=== PATIENT | male | born 1955 | race Hispanic/Latino ===

== ENCOUNTER → 2021-12-02 | Outpatient (CLI) | payer OTHER ==
[~2021-12-02] MED LIST: ASPI-1005 PO; CARB-38 PO; CYAN-35 PO; DOCU100C33 PO; EMPA25TA PO; HYDR-4068 PO; INSU100V12 SQ; ISOS60TA77 PO; LISI20TA24 PO; MEMA10TA55 PO; METF-446 PO; PARO40TA72 PO; REGADENOSON 0.4 MG/5 ML PF SYG IVP SCH
== END | disposition home or self-care (01) ==
LOC: SHCH 08:11
PROVIDERS: ATTEND Student in an Organized Health Care Education/Training Program
DX: R07.9 Chest pain, unspecified (principal)
CPT/HCPCS: 78452; 93017; 96374; A9500 ×2; J2785

== ENCOUNTER → 2022-01-15 | Outpatient (CLI) | payer OTHER ==
[~2022-01-15] MED LIST changes: +IOHEXOL 350 MG/ML 100ML INFUS..BTL IV ONE; +METOPROLOL TARTRATE 1 MG/ML 5ML VIAL IV ONE; -REGADENOSON 0.4 MG/5 ML PF SYG IVP SCH
== END | disposition home or self-care (01) ==
LOC: RAH 07:24
PROVIDERS: ATTEND Student in an Organized Health Care Education/Training Program
DX: I73.9 Peripheral vascular disease, unspecified (principal)
CPT/HCPCS: 75574; Q9967; J3490

== ENCOUNTER 2022-02-10 05:52 | Day surgery (SDC) | payer OTHER ==
[2022-02-06 14:00] VITALS: BP 115/50
[2022-02-06 15:32] LABS: BASOPHILS % (AUTO) 0.9 % (0.0-5.0); EOSINOPHILS % (AUTO) 3.5 % (0.0-8.0); HEMATOCRIT 41.1 % (42-54); LYMPHOCYTES % (AUTO) 23.4 % (21.0-51.0); MEAN CORPUSCULAR HEMOGLOBIN 28.7 pg (27.0-33.0); MEAN CORPUSCULAR HGB CONC 32.4 g/dL (32.0-36.0); MEAN CORPUSCULAR VOLUME 88.8 fL (79-99); MONOCYTES % (AUTO) 8.8 % (3.0-13.0); NEUTROPHILS % (AUTO) 63.2 % (40.0-77.0); PLATELET COUNT (AUTO) 295 K/uL (130-400); RED BLOOD CELL COUNT(AUTO) 4.63 MIL/uL (4.50-6.20); RED CELL DISTRIBUTION WIDTH 13.8 % (11.0-15.5); WHITE BLOOD COUNT (AUTO) 8.6 K/uL (4.8-10.8)
[2022-02-06 15:35] LABS: APPEARANCE,URINE CLEAR (CLEAR); BILIRUBIN,URINE SMALL (NEGATIVE); COLOR,URINE YELLOW (YELLOW); GLUCOSE, URINE (UA) 500 mg/dL (NEGATIVE); KETONES,URINE 5 mg/dL (NEGATIVE); LEUKOCYTE ESTERASE ,URINE NEGATIVE (NEGATIVE); NITRATE,URINE NEGATIVE (NEGATIVE); OCCULT BLOOD,URINE NEGATIVE (NEGATIVE); PROTEIN,URINE 100 mg/dL (NEGATIVE); UROBILINOGEN,URINE 0.2 mg/dL (0.2-1.0)
[2022-02-06 15:39] LABS: CREATININE 1.9 mg/dL (0.5-1.5)
[2022-02-06 15:41] LABS: INR 0.98 (0.85-1.15); PROTHROMBIN TIME 10.7 SEC (9.6-11.6)
[2022-02-06 15:43] LABS: PARTIAL THROMBOPLASTIN TIME 27.6 SEC (26.3-35.5)
[2022-02-06 15:45] LABS: POTASSIUM 6.6 mmol/L (3.5-5.1)
[2022-02-06 16:12] LABS: FINE GRANULAR CASTS,URINE 0-2 /LPF (None Seen)
[2022-02-06 16:14] LABS: MUCUS,URINE Few LPF (None Seen)
[2022-02-06 16:15] LABS: BACTERIA,URINE Few /HPF (None Seen)
[2022-02-10] VITALS (12 sets, daily range): BP systolic 121–153; BP diastolic 52–88
[~2022-02-10] VITALS: Ht 170.2 cm; Wt 74.4 kg
[~2022-02-10 05:52] MED LIST changes: -IOHEXOL 350 MG/ML 100ML INFUS..BTL IV ONE; -METOPROLOL TARTRATE 1 MG/ML 5ML VIAL IV ONE
[2022-02-10] MEDS ORDERED: 0.9%NACL 1000ML 1,000 ML IV ONE (06:12)
[2022-02-10 06:21] LABS: CREATININE 1.2 mg/dL (0.5-1.5); POTASSIUM 5.7 mmol/L (3.5-5.1)
[2022-02-10] MEDS ORDERED: NITROGLYCERIN 50MG VIAL ONE (07:08)
[2022-02-10] MEDS ORDERED: LIDOCAINE HCL 400MG/20ML VIAL ONE (07:08)
[2022-02-10] MEDS ORDERED: IODIXANOL 320 MG/ML 100 ML VIAL ONE (07:08)
[2022-02-10] MEDS ORDERED: HEPARIN 10,000 UNIT/10ML (1,000 UNIT/ML) VIAL ONE (07:08)
[2022-02-10] MEDS ORDERED: METO100T14 PO (07:17)
[2022-02-10] MEDS ORDERED: ESCI20TA38 PO ×2 (07:17)
[2022-02-10] MEDS ORDERED: TAMS-1 PO (07:17)
[2022-02-10] MEDS ORDERED: FURO20TA4 PO (07:17)
[2022-02-10] MEDS ORDERED: HYDR-4154 PO (07:17)
[2022-02-10] MEDS ORDERED: CLOP75TA32 PO ×2 (07:17→09:57)
[2022-02-10] MEDS ORDERED: POTA10CA44 PO (07:17)
[2022-02-10] MEDS ORDERED: NITR0.4T50 SL (07:17)
[2022-02-10] MEDS ORDERED: ATOR-2 PO (07:17)
[2022-02-10] MEDS ORDERED: AMLO2.5T4 PO (07:17)
[2022-02-10] MEDS ORDERED: FENTANYL CITRATE PF 50 MCG/1 ML 2ML VIAL ONE (07:39)
[2022-02-10] MEDS ORDERED: MIDAZOLAM HCL 1 MG/ML 2ML VIAL ONE ×2 (07:39→08:34)
[2022-02-10] MEDS ORDERED: HYDRALAZINE 20MG/ML VIAL ONE (07:45)
[2022-02-10] MEDS ORDERED: ASPIRIN 325MG EC TAB PO ONE (09:08)
[2022-02-10] MEDS ORDERED: CLOPIDOGREL 300MG TAB ONE (09:09)
[2022-02-10] MEDS ORDERED: ASPI-1005 PO (09:57)
[2022-02-10] MEDS ORDERED: 0.9%NACL 1000ML 1,000 ML IV SCH (10:00)
[2022-02-11] MEDS ORDERED: ASPIRIN 81MG CHEW TAB PO SCH (09:00)
[2022-02-11] MEDS ORDERED: CLOPIDOGREL 75MG TAB PO SCH (09:00)
== END 2022-02-10 15:50 | disposition home or self-care (01) ==
LOC: DAH 05:52
PROVIDERS: ATTEND Student in an Organized Health Care Education/Training Program
DX: I70.248 Atherosclerosis of native arteries of left leg with ulceration of other part of lower leg (principal); I70.92 Chronic total occlusion of artery of the extremities; E11.51 Type 2 diabetes mellitus with diabetic peripheral angiopathy without gangrene; I10 Essential (primary) hypertension; E78.5 Hyperlipidemia, unspecified; I25.10 Atherosclerotic heart disease of native coronary artery without angina pectoris; Z87.891 Personal history of nicotine dependence; Z95.5 Presence of coronary angioplasty implant and graft; Z79.82 Long term (current) use of aspirin; Z82.49 Family history of ischemic heart disease and other diseases of the circulatory system; Z79.01 Long term (current) use of anticoagulants
CPT/HCPCS: 80048 ×2; 85025; 85610; 85730; 81001; 36415 ×2; 71045; 93005; 37228; 75716; 37224; 37232; 85347; 82948 ×2; C1894 ×2; C1760; C1893; C2623; C1725 ×2; C1769 ×2; J3010; J3490; J7030; J0360; J1644 ×2; J2250 ×2; Q9967; A4215; A4222; A4221; A4663; A4216; A4606; A4223 ×3; 75710; 96360; 96361; 99156; 99157

== ENCOUNTER → 2024-05-02 | Outpatient (CLI) | payer OTHER ==
[~2024-05-02] MED LIST changes: +AEC81 PO; -ASPI-1005 PO; +ATOR-2 PO; -CARB-38 PO; +CLOP75TA32 PO; +ESCI20TA38 PO; +FURO20TA4 PO; -HYDR-4068 PO; +HYDR50TA37 PO; +INSU100I22 SQ; -INSU100V12 SQ; +ISOS30TA92 PO; -ISOS60TA77 PO; -LISI20TA24 PO; +LISI40TA9 PO; +MEMA10TA21 PO; -MEMA10TA55 PO; +METO100T14 PO; +NITR0.4T50 SL; -PARO40TA72 PO; +TAMS-1 PO; +mvi PO
== END | disposition home or self-care (01) ==
LOC: RAH 15:17
PROVIDERS: ATTEND Student in an Organized Health Care Education/Training Program
DX: S09.90XA Unspecified injury of head, initial encounter (principal); X58.XXXA Exposure to other specified factors, initial encounter; Y93.89 Activity, other specified; Y92.89 Other specified places as the place of occurrence of the external cause; Y99.8 Other external cause status
CPT/HCPCS: 70450

== ENCOUNTER 2024-06-07 10:49 | Observation (INO) | payer OTHER ==
[~2024-06-07] VITALS: Ht 170.2 cm; Wt 61.6 kg
--- NOTE | 2024-06-07 11:01 | ERN ---
General Chief Complaint: Chest Pain Stated Complaint: CHEST PAIN, SENT BY DR MURPHY Time Seen by MD: 10:53 Time Seen by Midlevel: 10:53 Source: patient History of Present Illness Initial Comments 69-year-old male who presents to the ED due to chest pain onset today. Patient referred to the ED by PCP Dr. Wing from the OR office. Power Line Installer And Repairer is Dr. Marina stuart. Denies any fever, shortness of breath, radiating pain or further associated symptoms. PMHx CABG 20 years ago, HTN, DM Allergies: Coded Allergies: iodine (Unverified Allergy, Unknown, 09/03/22) Home Meds Active Scripts Clopidogrel Bisulfate (Clopidogrel) 75 Mg Tablet, 75 MG PO HS, #90 TAB Prov:PEARL KNOTT MD 02/10/22 Reported Medications Aspirin (ASPIRIN 81 MG ECTAB) 81 Mg Ectab, 81 MG PO HS, TAB.EC 09/05/22 Hydralazine HCl (Hydralazine HCl) 50 Mg Tablet, 50 MG PO BID, TAB 09/05/22 Empagliflozin (Jardiance) 25 Mg Tablet, 12.5 MG PO AM, TAB 09/03/22 Insulin Detemir (Levemir Flextouch) 100 Unit/1 Ml Insuln.pen, 25 UNIT SQ AM, SYRINGE 09/03/22 Insulin Detemir (Levemir Flextouch) 100 Unit/1 Ml Insuln.pen, 10 UNIT SQ HS, S YRINGE 09/03/22 [mvi] No Conflict Check, 1 TAB PO DAILY 09/03/22 Escitalopram Oxalate (Escitalopram Oxalate) 20 Mg Tablet, 20 MG PO AM, TAB 09/03/22 Isosorbide Mononitrate (Isosorbide Mononitrate ER) 30 Mg Tab.er.24h, 30 MG PO AM, TAB 09/03/22 Lisinopril (Lisinopril) 40 Mg Tablet, 20 MG PO HS, TAB 09/03/22 Atorvastatin Calcium (Atorvastatin Calcium) 80 Mg Tablet, 40 MG PO HS, TAB 09/03/22 Nitroglycerin (Nitroglycerin) 0.4 Mg Tab.subl, 0.4 MG SL AD PRN for CHEST PAIN, TAB.SL 02/10/22 Metoprolol Tartrate (Metoprolol Tartrate) 100 Mg Tablet, 50 MG PO BID, TAB METOPROLOL TARTRATE 50MG TWICE A DAY. METOPROLOL HAS BEEN DECREASED FROM 100MG TO 50MG. 02/10/22 Tamsulosin HCl (Flomax) 0.4 Mg Cap.er.24h, 0.4 MG PO HS, CAPSULE.DR 02/10/22 Furosemide (Furosemide) 20 Mg Tablet, 20 MG PO AM, TAB 02/10/22 Docusate Sodium (Docusate Sodium) 100 Mg Capsule, 100 MG PO HS, CAP 11/07/20 Cyanocobalamin (Vitamin B-12) (Vitamin B-12) 1,000 Mcg Capsule, 1000 MCG PO DAILY, CAP 11/07/20 Metformin HCl (Metformin HCl) 1,000 Mg Tablet, 1000 MG PO BIDMEALS, TAB 11/07/20 Memantine HCl (Memantine HCl) 10 Mg Tablet, 10 MG PO HS, TAB 11/07/20 Past Medical History Past Medical History: Diabetes-Type II, Hypertension ROS Dictation Constitutional: Negative for fever,chills, and weight loss Eyes: Negative for injury, pain,redness, and discharge ENT: Negative for injury,pain or swelling Cardiovascular: Positive for chest pain Negative for palpitations, and edema Respiratory: Negative for shortness of breath, cough, and wheezing Abdomen/GI: Negative for abdominal pain, nausea, vomiting, diarrhea, and constipation Back: Negative for injury and pain : Negative for painful urination, bleeding or discharge MS/Extremity: Negative for injury and deformity Skin: Negative for rash, and discoloration Neuro: Negative for headache, weakness, numbness, tingling, and seizure Psych: Negative for suicide ideation, homicidal ideation, and hallucinations Physical Exam Physical Exam Dictation General: awake, alert, no acute distress Head/Face: Normocephalic, atraumatic Eyes: normal conjunctiva ENT: oral cavity clear, oral mucosa moist Neck: Normal range of motion, supple Cardiovascular: RRR, normal S1/S2 Respiratory: CTAB, no respiratory distress, no rales or wheezes Chest: Pain reproducible on palpation Abdomen: Soft, non-tender, non-distended, no guarding or rebound. Skin: Warm, dry, normal turgor, no rash MS/Extremity: Pulses equal, no cyanosis, neurovascular intact, FROM Neuro: COAx4, GCS 15, no neurological deficits, normal gait Psych: Normal behavior, mood, and affect normal Results Laboratory and Microbiology Lab and Micro Result Laboratory Tests Test 06/07/24 11:18 White Blood Count 8.6 K/uL (4.8-10.8) Red Blood Count 4.72 MIL/uL (4.50-6.20) Hemoglobin 14.0 g/dL (14.0-18.0) Hematocrit 42.3 % (42-54) Mean Corpuscular Volume 89.6 fL (79-99) Mean Corpuscular Hemoglobin 29.7 pg (27.0-33.0) Mean Corpuscular Hemoglobin Concent 33.1 g/dL (32.0-36.0) Red Cell Distribution Width 13.2 % (11.0-15.5) Platelet Count 292 K/uL (130-400) Mean Platelet Volume 10.0 fL (7.5-10.5) Immature Granulocyte % (Auto) 0.2 % (0-1) Neutrophils (%) (Auto) 71.3 % (40.0-77.0) Lymphocytes (%) (Auto) 16.7 % (21.0-51.0) L Monocytes (%) (Auto) 9.0 % (3.0-13.0) Eosinophils (%) (Auto) 2.2 % (0.0-8.0) Basophils (%) (Auto) 0.6 % (0.0-5.0) Neutrophils # (Auto) 6.1 K/uL (1.8-7.7) Lymphocytes # (Auto) 1.4 K/uL (1.0-4.8) Monocytes # (Auto) 0.8 K/uL (0.1-1.0) Eosinophils # (Auto) 0.19 K/uL (0.00-0.70) Basophils # (Auto) 0.05 K/uL (0.00-0.20) Absolute Immature Granulocyte (auto 0.02 K/uL (0-1) Nucleated Red Blood Cells 0.0 % (0.0-0.19) Sodium Level 134 mmol/L (136-145) L Potassium Level 4.2 mmol/L (3.5-5.1) Chloride Level 100 mmol/L (101-111) L Carbon Dioxide Level 27 mmol/L (21-32) Blood Urea Nitrogen 35 mg/dL (7-18) H Creatinine 1.4 mg/dL (0.5-1.3) H Glomerular Filtration Rate Calc 54 mL/min (>90) Random Glucose 168 mg/dL (70-105) H Total Calcium 8.9 mg/dL (8.5-10.1) Total Creatine Kinase 199 U/L (21-232) Troponin I High Sensitivity 5 ng/L (4-75) Labs Reviewed?: Yes EKG/XRAY/US/CT/MRI EKG Comment Date: 06/07/24 Time: 11:01 Rate: 72 EKG interpretation: Sinus rhythm, left axis deviation, no STEMI Reviewed by ED Attending X-RAY Comment REASON: Chest Pain ORDERING PHYSICIAN: PATRICIA SALVADOR PROCEDURE: CXR1VW - CHEST 1VW CHEST 1VW HISTORY: Chest pain COMPARISON: 09/03/2022 FINDINGS: A frontal projection of the chest was obtained. No acute pulmonary infiltrates is seen. Poststernotomy changes are seen. The heart is enlarged. Degenerative changes of the thoracolumbar spine are present. No evidence of aortic calcification is seen. IMPRESSION: 1. No acute pulmonary infiltrate is seen. MDM MDM: Differential diagnosis: ME, atypical chest pain, musculoskeletal chest pain Rationale: 69-year-old male who presents to the ED due to chest pain onset today. Patient [facility] Power Line Installer And Repairer is Dr. Fermin. Denies any fever, shortness of breath, radiating pain or further associated symptoms. PMHx CABG 20 years ago, HTN, DM. Labs ob tained indicate elevated BUN and creatinine consistent with chronic kidney disease, troponin negative. Chest x-ray indicates cardiomegaly otherwise unremarkable. Heart score of 4 Based on patient's heart score and history decision for admission. The patient was educated on findings and diagnosis. The patient agreed with admission. Case discussed with hospitalist who accepted admission. Previous outside records reviewed: Old ER visits. Risk of complication and/or morbidity or mortality of patient management: None Medications-Per medication reconciliation Need for hospitalization: Patient does meet criteria for hospitalization. Need for emergency major/minor surgery: No There are no social concerns with this patient. Prescription drug management Prescriptions will include symptomatic care Patient's prior external medical records from other ER visits were reviewed by me as indicated. Prior testing and results from previous visits were reviewed. Prior tests were taken into account with medical decision making and resource utilization, independent historian/historians were used to obtain complete medical history. I independently interpreted the test that were performed, results were reviewed by me and considered findings on radiology if ordered. Medical management and examination interpretation discussions were had by me with other qualified healthcare professionals as indicated for the patient's care. ED Course Orders Procedure Category Date Status Time Cbc With Differential LAB 06/07/24 Complete 10:53 Basic Metabolic Panel LAB 06/07/24 Complete 10:53 Troponin I High LAB 06/07/24 Complete Sensitivity 10:53 12 Lead Ekg Tracing- EKG 06/07/24 Complete Technical 10:53 Chest 1vw RAD 06/07/24 Resulted 10:53 Creatine Kinase, Total LAB 06/07/24 Complete 11:03 Vital Signs Date Time Temp Pulse Resp B/P (MAP) Pulse Ox O2 Delivery O2 Flow Rate FiO2 06/07/24 10:57 98.1 76 16 126/65 0 Room Air 0 HEART Score Response (Comments) Value History: Low suspicion (0) 0 EKG: Normal 0 Age: > 65yrs (+2) 2 Risk Factors: 3+ risk factors (+2) 2 Initial Troponin: Normal limit (0) 0 Total 4 Critical Care Note Critical Time: 30 minutes Comments Critical Care Procedure Note Authorized and Performed by: me Total critical care time: Approximately 36 minutes Due to a high probability of clinically significant, life threatening deterioration, the patient required my highest level of preparedness to intervene emergently and I personally spent this critical care time directly and personally managing the patient. This critical care time included obtaining a history; examining the patient; pulse oximetry; ordering and review of studies; arranging urgent treatment with development of a management plan; evaluation of patient's response to treatment; frequent reassessment; and, discussions with other providers. This critical care time was performed to assess and manage the high probability of imminent, life-threatening deterioration that could result in multi-organ failure. It was exclusive of separately billable procedures and treating other patients and teaching time. Please see MDM section and the rest of the note for further information on patient assessment and treatment. DX & DISP Disposition: Inpatient Decision to Admit Date: Jun 07, 2024 Departure Impression: Primary Impression: Chest pain Additional Impression: CKD (chronic kidney disease) Condition: Stable Referrals: TANJA DAN MD (PCP) I participated in the following activities of this patient's care: For this patient encounter, I reviewed the PA or CLEANER FURNITURE documentation, treatment plan, and medical decision making. I did not have [id number] time with this patient. I will sign as the reviewing DrIsaac And agree with the treatment plan and dispositi on. PATRICIA SALVADOR Jun 07, 2024 11:01
--- NOTE | 2024-06-07 11:09 | EKG ---
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
[2024-06-07 11:38] LABS: BASOPHILS # (AUTO) 0.05 K/uL (0.00-0.20); BASOPHILS % (AUTO) 0.6 % (0.0-5.0); EOSINOPHILS # (AUTO) 0.19 K/uL (0.00-0.70); EOSINOPHILS % (AUTO) 2.2 % (0.0-8.0); HEMATOCRIT 42.3 % (42-54); IMMATURE GRANULOCYTE ABSOLUTE 0.02 K/uL (0-1); LYMPHOCYTES # (AUTO) 1.4 K/uL (1.0-4.8); LYMPHOCYTES % (AUTO) 16.7 % (21.0-51.0); MEAN CORPUSCULAR HEMOGLOBIN 29.7 pg (27.0-33.0); MEAN CORPUSCULAR HGB CONC 33.1 g/dL (32.0-36.0); MEAN CORPUSCULAR VOLUME 89.6 fL (79-99); MONOCYTES # (AUTO) 0.8 K/uL (0.1-1.0); NEUTROPHILS # (AUTO) 6.1 K/uL (1.8-7.7); NEUTROPHILS % (AUTO) 71.3 % (40.0-77.0); PLATELET COUNT (AUTO) 292 K/uL (130-400); RED BLOOD CELL COUNT(AUTO) 4.72 MIL/uL (4.50-6.20); RED CELL DISTRIBUTION WIDTH 13.2 % (11.0-15.5); WHITE BLOOD COUNT (AUTO) 8.6 K/uL (4.8-10.8)
[2024-06-07 11:45] LABS: CREATININE 1.4 mg/dL (0.5-1.3); POTASSIUM 4.2 mmol/L (3.5-5.1)
--- NOTE | 2024-06-07 12:03 | HMCIMG ---
CHEST 1VW HISTORY: Chest pain COMPARISON: 09/03/2022 FINDINGS: A frontal projection of the chest was obtained. No acute pulmonary infiltrates is seen. Poststernotomy changes are seen. The heart is enlarged. Degenerative changes of the thoracolumbar spine are present. No evidence of aortic calcification is seen. IMPRESSION: 1. No acute pulmonary infiltrate is seen.
[2024-06-07] MEDS: ketOROlac 15MG/ML VIAL (15MG/ML) IV ONE (14:30)
[2024-06-07] MEDS ORDERED: NITROGLYCERIN 0.4 MG SL TAB SL PRN (15:00)
[2024-06-07] MEDS ORDERED: acetaMINOPHEN 325 MG TAB PO PRN ×2 (15:00)
[2024-06-07] MEDS ORDERED: ondanSETRON 4MG INJ IVP PRN (15:00)
--- NOTE | 2024-06-07 15:04 | HP ---
[facility] Date of Service: Jun 07, 2024 Time of Service: 14:38 HISTORY OF PRESENT ILLNESS: [69-year-old male with past medical history of coronary artery disease with CABG 20 years ago, hypertension, diabetes mellitus who presented to the emergency department with three day complaints of chest pain. According to the patient chest pain continues, he did not take any medication for pain. Pain is located in the left substernal area associated with shortness of breaths. Patient described pain as a stabbing pain rating at a 8/10 from the pain scale. In the ED, labs reviewed, troponin I unremarkable, sodium 134, chloride 100, BUN 35, creatinine 1.4, random glucose 168, chest x-ray no acute pulmonary infiltrate seen. Twelve lead EKG showed sinus rhythm heart rate 72. Patient was referred to the hospitalist for cardiac workup.] REVIEW OF SYSTEMS CONSTITUTIONAL: Denies fevers, chills, or night sweats. No unintentional weight loss reported. NEUROLOGICAL: Denies headache, amaurosis fugax, motor weakness, sensory deficit, vertigo/spinning sensation, gait abnormalities, or tremors. ENT: No hearing loss, otalgia, otorrhea, rhinitis, rhinorrhea, hoarseness, or sore throat. CARDIOVASCULAR: Denies any exertional angina, dyspnea on exertion, orthopnea, paroxysmal nocturnal dyspnea, palpitations, life-threatening arrhythmias, claudication. PULMONARY: Denies any shortness of breath, cough, phlegm/sputum, hemoptysis, pleuritic chest pain. SLEEP: Denies morning headaches, daytime somnolence or napping. Denies difficulty falling asleep, staying asleep, waking from sleep. Denies knowledge of snoring. GASTROINTESTINAL: Denies any type of dysphagia to either liquids or solids. Denies nausea, vomiting, pyrosis, early satiety, abdominal pain, diarrhea, constipation, or changes in stool consistency or caliber. Denies coffee-ground emesis, hematemesis, hematochezia, or melanotic stools. GENITOURINARY: Denies frequency, urgency, nocturia, hematuria or incontinence (Storage/Irritative symptoms.) Low urinary stream, straining to void, urinary intermittency or hesitancy, splitting of the voiding stream, terminal dribbling. ENDOCRINOLOGIC: Denies polyuria, polydipsia, polyphagia or heat/cold intolerances. HEMATOLOGIC: Denies thrombophilia/previous clots, or coagulopathy/bleeding disorders. ONCOLOGIC: Denies personal history of malignancy. DERMATOLOGIC: Denies rashes or pruritus. PSYCHIATRIC: Denies any suicidal or homicidal ideation. Denies hallucinations. PAST MEDICAL HISTORY: [CAD, diabetes mellitus, hypertension ] PAST SURGICAL HISTORY: [ Right BKA, neck surgery ] PAST SOCIAL HISTORY: [Denies tobacco, alcohol or illicit drug use ] FAMILY HISTORY: [Hypertension diabetes mellitus ] Coded Allergies: iodine (Unverified Allergy, Unknown, 09/03/22) PHYSICAL EXAM GENERAL APPEARANCE: The patient is awake, alert, and oriented, in no acute cardiopulmonary distress. NEUROLOGICAL: Cranial nerves II-XII grossly intact. Motor is 5/5 in bilateral upper and lower extremities proximal to distal. No sensory deficits. HEENT: Face is symmetric. Pupils are equal and reactive. Extraocular movements are intact. NECK: Supple. No JVD. No thyromegaly. No submental, submandibular, pre- /postauricular, occipital or supraclavicular lymphadenopathy. CHEST: Normal chest expansion. No Telemetry. LUNGS: Absence of any rales, rhonchi or any wheezing. CARDIOVASCULAR: Regular. S1 and S2 normal. No appreciable rubs, murmurs or gallops. ABDOMEN: Soft, nontender, and nondistended. There is no rebound, voluntary guarding, or rigidity. : Deferred. No Dill. EXTREMITIES: Non-edematous and not cyanotic. No clubbing. Good capillary refill. SKIN: No skin breakdown. Vital Sign (Last 24 Hours) 06/07/24 06/07/24 10:57 14:30 Temp 98.1 Pulse 65 Resp 18 B/P (MAP) 126/65 Pulse Ox 98 O2 Delivery Room Air* O2 Flow Rate 0 FiO2 21 LABS: Laboratory: Test 06/07/24 11:18 Range/Units White Blood Count 8.6 4.8-10.8 K/uL Red Blood Count 4.72 4.50-6.20 MIL/uL Hemoglobin 14.0 14.0-18.0 g/dL Hematocrit 42.3 42-54 % Mean Corpuscular Volume 89.6 79-99 fL Mean Corpuscular Hemoglobin 29.7 27.0-33.0 pg Mean Corpuscular Hemoglobin Concent 33.1 32.0-36.0 g/dL Red Cell Distribution Width 13.2 11.0-15.5 % Platelet Count 292 130-400 K/uL Mean Platelet Volume 10.0 7.5-10.5 fL Immature Granulocyte % (Auto) 0.2 0-1 % Neutrophils (%) (Auto) 71.3 40.0-77.0 % Lymphocytes (%) (Auto) 16.7 L 21.0-51.0 % Monocytes (%) (Auto) 9.0 3.0-13.0 % Eosinophils (%) (Auto) 2.2 0.0-8.0 % Basophils (%) (Auto) 0.6 0.0-5.0 % Neutrophils # (Auto) 6.1 1.8-7.7 K/uL Lymphocytes # (Auto) 1.4 1.0-4.8 K/uL Monocytes # (Auto) 0.8 0.1-1.0 K/uL Eosinophils # (Auto) 0.19 0.00-0.70 K/uL Basophils # (Auto) 0.05 0.00-0.20 K/uL Absolute Immature Granulocyte (auto 0.02 0-1 K/uL Nucleated Red Blood Cells 0.0 0.0-0.19 % Sodium Level 134 L 136-145 mmol/L Potassium Level 4.2 3.5-5.1 mmol/L Chloride Level 100 L 101-111 mmol/L Carbon Dioxide Level 27 21-32 mmol/L Blood Urea Nitrogen 35 H 7-18 mg/dL Creatinine 1.4 H 0.5-1.3 mg/dL Glomerular Filtration Rate Calc 54 >90 mL/min Random Glucose 168 H 70-105 mg/dL Total Calcium 8.9 8.5-10.1 mg/dL Total Creatine Kinase 199 21-232 U/L Troponin I High Sensitivity 5 4-75 ng/L DIAGNOSTICS / RADIOLOGY: [ [place] [id number] [address] IMAGING REPORT Signed PATIENT: RAMSES RAY MR#: [id number] : 1955 SEX: M AGE: 69 LOCATION: [facility] ORDER [id number] STATUS: REG REPORT#: [id number] SERVICE 1053 REASON: Chest Pain ORDERING PHYSICIAN: PATRICIA SALVADOR PROCEDURE: CXR1VW - CHEST 1VW CHEST 1VW HISTORY: Chest pain COMPARISON: 09/03/2022 FINDINGS: A frontal projection of the chest was obtained. No acute pulmonary infiltrates is seen. Poststernotomy changes are seen. The heart is enlarged. Degenerative changes of the thoracolumbar spine are present. No evidence of aortic calcification is seen. IMPRESSION: 1. No acute pulmonary infiltrate is seen. DICTATED BY: BRUCE MCFADDEN MD DATE: 06/07/24 1200 ELECTRONICALLY SIGNED BY: BRUCE MCFADDEN MD DATE: 06/07/24 1203 ] ASSESSMENT: [Chest pain rule out ACS, POA Hypertensive urgency, POA Hyponatremia, POA Acute kidney injury, POA Dehydration, POA Hyperglycemia with diabetes mellitus, POA History of hypertension History of diabetes mellitus type 2 ] PLAN: [Admit to medical telemetry We will start ACS protocol: ASA, statin, beta-myrna We will order 2D echo,12 lead EKG, we will trend troponins We will monitor kidney functions, renally dose medication and avoid nephrotoxic We will hydralazine5 mg IV q.6 hours for systolic BP greater than 160 mm per mercury We will start gentle fluid IV hydration with NS at 50 mL/hour We will start ACHS glucometer and ISS GI and DVT prophylaxis ] Labs in a.m. Discussed plan with attending physician above plan was formulated ADVANCED CARE PLANNING 1. Which of the following were discussed? Hospice Care - Yes / No Therapeutic options - Yes / No Advance Directives - Yes / No Other discussions - 2. Discussed with who? patient 3. Voluntary nature of this service was explained to the patient? Yes / No 4. Amount of time spent - __21 mins 5. Reviewed by Physician? (if this service was performed by NPP) Yes / No ATTESTATION BY PHYSICIAN I have seen and examined the patient. I reviewed the documentation, medical decision making, and treatment plan as noted by the mid-level provider above. I agree with the findings and plan of care. SOL PERERA MD, JANICE B AGPCNP Jun 07, 2024 15:04
--- NOTE | 2024-06-07 15:36 | EKG ---
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
--- NOTE | 2024-06-07 15:54 | HMCIMG ---
CHEST 1VW HISTORY: Chest pain COMPARISON: 06/07/2024 FINDINGS: A frontal projection of the chest was obtained. No acute pulmonary infiltrates is seen. The heart is normal in size. Prominent interstitial markings are seen. Degenerative changes are seen. No evidence of aortic calcification is seen. IMPRESSION: 1. No acute pulmonary infiltrate is seen.
[2024-06-07] MEDS: 0.9%NACL 1000ML 1,000 ML IV SCH (16:18)
[2024-06-07] MEDS: NITROGLYCERIN PATCH 0.2 MG/HR TD SCH (16:19)
[2024-06-07] MEDS ORDERED: hydrALAZine 20MG/ML VIAL IV PRN (19:00)
[2024-06-07 20:00] VITALS: BP 149/68; PULSE 76; RESP 18; TEMP 97.8
[2024-06-07] MEDS: atorVAStatin 20 MG TABLET PO SCH (21:21)
[2024-06-07] MEDS: FAMOTIDINE 20MG TAB PO SCH (21:21)
[2024-06-07] MEDS: metoPROLOL tartRATE 25 MG TAB PO SCH (21:22)
--- NOTE | 2024-06-07 23:05 | NUR ---
REPORT CALLED TO SCARLETT. PT TRANSFERRED TO ROOM 425
[2024-06-07 23:25] VITALS: BP 161/70; PULSE 66; RESP 19; TEMP 97.6; O2SAT 98
[2024-06-08 04:11] VITALS: BP 140/71; PULSE 65; RESP 19; TEMP 97.8
[2024-06-08 04:48] LABS: HEMATOCRIT 41.8 % (42-54); MEAN CORPUSCULAR HEMOGLOBIN 30.2 pg (27.0-33.0); MEAN CORPUSCULAR VOLUME 91.5 fL (79-99); RED BLOOD CELL COUNT(AUTO) 4.57 MIL/uL (4.50-6.20); RED CELL DISTRIBUTION WIDTH 13.4 % (11.0-15.5); WHITE BLOOD COUNT (AUTO) 7.2 K/uL (4.8-10.8)
[2024-06-08 05:06] LABS: BILIRUBIN,TOTAL 0.3 mg/dL (0.2-1.0); CREATININE 1.1 mg/dL (0.5-1.3); POTASSIUM 4.1 mmol/L (3.5-5.1); TOTAL PROTEIN, SERUM 6.4 g/dL (6.0-8.3)
[2024-06-08 08:00] VITALS: O2SAT 98
[2024-06-08 08:26] VITALS: BP 149/70; PULSE 67; RESP 18; TEMP 97.9
[2024-06-08] MEDS: ASPIRIN 81 MG EC TAB PO SCH (10:48)
[2024-06-08] MEDS: ENOXAPARIN SODIUM 30 MG/0.3 ML SQ SCH (10:49)
[2024-06-08 12:00] VITALS: BP 153/73; PULSE 69; RESP 18; TEMP 97.8
--- NOTE | 2024-06-08 12:36 | DS ---
Discharge Summary Hospital Course Summary: 69-year-old male with past medical history of coronary artery disease with CABG 20 years ago, hypertension, diabetes mellitus who presented to the emergency department with three day complaints of chest pain. According to the patient chest pain continues, he did not take any medication for pain. Pain is located in the left substernal area associated with shortness of breaths. Patient described pain as a stabbing pain rating at a 8/10 from the pain scale. In the ED, labs reviewed, troponin I unremarkable, sodium 134, chloride 100, BUN 35, creatinine 1.4, random glucose 168, chest x-ray no acute pulmonary infiltrate seen. Twelve lead EKG showed sinus rhythm heart rate 72. Patient was referred to the hospitalist for cardiac workup. While admitted to the hospital, troponin x3 were trended which came back all negative. [id number] lead EKG was also unremarkable. During rounds this morning, patient admitted that he had a drinking binge and even smoke a cigarette a week before the chest pain started. He apologized for not telling me the truth as the chest pain was of been related to the smoking and drinking. At this time, patient denies any pain, he did mention that he has not been taking his medication and would like to start taking all his medications. Patient is hemodynamically stable, we are pending for the 2D echo to be done and once it is done, patient can be discharged home as he continued to be stable and chest pain-free. Creative Project Manager(s): none Assessment/Plan: Discharge diagnoses [Chest pain ruled out ACS, POA - related to hypertensive urgency Hypertensive urgency, POA Hyponatremia, POA Acute kidney injury, POA Dehydration, POA Hyperglycemia with diabetes mellitus, POA History of hypertension History of diabetes mellitus type 2 ] Admitting diagnoses [Chest pain rule out ACS, POA Hypertensive urgency, POA Hyponatremia, POA Acute kidney injury, POA Dehydration, POA Hyperglycemia with diabetes mellitus, POA History of hypertension History of diabetes mellitus type 2 Discharge Instructions: Follow-up with PCP in 2-3 days Follow-up with [facility] in 1-2 weeks Home Medications: Active Scripts Clopidogrel Bisulfate (Clopidogrel) 75 Mg Tablet, 75 MG PO HS, #90 TAB Prov:PEARL KNOTT MD 02/10/22 Reported Medications Aspirin (ASPIRIN 81 MG ECTAB) 81 Mg Ectab, 81 MG PO HS, TAB.EC 09/05/22 Hydralazine HCl (Hydralazine HCl) 50 Mg Tablet, 50 MG PO BID, TAB 09/05/22 Empagliflozin (Jardiance) 25 Mg Tablet, 12.5 MG PO AM, TAB 09/03/22 Insulin Detemir (Levemir Flextouch) 100 Unit/1 Ml Insuln.pen, 25 UNIT SQ AM, SYRINGE 09/03/22 Insulin Detemir (Levemir Flextouch) 100 Unit/1 Ml Insuln.pen, 10 UNIT SQ HS, SYRINGE 09/03/22 [mvi] No Conflict Check, 1 TAB PO DAILY 09/03/22 Escitalopram Oxalate (Escitalopram Oxalate) 20 Mg Tablet, 20 MG PO AM, TAB 09/03/22 Isosorbide Mononitrate (Isosorbide Mononitrate ER) 30 Mg Tab.er.24h, 30 MG PO AM, TAB 09/03/22 Lisinopril (Lisinopril) 40 Mg Tablet, 20 MG PO HS, TAB 09/03/22 Atorvastatin Calcium (Atorvastatin Calcium) 80 Mg Tablet, 40 MG PO HS, TAB 09/03/22 Nitroglycerin (Nitroglycerin) 0.4 Mg Tab.subl, 0.4 MG SL AD PRN for CHEST PAIN, TAB.SL 02/10/22 Metoprolol Tartrate (Metoprolol Tartrate) 100 Mg Tablet, 50 MG PO BID, TAB METOPROLOL TARTRATE 50MG TWICE A DAY. METOPROLOL HAS BEEN DECREASED FROM 100MG TO 50MG. 02/10/22 Tamsulosin HCl (Flomax) 0.4 Mg Cap.er.24h, 0.4 MG PO HS, CAPSULE.DR 02/10/22 Furosemide (Furosemide) 20 Mg Tablet, 20 MG PO AM, TAB 02/10/22 Docusate Sodium (Docusate Sodium) 100 Mg Capsule, 100 MG PO HS, CAP 11/07/20 Cyanocobalamin (Vitamin B-12) (Vitamin B-12) 1,000 Mcg Capsule, 1000 MCG PO DAILY, CAP 11/07/20 Metformin HCl (Metformin HCl) 1,000 Mg Tablet, 1000 MG PO BIDMEALS, TAB 11/07/20 Memantine HCl (Memantine HCl) 10 Mg Tablet, 10 MG PO HS, TAB 11/07/20 Continued Medications: Aspirin (Aspirin 81 Mg Ectab) 81 Mg Ectab 81 MG PO HS, TAB.EC Atorvastatin Calcium (Atorvastatin Calcium) 80 Mg Tablet 40 MG PO HS, TAB Clopidogrel Bisulfate (Clopidogrel) 75 Mg Tablet 75 MG PO HS, #90 TAB Cyanocobalamin (Vitamin B-12) (Vitamin B-12) 1,000 Mcg Capsule 1000 MCG PO DAILY, CAP Docusate Sodium (Docusate Sodium) 100 Mg Capsule 100 MG PO HS, CAP Empagliflozin (Jardiance) 25 Mg Tablet 12.5 MG PO AM, TAB Escitalopram Oxalate (Escitalopram Oxalate) 20 Mg Tablet 20 MG PO AM, TAB Furosemide (Furosemide) 20 Mg Tablet 20 MG PO AM, TAB Hydralazine HCl (Hydralazine HCl) 50 Mg Tablet 50 MG PO BID, TAB Insulin Detemir (Levemir Flextouch) 100 Unit/1 Ml Insuln.pen 10 UNIT SQ HS, SYRINGE Insulin Detemir (Levemir Flextouch) 100 Unit/1 Ml Insuln.pen 25 UNIT SQ AM, SYRINGE Isosorbide Mononitrate (Isosorbide Mononitrate ER) 30 Mg Tab.er.24h 30 MG PO AM, TAB Lisinopril (Lisinopril) 40 Mg Tablet 20 MG PO HS, TAB Memantine HCl (Memantine HCl) 10 Mg Tablet 10 MG PO HS, TAB Metformin HCl (Metformin HCl) 1,000 Mg Tablet 1000 MG PO BIDMEALS, TAB Metoprolol Tartrate (Metoprolol Tartrate) 100 Mg Tablet 50 MG PO BID, TAB METOPROLOL TARTRATE 50MG TWICE A DAY. METOPROLOL HAS BEEN DECREASED FROM 100MG TO 50MG. [mvi] () 1 TAB PO DAILY Nitroglycerin (Nitroglycerin) 0.4 Mg Tab.subl 0.4 MG SL AD PRN for CHEST PAIN, TAB.SL Tamsulosin HCl (Flomax) 0.4 Mg Cap.er.24h 0.4 MG PO HS, CAPSULE. Time spent arranging discharge: 31-60 minutes ATTESTATION BY PHYSICIAN I have seen and examined the patient. I reviewed the documentation, medical decision making, and treatment plan as noted by the mid-level provider above. I agree with the findings and plan of care. SOL PERERA MD, [facility] Jun 08, 2024 12:36
--- NOTE | 2024-06-08 15:40 | NUR ---
DISCHARGE pt discharged in stable condition. verbalized understanding of all discharge instructions, denies questions, [facility] of his [facility] meds. SL removed with cath intact and pressure dressing applied. taken to main lobby by BRINE PURIFIER Pat via w/c.
--- NOTE | 2024-06-08 17:09 | HMCSR ---
APPROVED REPORT EXAM: Two-dimensional and M-mode echocardiogram with Doppler and color Doppler. INDICATION ICD: r/o stroke 2D Dimensions RVDd4.0 cmLVEF(%)61.4 (>50%)LVED Vol(simp.)82.5 mL IVSd0.9 (0.7-1.1cm)FS(%)33 %LVES Vol(simp.)34.4 mL LVDd4.0 (3.8-5.6cm)LA (2D)3.9 (1.6-4.0cm)LVEF(%, simp.)58 % PWd1.1 (0.7-1.1cm)Ao Root(2D)3.1 (2.0-3.7cm)LA ESV INDEX (4CH)32.60 mL/m2 IVSs1.2 cmLVOT diam2.1 (1.8-2.4cm)LA ESV INDEX (2CH)33.10 mL/m2 LVDs2.7 (2.5-4.0cm)LA ESV INDEX (BP)31.30 mL/m2 PWs1.2 cm M-Mode Dimensions EPSS0.8 cm LA (MM)4.9 (1.6-4.0cm) Ao Root(MM)3.0 (2.0-3.7cm) Aortic Valve AoV VTI0.4 mAo Mean GR4.0 mmHgLVOT VTI0.17 m BETTY (VMAX)1.6 cm2AVA (VTI) 1.6 cm2 Mitral Valve MV E Vmax92.2 cm/sDECEL Fxzj851 ms MV A Ucpd731.4 cm/sP 1/2 T71 ms E/A ratio0.8MVA (PHT)3.1 cm2 TDI E/E' Uwsimd40.0E/E' Roivuao70.8 Medial E' Peak V4.60 cm/sLateral E' Peak V7.20 cm/s Pulmonary Valve PV VTI0.18 mPV Mean GR2 mmHg Left Ventricle The left ventricle is normal size. There is normal left ventricular wall thickness. LVEF is 55-60%. T he left ventricular diastolic function is indeterminate. Right Ventricle The right ventricle is normal size. The right ventricular systolic function is normal. Atria The left atrium size is normal. The right atrium size is normal. Aortic Valve The aortic valve is trileaflet. There is mild nodular thickening of the non coronary cusp. No aortic regurgitation is present. There is no aortic valvular stenosis. Mitral Valve The mitral valve is normal in structure. There is no mitral valve regurgitation noted. There is no mi tral valve stenosis. Tricuspid Valve The tricuspid valve is normal in structure. There is no tricuspid valve regurgitation noted. Pulmonic Valve The pulmonary valve is normal in structure. There is no pulmonic valvular regurgitation. Great Vessels The aortic root is normal in size. The IVC is normal in size and collapses >50% with inspiration. Pericardium There is no pericardial effusion. Other Information Quality : GoodRhythm : NSR Conclusion LVEF is 55-60%. The left ventricular diastolic function is indeterminate. The aortic valve is trileaflet. There is mild nodular thickening of the non coronary cusp.
[2024-06-25] MEDS ORDERED: FAMO20TA8 PO (12:32)
== END 2024-06-08 15:40 | disposition home or self-care (01) ==
LOC: EDH 10:49 → UNDOADMIN 12:21 → INTOOBSV 12:21 → EDHIP 12:21 → 4DH 23:08
PROVIDERS: ADMIT Internal Medicine; ATTEND Internal Medicine
DX: R07.89 Other chest pain (principal); I16.0 Hypertensive urgency; I25.10 Atherosclerotic heart disease of native coronary artery without angina pectoris; I10 Essential (primary) hypertension; N17.9 Acute kidney failure, unspecified; E87.1 Hypo-osmolality and hyponatremia; E86.0 Dehydration; E11.65 Type 2 diabetes mellitus with hyperglycemia; Z95.1 Presence of aortocoronary bypass graft; Z89.511 Acquired absence of right leg below knee; Z87.891 Personal history of nicotine dependence; Z79.899 Other long term (current) drug therapy
CPT/HCPCS: 96374; 96361 ×3; 82550; 84484 ×3; 80048; 85025; 36415 ×2; 71045 ×2; 99291; 93005 ×2; 96372; 80053; 85027; 93306; G0378 ×25; J1885; J1650

== ENCOUNTER → 2024-07-27 | Outpatient (CLI) | payer OTHER ==
[~2024-07-27] MED LIST changes: +FAMO20TA8 PO; +LIDOCAINE HCL 4% LTA SOL 4 ML VIAL TP ONE
== END | disposition home or self-care (01) ==
LOC: WHH 08:09
PROVIDERS: ATTEND Podiatrist Foot & Ankle Surgery
DX: T87.89 Other complications of amputation stump (principal); E11.621 Type 2 diabetes mellitus with foot ulcer; L97.525 Non-pressure chronic ulcer of other part of left foot with muscle involvement without evidence of necrosis; L84 Corns and callosities; E11.52 Type 2 diabetes mellitus with diabetic peripheral angiopathy with gangrene; I96 Gangrene, not elsewhere classified; E11.69 Type 2 diabetes mellitus with other specified complication; M86.8X7 Other osteomyelitis, ankle and foot; E11.40 Type 2 diabetes mellitus with diabetic neuropathy, unspecified; E11.319 Type 2 diabetes mellitus with unspecified diabetic retinopathy without macular edema; I10 Essential (primary) hypertension; I25.10 Atherosclerotic heart disease of native coronary artery without angina pectoris; N40.0 Benign prostatic hyperplasia without lower urinary tract symptoms; G20.A1 Parkinson's disease without dyskinesia, without mention of fluctuations; E78.00 Pure hypercholesterolemia, unspecified; E87.1 Hypo-osmolality and hyponatremia; F32.A Depression, unspecified; F41.9 Anxiety disorder, unspecified; Z89.511 Acquired absence of right leg below knee; Z79.02 Long term (current) use of antithrombotics/antiplatelets; Z79.4 Long term (current) use of insulin; Z79.84 Long term (current) use of oral hypoglycemic drugs; Z79.899 Other long term (current) drug therapy; Z95.1 Presence of aortocoronary bypass graft; Z87.891 Personal history of nicotine dependence; Z95.5 Presence of coronary angioplasty implant and graft; Y83.5 Amputation of limb(s) as the cause of abnormal reaction of the patient, or of later complication, without mention of misadventure at the time of the procedure
CPT/HCPCS: 15275; A6209; Q4121; A6196; A4450

== ENCOUNTER → 2024-08-03 | Outpatient (CLI) | payer OTHER | END | disposition home or self-care (01) | LOC: WHH 08:19 | PROVIDERS: ATTEND Podiatrist Foot & Ankle Surgery | DX: T87.89 Other complications of amputation stump (principal); E11.621 Type 2 diabetes mellitus with foot ulcer; L97.525 Non-pressure chronic ulcer of other part of left foot with muscle involvement without evidence of necrosis; L84 Corns and callosities; E11.52 Type 2 diabetes mellitus with diabetic peripheral angiopathy with gangrene; I96 Gangrene, not elsewhere classified; E11.69 Type 2 diabetes mellitus with other specified complication; M86.8X7 Other osteomyelitis, ankle and foot; E11.40 Type 2 diabetes mellitus with diabetic neuropathy, unspecified; E11.319 Type 2 diabetes mellitus with unspecified diabetic retinopathy without macular edema; I10 Essential (primary) hypertension; I25.10 Atherosclerotic heart disease of native coronary artery without angina pectoris; N40.0 Benign prostatic hyperplasia without lower urinary tract symptoms; G20.A1 Parkinson's disease without dyskinesia, without mention of fluctuations; E78.00 Pure hypercholesterolemia, unspecified; E87.1 Hypo-osmolality and hyponatremia; F32.A Depression, unspecified; F41.9 Anxiety disorder, unspecified; Z89.511 Acquired absence of right leg below knee; Z79.02 Long term (current) use of antithrombotics/antiplatelets; Z79.4 Long term (current) use of insulin; Z79.84 Long term (current) use of oral hypoglycemic drugs; Z79.899 Other long term (current) drug therapy; Z95.1 Presence of aortocoronary bypass graft; Z87.891 Personal history of nicotine dependence; Z95.5 Presence of coronary angioplasty implant and graft; Y83.5 Amputation of limb(s) as the cause of abnormal reaction of the patient, or of later complication, without mention of misadventure at the time of the procedure | CPT/HCPCS: 15275; 87086; 87186; 87070; A6209; Q4121; A6197 ==

== ENCOUNTER → 2024-08-10 | Outpatient (CLI) | payer OTHER | END | disposition home or self-care (01) | LOC: WHH 09:35 | PROVIDERS: ATTEND Podiatrist Foot & Ankle Surgery | DX: T87.89 Other complications of amputation stump (principal); E11.621 Type 2 diabetes mellitus with foot ulcer; L97.525 Non-pressure chronic ulcer of other part of left foot with muscle involvement without evidence of necrosis; L84 Corns and callosities; E11.42 Type 2 diabetes mellitus with diabetic polyneuropathy; E11.52 Type 2 diabetes mellitus with diabetic peripheral angiopathy with gangrene; I96 Gangrene, not elsewhere classified; E11.69 Type 2 diabetes mellitus with other specified complication; M86.8X7 Other osteomyelitis, ankle and foot; E11.319 Type 2 diabetes mellitus with unspecified diabetic retinopathy without macular edema; I10 Essential (primary) hypertension; I25.10 Atherosclerotic heart disease of native coronary artery without angina pectoris; N40.0 Benign prostatic hyperplasia without lower urinary tract symptoms; G20.A1 Parkinson's disease without dyskinesia, without mention of fluctuations; E78.00 Pure hypercholesterolemia, unspecified; F32.A Depression, unspecified; F41.9 Anxiety disorder, unspecified; Z89.511 Acquired absence of right leg below knee; Z79.02 Long term (current) use of antithrombotics/antiplatelets; Z79.4 Long term (current) use of insulin; Z79.84 Long term (current) use of oral hypoglycemic drugs; Z79.899 Other long term (current) drug therapy; Z95.1 Presence of aortocoronary bypass graft; Z87.891 Personal history of nicotine dependence; Z95.5 Presence of coronary angioplasty implant and graft; Y83.5 Amputation of limb(s) as the cause of abnormal reaction of the patient, or of later complication, without mention of misadventure at the time of the procedure | CPT/HCPCS: G0463; A6209; A6022; A6197 ==

== ENCOUNTER → 2024-08-17 | Outpatient (CLI) | payer OTHER ==
--- NOTE | 2024-08-17 10:19 | EKG ---
[facility] Test Date: 2024-08-17 Test Time: 11:06:38 Pat Name: RAMSES RAY Department: [facility] Room: Gender: M Tube Draw Helper: [id number] : 1955 Requested By: NIKKI RIBEIRO Order Number: [id number] Reading MD: Nam Armstrong Measurements Intervals [place] Rate: 58 P: 25 MA: 166 QRS: -35 QRSD: 96 T: 14 QT: 456 QTc: 446 Interpretive Statements Sinus rhythm Left axis deviation Compared to ECG 06/07/2024 15:35:02 Left-axis deviation now present Electronically Signed On 08-17-2024 20:02:42 DIRECTOR OF REAL ESTATE by Nam Armstrong Please click the below link to view image of tracing.
== END | disposition home or self-care (01) ==
LOC: WHH 08:20
PROVIDERS: ATTEND Podiatrist Foot & Ankle Surgery
DX: T87.89 Other complications of amputation stump (principal); E11.621 Type 2 diabetes mellitus with foot ulcer; L97.525 Non-pressure chronic ulcer of other part of left foot with muscle involvement without evidence of necrosis; L84 Corns and callosities; E11.52 Type 2 diabetes mellitus with diabetic peripheral angiopathy with gangrene; I96 Gangrene, not elsewhere classified; E11.69 Type 2 diabetes mellitus with other specified complication; M86.8X7 Other osteomyelitis, ankle and foot; E11.40 Type 2 diabetes mellitus with diabetic neuropathy, unspecified; E11.319 Type 2 diabetes mellitus with unspecified diabetic retinopathy without macular edema; I10 Essential (primary) hypertension; I25.10 Atherosclerotic heart disease of native coronary artery without angina pectoris; N40.0 Benign prostatic hyperplasia without lower urinary tract symptoms; G20.A1 Parkinson's disease without dyskinesia, without mention of fluctuations; E78.00 Pure hypercholesterolemia, unspecified; E87.1 Hypo-osmolality and hyponatremia; F32.A Depression, unspecified; F41.9 Anxiety disorder, unspecified; Z89.511 Acquired absence of right leg below knee; Z79.02 Long term (current) use of antithrombotics/antiplatelets; Z79.4 Long term (current) use of insulin; Z79.84 Long term (current) use of oral hypoglycemic drugs; Z79.899 Other long term (current) drug therapy; Z95.1 Presence of aortocoronary bypass graft; Z87.891 Personal history of nicotine dependence; Z95.5 Presence of coronary angioplasty implant and graft; Y83.5 Amputation of limb(s) as the cause of abnormal reaction of the patient, or of later complication, without mention of misadventure at the time of the procedure
CPT/HCPCS: 15275; 93005; A6209; Q4121; A6197; A6260

== ENCOUNTER → 2024-08-24 | Outpatient (CLI) | payer OTHER ==
[~2024-08-24] MED LIST changes: -LIDOCAINE HCL 4% LTA SOL 4 ML VIAL TP ONE
== END | disposition home or self-care (01) ==
LOC: WHH 08:21
PROVIDERS: ATTEND Podiatrist Foot & Ankle Surgery
DX: T87.89 Other complications of amputation stump (principal); E11.621 Type 2 diabetes mellitus with foot ulcer; L97.525 Non-pressure chronic ulcer of other part of left foot with muscle involvement without evidence of necrosis; L84 Corns and callosities; E11.42 Type 2 diabetes mellitus with diabetic polyneuropathy; E11.52 Type 2 diabetes mellitus with diabetic peripheral angiopathy with gangrene; I96 Gangrene, not elsewhere classified; E11.69 Type 2 diabetes mellitus with other specified complication; M86.8X7 Other osteomyelitis, ankle and foot; E11.319 Type 2 diabetes mellitus with unspecified diabetic retinopathy without macular edema; I10 Essential (primary) hypertension; I25.10 Atherosclerotic heart disease of native coronary artery without angina pectoris; N40.0 Benign prostatic hyperplasia without lower urinary tract symptoms; G20.A1 Parkinson's disease without dyskinesia, without mention of fluctuations; E78.00 Pure hypercholesterolemia, unspecified; F32.A Depression, unspecified; F41.9 Anxiety disorder, unspecified; Z89.511 Acquired absence of right leg below knee; Z79.02 Long term (current) use of antithrombotics/antiplatelets; Z79.4 Long term (current) use of insulin; Z79.84 Long term (current) use of oral hypoglycemic drugs; Z79.899 Other long term (current) drug therapy; Z95.1 Presence of aortocoronary bypass graft; Z87.891 Personal history of nicotine dependence; Z95.5 Presence of coronary angioplasty implant and graft; Y83.5 Amputation of limb(s) as the cause of abnormal reaction of the patient, or of later complication, without mention of misadventure at the time of the procedure
CPT/HCPCS: 15275; A6209; Q4121; A6197

== ENCOUNTER → 2024-08-31 | Outpatient (CLI) | payer OTHER | END | disposition home or self-care (01) | LOC: WHH 07:48 | PROVIDERS: ATTEND Podiatrist Foot & Ankle Surgery | DX: T87.89 Other complications of amputation stump (principal); E11.621 Type 2 diabetes mellitus with foot ulcer; L97.525 Non-pressure chronic ulcer of other part of left foot with muscle involvement without evidence of necrosis; L84 Corns and callosities; E11.42 Type 2 diabetes mellitus with diabetic polyneuropathy; E11.52 Type 2 diabetes mellitus with diabetic peripheral angiopathy with gangrene; I96 Gangrene, not elsewhere classified; E11.69 Type 2 diabetes mellitus with other specified complication; M86.8X7 Other osteomyelitis, ankle and foot; E11.319 Type 2 diabetes mellitus with unspecified diabetic retinopathy without macular edema; I10 Essential (primary) hypertension; I25.10 Atherosclerotic heart disease of native coronary artery without angina pectoris; N40.0 Benign prostatic hyperplasia without lower urinary tract symptoms; G20.A1 Parkinson's disease without dyskinesia, without mention of fluctuations; E78.00 Pure hypercholesterolemia, unspecified; F32.A Depression, unspecified; F41.9 Anxiety disorder, unspecified; Z89.511 Acquired absence of right leg below knee; Z79.02 Long term (current) use of antithrombotics/antiplatelets; Z79.4 Long term (current) use of insulin; Z79.84 Long term (current) use of oral hypoglycemic drugs; Z79.899 Other long term (current) drug therapy; Z95.1 Presence of aortocoronary bypass graft; Z87.891 Personal history of nicotine dependence; Z95.5 Presence of coronary angioplasty implant and graft; Y83.5 Amputation of limb(s) as the cause of abnormal reaction of the patient, or of later complication, without mention of misadventure at the time of the procedure | CPT/HCPCS: 15275; A6209; Q4121; A6197; A4450 ==

== ENCOUNTER → 2024-09-05 | Outpatient (CLI) | payer OTHER | END | disposition home or self-care (01) | LOC: WHH 09:34 | PROVIDERS: ATTEND Family Medicine | DX: E11.621 Type 2 diabetes mellitus with foot ulcer (principal); L97.521 Non-pressure chronic ulcer of other part of left foot limited to breakdown of skin; L84 Corns and callosities; T87.89 Other complications of amputation stump; E11.42 Type 2 diabetes mellitus with diabetic polyneuropathy; E11.52 Type 2 diabetes mellitus with diabetic peripheral angiopathy with gangrene; I96 Gangrene, not elsewhere classified; E11.69 Type 2 diabetes mellitus with other specified complication; M86.8X7 Other osteomyelitis, ankle and foot; E11.319 Type 2 diabetes mellitus with unspecified diabetic retinopathy without macular edema; I10 Essential (primary) hypertension; I25.10 Atherosclerotic heart disease of native coronary artery without angina pectoris; N40.0 Benign prostatic hyperplasia without lower urinary tract symptoms; E78.00 Pure hypercholesterolemia, unspecified; G20.A1 Parkinson's disease without dyskinesia, without mention of fluctuations; F32.A Depression, unspecified; F41.9 Anxiety disorder, unspecified; Z89.511 Acquired absence of right leg below knee; Z79.02 Long term (current) use of antithrombotics/antiplatelets; Z79.4 Long term (current) use of insulin; Z79.84 Long term (current) use of oral hypoglycemic drugs; Z79.899 Other long term (current) drug therapy; Z95.1 Presence of aortocoronary bypass graft; Z87.891 Personal history of nicotine dependence; Z95.5 Presence of coronary angioplasty implant and graft; Y83.5 Amputation of limb(s) as the cause of abnormal reaction of the patient, or of later complication, without mention of misadventure at the time of the procedure | CPT/HCPCS: 82948; G0277; A6209; A6197 ==

== ENCOUNTER → 2024-09-06 | Outpatient (CLI) | payer OTHER | END | disposition home or self-care (01) | LOC: WHH 09:35 | PROVIDERS: ATTEND Family Medicine | DX: E11.621 Type 2 diabetes mellitus with foot ulcer (principal); L97.521 Non-pressure chronic ulcer of other part of left foot limited to breakdown of skin; L84 Corns and callosities; T87.89 Other complications of amputation stump; E11.42 Type 2 diabetes mellitus with diabetic polyneuropathy; E11.52 Type 2 diabetes mellitus with diabetic peripheral angiopathy with gangrene; I96 Gangrene, not elsewhere classified; E11.69 Type 2 diabetes mellitus with other specified complication; M86.8X7 Other osteomyelitis, ankle and foot; E11.319 Type 2 diabetes mellitus with unspecified diabetic retinopathy without macular edema; I10 Essential (primary) hypertension; I25.10 Atherosclerotic heart disease of native coronary artery without angina pectoris; N40.0 Benign prostatic hyperplasia without lower urinary tract symptoms; G20.A1 Parkinson's disease without dyskinesia, without mention of fluctuations; E78.00 Pure hypercholesterolemia, unspecified; F32.A Depression, unspecified; F41.9 Anxiety disorder, unspecified; Z89.511 Acquired absence of right leg below knee; Z79.02 Long term (current) use of antithrombotics/antiplatelets; Z79.4 Long term (current) use of insulin; Z79.84 Long term (current) use of oral hypoglycemic drugs; Z79.899 Other long term (current) drug therapy; Z95.1 Presence of aortocoronary bypass graft; Z87.891 Personal history of nicotine dependence; Z95.5 Presence of coronary angioplasty implant and graft; Y83.5 Amputation of limb(s) as the cause of abnormal reaction of the patient, or of later complication, without mention of misadventure at the time of the procedure | CPT/HCPCS: 82948; G0277 ==

== ENCOUNTER → 2024-09-07 | Outpatient (CLI) | payer OTHER ==
--- NOTE | 2024-09-07 13:15 | HMCIMG ---
FOOT COMP 3+VWS LT REASON: TYPE 2 DIABETES MELLITUS W/FOOT ULCER. TECHNIQUE: 3 views were obtained. FINDINGS: There is lytic destruction of the distal head of the fourth intertarsal as well as portions of the proximal phalanx of the left fourth toe. There is marked associated soft tissue swelling. There is been transmetatarsal amputation of the fifth toe. Bones appear otherwise unremarkable. There is no evidence of gas forming infection. IMPRESSION: 1. Findings consistent with osteomyelitis distal head of the fourth metatarsal as well as proximal phalanx of the left fourth toe.
== END | disposition home or self-care (01) ==
LOC: WHH 09:15
PROVIDERS: ATTEND Podiatrist Foot & Ankle Surgery
DX: E11.621 Type 2 diabetes mellitus with foot ulcer (principal); L97.525 Non-pressure chronic ulcer of other part of left foot with muscle involvement without evidence of necrosis; M86.672 Other chronic osteomyelitis, left ankle and foot; E11.69 Type 2 diabetes mellitus with other specified complication; E11.42 Type 2 diabetes mellitus with diabetic polyneuropathy; T87.89 Other complications of amputation stump; L84 Corns and callosities; E11.52 Type 2 diabetes mellitus with diabetic peripheral angiopathy with gangrene; I96 Gangrene, not elsewhere classified; E11.319 Type 2 diabetes mellitus with unspecified diabetic retinopathy without macular edema; I10 Essential (primary) hypertension; I25.10 Atherosclerotic heart disease of native coronary artery without angina pectoris; N40.0 Benign prostatic hyperplasia without lower urinary tract symptoms; G20.A1 Parkinson's disease without dyskinesia, without mention of fluctuations; E78.00 Pure hypercholesterolemia, unspecified; F32.A Depression, unspecified; F41.9 Anxiety disorder, unspecified; Z89.511 Acquired absence of right leg below knee; Z79.02 Long term (current) use of antithrombotics/antiplatelets; Z79.4 Long term (current) use of insulin; Z79.84 Long term (current) use of oral hypoglycemic drugs; Z79.899 Other long term (current) drug therapy; Z95.1 Presence of aortocoronary bypass graft; Z87.891 Personal history of nicotine dependence; Z95.5 Presence of coronary angioplasty implant and graft; Y83.5 Amputation of limb(s) as the cause of abnormal reaction of the patient, or of later complication, without mention of misadventure at the time of the procedure
CPT/HCPCS: 15275; 82948; 73630; G0277; A6209; Q4121; A6197

== ENCOUNTER → 2024-09-08 | Outpatient (CLI) | payer OTHER | END | disposition home or self-care (01) | LOC: WHH 09:26 | PROVIDERS: ATTEND Family Medicine | DX: E11.621 Type 2 diabetes mellitus with foot ulcer (principal); L97.525 Non-pressure chronic ulcer of other part of left foot with muscle involvement without evidence of necrosis; M86.672 Other chronic osteomyelitis, left ankle and foot; E11.69 Type 2 diabetes mellitus with other specified complication; T87.89 Other complications of amputation stump; L84 Corns and callosities; E11.42 Type 2 diabetes mellitus with diabetic polyneuropathy; E11.52 Type 2 diabetes mellitus with diabetic peripheral angiopathy with gangrene; I96 Gangrene, not elsewhere classified; E11.319 Type 2 diabetes mellitus with unspecified diabetic retinopathy without macular edema; I10 Essential (primary) hypertension; I25.10 Atherosclerotic heart disease of native coronary artery without angina pectoris; N40.0 Benign prostatic hyperplasia without lower urinary tract symptoms; G20.A1 Parkinson's disease without dyskinesia, without mention of fluctuations; E78.00 Pure hypercholesterolemia, unspecified; F32.A Depression, unspecified; F41.9 Anxiety disorder, unspecified; Z89.511 Acquired absence of right leg below knee; Z79.02 Long term (current) use of antithrombotics/antiplatelets; Z79.4 Long term (current) use of insulin; Z79.84 Long term (current) use of oral hypoglycemic drugs; Z79.899 Other long term (current) drug therapy; Z95.1 Presence of aortocoronary bypass graft; Z87.891 Personal history of nicotine dependence; Z95.5 Presence of coronary angioplasty implant and graft; Y83.5 Amputation of limb(s) as the cause of abnormal reaction of the patient, or of later complication, without mention of misadventure at the time of the procedure | CPT/HCPCS: 82948; G0277 ==

== ENCOUNTER → 2024-09-12 | Outpatient (CLI) | payer OTHER | END | disposition home or self-care (01) | LOC: WHH 09:40 | PROVIDERS: ATTEND Family Medicine | DX: E11.621 Type 2 diabetes mellitus with foot ulcer (principal); L97.521 Non-pressure chronic ulcer of other part of left foot limited to breakdown of skin; T87.89 Other complications of amputation stump; L84 Corns and callosities; E11.42 Type 2 diabetes mellitus with diabetic polyneuropathy; E11.52 Type 2 diabetes mellitus with diabetic peripheral angiopathy with gangrene; I96 Gangrene, not elsewhere classified; E11.69 Type 2 diabetes mellitus with other specified complication; M86.8X7 Other osteomyelitis, ankle and foot; E11.319 Type 2 diabetes mellitus with unspecified diabetic retinopathy without macular edema; I10 Essential (primary) hypertension; I25.10 Atherosclerotic heart disease of native coronary artery without angina pectoris; N40.0 Benign prostatic hyperplasia without lower urinary tract symptoms; G20.A1 Parkinson's disease without dyskinesia, without mention of fluctuations; E78.00 Pure hypercholesterolemia, unspecified; F32.A Depression, unspecified; F41.9 Anxiety disorder, unspecified; Z89.511 Acquired absence of right leg below knee; Z79.02 Long term (current) use of antithrombotics/antiplatelets; Z79.4 Long term (current) use of insulin; Z79.84 Long term (current) use of oral hypoglycemic drugs; Z79.899 Other long term (current) drug therapy; Z87.891 Personal history of nicotine dependence; Z95.1 Presence of aortocoronary bypass graft; Z95.5 Presence of coronary angioplasty implant and graft; Y83.5 Amputation of limb(s) as the cause of abnormal reaction of the patient, or of later complication, without mention of misadventure at the time of the procedure | CPT/HCPCS: 82948; G0277 ==

== ENCOUNTER → 2024-09-13 | Outpatient (CLI) | payer OTHER | END | disposition home or self-care (01) | LOC: WHH 09:35 | PROVIDERS: ATTEND Family Medicine | DX: E11.621 Type 2 diabetes mellitus with foot ulcer (principal); L97.525 Non-pressure chronic ulcer of other part of left foot with muscle involvement without evidence of necrosis; M86.672 Other chronic osteomyelitis, left ankle and foot; E11.69 Type 2 diabetes mellitus with other specified complication; T87.89 Other complications of amputation stump; L84 Corns and callosities; E11.42 Type 2 diabetes mellitus with diabetic polyneuropathy; E11.52 Type 2 diabetes mellitus with diabetic peripheral angiopathy with gangrene; I96 Gangrene, not elsewhere classified; E11.319 Type 2 diabetes mellitus with unspecified diabetic retinopathy without macular edema; I10 Essential (primary) hypertension; I25.10 Atherosclerotic heart disease of native coronary artery without angina pectoris; N40.0 Benign prostatic hyperplasia without lower urinary tract symptoms; G20.A1 Parkinson's disease without dyskinesia, without mention of fluctuations; E78.00 Pure hypercholesterolemia, unspecified; F32.A Depression, unspecified; F41.9 Anxiety disorder, unspecified; Z89.511 Acquired absence of right leg below knee; Z79.02 Long term (current) use of antithrombotics/antiplatelets; Z79.4 Long term (current) use of insulin; Z79.84 Long term (current) use of oral hypoglycemic drugs; Z79.899 Other long term (current) drug therapy; Z95.1 Presence of aortocoronary bypass graft; Z87.891 Personal history of nicotine dependence; Z95.5 Presence of coronary angioplasty implant and graft; Y83.5 Amputation of limb(s) as the cause of abnormal reaction of the patient, or of later complication, without mention of misadventure at the time of the procedure | CPT/HCPCS: G0277 ==

== ENCOUNTER → 2024-09-15 | Outpatient (CLI) | payer OTHER | END | disposition home or self-care (01) | LOC: WHH 08:11 | PROVIDERS: ATTEND Family Medicine | DX: E11.621 Type 2 diabetes mellitus with foot ulcer (principal); L97.521 Non-pressure chronic ulcer of other part of left foot limited to breakdown of skin; T87.89 Other complications of amputation stump; L84 Corns and callosities; E11.42 Type 2 diabetes mellitus with diabetic polyneuropathy; E11.52 Type 2 diabetes mellitus with diabetic peripheral angiopathy with gangrene; I96 Gangrene, not elsewhere classified; E11.69 Type 2 diabetes mellitus with other specified complication; M86.8X7 Other osteomyelitis, ankle and foot; E11.319 Type 2 diabetes mellitus with unspecified diabetic retinopathy without macular edema; I10 Essential (primary) hypertension; I25.10 Atherosclerotic heart disease of native coronary artery without angina pectoris; N40.0 Benign prostatic hyperplasia without lower urinary tract symptoms; E78.00 Pure hypercholesterolemia, unspecified; G20.A1 Parkinson's disease without dyskinesia, without mention of fluctuations; F32.A Depression, unspecified; F41.9 Anxiety disorder, unspecified; Z89.511 Acquired absence of right leg below knee; Z79.02 Long term (current) use of antithrombotics/antiplatelets; Z79.84 Long term (current) use of oral hypoglycemic drugs; Z79.899 Other long term (current) drug therapy; Z95.1 Presence of aortocoronary bypass graft; Z87.891 Personal history of nicotine dependence; Z95.5 Presence of coronary angioplasty implant and graft; Y83.5 Amputation of limb(s) as the cause of abnormal reaction of the patient, or of later complication, without mention of misadventure at the time of the procedure | CPT/HCPCS: 82948; G0277 ==

== ENCOUNTER → 2024-09-16 | Outpatient (CLI) | payer OTHER | END | disposition home or self-care (01) | LOC: WHH 08:01 | PROVIDERS: ATTEND Family Medicine | DX: E11.621 Type 2 diabetes mellitus with foot ulcer (principal); L97.525 Non-pressure chronic ulcer of other part of left foot with muscle involvement without evidence of necrosis; M86.672 Other chronic osteomyelitis, left ankle and foot; E11.69 Type 2 diabetes mellitus with other specified complication; T87.89 Other complications of amputation stump; L84 Corns and callosities; E11.42 Type 2 diabetes mellitus with diabetic polyneuropathy; E11.52 Type 2 diabetes mellitus with diabetic peripheral angiopathy with gangrene; I96 Gangrene, not elsewhere classified; E11.319 Type 2 diabetes mellitus with unspecified diabetic retinopathy without macular edema; I10 Essential (primary) hypertension; I25.10 Atherosclerotic heart disease of native coronary artery without angina pectoris; N40.0 Benign prostatic hyperplasia without lower urinary tract symptoms; G20.A1 Parkinson's disease without dyskinesia, without mention of fluctuations; E78.00 Pure hypercholesterolemia, unspecified; F32.A Depression, unspecified; F41.9 Anxiety disorder, unspecified; Z89.511 Acquired absence of right leg below knee; Z79.02 Long term (current) use of antithrombotics/antiplatelets; Z79.4 Long term (current) use of insulin; Z79.84 Long term (current) use of oral hypoglycemic drugs; Z79.899 Other long term (current) drug therapy; Z95.1 Presence of aortocoronary bypass graft; Z87.891 Personal history of nicotine dependence; Z95.5 Presence of coronary angioplasty implant and graft; Y83.5 Amputation of limb(s) as the cause of abnormal reaction of the patient, or of later complication, without mention of misadventure at the time of the procedure | CPT/HCPCS: 82948; G0277 ==

== ENCOUNTER → 2024-09-20 | Outpatient (CLI) | payer OTHER | END | disposition home or self-care (01) | LOC: WHH 07:45 | PROVIDERS: ATTEND Family Medicine | DX: E11.621 Type 2 diabetes mellitus with foot ulcer (principal); L97.521 Non-pressure chronic ulcer of other part of left foot limited to breakdown of skin; T87.89 Other complications of amputation stump; L84 Corns and callosities; E11.42 Type 2 diabetes mellitus with diabetic polyneuropathy; E11.52 Type 2 diabetes mellitus with diabetic peripheral angiopathy with gangrene; I96 Gangrene, not elsewhere classified; E11.69 Type 2 diabetes mellitus with other specified complication; M86.8X7 Other osteomyelitis, ankle and foot; E11.319 Type 2 diabetes mellitus with unspecified diabetic retinopathy without macular edema; I10 Essential (primary) hypertension; I25.10 Atherosclerotic heart disease of native coronary artery without angina pectoris; N40.0 Benign prostatic hyperplasia without lower urinary tract symptoms; E78.00 Pure hypercholesterolemia, unspecified; G20.A1 Parkinson's disease without dyskinesia, without mention of fluctuations; F32.A Depression, unspecified; F41.9 Anxiety disorder, unspecified; Z89.511 Acquired absence of right leg below knee; Z79.02 Long term (current) use of antithrombotics/antiplatelets; Z79.84 Long term (current) use of oral hypoglycemic drugs; Z79.899 Other long term (current) drug therapy; Z95.1 Presence of aortocoronary bypass graft; Z87.891 Personal history of nicotine dependence; Z95.5 Presence of coronary angioplasty implant and graft; Y83.5 Amputation of limb(s) as the cause of abnormal reaction of the patient, or of later complication, without mention of misadventure at the time of the procedure | CPT/HCPCS: 82948; G0277 ==

== ENCOUNTER → 2024-09-27 | Outpatient (CLI) | payer OTHER | END | disposition home or self-care (01) | LOC: WHH 07:33 | PROVIDERS: ATTEND Family Medicine | DX: E11.621 Type 2 diabetes mellitus with foot ulcer (principal); L97.521 Non-pressure chronic ulcer of other part of left foot limited to breakdown of skin; E11.69 Type 2 diabetes mellitus with other specified complication; M86.672 Other chronic osteomyelitis, left ankle and foot; T87.89 Other complications of amputation stump; L84 Corns and callosities; E11.42 Type 2 diabetes mellitus with diabetic polyneuropathy; E11.52 Type 2 diabetes mellitus with diabetic peripheral angiopathy with gangrene; I96 Gangrene, not elsewhere classified; E11.319 Type 2 diabetes mellitus with unspecified diabetic retinopathy without macular edema; I10 Essential (primary) hypertension; I25.10 Atherosclerotic heart disease of native coronary artery without angina pectoris; N40.0 Benign prostatic hyperplasia without lower urinary tract symptoms; G20.A1 Parkinson's disease without dyskinesia, without mention of fluctuations; E78.00 Pure hypercholesterolemia, unspecified; F32.A Depression, unspecified; F41.9 Anxiety disorder, unspecified; Z89.511 Acquired absence of right leg below knee; Z79.02 Long term (current) use of antithrombotics/antiplatelets; Z79.4 Long term (current) use of insulin; Z79.84 Long term (current) use of oral hypoglycemic drugs; Z79.899 Other long term (current) drug therapy; Z95.1 Presence of aortocoronary bypass graft; Z87.891 Personal history of nicotine dependence; Z95.5 Presence of coronary angioplasty implant and graft; Y83.5 Amputation of limb(s) as the cause of abnormal reaction of the patient, or of later complication, without mention of misadventure at the time of the procedure | CPT/HCPCS: 82948; G0277 ==

== ENCOUNTER → 2024-09-29 | Outpatient (CLI) | payer OTHER | END | disposition home or self-care (01) | LOC: WHH 07:59 | PROVIDERS: ATTEND Family Medicine | DX: E11.621 Type 2 diabetes mellitus with foot ulcer (principal); L97.521 Non-pressure chronic ulcer of other part of left foot limited to breakdown of skin; L84 Corns and callosities; T87.89 Other complications of amputation stump; E11.69 Type 2 diabetes mellitus with other specified complication; M86.672 Other chronic osteomyelitis, left ankle and foot; E11.42 Type 2 diabetes mellitus with diabetic polyneuropathy; E11.52 Type 2 diabetes mellitus with diabetic peripheral angiopathy with gangrene; I96 Gangrene, not elsewhere classified; E11.319 Type 2 diabetes mellitus with unspecified diabetic retinopathy without macular edema; I10 Essential (primary) hypertension; I25.10 Atherosclerotic heart disease of native coronary artery without angina pectoris; N40.0 Benign prostatic hyperplasia without lower urinary tract symptoms; G20.A1 Parkinson's disease without dyskinesia, without mention of fluctuations; E78.00 Pure hypercholesterolemia, unspecified; F32.A Depression, unspecified; F41.9 Anxiety disorder, unspecified; Z89.511 Acquired absence of right leg below knee; Z79.02 Long term (current) use of antithrombotics/antiplatelets; Z79.4 Long term (current) use of insulin; Z79.84 Long term (current) use of oral hypoglycemic drugs; Z79.899 Other long term (current) drug therapy; Z95.1 Presence of aortocoronary bypass graft; Z87.891 Personal history of nicotine dependence; Z95.5 Presence of coronary angioplasty implant and graft; Y83.5 Amputation of limb(s) as the cause of abnormal reaction of the patient, or of later complication, without mention of misadventure at the time of the procedure | CPT/HCPCS: 82948; G0277 ==

== ENCOUNTER → 2024-09-30 | Outpatient (CLI) | payer OTHER | END | disposition home or self-care (01) | LOC: WHH 07:28 | PROVIDERS: ATTEND Family Medicine | DX: E11.621 Type 2 diabetes mellitus with foot ulcer (principal); L97.521 Non-pressure chronic ulcer of other part of left foot limited to breakdown of skin; L84 Corns and callosities; T87.89 Other complications of amputation stump; E11.69 Type 2 diabetes mellitus with other specified complication; M86.672 Other chronic osteomyelitis, left ankle and foot; E11.42 Type 2 diabetes mellitus with diabetic polyneuropathy; E11.52 Type 2 diabetes mellitus with diabetic peripheral angiopathy with gangrene; I96 Gangrene, not elsewhere classified; E11.319 Type 2 diabetes mellitus with unspecified diabetic retinopathy without macular edema; I10 Essential (primary) hypertension; I25.10 Atherosclerotic heart disease of native coronary artery without angina pectoris; N40.0 Benign prostatic hyperplasia without lower urinary tract symptoms; G20.A1 Parkinson's disease without dyskinesia, without mention of fluctuations; E78.00 Pure hypercholesterolemia, unspecified; F32.A Depression, unspecified; F41.9 Anxiety disorder, unspecified; Z89.511 Acquired absence of right leg below knee; Z79.02 Long term (current) use of antithrombotics/antiplatelets; Z79.4 Long term (current) use of insulin; Z79.84 Long term (current) use of oral hypoglycemic drugs; Z79.899 Other long term (current) drug therapy; Z95.1 Presence of aortocoronary bypass graft; Z87.891 Personal history of nicotine dependence; Z95.5 Presence of coronary angioplasty implant and graft; Y83.5 Amputation of limb(s) as the cause of abnormal reaction of the patient, or of later complication, without mention of misadventure at the time of the procedure | CPT/HCPCS: 82948; G0277 ==

== ENCOUNTER → 2024-10-03 | Outpatient (CLI) | payer OTHER | END | disposition home or self-care (01) | LOC: WHH 08:10 | PROVIDERS: ATTEND Family Medicine | DX: E11.621 Type 2 diabetes mellitus with foot ulcer (principal); L97.521 Non-pressure chronic ulcer of other part of left foot limited to breakdown of skin; L84 Corns and callosities; T87.89 Other complications of amputation stump; E11.69 Type 2 diabetes mellitus with other specified complication; M86.672 Other chronic osteomyelitis, left ankle and foot; E11.42 Type 2 diabetes mellitus with diabetic polyneuropathy; E11.52 Type 2 diabetes mellitus with diabetic peripheral angiopathy with gangrene; I96 Gangrene, not elsewhere classified; E11.319 Type 2 diabetes mellitus with unspecified diabetic retinopathy without macular edema; I10 Essential (primary) hypertension; I25.10 Atherosclerotic heart disease of native coronary artery without angina pectoris; G20.A1 Parkinson's disease without dyskinesia, without mention of fluctuations; E78.00 Pure hypercholesterolemia, unspecified; N40.0 Benign prostatic hyperplasia without lower urinary tract symptoms; F32.A Depression, unspecified; F41.9 Anxiety disorder, unspecified; Z89.511 Acquired absence of right leg below knee; Z79.02 Long term (current) use of antithrombotics/antiplatelets; Z79.4 Long term (current) use of insulin; Z79.84 Long term (current) use of oral hypoglycemic drugs; Z79.899 Other long term (current) drug therapy; Z95.1 Presence of aortocoronary bypass graft; Z87.891 Personal history of nicotine dependence; Z95.5 Presence of coronary angioplasty implant and graft; Y83.5 Amputation of limb(s) as the cause of abnormal reaction of the patient, or of later complication, without mention of misadventure at the time of the procedure | CPT/HCPCS: 82948; G0277 ==

== ENCOUNTER → 2024-10-04 | Outpatient (CLI) | payer OTHER | END | disposition home or self-care (01) | LOC: WHH 08:03 | PROVIDERS: ATTEND Family Medicine | DX: E11.621 Type 2 diabetes mellitus with foot ulcer (principal); L97.521 Non-pressure chronic ulcer of other part of left foot limited to breakdown of skin; T87.89 Other complications of amputation stump; L84 Corns and callosities; E11.69 Type 2 diabetes mellitus with other specified complication; M86.672 Other chronic osteomyelitis, left ankle and foot; E11.42 Type 2 diabetes mellitus with diabetic polyneuropathy; E11.52 Type 2 diabetes mellitus with diabetic peripheral angiopathy with gangrene; I96 Gangrene, not elsewhere classified; E11.319 Type 2 diabetes mellitus with unspecified diabetic retinopathy without macular edema; I10 Essential (primary) hypertension; N40.0 Benign prostatic hyperplasia without lower urinary tract symptoms; I25.10 Atherosclerotic heart disease of native coronary artery without angina pectoris; G20.A1 Parkinson's disease without dyskinesia, without mention of fluctuations; E78.00 Pure hypercholesterolemia, unspecified; F32.A Depression, unspecified; F41.9 Anxiety disorder, unspecified; Z87.891 Personal history of nicotine dependence; Z89.511 Acquired absence of right leg below knee; Z79.02 Long term (current) use of antithrombotics/antiplatelets; Z79.4 Long term (current) use of insulin; Z79.84 Long term (current) use of oral hypoglycemic drugs; Z79.899 Other long term (current) drug therapy; Z95.1 Presence of aortocoronary bypass graft; Z95.5 Presence of coronary angioplasty implant and graft; Y83.5 Amputation of limb(s) as the cause of abnormal reaction of the patient, or of later complication, without mention of misadventure at the time of the procedure | CPT/HCPCS: G0277 ==

== ENCOUNTER → 2024-10-05 | Outpatient (CLI) | payer OTHER | END | disposition home or self-care (01) | LOC: WHH 08:09 | PROVIDERS: ATTEND Podiatrist Foot & Ankle Surgery | DX: E11.621 Type 2 diabetes mellitus with foot ulcer (principal); L97.522 Non-pressure chronic ulcer of other part of left foot with fat layer exposed; L84 Corns and callosities; T87.89 Other complications of amputation stump; E11.69 Type 2 diabetes mellitus with other specified complication; M86.672 Other chronic osteomyelitis, left ankle and foot; E11.42 Type 2 diabetes mellitus with diabetic polyneuropathy; E11.52 Type 2 diabetes mellitus with diabetic peripheral angiopathy with gangrene; I96 Gangrene, not elsewhere classified; E11.319 Type 2 diabetes mellitus with unspecified diabetic retinopathy without macular edema; I10 Essential (primary) hypertension; N40.0 Benign prostatic hyperplasia without lower urinary tract symptoms; I25.10 Atherosclerotic heart disease of native coronary artery without angina pectoris; G20.A1 Parkinson's disease without dyskinesia, without mention of fluctuations; E78.00 Pure hypercholesterolemia, unspecified; F32.A Depression, unspecified; F41.9 Anxiety disorder, unspecified; Z87.891 Personal history of nicotine dependence; Z89.511 Acquired absence of right leg below knee; Z79.02 Long term (current) use of antithrombotics/antiplatelets; Z79.4 Long term (current) use of insulin; Z79.84 Long term (current) use of oral hypoglycemic drugs; Z79.899 Other long term (current) drug therapy; Z95.1 Presence of aortocoronary bypass graft; Z95.5 Presence of coronary angioplasty implant and graft; Y83.5 Amputation of limb(s) as the cause of abnormal reaction of the patient, or of later complication, without mention of misadventure at the time of the procedure | CPT/HCPCS: 15275; 11043; G0277; A6209; Q4121; A6197 ==

== ENCOUNTER → 2024-10-06 | Outpatient (CLI) | payer OTHER | END | disposition home or self-care (01) | LOC: WHH 08:20 | PROVIDERS: ATTEND Family Medicine | DX: E11.621 Type 2 diabetes mellitus with foot ulcer (principal); L97.521 Non-pressure chronic ulcer of other part of left foot limited to breakdown of skin; L84 Corns and callosities; T87.89 Other complications of amputation stump; E11.51 Type 2 diabetes mellitus with diabetic peripheral angiopathy without gangrene; E11.69 Type 2 diabetes mellitus with other specified complication; M86.672 Other chronic osteomyelitis, left ankle and foot; E11.42 Type 2 diabetes mellitus with diabetic polyneuropathy; E11.52 Type 2 diabetes mellitus with diabetic peripheral angiopathy with gangrene; I96 Gangrene, not elsewhere classified; E11.319 Type 2 diabetes mellitus with unspecified diabetic retinopathy without macular edema; I10 Essential (primary) hypertension; N40.0 Benign prostatic hyperplasia without lower urinary tract symptoms; G20.A1 Parkinson's disease without dyskinesia, without mention of fluctuations; I25.10 Atherosclerotic heart disease of native coronary artery without angina pectoris; E78.00 Pure hypercholesterolemia, unspecified; F32.A Depression, unspecified; F41.9 Anxiety disorder, unspecified; Z87.891 Personal history of nicotine dependence; Z89.511 Acquired absence of right leg below knee; Z79.02 Long term (current) use of antithrombotics/antiplatelets; Z79.4 Long term (current) use of insulin; Z79.84 Long term (current) use of oral hypoglycemic drugs; Z79.899 Other long term (current) drug therapy; Z95.1 Presence of aortocoronary bypass graft; Z95.5 Presence of coronary angioplasty implant and graft; Y83.5 Amputation of limb(s) as the cause of abnormal reaction of the patient, or of later complication, without mention of misadventure at the time of the procedure | CPT/HCPCS: 82948; G0277 ==

== ENCOUNTER → 2024-10-07 | Outpatient (CLI) | payer OTHER | END | disposition home or self-care (01) | LOC: WHH 08:01 | PROVIDERS: ATTEND Family Medicine | DX: E11.621 Type 2 diabetes mellitus with foot ulcer (principal); L97.522 Non-pressure chronic ulcer of other part of left foot with fat layer exposed; T87.89 Other complications of amputation stump; E11.69 Type 2 diabetes mellitus with other specified complication; M86.672 Other chronic osteomyelitis, left ankle and foot; E11.42 Type 2 diabetes mellitus with diabetic polyneuropathy; E11.52 Type 2 diabetes mellitus with diabetic peripheral angiopathy with gangrene; I96 Gangrene, not elsewhere classified; E11.319 Type 2 diabetes mellitus with unspecified diabetic retinopathy without macular edema; L84 Corns and callosities; I10 Essential (primary) hypertension; I25.10 Atherosclerotic heart disease of native coronary artery without angina pectoris; N40.0 Benign prostatic hyperplasia without lower urinary tract symptoms; G20.A1 Parkinson's disease without dyskinesia, without mention of fluctuations; E78.00 Pure hypercholesterolemia, unspecified; F32.A Depression, unspecified; F41.9 Anxiety disorder, unspecified; Z87.891 Personal history of nicotine dependence; Z89.511 Acquired absence of right leg below knee; Z79.02 Long term (current) use of antithrombotics/antiplatelets; Z79.4 Long term (current) use of insulin; Z79.84 Long term (current) use of oral hypoglycemic drugs; Z79.899 Other long term (current) drug therapy; Z95.1 Presence of aortocoronary bypass graft; Z95.5 Presence of coronary angioplasty implant and graft; Y83.5 Amputation of limb(s) as the cause of abnormal reaction of the patient, or of later complication, without mention of misadventure at the time of the procedure | CPT/HCPCS: 82948; G0277 ==

== ENCOUNTER → 2024-10-10 | Outpatient (CLI) | payer OTHER | END | disposition home or self-care (01) | LOC: WHH 08:10 | PROVIDERS: ATTEND Family Medicine | DX: E11.621 Type 2 diabetes mellitus with foot ulcer (principal); L97.522 Non-pressure chronic ulcer of other part of left foot with fat layer exposed; T87.89 Other complications of amputation stump; E11.69 Type 2 diabetes mellitus with other specified complication; M86.672 Other chronic osteomyelitis, left ankle and foot; E11.42 Type 2 diabetes mellitus with diabetic polyneuropathy; E11.52 Type 2 diabetes mellitus with diabetic peripheral angiopathy with gangrene; I96 Gangrene, not elsewhere classified; E11.319 Type 2 diabetes mellitus with unspecified diabetic retinopathy without macular edema; L84 Corns and callosities; I10 Essential (primary) hypertension; I25.10 Atherosclerotic heart disease of native coronary artery without angina pectoris; N40.0 Benign prostatic hyperplasia without lower urinary tract symptoms; G20.A1 Parkinson's disease without dyskinesia, without mention of fluctuations; E78.00 Pure hypercholesterolemia, unspecified; F32.A Depression, unspecified; F41.9 Anxiety disorder, unspecified; Z87.891 Personal history of nicotine dependence; Z89.511 Acquired absence of right leg below knee; Z79.02 Long term (current) use of antithrombotics/antiplatelets; Z79.4 Long term (current) use of insulin; Z79.84 Long term (current) use of oral hypoglycemic drugs; Z79.899 Other long term (current) drug therapy; Z95.1 Presence of aortocoronary bypass graft; Z95.5 Presence of coronary angioplasty implant and graft; Y83.5 Amputation of limb(s) as the cause of abnormal reaction of the patient, or of later complication, without mention of misadventure at the time of the procedure | CPT/HCPCS: 82948; G0277 ==

== ENCOUNTER → 2024-10-11 | Outpatient (CLI) | payer OTHER | END | disposition home or self-care (01) | LOC: WHH 08:04 | PROVIDERS: ATTEND Family Medicine | DX: E11.621 Type 2 diabetes mellitus with foot ulcer (principal); L97.521 Non-pressure chronic ulcer of other part of left foot limited to breakdown of skin; T87.89 Other complications of amputation stump; L84 Corns and callosities; E11.69 Type 2 diabetes mellitus with other specified complication; M86.672 Other chronic osteomyelitis, left ankle and foot; E11.42 Type 2 diabetes mellitus with diabetic polyneuropathy; E11.52 Type 2 diabetes mellitus with diabetic peripheral angiopathy with gangrene; I96 Gangrene, not elsewhere classified; E11.319 Type 2 diabetes mellitus with unspecified diabetic retinopathy without macular edema; I10 Essential (primary) hypertension; N40.0 Benign prostatic hyperplasia without lower urinary tract symptoms; I25.10 Atherosclerotic heart disease of native coronary artery without angina pectoris; G20.A1 Parkinson's disease without dyskinesia, without mention of fluctuations; E78.00 Pure hypercholesterolemia, unspecified; F32.A Depression, unspecified; F41.9 Anxiety disorder, unspecified; Z87.891 Personal history of nicotine dependence; Z89.511 Acquired absence of right leg below knee; Z79.02 Long term (current) use of antithrombotics/antiplatelets; Z79.4 Long term (current) use of insulin; Z79.899 Other long term (current) drug therapy; Z95.1 Presence of aortocoronary bypass graft; Z95.5 Presence of coronary angioplasty implant and graft; Y83.5 Amputation of limb(s) as the cause of abnormal reaction of the patient, or of later complication, without mention of misadventure at the time of the procedure | CPT/HCPCS: 82948; G0277 ==

== ENCOUNTER → 2024-10-13 | Outpatient (CLI) | payer OTHER | END | disposition home or self-care (01) | LOC: WHH 08:05 | PROVIDERS: ATTEND Family Medicine | DX: E11.621 Type 2 diabetes mellitus with foot ulcer (principal); L97.521 Non-pressure chronic ulcer of other part of left foot limited to breakdown of skin; L84 Corns and callosities; T87.89 Other complications of amputation stump; E11.69 Type 2 diabetes mellitus with other specified complication; M86.672 Other chronic osteomyelitis, left ankle and foot; E11.42 Type 2 diabetes mellitus with diabetic polyneuropathy; E11.52 Type 2 diabetes mellitus with diabetic peripheral angiopathy with gangrene; I96 Gangrene, not elsewhere classified; E11.319 Type 2 diabetes mellitus with unspecified diabetic retinopathy without macular edema; I10 Essential (primary) hypertension; I25.10 Atherosclerotic heart disease of native coronary artery without angina pectoris; N40.0 Benign prostatic hyperplasia without lower urinary tract symptoms; G20.A1 Parkinson's disease without dyskinesia, without mention of fluctuations; E78.00 Pure hypercholesterolemia, unspecified; F32.A Depression, unspecified; F41.9 Anxiety disorder, unspecified; Z87.891 Personal history of nicotine dependence; Z89.511 Acquired absence of right leg below knee; Z79.02 Long term (current) use of antithrombotics/antiplatelets; Z79.4 Long term (current) use of insulin; Z79.84 Long term (current) use of oral hypoglycemic drugs; Z79.899 Other long term (current) drug therapy; Z95.1 Presence of aortocoronary bypass graft; Z95.5 Presence of coronary angioplasty implant and graft; Y83.5 Amputation of limb(s) as the cause of abnormal reaction of the patient, or of later complication, without mention of misadventure at the time of the procedure | CPT/HCPCS: G0277 ==

== ENCOUNTER → 2024-10-17 | Outpatient (CLI) | payer OTHER | END | disposition home or self-care (01) | LOC: WHH 08:07 | PROVIDERS: ATTEND Family Medicine | DX: E11.621 Type 2 diabetes mellitus with foot ulcer (principal); L97.521 Non-pressure chronic ulcer of other part of left foot limited to breakdown of skin; L84 Corns and callosities; T87.89 Other complications of amputation stump; E11.69 Type 2 diabetes mellitus with other specified complication; M86.672 Other chronic osteomyelitis, left ankle and foot; E11.42 Type 2 diabetes mellitus with diabetic polyneuropathy; E11.52 Type 2 diabetes mellitus with diabetic peripheral angiopathy with gangrene; I96 Gangrene, not elsewhere classified; E11.319 Type 2 diabetes mellitus with unspecified diabetic retinopathy without macular edema; I10 Essential (primary) hypertension; I25.10 Atherosclerotic heart disease of native coronary artery without angina pectoris; N40.0 Benign prostatic hyperplasia without lower urinary tract symptoms; G20.A1 Parkinson's disease without dyskinesia, without mention of fluctuations; E78.00 Pure hypercholesterolemia, unspecified; F32.A Depression, unspecified; F41.9 Anxiety disorder, unspecified; Z87.891 Personal history of nicotine dependence; Z89.511 Acquired absence of right leg below knee; Z79.02 Long term (current) use of antithrombotics/antiplatelets; Z79.4 Long term (current) use of insulin; Z79.84 Long term (current) use of oral hypoglycemic drugs; Z79.899 Other long term (current) drug therapy; Z95.1 Presence of aortocoronary bypass graft; Z95.5 Presence of coronary angioplasty implant and graft; Y83.5 Amputation of limb(s) as the cause of abnormal reaction of the patient, or of later complication, without mention of misadventure at the time of the procedure | CPT/HCPCS: 82948; G0277 ==

== ENCOUNTER → 2024-10-19 | Outpatient (CLI) | payer OTHER ==
[~2024-10-19] MED LIST changes: -TAMS-1 PO; +TAMS-55 PO
== END | disposition home or self-care (01) ==
LOC: WHH 08:01
PROVIDERS: ATTEND Podiatrist Foot & Ankle Surgery
DX: E11.621 Type 2 diabetes mellitus with foot ulcer (principal); L97.522 Non-pressure chronic ulcer of other part of left foot with fat layer exposed; L84 Corns and callosities; T87.89 Other complications of amputation stump; E11.69 Type 2 diabetes mellitus with other specified complication; M86.672 Other chronic osteomyelitis, left ankle and foot; E11.42 Type 2 diabetes mellitus with diabetic polyneuropathy; E11.52 Type 2 diabetes mellitus with diabetic peripheral angiopathy with gangrene; I96 Gangrene, not elsewhere classified; E11.319 Type 2 diabetes mellitus with unspecified diabetic retinopathy without macular edema; I10 Essential (primary) hypertension; I25.10 Atherosclerotic heart disease of native coronary artery without angina pectoris; N40.0 Benign prostatic hyperplasia without lower urinary tract symptoms; G20.A1 Parkinson's disease without dyskinesia, without mention of fluctuations; E78.00 Pure hypercholesterolemia, unspecified; F41.9 Anxiety disorder, unspecified; F32.A Depression, unspecified; Z87.891 Personal history of nicotine dependence; Z89.511 Acquired absence of right leg below knee; Z79.02 Long term (current) use of antithrombotics/antiplatelets; Z79.4 Long term (current) use of insulin; Z79.84 Long term (current) use of oral hypoglycemic drugs; Z79.899 Other long term (current) drug therapy; Z95.1 Presence of aortocoronary bypass graft; Z95.5 Presence of coronary angioplasty implant and graft; Y83.5 Amputation of limb(s) as the cause of abnormal reaction of the patient, or of later complication, without mention of misadventure at the time of the procedure
CPT/HCPCS: 11042; G0277; A6209; A6197; A4450

== ENCOUNTER → 2024-10-21 | Outpatient (CLI) | payer OTHER | END | disposition home or self-care (01) | LOC: WHH 09:14 | PROVIDERS: ATTEND Family Medicine | DX: E11.621 Type 2 diabetes mellitus with foot ulcer (principal); L97.521 Non-pressure chronic ulcer of other part of left foot limited to breakdown of skin; T87.89 Other complications of amputation stump; L84 Corns and callosities; E11.69 Type 2 diabetes mellitus with other specified complication; M86.672 Other chronic osteomyelitis, left ankle and foot; E11.42 Type 2 diabetes mellitus with diabetic polyneuropathy; E11.52 Type 2 diabetes mellitus with diabetic peripheral angiopathy with gangrene; I96 Gangrene, not elsewhere classified; E11.319 Type 2 diabetes mellitus with unspecified diabetic retinopathy without macular edema; I10 Essential (primary) hypertension; I25.10 Atherosclerotic heart disease of native coronary artery without angina pectoris; N40.0 Benign prostatic hyperplasia without lower urinary tract symptoms; G20.A1 Parkinson's disease without dyskinesia, without mention of fluctuations; E78.00 Pure hypercholesterolemia, unspecified; F32.A Depression, unspecified; F41.9 Anxiety disorder, unspecified; Z87.891 Personal history of nicotine dependence; Z89.511 Acquired absence of right leg below knee; Z79.02 Long term (current) use of antithrombotics/antiplatelets; Z79.4 Long term (current) use of insulin; Z79.84 Long term (current) use of oral hypoglycemic drugs; Z79.899 Other long term (current) drug therapy; Z95.1 Presence of aortocoronary bypass graft; Z95.5 Presence of coronary angioplasty implant and graft; Y83.5 Amputation of limb(s) as the cause of abnormal reaction of the patient, or of later complication, without mention of misadventure at the time of the procedure | CPT/HCPCS: G0277 ==

== ENCOUNTER → 2024-10-24 | Outpatient (CLI) | payer OTHER | END | disposition home or self-care (01) | LOC: WHH 07:52 | PROVIDERS: ATTEND Family Medicine | DX: E11.621 Type 2 diabetes mellitus with foot ulcer (principal); L97.521 Non-pressure chronic ulcer of other part of left foot limited to breakdown of skin; T87.89 Other complications of amputation stump; L84 Corns and callosities; E11.69 Type 2 diabetes mellitus with other specified complication; M86.672 Other chronic osteomyelitis, left ankle and foot; E11.42 Type 2 diabetes mellitus with diabetic polyneuropathy; E11.52 Type 2 diabetes mellitus with diabetic peripheral angiopathy with gangrene; I96 Gangrene, not elsewhere classified; E11.319 Type 2 diabetes mellitus with unspecified diabetic retinopathy without macular edema; I10 Essential (primary) hypertension; I25.10 Atherosclerotic heart disease of native coronary artery without angina pectoris; N40.0 Benign prostatic hyperplasia without lower urinary tract symptoms; G20.A1 Parkinson's disease without dyskinesia, without mention of fluctuations; E78.00 Pure hypercholesterolemia, unspecified; F32.A Depression, unspecified; F41.9 Anxiety disorder, unspecified; Z87.891 Personal history of nicotine dependence; Z89.511 Acquired absence of right leg below knee; Z79.02 Long term (current) use of antithrombotics/antiplatelets; Z79.4 Long term (current) use of insulin; Z79.84 Long term (current) use of oral hypoglycemic drugs; Z79.899 Other long term (current) drug therapy; Z95.1 Presence of aortocoronary bypass graft; Z95.5 Presence of coronary angioplasty implant and graft; Y83.5 Amputation of limb(s) as the cause of abnormal reaction of the patient, or of later complication, without mention of misadventure at the time of the procedure | CPT/HCPCS: 82948; G0277 ==

== ENCOUNTER → 2024-10-25 | Outpatient (CLI) | payer OTHER | END | disposition home or self-care (01) | LOC: WHH 07:42 | PROVIDERS: ATTEND Family Medicine | DX: E11.621 Type 2 diabetes mellitus with foot ulcer (principal); L97.521 Non-pressure chronic ulcer of other part of left foot limited to breakdown of skin; T87.89 Other complications of amputation stump; L84 Corns and callosities; E11.69 Type 2 diabetes mellitus with other specified complication; M86.672 Other chronic osteomyelitis, left ankle and foot; E11.42 Type 2 diabetes mellitus with diabetic polyneuropathy; E11.52 Type 2 diabetes mellitus with diabetic peripheral angiopathy with gangrene; I96 Gangrene, not elsewhere classified; E11.319 Type 2 diabetes mellitus with unspecified diabetic retinopathy without macular edema; I10 Essential (primary) hypertension; I25.10 Atherosclerotic heart disease of native coronary artery without angina pectoris; N40.0 Benign prostatic hyperplasia without lower urinary tract symptoms; G20.A1 Parkinson's disease without dyskinesia, without mention of fluctuations; E78.00 Pure hypercholesterolemia, unspecified; F32.A Depression, unspecified; F41.9 Anxiety disorder, unspecified; Z87.891 Personal history of nicotine dependence; Z89.511 Acquired absence of right leg below knee; Z79.02 Long term (current) use of antithrombotics/antiplatelets; Z79.4 Long term (current) use of insulin; Z79.899 Other long term (current) drug therapy; Z95.1 Presence of aortocoronary bypass graft; Z95.5 Presence of coronary angioplasty implant and graft; Y83.5 Amputation of limb(s) as the cause of abnormal reaction of the patient, or of later complication, without mention of misadventure at the time of the procedure | CPT/HCPCS: 82948; G0277 ==

== ENCOUNTER → 2024-10-26 | Outpatient (CLI) | payer OTHER | END | disposition home or self-care (01) | LOC: WHH 07:50 | PROVIDERS: ATTEND Podiatrist Foot & Ankle Surgery | DX: E11.621 Type 2 diabetes mellitus with foot ulcer (principal); L97.522 Non-pressure chronic ulcer of other part of left foot with fat layer exposed; L84 Corns and callosities; T87.89 Other complications of amputation stump; E11.69 Type 2 diabetes mellitus with other specified complication; M86.672 Other chronic osteomyelitis, left ankle and foot; E11.42 Type 2 diabetes mellitus with diabetic polyneuropathy; E11.52 Type 2 diabetes mellitus with diabetic peripheral angiopathy with gangrene; I96 Gangrene, not elsewhere classified; E11.319 Type 2 diabetes mellitus with unspecified diabetic retinopathy without macular edema; I10 Essential (primary) hypertension; I25.10 Atherosclerotic heart disease of native coronary artery without angina pectoris; N40.0 Benign prostatic hyperplasia without lower urinary tract symptoms; G20.A1 Parkinson's disease without dyskinesia, without mention of fluctuations; E78.00 Pure hypercholesterolemia, unspecified; F32.A Depression, unspecified; F41.9 Anxiety disorder, unspecified; Z87.891 Personal history of nicotine dependence; Z89.511 Acquired absence of right leg below knee; Z79.02 Long term (current) use of antithrombotics/antiplatelets; Z79.4 Long term (current) use of insulin; Z79.84 Long term (current) use of oral hypoglycemic drugs; Z79.899 Other long term (current) drug therapy; Z95.1 Presence of aortocoronary bypass graft; Z95.5 Presence of coronary angioplasty implant and graft; Y83.5 Amputation of limb(s) as the cause of abnormal reaction of the patient, or of later complication, without mention of misadventure at the time of the procedure | CPT/HCPCS: 11043; 11042; 82948 ×2; G0277; A6209; A6022 ==

== ENCOUNTER → 2024-10-27 | Outpatient (CLI) | payer OTHER | END | disposition home or self-care (01) | LOC: WHH 07:48 | PROVIDERS: ATTEND Family Medicine | DX: E11.621 Type 2 diabetes mellitus with foot ulcer (principal); L97.522 Non-pressure chronic ulcer of other part of left foot with fat layer exposed; L84 Corns and callosities; T87.89 Other complications of amputation stump; E11.69 Type 2 diabetes mellitus with other specified complication; M86.672 Other chronic osteomyelitis, left ankle and foot; E11.42 Type 2 diabetes mellitus with diabetic polyneuropathy; E11.52 Type 2 diabetes mellitus with diabetic peripheral angiopathy with gangrene; I96 Gangrene, not elsewhere classified; E11.319 Type 2 diabetes mellitus with unspecified diabetic retinopathy without macular edema; I10 Essential (primary) hypertension; I25.10 Atherosclerotic heart disease of native coronary artery without angina pectoris; N40.0 Benign prostatic hyperplasia without lower urinary tract symptoms; G20.A1 Parkinson's disease without dyskinesia, without mention of fluctuations; E78.00 Pure hypercholesterolemia, unspecified; F32.A Depression, unspecified; F41.9 Anxiety disorder, unspecified; Z87.891 Personal history of nicotine dependence; Z89.511 Acquired absence of right leg below knee; Z79.02 Long term (current) use of antithrombotics/antiplatelets; Z79.4 Long term (current) use of insulin; Z79.84 Long term (current) use of oral hypoglycemic drugs; Z79.899 Other long term (current) drug therapy; Z95.1 Presence of aortocoronary bypass graft; Z95.5 Presence of coronary angioplasty implant and graft; Y83.5 Amputation of limb(s) as the cause of abnormal reaction of the patient, or of later complication, without mention of misadventure at the time of the procedure | CPT/HCPCS: G0277 ==

== ENCOUNTER → 2024-10-31 | Outpatient (CLI) | payer OTHER | END | disposition home or self-care (01) | LOC: WHH 07:42 | PROVIDERS: ATTEND Internal Medicine Gastroenterology | DX: E11.621 Type 2 diabetes mellitus with foot ulcer (principal); L97.521 Non-pressure chronic ulcer of other part of left foot limited to breakdown of skin; T87.89 Other complications of amputation stump; L84 Corns and callosities; E11.69 Type 2 diabetes mellitus with other specified complication; M86.672 Other chronic osteomyelitis, left ankle and foot; E11.42 Type 2 diabetes mellitus with diabetic polyneuropathy; E11.52 Type 2 diabetes mellitus with diabetic peripheral angiopathy with gangrene; I96 Gangrene, not elsewhere classified; E11.319 Type 2 diabetes mellitus with unspecified diabetic retinopathy without macular edema; I10 Essential (primary) hypertension; I25.10 Atherosclerotic heart disease of native coronary artery without angina pectoris; N40.0 Benign prostatic hyperplasia without lower urinary tract symptoms; G20.A1 Parkinson's disease without dyskinesia, without mention of fluctuations; E78.00 Pure hypercholesterolemia, unspecified; F32.A Depression, unspecified; F41.9 Anxiety disorder, unspecified; Z87.891 Personal history of nicotine dependence; Z89.511 Acquired absence of right leg below knee; Z79.02 Long term (current) use of antithrombotics/antiplatelets; Z79.4 Long term (current) use of insulin; Z79.84 Long term (current) use of oral hypoglycemic drugs; Z79.899 Other long term (current) drug therapy; Z95.1 Presence of aortocoronary bypass graft; Z95.5 Presence of coronary angioplasty implant and graft; Y83.5 Amputation of limb(s) as the cause of abnormal reaction of the patient, or of later complication, without mention of misadventure at the time of the procedure | CPT/HCPCS: G0277 ==

== ENCOUNTER → 2024-11-01 | Outpatient (CLI) | payer OTHER | END | disposition home or self-care (01) | LOC: WHH 07:35 | PROVIDERS: ATTEND Family Medicine | DX: E11.621 Type 2 diabetes mellitus with foot ulcer (principal); L97.521 Non-pressure chronic ulcer of other part of left foot limited to breakdown of skin; T87.89 Other complications of amputation stump; L84 Corns and callosities; E11.69 Type 2 diabetes mellitus with other specified complication; M86.672 Other chronic osteomyelitis, left ankle and foot; E11.42 Type 2 diabetes mellitus with diabetic polyneuropathy; E11.52 Type 2 diabetes mellitus with diabetic peripheral angiopathy with gangrene; I96 Gangrene, not elsewhere classified; E11.319 Type 2 diabetes mellitus with unspecified diabetic retinopathy without macular edema; I10 Essential (primary) hypertension; I25.10 Atherosclerotic heart disease of native coronary artery without angina pectoris; N40.0 Benign prostatic hyperplasia without lower urinary tract symptoms; G20.A1 Parkinson's disease without dyskinesia, without mention of fluctuations; E78.00 Pure hypercholesterolemia, unspecified; F32.A Depression, unspecified; F41.9 Anxiety disorder, unspecified; Z87.891 Personal history of nicotine dependence; Z89.511 Acquired absence of right leg below knee; Z79.02 Long term (current) use of antithrombotics/antiplatelets; Z79.4 Long term (current) use of insulin; Z79.84 Long term (current) use of oral hypoglycemic drugs; Z79.899 Other long term (current) drug therapy; Z95.1 Presence of aortocoronary bypass graft; Z95.5 Presence of coronary angioplasty implant and graft; Y83.5 Amputation of limb(s) as the cause of abnormal reaction of the patient, or of later complication, without mention of misadventure at the time of the procedure | CPT/HCPCS: G0277 ==

== ENCOUNTER → 2024-11-02 | Outpatient (CLI) | payer OTHER | END | disposition home or self-care (01) | LOC: WHH 07:57 | PROVIDERS: ATTEND Podiatrist Foot & Ankle Surgery | DX: E11.621 Type 2 diabetes mellitus with foot ulcer (principal); L97.521 Non-pressure chronic ulcer of other part of left foot limited to breakdown of skin; L84 Corns and callosities; T87.89 Other complications of amputation stump; E11.69 Type 2 diabetes mellitus with other specified complication; M86.672 Other chronic osteomyelitis, left ankle and foot; E11.42 Type 2 diabetes mellitus with diabetic polyneuropathy; E11.52 Type 2 diabetes mellitus with diabetic peripheral angiopathy with gangrene; I96 Gangrene, not elsewhere classified; E11.319 Type 2 diabetes mellitus with unspecified diabetic retinopathy without macular edema; I10 Essential (primary) hypertension; I25.10 Atherosclerotic heart disease of native coronary artery without angina pectoris; N40.0 Benign prostatic hyperplasia without lower urinary tract symptoms; G20.A1 Parkinson's disease without dyskinesia, without mention of fluctuations; E78.00 Pure hypercholesterolemia, unspecified; F32.A Depression, unspecified; F41.9 Anxiety disorder, unspecified; Z87.891 Personal history of nicotine dependence; Z89.511 Acquired absence of right leg below knee; Z79.02 Long term (current) use of antithrombotics/antiplatelets; Z79.4 Long term (current) use of insulin; Z79.84 Long term (current) use of oral hypoglycemic drugs; Z79.899 Other long term (current) drug therapy; Z95.1 Presence of aortocoronary bypass graft; Z95.5 Presence of coronary angioplasty implant and graft; Y83.5 Amputation of limb(s) as the cause of abnormal reaction of the patient, or of later complication, without mention of misadventure at the time of the procedure | CPT/HCPCS: G0277; A6209; A6022 ==

== ENCOUNTER 2024-11-07 11:14 | Emergency (ER) | payer OTHER ==
[~2024-11-07] VITALS: Ht 170.2 cm; Wt 65.8 kg
[2024-11-07 11:18] VITALS: TEMP 98
--- NOTE | 2024-11-07 11:23 | ERN ---
ED Note History of Present Illness Stated Complaint: SENT BY SHAYNA Chief Complaint: Abnormal Labs Time Seen by MD: 11:15 Dictation: PATIENT IS A 69-YEAR-OLD RETIRED HERE COMING IN TODAY WITH NO COMPLAINTS. HE STATES HE HAD LABS DRAWN BY THE [facility] ON THURSDAY, WAS CALLED THIS MORNING TO GO TO THE EMERGENCY ROOM WITH NO DETAILS. NO FEVER NO CHILLS NO NAUSEA VOMITING NO CHEST PAIN NO BACK PAIN. HE IS UNAWARE OF WHAT LAB WAS ABNORMAL. 1125/PATIENT RECEIVED CALL FROM [facility] PHYSICIAN WHO SAID THE POTASSIUM WAS ELEVATED ON THE LABS DRAWN ON THURSDAY. Allergies: Coded Allergies: iodine (Unverified Allergy, Unknown, 09/03/22) Home Meds Active Scripts Famotidine (Famotidine) 20 Mg Tablet, 1 TAB PO BID for 30 Days, #60 TAB 0 Refills Prov:MICHAEL HERNANDEZ NP 06/25/24 Clopidogrel Bisulfate (Clopidogrel) 75 Mg Tablet, 75 MG PO HS, #90 TAB Prov:PEARL KNOTT MD 02/10/22 Reported Medications Aspirin (ASPIRIN 81 MG ECTAB) 81 Mg Ectab, 81 MG PO HS, TAB.EC 09/05/22 Hydralazine HCl (Hydralazine HCl) 50 Mg Tablet, 50 MG PO BID, TAB 09/05/22 Empagliflozin (Jardiance) 25 Mg Tablet, 12.5 MG PO AM, TAB 09/03/22 Insulin Detemir (Levemir Flextouch) 100 Unit/1 Ml Insuln.pen, 25 UNIT SQ AM, SYRINGE 09/03/22 Insulin Detemir (Levemir Flextouch) 100 Unit/1 Ml Insuln.pen, 10 UNIT SQ HS, SYRINGE 09/03/22 [mvi] No Conflict Check, 1 TAB PO DAILY 09/03/22 Escitalopram Oxalate (Escitalopram Oxalate) 20 Mg Tablet, 20 MG PO AM, TAB 09/03/22 Isosorbide Mononitrate (Isosorbide Mononitrate ER) 30 Mg Tab.er.24h, 30 MG PO AM, TAB 09/03/22 Lisinopril (Lisinopril) 40 Mg Tablet, 20 MG PO HS, TAB 09/03/22 Atorvastatin Calcium (Atorvastatin Calcium) 80 Mg Tablet, 40 MG PO HS, TAB 09/03/22 Nitroglycerin (Nitroglycerin) 0.4 Mg Tab.subl, 0.4 MG SL AD PRN for CHEST PAIN, TAB.SL 02/10/22 Metoprolol Tartrate (Metoprolol Tartrate) 100 Mg Tablet, 50 MG PO BID, TAB METOPROLOL TARTRATE 50MG TWICE A DAY. METOPROLOL HAS BEEN DECREASED FROM 100MG TO 50MG. 02/10/22 Tamsulosin HCl (Flomax) 0.4 Mg Cap.er.24h, 0.4 MG PO HS, CAPSULE.DR 02/10/22 Furosemide (Furosemide) 20 Mg Tablet, 20 MG PO AM, TAB 02/10/22 Docusate Sodium (Docusate Sodium) 100 Mg Capsule, 100 MG PO HS, CAP 11/07/20 Cyanocobalamin (Vitamin B-12) (Vitamin B-12) 1,000 Mcg Capsule, 1000 MCG PO DAILY, CAP 11/07/20 Metformin HCl (Metformin HCl) 1,000 Mg Tablet, 1000 MG PO BIDMEALS, TAB 11/07/20 Memantine HCl (Memantine HCl) 10 Mg Tablet, 10 MG PO HS, TAB 11/07/20 Past Medical History Past Medical History: Anxiety, CAD, Diabetes-Type II, High Cholesterol, Hypertension Additional Past Medical Hx: PARKINSONS Surgical History: Other Surgical History Other: CORONARY STENTS X 4 RN Note Reviewed/Agreed w/PFSH: Yes Review of System Dictation CONSTITUTIONAL: NEGATIVE EXCEPT FOR HPI HEAD/FACE: NEGATIVE EXCEPT FOR HPI EENT: NEGATIVE EXCEPT FOR HPI RESPIRATORY: NEGATIVE EXCEPT FOR HPI GASTROINTESTINAL/ABDOMINAL: NEGATIVE EXCEPT FOR HPI GENITOURINARY: NEGATIVE EXCEPT FOR HPI MUSCULOSKELETAL: NEGATIVE EXCEPT FOR HPI INTEGUMENTARY: NEGATIVE EXCEPT FOR HPI NEUROLOGICAL/PSYCH: NEGATIVE EXCEPT FOR HPI HEMATOLOGIC/LYMPHATIC: NEGATIVE EXCEPT FOR HPI ALL SYSTEMS NEGATIVE, EXCEPT NOTED ABOVE. 13 POINT REVIEW OF SYSTEMS ASSESSED AND ALL NEGATIVE EXCEPT FOR ABOVE. Initial Vital Sign VS Vital Signs Date Time Temp Pulse Resp B/P (MAP) Pulse Ox O2 Delivery O2 Flow Rate FiO2 11/07/24 11:18 98.1 67 16 152/76 99 Room Air 0 11/07/24 12:27 21 Physical Exam Dictation VITAL SIGNS REVIEWED GENERAL APPEARANCE: ALERT, ORIENTED X 3, NO ACUTE DISTRESS, WELL DEVELOPED, NOURISHED. HEAD AND FACE: NON-TRAUMATIC. EYES: PERRL, PINK CONJUNCTIVAS, EYELID NO TRAUMA, ANTERIOR CHAMBER WITH ARCUS SENILIS. EARS: PINNAS INTACT AND NO SIGNS OF TRAUMA OR ERYTHEMA EAR CANALS CLEAR AND NO DISCHARGE TM NO ERYTHEMA NOSE: NO DISCHARGE, NO BLEEDING. OROPHARYNX: MOUTH NORMAL, TONGUE PINK, PHARYNX CLEAR,NO ERYTHEMA, TONSILS NO EXUDATES, NO ABSCESSES NOTED, MUCOUS MEMBRANE MOIST NECK: SUPPLE, NON-TENDER, NO THYROMEGALY, NO MASSES, NO JVD, NO BRUITS BREAST:DEFERRED CHEST:NO TENDERNESS, NO CREPITUS, NO PARADOXICAL MOVEMENT, NO RETRACTIONS LUNGS:CLEAR, WELL-VENTILATED, SYMMETRIC, NO RALES, NO WHEEZING, NO RHONCHI, NO STRIDOR, GOOD BREATH SOUNDS BILATERALLY HEART: REGULAR RATE, REGULAR RHYTHM, NO MURMUR, NO GALLOPS VASCULAR: NO PERIPHERAL EDEMA, ABDOMEN: SOFT, POSITIVE BOWEL SOUNDS, NONDISTENDED, NO GUARDING, NONTENDER, NO REBOUND, NO MASSES NO HEPATOMEGALY, NO SPLENOMEGALY, NO BABIN'S SIGN, NO HERNIAS. RECTAL: DEFERRED GENITAL: DEFERRED NEUROLOGICAL: NORMAL SPEECH, MOTOR FUNCTION INTACT, SENSORY FUNCTION INTACT MUSCULOSKELETAL: NECK NONTENDER, FULL RANGE OF MOTION, BACK NONTENDER, FULL RANGE OF MOTION, EXTREMITIES: NONTENDER, FULL RANGE OF MOTION SKIN: COLOR PINK, DRY, NO TURGOR, NO RASH, NO LACERATIONS, NO ABRASIONS, NO CONTUSIONS. LYMPHATIC: DEFERRED Results (Laboratory/Radiology) Laboratory/Radiology Laboratory Tests Test 11/07/24 11:34 White Blood Count 8.8 K/uL (4.8-10.8) Red Blood Count 4.14 MIL/uL (4.50-6.20) L Hemoglobin 12.4 g/dL (14.0-18.0) L Hematocrit 37.8 % (42-54) L Mean Corpuscular Volume 91.3 fL (79-99) Mean Corpuscular Hemoglobin 30.0 pg (27.0-33.0) Mean Corpuscular Hemoglobin Concent 32.8 g/dL (32.0-36.0) Red Cell Distribution Width 12.9 % (11.0-15.5) Platelet Count 292 K/uL (130-400) Mean Platelet Volume 9.9 fL (7.5-10.5) Nucleated Red Blood Cells 0.0 % (0.0-0.19) Sodium Level 131 mmol/L (136-145) L Potassium Level 4.9 mmol/L (3.5-5.1) Chloride Level 96 mmol/L (101-111) L Carbon Dioxide Level 29 mmol/L (21-32) Blood Urea Nitrogen 27 mg/dL (7-18) H Creatinine 1.4 mg/dL (0.5-1.3) H Glomerular Filtration Rate Calc 54 mL/min (>90) Random Glucose 151 mg/dL (70-105) H Total Calcium 8.8 mg/dL (8.5-10.1) Troponin I High Sensitivity 5 ng/L (4-75) Labs Reviewed?: Yes EKG Comment: EKG sinus rhythm/heart rate 67/left axis deviation/no ectopy ED Course ED Course Orders Procedure Category Date Status Time Cbc Without LAB 11/07/24 Complete Differential 11:32 Basic Metabolic Panel LAB 11/07/24 Complete 11:32 Troponin I High LAB 11/07/24 Complete Sensitivity 11:32 12 Lead Ekg Tracing- EKG 11/07/24 Complete Technical 11:32 Vital Signs Date Time Temp Pulse Resp B/P (MAP) Pulse Ox O2 Delivery O2 Flow Rate FiO2 11/07/24 12:27 63 12 129/67 99 Room Air* 0 21 11/07/24 11:18 98.1 67 16 152/76 99 Room Air 0 1250/SPOKE WITH PATIENT AT LENGTH REGARDING HIS LABS, HE SAID HE WAS SENT OVER HERE FOR ELEVATED POTASSIUM. HE HAS NO COMPLAINTS AND UNDERSTANDS THAT HIS POTASSIUM IS NORMAL. I DID ADVISE HIM THAT HE IS DEHYDRATED NEED FLUIDS HE STATES HE DID NOT WANT TO STAY IN THE HOSPITAL THAT HE WOULD LIKE GO HOME AND WE WILL FOLLOW UP WITH HIS DOCTOR. NO OTHER COMPLAINTS OF VOICE AT THIS TIME. Medical Decision Making MDM MDM: DIFFERENTIAL DIAGNOSIS: ACS/AMI/ELECTROLYTE IMBALANCE/DEHYDRATION RATIONALE: TESTS CONSIDERED AND ORDERED SECONDARY TO SHARED DECISION MAKING INCLUDE: EKG/LABS PREVIOUS OUTSIDE RECORDS REVIEWED: OLD ER VISITS. REVIEWED RISK OF COMPLICATION AND/OR MORBIDITY OR MORTALITY OF PATIENT MANAGEMENT: NONE MEDICATIONS-PER MEDICATION RECONCILIATION NEED FOR HOSPITALIZATION: PATIENT DOES NOT MEET CRITERIA FOR HOSPITALIZATION. PATIENT REFUSES ADMISSION AND WISHES TO GO HOME NEED FOR EMERGENCY MAJOR/MINOR SURGERY: NO THERE ARE NO SOCIAL CONCERNS WITH THIS PATIENT. PRESCRIPTION DRUG MANAGEMENT PRESCRIPTIONS WILL INCLUDE SYMPTOMATIC CARE PATIENT'S PRIOR EXTERNAL MEDICAL RECORDS FROM OTHER ER VISITS WERE REVIEWED BY ME INDICATED. PRIOR TESTING AND RESULTS FROM PREVIOUS VISITS WERE REVIEWED. PRIOR TESTS WERE TAKEN INTO ACCOUNT WITH MEDICAL DECISION MAKING AND RESOURCE UTILIZATION, INDEPENDENT HISTORIAN/HISTORIANS WERE USED TO OBTAIN COMPLETE MEDICAL HISTORY. I INDEPENDENTLY INTERPRETED THE TEST THAT WERE PERFORMED, RESULTS WERE REVIEWED BY ME AND CONSIDERED FINDINGS ON RADIOLOGY IF ORDERED. MEDICAL MANAGEMENT AND EXAMINATION INTERPRETATION DISCUSSIONS WERE HAD BY ME WITH OTHER QUALIFIED HEALTHCARE PROFESSIONALS INDICATED FOR THE PATIENT'S C ARE. DX & DISP Disposition: Discharge Departure Impression: Primary Impression: Chronic kidney disease, stage 3 Additional Impressions: Hyponatremia, Anemia of chronic renal failure, stage 3a Condition: Stable Additional Instructions: FOLLOW-UP WITH PRIMARY CARE PROVIDER IN 1 TO 2 DAYS. TAKE MEDICATIONS DIRECTED HERE IN THE EMERGENCY ROOM. OKAY TO CONTINUE HOME MEDICATIONS UNLESS OTHERWISE DISCUSSED DURING YOUR VISIT IN THE EMERGENCY ROOM TODAY. RETURN TO YOUR NEAREST EMERGENCY ROOM IF SYMPTOMS WORSEN OR IF THERE IS NO IMPROVEMENT. CALL 911 IF YOU NEED IMMEDIATE ASSISTANCE. TAKE TYLENOL OR MOTRIN [id number] NEEDED AND IF NO CONTRAINDICATIONS ARE PRESENT. INCREASE ORAL HYDRATION. A WOUND CULTURE OR URINE CULTURE WAS ORDERED HERE IN THE EMERGENCY ROOM DEPARTMENT PLEASE FOLLOW-UP WITH PRIMARY CARE PROVIDER AND ADVISE THEM TO GET REPEAT PORTS FROM OUR FACILITY. IF YOU HAD ANY HAWK WRAP/SPLINTS THAT WERE APPLIED HERE, PLEASE DO NOT REMOVE THEM UNTIL YOU SEE YOUR PRIMARY CARE OR SPECIALTY. FOLLOW UP WITH YOUR PRIMARY CARE DOCTOR NEEDED Referrals: ANNETTE MURPHY MD (PCP) Time of Disposition: 12:50 I have reviewed the case, and I agree with, Diagnosis and Plan I performed the substantive portion of the visit. I have reviewed and personally made and approve the management plan that is documented in the notes by myself or the SERGIO. I acknowledge full responsibility for the patient's management plan. EDNA DAVIS NP Nov 07, 2024 11:23 BJ SUAREZ MD Nov 07, 2024 16:22
[2024-11-07 11:42] LABS: HEMATOCRIT 37.8 % (42-54); MEAN CORPUSCULAR HGB CONC 32.8 g/dL (32.0-36.0); MEAN CORPUSCULAR VOLUME 91.3 fL (79-99); RED BLOOD CELL COUNT(AUTO) 4.14 MIL/uL (4.50-6.20); RED CELL DISTRIBUTION WIDTH 12.9 % (11.0-15.5); WHITE BLOOD COUNT (AUTO) 8.8 K/uL (4.8-10.8)
--- NOTE | 2024-11-07 12:01 | EKG ---
[facility] Test Date: 2024-11-07 Test Time: 11:36:05 Pat Name: RAMSES RAY Department: ED Room: Gender: M Financial Services Internship: [id number] : 1955 Requested By: BJ SUAREZ Order Number: [id number] Reading MD: Orlando Matos Measurements Intervals [place] Rate: 67 P: 21 NV: 195 QRS: -35 QRSD: 101 T: 51 QT: 400 QTc: 423 Interpretive Statements Sinus rhythm Left axis deviation Compared to ECG 08/17/2024 11:06:38 No significant changes Electronically Signed On 11-07-2024 17:53:01 CDT by Orlando Matos Please click the below link to view image of tracing.
[2024-11-07 12:27] VITALS: BP 129/67; PULSE 63; RESP 12; O2SAT 99
[2024-11-07 12:27] LABS: CREATININE 1.4 mg/dL (0.5-1.3); POTASSIUM 4.9 mmol/L (3.5-5.1)
== END 2024-11-07 13:01 | disposition home or self-care (01) ==
LOC: EDH 11:14
DX: I12.9 Hypertensive chronic kidney disease with stage 1 through stage 4 chronic kidney disease, or unspecified chronic kidney disease (principal); E11.22 Type 2 diabetes mellitus with diabetic chronic kidney disease; N18.31 Chronic kidney disease, stage 3a; D63.1 Anemia in chronic kidney disease; E87.1 Hypo-osmolality and hyponatremia; E78.00 Pure hypercholesterolemia, unspecified; F41.9 Anxiety disorder, unspecified; I25.10 Atherosclerotic heart disease of native coronary artery without angina pectoris; Z79.02 Long term (current) use of antithrombotics/antiplatelets; Z79.82 Long term (current) use of aspirin; Z79.899 Other long term (current) drug therapy; Z88.8 Allergy status to other drugs, medicaments and biological substances; Z91.041 Radiographic dye allergy status; Z95.5 Presence of coronary angioplasty implant and graft
CPT/HCPCS: 36415; 80048; 84484; 85027; 93005; 99284

== ENCOUNTER 2024-11-10 23:06 | Emergency (ER) | payer OTHER ==
[~2024-11-10] VITALS: Ht 170.2 cm; Wt 69.9 kg
--- NOTE | 2024-11-10 23:25 | NUR ---
PT CARE ASSUMED AT THIS TIME
[2024-11-10 23:36] LABS: BASOPHILS # (AUTO) 0.06 K/uL (0.00-0.20); BASOPHILS % (AUTO) 0.8 % (0.0-5.0); EOSINOPHILS % (AUTO) 5.4 % (0.0-8.0); HEMATOCRIT 35.9 % (42-54); IMMATURE GRANULOCYTE ABSOLUTE 0.01 K/uL (0-1); LYMPHOCYTES # (AUTO) 2.7 K/uL (1.0-4.8); LYMPHOCYTES % (AUTO) 36.2 % (21.0-51.0); MEAN CORPUSCULAR HEMOGLOBIN 29.8 pg (27.0-33.0); MEAN CORPUSCULAR HGB CONC 33.1 g/dL (32.0-36.0); MEAN CORPUSCULAR VOLUME 89.8 fL (79-99); MONOCYTES # (AUTO) 0.9 K/uL (0.1-1.0); MONOCYTES % (AUTO) 11.6 % (3.0-13.0); NEUTROPHILS # (AUTO) 3.4 K/uL (1.8-7.7); NEUTROPHILS % (AUTO) 45.9 % (40.0-77.0); PLATELET COUNT (AUTO) 292 K/uL (130-400); WHITE BLOOD COUNT (AUTO) 7.4 K/uL (4.8-10.8)
[2024-11-10 23:38] VITALS: TEMP 98
[2024-11-10 23:46] LABS: CREATININE 1.3 mg/dL (0.5-1.3)
--- NOTE | 2024-11-11 00:03 | NUR ---
URINAL GIVEN TO PT TO COLLECT URINE FOR URINE SAMPLE
--- NOTE | 2024-11-11 00:15 | NUR ---
PER PT, A WOUND CARE NURSE GOES TO THEIR HOUSE EVERYDAY FOR WOUND CARE. PT IS ON MEDICATION AND WAS ADVISED BY WOUND CARE NURSE TO COME TO ED.
[2024-11-11 00:36] LABS: APPEARANCE,URINE CLEAR (CLEAR); BILIRUBIN,URINE NEGATIVE (NEGATIVE); COLOR,URINE LIGHT-YELLOW (YELLOW); GLUCOSE, URINE (UA) >=1000 mg/dL (NEGATIVE); KETONES,URINE NEGATIVE (NEGATIVE); LEUKOCYTE ESTERASE ,URINE NEGATIVE Leu/uL (NEGATIVE); NITRATE,URINE NEGATIVE (NEGATIVE); OCCULT BLOOD,URINE NEGATIVE (NEGATIVE); PH,URINE 5.5 (5.0-8.0); PROTEIN,URINE NEGATIVE (NEGATIVE); UROBILINOGEN,URINE 0.2 mg/dL (0.2-1.0)
--- NOTE | 2024-11-11 00:40 | NUR ---
REFER TO WOUND PHOTOS TAKEN BY BIJU MARTINI
[2024-11-11 00:44] LABS: ADD UA MICROSCOPIC YES
[2024-11-11 00:45] LABS: BACTERIA,URINE RARE /HPF (None Seen); RBC,URINE 0-1 /HPF (0-1); WBC,URINE 0-1 /HPF (0-1)
--- NOTE | 2024-11-11 01:15 | ERN ---
ED Note History of Present Illness Stated Complaint: C/O FOUL ODOR TO WOUND, LEFT FOOT Chief Complaint: Wound Check Time Seen by MD: 23:14 Dictation: This is a 69-year-old male who has peripheral arterial disease and had amputation of the left 5th toe 2 months ago. He was diagnosed with osteomyelitis of the same toe with wound. He was wound care and arranged and antibiotics and apparently the wound care nurse who can not comes in everyday saw some worms coming out of the wound and recommended that he come to the ER to get it checked out. patient has a prosthetic right leg No fever bleeding but he stated that there maybe a foul odor Temperature 98 pulse 65 respirations 20 blood pressure 115/57 with a pulse oximetry of 98% on room air His chronic medical problems include diabetes mellitus, hypertension, hypercholesterolemia and seizure Allergies: Coded Allergies: iodine (Unverified Allergy, Unknown, 09/03/22) Home Meds Active Scripts Famotidine (Famotidine) 20 Mg Tablet, 1 TAB PO BID for 30 Days, #60 TAB 0 Refills Prov:MICHAEL HERNANDEZ NP 06/25/24 Clopidogrel Bisulfate (Clopidogrel) 75 Mg Tablet, 75 MG PO HS, #90 TAB Prov:PEARL KNOTT MD 02/10/22 Reported Medications Aspirin (ASPIRIN 81 MG ECTAB) 81 Mg Ectab, 81 MG PO HS, TAB.EC 09/05/22 Hydralazine HCl (Hydralazine HCl) 50 Mg Tablet, 50 MG PO BID, TAB 09/05/22 Empagliflozin (Jardiance) 25 Mg Tablet, 12.5 MG PO AM, TAB 09/03/22 Insulin Detemir (Levemir Flextouch) 100 Unit/1 Ml Insuln.pen, 25 UNIT SQ AM, SYRINGE 09/03/22 Insulin Detemir (Levemir Flextouch) 100 Unit/1 Ml Insuln.pen, 10 UNIT SQ HS, SYRINGE 09/03/22 [mvi] No Conflict Check, 1 TAB PO DAILY 09/03/22 Escitalopram Oxalate (Escitalopram Oxalate) 20 Mg Tablet, 20 MG PO AM, TAB 09/03/22 Isosorbide Mononitrate (Isosorbide Mononitrate ER) 30 Mg Tab.er.24h, 30 MG PO AM, TAB 09/03/22 Lisinopril (Lisinopril) 40 Mg Tablet, 20 MG PO HS, TAB 09/03/22 Atorvastatin Calcium (Atorvastatin Calcium) 80 Mg Tablet, 40 MG PO HS, TAB 09/03/22 Nitroglycerin (Nitroglycerin) 0.4 Mg Tab.subl, 0.4 MG SL AD PRN for CHEST PAIN, TAB.SL 02/10/22 Metoprolol Tartrate (Metoprolol Tartrate) 100 Mg Tablet, 50 MG PO BID, TAB METOPROLOL TARTRATE 50MG TWICE A DAY. METOPROLOL HAS BEEN DECREASED FROM 100MG TO 50MG. 02/10/22 Tamsulosin HCl (Flomax) 0.4 Mg Cap.er.24h, 0.4 MG PO HS, CAPSULE.DR 02/10/22 Furosemide (Furosemide) 20 Mg Tablet, 20 MG PO AM, TAB 02/10/22 Docusate Sodium (Docusate Sodium) 100 Mg Capsule, 100 MG PO HS, CAP 11/07/20 Cyanocobalamin (Vitamin B-12) (Vitamin B-12) 1,000 Mcg Capsule, 1000 MCG PO DAILY, CAP 11/07/20 Metformin HCl (Metformin HCl) 1,000 Mg Tablet, 1000 MG PO BIDMEALS, TAB 11/07/20 Memantine HCl (Memantine HCl) 10 Mg Tablet, 10 MG PO HS, TAB 11/07/20 Past Medical History Past Medical History: Diabetes-Type II, Hypertension Additional Past Medical Hx: HX OF OPEN HEART Surgical History: Other Surgical History Other: LEFT LITTLE TOE AMPUTATION; RT PROSTETIC LEG Family History: Negative Social History: Negative RN Note Reviewed/Agreed w/PFSH: Yes Review of System Dictation Constitutional: Negative for fever,chills, and weight loss Eyes: Negative for injury, pain,redness, and discharge ENT: Negative for injury,pain or swelling Cardiovascular: Negative for chest pain, palpitations, and edema Respiratory: Negative for shortness of breath, cough, and wheezing, Abdomen/GI: Negative for abdominal pain, nausea, vomiting, diarrhea, and constipation Back: Negative for injury and pain : Negative for injury, bleeding and discharge MS/Extremity: Negative for injury and deformity left 5th little toe ulcer no pus, erythema. And I did not see any worms Skin: Negative for rash, and discoloration Neuro: Negative for headache, weakness, numbness, tingling, and seizure Psych: Negative for suicide ideation, homicidal ideation, and hallucinations Initial Vital Sign VS Vital Signs Date Time Temp Pulse Resp B/P (MAP) Pulse Ox O2 Delivery O2 Flow Rate FiO2 11/10/24 23:07 98.1 65 20 115/57 98 Room Air 11/10/24 23:38 0 21 Physical Exam Dictation General: awake, alert, NAD Head/Face: Normocephalic, atraumatic Eyes: PERRL, EOMI, vision at baseline ENT: oral cavity clear, TMs clear, no signs of infection Neck: Trachea midline, supple, no nuchal rigidity Cardiovascular: RRR, normal S1/S2, No MRGs, no JVD Respiratory: CTAB, no respiratory distress, No rales or wheezes Abdomen: Soft, non-tender, non-distended, normal bowel sounds, no guarding or rebound. Skin: Warm, dry, normal turgor, no rash MS/Extremity: Pulses equal, no cyanosis, neurovascular intact, FROM left 5th little toe ulcer no pus, erythema. And I did not see any worms Neuro: COAx4, GCS 15, strength 5/5, CN 2-12 intact, normal cerebellar exam, normal gait, Psych: Normal behavior, mood, and affect normal Extremities-trace edema without any palpable cords, Homans sign is negative Results (Laboratory/Radiology) Laboratory/Radiology Laboratory Tests Test 11/10/24 23:25 11/11/24 00:24 White Blood Count 7.4 K/uL (4.8-10.8) Red Blood Count 4.00 MIL/uL (4.50-6.20) L Hemoglobin 11.9 g/dL (14.0-18.0) L Hematocrit 35.9 % (42-54) L Mean Corpuscular Volume 89.8 fL (79-99) Mean Corpuscular Hemoglobin 29.8 pg (27.0-33.0) Mean Corpuscular Hemoglobin Concent 33.1 g/dL (32.0-36.0) Red Cell Distribution Width 13.0 % (11.0-15.5) Platelet Count 292 K/uL (130-400) Mean Platelet Volume 9.6 fL (7.5-10.5) Immature Granulocyte % (Auto) 0.1 % (0-1) Neutrophils (%) (Auto) 45.9 % (40.0-77.0) Lymphocytes (%) (Auto) 36.2 % (21.0-51.0) Monocytes (%) (Auto) 11.6 % (3.0-13.0) Eosinophils (%) (Auto) 5.4 % (0.0-8.0) Basophils (%) (Auto) 0.8 % (0.0-5.0) Neutrophils # (Auto) 3.4 K/uL (1.8-7.7) Lymphocytes # (Auto) 2.7 K/uL (1.0-4.8) Monocytes # (Auto) 0.9 K/uL (0.1-1.0) Eosinophils # (Auto) 0.40 K/uL (0.00-0.70) Basophils # (Auto) 0.06 K/uL (0.00-0.20) Absolute Immature Granulocyte (auto 0.01 K/uL (0-1) Nucleated Red Blood Cells 0.0 % (0.0-0.19) Sodium Level 132 mmol/L (136-145) L Potassium Level 4.0 mmol/L (3.5-5.1) Chloride Level 97 mmol/L (101-111) L Carbon Dioxide Level 30 mmol/L (21-32) Blood Urea Nitrogen 27 mg/dL (7-18) H Creatinine 1.3 mg/dL (0.5-1.3) Glomerular Filtration Rate Calc 59 mL/min (>90) Random Glucose 118 mg/dL (70-105) H Total Calcium 8.5 mg/dL (8.5-10.1) Urine Color LIGHT-YELLOW (YELLOW) Urine Appearance CLEAR (CLEAR) Urine pH 5.5 (5.0-8.0) Urine Specific [place] 1.011 (1.001-1.031) Urine Protein NEGATIVE mg/dL (NEGATIVE) Urine Glucose (UA) >=1000 mg/dL (NEGATIVE) H Urine Ketones NEGATIVE mg/dL (NEGATIVE) Urine Occult Blood NEGATIVE (NEGATIVE) Urine Nitrate NEGATIVE (NEGATIVE) Urine Bilirubin NEGATIVE mg/dL (NEGATIVE) Urine Urobilinogen 0.2 mg/dL (0.2-1.0) Urine Leukocyte Esterase NEGATIVE [place]/uL Urine RBC 0-1 /HPF (0-1) Urine WBC 0-1 /HPF (0-1) Urine Bacteria RARE /HPF (None Seen) Labs Reviewed?: Yes ED Course ED Course Orders Procedure Category Date Status Time Cbc With Differential LAB 11/10/24 Complete 23:16 Basic Metabolic Panel LAB 11/10/24 Complete 23:16 Urinalysis Profile LAB 11/10/24 Complete 23:16 Aerobic Culture EMMY 11/10/24 Logged 23:16 Anaerobic Culture EMMY 11/10/24 Logged 23:16 Gram Stain Only EMMY 11/10/24 Logged 23:16 Vital Signs Date Time Temp Pulse Resp B/P (MAP) Pulse Ox O2 Delivery O2 Flow Rate FiO2 11/10/24 23:38 98.1 75 18 117/46 98 Room Air* 0 21 11/10/24 23:07 98.1 65 20 115/57 98 Room Air We will perform diagnostic labs, advanced imaging and administer medications according to the patient's complaint. Once the results are available, will review and personally interpreted the labs to rule out any acute life- threatening emergency the trach require immediate intervention and treatment. I will then re-evaluate the patient after treatment and diagnostic exams have return to determine whether the patient requires any further testing, can safely be discharged home or need further admission to hospital for additional treatment and evaluation. Labs CBC BNP 7 with a normal limits urinalysis is unremarkable I have reviewed the and inspected the wound-and is clean and I do not see any worms. There is no erythema or purulent drainage . Patient does not have any fever or leukocytosis and he is already getting his wound care and antibiotics we will discharge him to go follow up with the surgeon Medical Decision Making MDM MDM: Differential diagnosis: Left foot ulcer superimposed wound infection, worsening osteomyelitis, necrosis Rationale: Tests considered and ordered secondary to shared decision making include: Previous outside records reviewed: Old ER visits. Risk of complication and/or morbidity or mortality of patient management: None Medications-Per medication reconciliation Need for hospitalization: Patient does not meet criteria for hospitalization. Need for emergency major/minor surgery: No There are no social concerns with this patient. Prescription drug management Prescriptions will include symptomatic care Patient's prior external medical records from other ER visits were reviewed by me as indicated. Prior testing and results from previous visits were reviewed. Prior tests were taken into account with medical decision making and resource utilization, independent historian/historians were used to obtain complete medical history. I independently interpreted the test that were performed, results were reviewed by me and considered findings on radiology if ordered. Medical management and examination interpretation discussions were had by me with other qualified healthcare professionals as indicated for the patient's care. Problem List Problem List: (1) Osteomyelitis of fifth toe of left foot (2) Foot ulcer, left DX & DISP Disposition: Discharge Departure Impression: Primary Impression: Osteomyelitis of fifth toe of left foot Additional Impression: Foot ulcer, left Condition: Stable Additional Instructions: Patient and the caregiver have been informed of all the diagnostic tests and the imaging conducted during the today's visit to the emergency room and has verbalized understanding of the results I have personally reviewed and interpreted all diagnostic exams performed here in the ER today as well as the vital signs documented by the nursing staff. The patient is now being discharged to home and should follow up with the primary care physician or the specialist as directed by the ER staff. Follow-up with primary care provider in 1 to 2 days. Take medications as directed here in the emergency room. Okay to continue home medications unless otherwise discussed during your visit in the emergency room today. Return to your nearest emergency room if symptoms worsen or if there is no improvement. Call 911 if you need immediate assistance. Take Tylenol or Motrin [id number] as needed and if no contraindications are present. Increase oral hydration. A wound culture or urine culture was ordered here in the emergency room department please follow-up with primary care provider and advise them to get repeat ports from our facility. If you had any [place] wrap/splints that were applied here, please do not remove them until you see your primary care or specialty. Patient already has a wound care nurse that comes daily and he has a antibiotics that were given to him by surgery. Referrals: ANNETTE MURPHY MD (PCP) ALFRED ROD MD Nov 11, 2024 01:15
--- NOTE | 2024-11-11 02:10 | NUR ---
WOUND CARE DONE AT THIS TIME
[2024-11-11 02:12] VITALS: BP 133/63; PULSE 60; RESP 17; O2SAT 98
== END 2024-11-11 02:19 | disposition home or self-care (01) ==
LOC: EDH 23:06
DX: E11.69 Type 2 diabetes mellitus with other specified complication (principal); M86.8X7 Other osteomyelitis, ankle and foot; L97.828 Non-pressure chronic ulcer of other part of left lower leg with other specified severity; E11.621 Type 2 diabetes mellitus with foot ulcer; I10 Essential (primary) hypertension; Z79.02 Long term (current) use of antithrombotics/antiplatelets; Z79.82 Long term (current) use of aspirin; Z79.899 Other long term (current) drug therapy; Z88.8 Allergy status to other drugs, medicaments and biological substances; Z91.041 Radiographic dye allergy status
CPT/HCPCS: 36415; 80048; 81001; 85025; 99285

== ENCOUNTER → 2024-11-16 | Outpatient (CLI) | payer OTHER | END | disposition home or self-care (01) | LOC: WHH 08:03 | PROVIDERS: ATTEND Podiatrist Foot & Ankle Surgery | DX: T87.89 Other complications of amputation stump (principal); E11.621 Type 2 diabetes mellitus with foot ulcer; L97.422 Non-pressure chronic ulcer of left heel and midfoot with fat layer exposed; L84 Corns and callosities; E11.69 Type 2 diabetes mellitus with other specified complication; M86.672 Other chronic osteomyelitis, left ankle and foot; E11.42 Type 2 diabetes mellitus with diabetic polyneuropathy; E11.52 Type 2 diabetes mellitus with diabetic peripheral angiopathy with gangrene; I96 Gangrene, not elsewhere classified; E11.319 Type 2 diabetes mellitus with unspecified diabetic retinopathy without macular edema; I10 Essential (primary) hypertension; I25.10 Atherosclerotic heart disease of native coronary artery without angina pectoris; N40.0 Benign prostatic hyperplasia without lower urinary tract symptoms; G20.A1 Parkinson's disease without dyskinesia, without mention of fluctuations; E78.00 Pure hypercholesterolemia, unspecified; F32.A Depression, unspecified; F41.9 Anxiety disorder, unspecified; Z87.891 Personal history of nicotine dependence; Z89.511 Acquired absence of right leg below knee; Z79.02 Long term (current) use of antithrombotics/antiplatelets; Z79.4 Long term (current) use of insulin; Z79.84 Long term (current) use of oral hypoglycemic drugs; Z79.899 Other long term (current) drug therapy; Z95.1 Presence of aortocoronary bypass graft; Z95.5 Presence of coronary angioplasty implant and graft; Y83.5 Amputation of limb(s) as the cause of abnormal reaction of the patient, or of later complication, without mention of misadventure at the time of the procedure | CPT/HCPCS: 11043; A6209; A6022; A6197; A6260 ==

== ENCOUNTER → 2024-11-23 | Outpatient (CLI) | payer OTHER | END | disposition home or self-care (01) | LOC: WHH 07:59 | PROVIDERS: ATTEND Podiatrist Foot & Ankle Surgery | DX: T87.89 Other complications of amputation stump (principal); E11.621 Type 2 diabetes mellitus with foot ulcer; L97.422 Non-pressure chronic ulcer of left heel and midfoot with fat layer exposed; L84 Corns and callosities; E11.69 Type 2 diabetes mellitus with other specified complication; M86.672 Other chronic osteomyelitis, left ankle and foot; E11.42 Type 2 diabetes mellitus with diabetic polyneuropathy; E11.52 Type 2 diabetes mellitus with diabetic peripheral angiopathy with gangrene; I96 Gangrene, not elsewhere classified; E11.319 Type 2 diabetes mellitus with unspecified diabetic retinopathy without macular edema; I10 Essential (primary) hypertension; I25.10 Atherosclerotic heart disease of native coronary artery without angina pectoris; N40.0 Benign prostatic hyperplasia without lower urinary tract symptoms; G20.A1 Parkinson's disease without dyskinesia, without mention of fluctuations; E78.00 Pure hypercholesterolemia, unspecified; F32.A Depression, unspecified; F41.9 Anxiety disorder, unspecified; Z87.891 Personal history of nicotine dependence; Z89.511 Acquired absence of right leg below knee; Z79.02 Long term (current) use of antithrombotics/antiplatelets; Z79.4 Long term (current) use of insulin; Z79.84 Long term (current) use of oral hypoglycemic drugs; Z79.899 Other long term (current) drug therapy; Z95.1 Presence of aortocoronary bypass graft; Z95.5 Presence of coronary angioplasty implant and graft; Y83.5 Amputation of limb(s) as the cause of abnormal reaction of the patient, or of later complication, without mention of misadventure at the time of the procedure | CPT/HCPCS: 11042; A6209; A6022; A6197; A4450; A6260 ==

== ENCOUNTER → 2024-12-14 | Outpatient (CLI) | payer OTHER | END | disposition home or self-care (01) | LOC: WHH 07:59 | PROVIDERS: ATTEND Podiatrist Foot & Ankle Surgery | DX: T87.89 Other complications of amputation stump (principal); E11.621 Type 2 diabetes mellitus with foot ulcer; L97.422 Non-pressure chronic ulcer of left heel and midfoot with fat layer exposed; L84 Corns and callosities; E11.69 Type 2 diabetes mellitus with other specified complication; M86.672 Other chronic osteomyelitis, left ankle and foot; E11.42 Type 2 diabetes mellitus with diabetic polyneuropathy; E11.52 Type 2 diabetes mellitus with diabetic peripheral angiopathy with gangrene; I96 Gangrene, not elsewhere classified; E11.319 Type 2 diabetes mellitus with unspecified diabetic retinopathy without macular edema; I10 Essential (primary) hypertension; I25.10 Atherosclerotic heart disease of native coronary artery without angina pectoris; N40.0 Benign prostatic hyperplasia without lower urinary tract symptoms; G20.A1 Parkinson's disease without dyskinesia, without mention of fluctuations; E78.00 Pure hypercholesterolemia, unspecified; F32.A Depression, unspecified; F41.9 Anxiety disorder, unspecified; Z87.891 Personal history of nicotine dependence; Z89.511 Acquired absence of right leg below knee; Z79.02 Long term (current) use of antithrombotics/antiplatelets; Z79.4 Long term (current) use of insulin; Z79.84 Long term (current) use of oral hypoglycemic drugs; Z79.899 Other long term (current) drug therapy; Z95.1 Presence of aortocoronary bypass graft; Z95.5 Presence of coronary angioplasty implant and graft; Y83.5 Amputation of limb(s) as the cause of abnormal reaction of the patient, or of later complication, without mention of misadventure at the time of the procedure | CPT/HCPCS: 97597; A6209; A6022; A6196 ==

== ENCOUNTER → 2025-01-04 | Outpatient (CLI) | payer OTHER ==
[~2025-01-04] MED LIST changes: +LISI40TA15 PO; -LISI40TA9 PO
== END | disposition home or self-care (01) ==
LOC: WHH 08:13
PROVIDERS: ATTEND Podiatrist Foot & Ankle Surgery
DX: T87.89 Other complications of amputation stump (principal); E11.621 Type 2 diabetes mellitus with foot ulcer; L97.421 Non-pressure chronic ulcer of left heel and midfoot limited to breakdown of skin; L97.521 Non-pressure chronic ulcer of other part of left foot limited to breakdown of skin; L84 Corns and callosities; E11.69 Type 2 diabetes mellitus with other specified complication; M86.672 Other chronic osteomyelitis, left ankle and foot; E11.42 Type 2 diabetes mellitus with diabetic polyneuropathy; E11.52 Type 2 diabetes mellitus with diabetic peripheral angiopathy with gangrene; I96 Gangrene, not elsewhere classified; E11.319 Type 2 diabetes mellitus with unspecified diabetic retinopathy without macular edema; I10 Essential (primary) hypertension; I25.10 Atherosclerotic heart disease of native coronary artery without angina pectoris; N40.0 Benign prostatic hyperplasia without lower urinary tract symptoms; G20.A1 Parkinson's disease without dyskinesia, without mention of fluctuations; E78.00 Pure hypercholesterolemia, unspecified; F32.A Depression, unspecified; F41.9 Anxiety disorder, unspecified; Z87.891 Personal history of nicotine dependence; Z89.511 Acquired absence of right leg below knee; Z79.02 Long term (current) use of antithrombotics/antiplatelets; Z79.4 Long term (current) use of insulin; Z79.84 Long term (current) use of oral hypoglycemic drugs; Z79.899 Other long term (current) drug therapy; Z95.1 Presence of aortocoronary bypass graft; Z95.5 Presence of coronary angioplasty implant and graft; Y83.5 Amputation of limb(s) as the cause of abnormal reaction of the patient, or of later complication, without mention of misadventure at the time of the procedure
CPT/HCPCS: G0463; A6196; A4450

== ENCOUNTER → 2025-01-18 | Outpatient (CLI) | payer OTHER | END | disposition home or self-care (01) | LOC: WHH 08:47 | PROVIDERS: ATTEND Podiatrist Foot & Ankle Surgery | DX: T87.89 Other complications of amputation stump (principal); E11.621 Type 2 diabetes mellitus with foot ulcer; L97.421 Non-pressure chronic ulcer of left heel and midfoot limited to breakdown of skin; L97.521 Non-pressure chronic ulcer of other part of left foot limited to breakdown of skin; L84 Corns and callosities; S91.302A Unspecified open wound, left foot, initial encounter; E11.69 Type 2 diabetes mellitus with other specified complication; M86.672 Other chronic osteomyelitis, left ankle and foot; E11.42 Type 2 diabetes mellitus with diabetic polyneuropathy; E11.52 Type 2 diabetes mellitus with diabetic peripheral angiopathy with gangrene; I96 Gangrene, not elsewhere classified; E11.319 Type 2 diabetes mellitus with unspecified diabetic retinopathy without macular edema; I10 Essential (primary) hypertension; I25.10 Atherosclerotic heart disease of native coronary artery without angina pectoris; N40.0 Benign prostatic hyperplasia without lower urinary tract symptoms; G20.A1 Parkinson's disease without dyskinesia, without mention of fluctuations; E78.00 Pure hypercholesterolemia, unspecified; F32.A Depression, unspecified; F41.9 Anxiety disorder, unspecified; Z87.891 Personal history of nicotine dependence; Z89.511 Acquired absence of right leg below knee; Z79.02 Long term (current) use of antithrombotics/antiplatelets; Z79.4 Long term (current) use of insulin; Z79.84 Long term (current) use of oral hypoglycemic drugs; Z79.899 Other long term (current) drug therapy; Z95.1 Presence of aortocoronary bypass graft; Z95.5 Presence of coronary angioplasty implant and graft; X58.XXXA Exposure to other specified factors, initial encounter; Y93.89 Activity, other specified; Y92.89 Other specified places as the place of occurrence of the external cause; Y99.8 Other external cause status; Y83.5 Amputation of limb(s) as the cause of abnormal reaction of the patient, or of later complication, without mention of misadventure at the time of the procedure | CPT/HCPCS: G0463 ==

== ENCOUNTER → 2025-02-01 | Outpatient (CLI) | payer OTHER | END | disposition home or self-care (01) | LOC: WHH 07:49 | PROVIDERS: ATTEND Podiatrist Foot & Ankle Surgery | DX: T87.89 Other complications of amputation stump (principal); E11.621 Type 2 diabetes mellitus with foot ulcer; L97.421 Non-pressure chronic ulcer of left heel and midfoot limited to breakdown of skin; L97.521 Non-pressure chronic ulcer of other part of left foot limited to breakdown of skin; L84 Corns and callosities; E11.69 Type 2 diabetes mellitus with other specified complication; M86.672 Other chronic osteomyelitis, left ankle and foot; E11.42 Type 2 diabetes mellitus with diabetic polyneuropathy; E11.52 Type 2 diabetes mellitus with diabetic peripheral angiopathy with gangrene; I96 Gangrene, not elsewhere classified; E11.319 Type 2 diabetes mellitus with unspecified diabetic retinopathy without macular edema; I10 Essential (primary) hypertension; I25.10 Atherosclerotic heart disease of native coronary artery without angina pectoris; N40.0 Benign prostatic hyperplasia without lower urinary tract symptoms; G20.A1 Parkinson's disease without dyskinesia, without mention of fluctuations; E78.00 Pure hypercholesterolemia, unspecified; F32.A Depression, unspecified; F41.9 Anxiety disorder, unspecified; Z87.891 Personal history of nicotine dependence; Z89.511 Acquired absence of right leg below knee; Z79.02 Long term (current) use of antithrombotics/antiplatelets; Z79.4 Long term (current) use of insulin; Z79.84 Long term (current) use of oral hypoglycemic drugs; Z79.899 Other long term (current) drug therapy; Z95.1 Presence of aortocoronary bypass graft; Z95.5 Presence of coronary angioplasty implant and graft; Y83.5 Amputation of limb(s) as the cause of abnormal reaction of the patient, or of later complication, without mention of misadventure at the time of the procedure | CPT/HCPCS: G0463 ==

== ENCOUNTER 2025-05-01 23:04 | Emergency (ER) | payer OTHER, MEDICARE ==
[~2025-05-01] VITALS: Ht 170.2 cm; Wt 65.8 kg
[2025-05-01] MEDS: BENZONATATE 100 MG CAPSULE PO ONE (23:43)
[2025-05-01 23:46] LABS: IMMATURE GRANULOCYTE ABSOLUTE 0.03 K/uL (0-1); NUCLEATED RED BLOOD CELLS 0.0 % (0.0-0.19); PLATELET COUNT (AUTO) 303 K/uL (130-400); RED BLOOD CELL COUNT(AUTO) 4.39 MIL/uL (4.50-6.20); RED CELL DISTRIBUTION WIDTH 13.0 % (11.0-15.5); WHITE BLOOD COUNT (AUTO) 8.9 K/uL (4.8-10.8)
--- NOTE | 2025-05-01 23:48 | HMCIMG ---
EXAM: CR Chest, 1 view CLINICAL HISTORY: Cough. COMPARISON: None provided. FINDINGS: The lungs show no infiltrates or other acute findings. No pleural effusion or pneumothorax. The cardiomediastinal silhouette is within normal limits. Status poststernotomy. There is a broken superiormost sternotomy suture wire. No acute osseous abnormality. IMPRESSION: No acute cardiopulmonary process is evident. Status poststernotomy. There is a broken superiormost sternotomy suture wire. /[place]
[2025-05-01 23:50] LABS: RAPID GROUP A STREP negative (NEGATIVE)
[2025-05-01 23:55] LABS: CREATININE 1.2 mg/dL (0.5-1.3); GLOMERULAR FILTR. RATE CALC 64.0 mL/min (>90); GLUCOSE,RANDOM 188.0 mg/dL (70-105); SODIUM SERUM 140.0 mmol/L (136-145); UREA NITROGEN, BLOOD 25.0 mg/dL (7-18)
[2025-05-01 23:57] LABS: SARS-CoV-2, RNA, NAAT NEGATIVE SARS CoV-2 (NEGATIVE)
[2025-05-01 23:59] LABS: INFLUENZA TYPE A Negative For Type A (NEGATIVE); INFLUENZA TYPE B Negative For Type B (NEGATIVE)
--- NOTE | 2025-05-02 00:01 | ERN ---
ED Note History of Present Illness Stated Complaint: C/O COUGH,SORE THROAT, CONGESTION X 1 WK Chief Complaint: Cough Time Seen by MD: 23:15 Time Seen by Midlevel: 23:18 Dictation: 70-year-old male with a history of dementia, diabetes coming in with complaints of cough and sore throat for two weeks. Patient states she was recently released from [facility] after he had a fall and had a subdural hematoma. At this time patient denies having any chest pain, shortness a breath, chest discomfort, fever. Allergies: Coded Allergies: iodine (Unverified Allergy, Unknown, 09/03/22) Home Meds Active Scripts Famotidine (Famotidine) 20 Mg Tablet, 1 TAB PO BID for 30 Days, #60 TAB 0 Refills Prov:MICHAEL HERNANDEZ 06/25/24 Clopidogrel Bisulfate (Clopidogrel) 75 Mg Tablet, 75 MG PO HS, #90 TAB Prov:PEARL KNOTT MD 02/10/22 Reported Medications Aspirin (ASPIRIN 81 MG ECTAB) 81 Mg Ectab, 81 MG PO HS, TAB.EC 09/05/22 Hydralazine HCl (Hydralazine HCl) 50 Mg Tablet, 50 MG PO BID, TAB 09/05/22 Empagliflozin (Jardiance) 25 Mg Tablet, 12.5 MG PO AM, TAB 09/03/22 Insulin Detemir (Levemir Flextouch) 100 Unit/1 Ml Insuln.pen, 25 UNIT SQ AM, SYRINGE 09/03/22 Insulin Detemir (Levemir Flextouch) 100 Unit/1 Ml Insuln.pen, 10 UNIT SQ HS, SYRINGE 09/03/22 [mvi] No Conflict Check, 1 TAB PO DAILY 09/03/22 Escitalopram Oxalate (Escitalopram Oxalate) 20 Mg Tablet, 20 MG PO AM, TAB 09/03/22 Isosorbide Mononitrate (Isosorbide Mononitrate ER) 30 Mg Tab.er.24h, 30 MG PO AM, TAB 09/03/22 Lisinopril (Lisinopril) 40 Mg Tablet, 20 MG PO HS, TAB 09/03/22 Atorvastatin Calcium (Atorvastatin Calcium) 80 Mg Tablet, 40 MG PO HS, TAB 09/03/22 Nitroglycerin (Nitroglycerin) 0.4 Mg Tab.subl, 0.4 MG SL AD PRN for CHEST PAIN, TAB.SL 02/10/22 Metoprolol Tartrate (Metoprolol Tartrate) 100 Mg Tablet, 50 MG PO BID, TAB METOPROLOL TARTRATE 50MG TWICE A DAY. METOPROLOL HAS BEEN DECREASED FROM 100MG TO 50MG. 02/10/22 Tamsulosin HCl (Flomax) 0.4 Mg Cap.er.24h, 0.4 MG PO HS, CAPSULE.DR 02/10/22 Furosemide (Furosemide) 20 Mg Tablet, 20 MG PO AM, TAB 02/10/22 Docusate Sodium (Docusate Sodium) 100 Mg Capsule, 100 MG PO HS, CAP 11/07/20 Cyanocobalamin (Vitamin B-12) (Vitamin B-12) 1,000 Mcg Capsule, 1000 MCG PO DAILY, CAP 11/07/20 Metformin HCl (Metformin HCl) 1,000 Mg Tablet, 1000 MG PO BIDMEALS, TAB 11/07/20 Memantine HCl (Memantine HCl) 10 Mg Tablet, 10 MG PO HS, TAB 11/07/20 Past Medical History Past Medical History: Diabetes-Type II, Hypertension Additional Past Medical Hx: HX OF OPEN HEART Surgical History: Other Surgical History Other: OPEN HEART SX (2004) Family History: Negative Social History: Negative Review of System Dictation Constitutional: Negative for fever,chills, and weight loss Eyes: Negative for injury, pain,redness, and discharge ENT: Negative for injury,pain or swelling, complaining of throat pain Cardiovascular: Negative for chest pain, palpitations, and edema Respiratory: Complaining of cough Abdomen/GI: Negative for abdominal pain, nausea, vomiting, diarrhea, and constipation Back: Negative for injury and pain : Negative for injury, bleeding and discharge MS/Extremity: Negative for injury and deformity Skin: Negative for rash, and discoloration Neuro: Negative for headache, weakness, numbness, tingling, and seizure Psych: Negative for suicide ideation, homicidal ideation, and hallucinations Review of Systems: was completed Initial Vital Sign VS Vital Signs Date Time Temp Pulse Resp B/P (MAP) Pulse Ox O2 Delivery O2 Flow Rate FiO2 05/01/25 23:07 98.2 85 20 180/119 96 Room Air 05/01/25 23:30 0 21 Physical Exam Dictation General: awake, alert, NAD Head/Face: Normocephalic, atraumatic Eyes: PERRL, EOMI, vision at baseline ENT: oral cavity clear, TMs clear, no signs of infection Neck: Trachea midline, supple, no nuchal rigidity Cardiovascular: RRR, normal S1/S2, No MRGs, no JVD Respiratory: Was charge nurse just, bilateral coarse sounds Abdomen: Soft, non-tender, non-distended, normal bowel sounds, no guarding or rebound. Skin: Warm, dry, normal turgor, no rash MS/Extremity: Pulses equal, no cyanosis, neurovascular intact, FROM Neuro: COAx4, GCS 15, strength 5/5, CN 2-12 intact, normal cerebellar exam, normal gait, Psych: Normal behavior, mood, and affect normal Results (Laboratory/Radiology) Laboratory/Radiology Laboratory Tests Test 05/01/25 23:12 05/01/25 23:40 Influenza Type A Antigen Negative For Type A Influenza Type B Antigen Negative For Type B SARS-CoV-2, RNA, NAAT NEGATIVE SARS CoV-2 Group A Streptococcus Rapid negative (NEGATIVE) White Blood Count 8.9 K/uL (4.8-10.8) Red Blood Count 4.39 MIL/uL (4.50-6.20) L Hemoglobin 13.0 g/dL (14.0-18.0) L Hematocrit 39.9 % (42-54) L Mean Corpuscular Volume 90.9 fL (79-99) Mean Corpuscular Hemoglobin 29.6 pg (27.0-33.0) Mean Corpuscular Hemoglobin Concent 32.6 g/dL (32.0-36.0) Red Cell Distribution Width 13.0 % (11.0-15.5) Platelet Count 303 K/uL (130-400) Mean Platelet Volume 9.9 fL (7.5-10.5) Immature Granulocyte % (Auto) 0.3 % (0-1) Neutrophils (%) (Auto) 53.1 % (40.0-77.0) Lymphocytes (%) (Auto) 32.2 % (21.0-51.0) Monocytes (%) (Auto) 9.8 % (3.0-13.0) Eosinophils (%) (Auto) 3.8 % (0.0-8.0) Basophils (%) (Auto) 0.8 % (0.0-5.0) Neutrophils # (Auto) 4.7 K/uL (1.8-7.7) Lymphocytes # (Auto) 2.9 K/uL (1.0-4.8) Monocytes # (Auto) 0.9 K/uL (0.1-1.0) Eosinophils # (Auto) 0.34 K/uL (0.00-0.70) Basophils # (Auto) 0.07 K/uL (0.00-0.20) Absolute Immature Granulocyte (auto 0.03 K/uL (0-1) Nucleated Red Blood Cells 0.0 % (0.0-0.19) Sodium Level 140 mmol/L (136-145) Potassium Level 4.3 mmol/L (3.5-5.1) Chloride Level 101 mmol/L (101-111) Carbon Dioxide Level 30 mmol/L (21-32) Blood Urea Nitrogen 25 mg/dL (7-18) H Creatinine 1.2 mg/dL (0.5-1.3) Glomerular Filtration Rate Calc 64 mL/min (>90) Random Glucose 188 mg/dL (70-105) H Total Calcium 8.9 mg/dL (8.5-10.1) B-Type Natriuretic Peptide 18 pg/mL (0-100) Labs Reviewed?: Yes X-RAY Comment: [address] [address] IMAGING REPORT Signed PATIENT: RAMSES RAY MR#: [id number] : 1955 SEX: M AGE: 70 LOCATION: [facility] ORDER 26 STATUS: REG ER REPORT#: [id number] SERVICE 24 REASON: cough ORDERING PHYSICIAN: SHREYAS LOU PROCEDURE: CXR1VW - CHEST 1VW EXAM: CR Chest, 1 view CLINICAL HISTORY: Cough. COMPARISON: None provided. FINDINGS: The lungs show no infiltrates or other acute findings. No pleural effusion or pneumothorax. The cardiomediastinal silhouette is within normal limits. Status poststernotomy. There is a broken superiormost sternotomy suture wire. No acute osseous abnormality. IMPRESSION: No acute cardiopulmonary process is evident. Status poststernotomy. There is a broken superiormost sternotomy suture wire. /[place] DICTATED BY: CHANDRA LEDBETTER Jr., MD DATE: 05/02/2546 ELECTRONICALLY SIGNED BY: CHANDRA LEDBETTER Jr., MD DATE: 05/02/2546 ED Course ED Course Orders Procedure Category Date Status Time Covid Rna Naat LAB 05/01/25 Complete 23:19 Influenza Type A & B, LAB 05/01/25 Complete Rapid 23:19 Rapid (Group A Strep) LAB 05/01/25 Complete 23:19 Cbc With Differential LAB 05/01/25 Complete 23:25 Basic Metabolic Panel LAB 05/01/25 Complete 23: 12 Lead Ekg Tracing- EKG 05/01/25 Logged Technical 23:25 Chest 1vw RAD 05/01/25 Resulted 23:25 B-Type Natriuretic LAB 05/01/25 Complete Peptide 23:25 Methylprednisolone PHA 05/01/25 Complete Succ 125mg (Solu-Medr 23:30 Ipratropium/Albuterol PHA 05/01/25 Complete Neb (Duoneb) 23:30 Benzonatate 100 Mg PHA 05/01/25 Complete Capsule (Tessalon 100 23:30 Ipratropium/Albuterol PHA 05/02/25 Complete Neb (Duoneb) 01:00 Current Medications Medications (Trade) Dose Ordered Sig/Reva Route PRN Reason Start Time Stop Time Status Last Admin Dose Admin Albuterol (DUOneb) 1 UDVIAL ONCE ONCE IH 05/01/25 23:30 05/01/25 23:31 DC 05/02/25 00:07 Albuterol (DUOneb) 1 UDVIAL ONCE ONCE IH 05/02/25 01:00 05/02/25 01:01 DC 05/02/25 01:11 Benzonatate (Tessalon 100mg Caps) 200 mg ONCE ONCE PO 05/01/25 23:30 05/01/25 23:31 DC 05/01/25 23:43 Methylprednisolone Sodium Succinate (Solu-medROL 125MG) 125 mg ONCE ONCE IVP 05/01/25 23:30 05/01/25 23:31 DC 05/01/25 23:43 Vital Signs Date Time Temp Pulse Resp B/P (MAP) Pulse Ox O2 Delivery O2 Flow Rate FiO2 05/02/25 01:12 82 18 05/02/25 00:07 81 18 05/01/25 23:30 98.2 81 19 146/95 98 Room Air* 0 21 05/01/25 23:07 98.2 85 20 180/119 96 Room Air Medical Decision Making MDM MDM: 70-year-old male with a history of dementia, diabetes coming in with complaints of cough and sore throat for two weeks. Patient states she was recently released from [facility] after he had a fall and had a subdural hematoma. At this time patient denies having any chest pain, shortness a breath, chest discomfort, fever. CBC shows no leukocytosis, hemoglobin of 13 hematocrit is 39. No thrombocytopenia. History shows no electrolyte abnormality. Normal kidney function. Mild hyperglycemia glucose of 188. BNP of 18. Swabs for COVID and flu negative. Chest x-ray shows no acute finding. Patient has a hoarse voice, coarse lung sounds. Had ER MD Dr. Cervantes assess patient as well. She agrees with the plan of c work and x-ray with a steroids and DuoNebs. For 0100 reassessment after 1st DuoNeb patient feels better however so this has some coarse lung arguello. Second DuoNeb ordered. 0145 reassessment after the DuoNeb, clear lung sounds, patient feels much better. Patient will be discharged on steroids, DuoNeb, antibiotics and cough medication. Discussed with the patient that he needs to see his primary doctor in 1-2 days and return to the hospital as needed. [facility] Differential diagnosis: Rationale: Tests considered and ordered secondary to shared decision making include: Previous outside records reviewed: Old ER visits. Risk of complication and/or morbidity or mortality of patient management: None Medications-Per medication reconciliation Need for hospitalization: Patient does not meet criteria for hospitalization. Need for emergency major/minor surgery: No There are no social concerns with this patient. Prescription drug management Prescriptions will include symptomatic care Patient's prior external medical records from other ER visits were reviewed by me as indicated. Prior testing and results from previous visits were reviewed. Prior tests were taken into account with medical decision making and resource utilization, independent historian/historians were used to obtain complete medical history. I independently interpreted the test that were performed, results were reviewed by me and considered findings on radiology if ordered. Medical management and examination interpretation discussions were had by me with other qualified healthcare professionals as indicated for the patient's care. DX & DISP Disposition: Discharge Departure Impression: Primary Impression: Bronchitis Condition: Stable Scripts Azithromycin (Azithromycin) 250 Mg Tablet 1 TAB PO AD for 5 Days, #6 TAB 0 Refills 2 the first day followed by 1 for days 2-5 Prov: SHREYAS LOU 05/02/25 Benzonatate (Tessalon Perles) 100 Mg Cap 2 CAP PO TID for cough for 5 Days, #30 CAP 0 Refills Prov: SHREYAS LOU 05/02/25 Methylprednisolone (Medrol) 4 Mg Tablet 1 TAB PO AD for 6 Days, #21 TAB 0 Refills Prov: SHREYAS LOU 05/02/25 Ipratropium/Albuterol Sulfate (Combivent Respimat Inhal [place]) 20 Mcg-100 Mcg/Actuation Aer.w.adap 1 PUFF IH QID for 5 Days, #4 GM 0 Refills Prov: SHREYAS LOU 05/02/25 Additional Instructions: [facility]. Take medications as prescribed. Return to the hospital for any worsening symptoms. Referrals: ANNETTE MURPHY MD (PCP) Time of Disposition: 01:58 I have reviewed the case, and I agree with, Diagnosis and Plan SHREYAS LOU May 02, 2025 00:01
[2025-05-02 00:07] VITALS: PULSE 81; RESP 18
[2025-05-02 01:12] VITALS: PULSE 82; RESP 18
[2025-05-02] MEDS ORDERED: AZIT250T9 PO (01:58)
[2025-05-02] MEDS ORDERED: METH4TAB PO (01:58)
[2025-05-02] MEDS ORDERED: IPRA4AER IH (01:58)
[2025-05-02] MEDS ORDERED: BENZ-39 PO (01:58)
[2025-05-02 02:17] VITALS: BP 138/88; PULSE 84; RESP 18; TEMP 98.2; O2SAT 99
--- NOTE | 2025-05-02 02:20 | EKG ---
[facility] Test Date: 2025-05-02 Test Time: 00:17:39 Pat Name: RAMSES RAY Department: ED Room: Gender: M Prototype Sewer: [id number] : 1955 Requested By: SHREYAS LOU Order Number: [id number] Reading MD: Alyssa Lemus Measurements Intervals [place] Rate: 80 P: -4 MN: 168 QRS: -46 QRSD: 100 T: 39 QT: 389 QTc: 450 Interpretive Statements Sinus rhythm LAD, consider left anterior fascicular block Compared to ECG 11/07/2024 11:36:05 Left-axis deviation no longer present Electronically Signed On 05-03-2025 10:24:01 CDT by Alyssa Lemus Please click the below link to view image of tracing.
== END 2025-05-02 02:19 | disposition home or self-care (01) ==
LOC: EDH 23:04
DX: J40 Bronchitis, not specified as acute or chronic (principal); E11.9 Type 2 diabetes mellitus without complications; I10 Essential (primary) hypertension; Z20.822 Contact with and (suspected) exposure to COVID-19; Z79.82 Long term (current) use of aspirin; Z79.899 Other long term (current) drug therapy; Z88.8 Allergy status to other drugs, medicaments and biological substances
CPT/HCPCS: 99285; 96374; 71045; 87635; 80048; 83880; 85025; 87880; 87804 ×2; 36415; 93005; 94640; J2919

== ENCOUNTER 2025-07-01 07:05 | Emergency (ER) | payer OTHER ==
[~2025-07-01] VITALS: Ht 170.2 cm; Wt 65.3 kg
--- NOTE | 2025-07-01 07:38 | NUR ---
RESPIRATORY WAS CALLED FOR BREATHING TREAMENTS
[2025-07-01 07:51] VITALS: PULSE 88; RESP 18
--- NOTE | 2025-07-01 08:33 | HMCIMG ---
EXAM: CR Chest, 1 View. CLINICAL HISTORY: sob COMPARISON: May 01 2025 FINDINGS: LUNGS: The lungs show no infiltrate or other acute finding. PLEURAL SPACES: No evidence of pleural effusion or pneumothorax. MEDIASTINUM: Cardiac size and mediastinal contours within normal limits. BONES: No acute osseous abnormality. IMPRESSION: No acute cardiopulmonary pathology is evident. /[place]
--- NOTE | 2025-07-01 08:41 | ERN ---
General Chief Complaint: Adult-Asthma Stated Complaint: WHEEZING Time Seen by MD: 07:21 Source: patient, family History of Present Illness Initial Comments PATIENT IS A 70-YEAR-OLD MALE COMING IN COMPLAINING OF SHORTNESS OF BREATH SECONDARY TO ASTHMA. PATIENT STATES THAT HE HAS BEEN HAVING THESE SYMPTOMS FOR ABOUT TWO MONTHS. HE HAS BEEN EVALUATED BY HIS PCP IN HIS PENDING A GROUNDS SUPERVISOR VISIT. HE HAS BEEN USING ON AND OFF BREATHING TREATMENTS AT HOME. Allergies: Coded Allergies: iodine (Unverified Allergy, Unknown, 09/03/22) Home Meds Active Scripts Azithromycin (Azithromycin) 250 Mg Tablet, 1 TAB PO AD for 5 Days, #6 TAB 0 Refills 2 the first day followed by 1 for days 2-5 Prov:SHREYAS LOU [employer] 05/02/25 Benzonatate (Tessalon Perles) 100 Mg Cap, 2 CAP PO TID for cough for 5 Days, #30 CAP 0 Refills Prov:SHREYAS LOU CNP 05/02/25 Methylprednisolone (Medrol) 4 Mg Tablet, 1 TAB PO AD for 6 Days, #21 TAB 0 Refills Prov:SHREYAS LOU [facility] 05/02/25 Ipratropium/Albuterol Sulfate (Combivent Respimat Inhal Sims) 20 Mcg-100 Mcg/Actuation Aer.w.adap, 1 PUFF IH QID for 5 Days, #4 GM 0 Refills Prov:SHREYAS LOU [facility] 05/02/25 Famotidine (Famotidine) 20 Mg Tablet, 1 TAB PO BID for 30 Days, #60 TAB 0 Refills Prov:MICHAEL HERNANDEZ 06/25/24 Clopidogrel Bisulfate (Clopidogrel) 75 Mg Tablet, 75 MG PO HS, #90 TAB Prov:PEARL KNOTT MD 02/10/22 Reported Medications Aspirin (ASPIRIN 81 MG ECTAB) 81 Mg Ectab, 81 MG PO HS, TAB.EC 09/05/22 Hydralazine HCl (Hydralazine HCl) 50 Mg Tablet, 50 MG PO BID, TAB 09/05/22 Empagliflozin (Jardiance) 25 Mg Tablet, 12.5 MG PO AM, TAB 09/03/22 Insulin Detemir (Levemir Flextouch) 100 Unit/1 Ml Insuln.pen, 25 UNIT SQ AM, SYRINGE 09/03/22 Insulin Detemir (Levemir Flextouch) 100 Unit/1 Ml Insuln.pen, 10 UNIT SQ HS, SYRINGE 09/03/22 [mvi] No Conflict Check, 1 TAB PO DAILY 09/03/22 Escitalopram Oxalate (Escitalopram Oxalate) 20 Mg Tablet, 20 MG PO AM, TAB 09/03/22 Isosorbide Mononitrate (Isosorbide Mononitrate ER) 30 Mg Tab.er.24h, 30 MG PO AM, TAB 09/03/22 Lisinopril (Lisinopril) 40 Mg Tablet, 20 MG PO HS, TAB 09/03/22 Atorvastatin Calcium (Atorvastatin Calcium) 80 Mg Tablet, 40 MG PO HS, TAB 09/03/22 Nitroglycerin (Nitroglycerin) 0.4 Mg Tab.subl, 0.4 MG SL AD PRN for CHEST PAIN, TAB.SL 02/10/22 Metoprolol Tartrate (Metoprolol Tartrate) 100 Mg Tablet, 50 MG PO BID, TAB METOPROLOL TARTRATE 50MG TWICE A DAY. METOPROLOL HAS BEEN DECREASED FROM 100MG TO 50MG. 02/10/22 Tamsulosin HCl (Flomax) 0.4 Mg Cap.er.24h, 0.4 MG PO HS, CAPSULE.DR 02/10/22 Furosemide (Furosemide) 20 Mg Tablet, 20 MG PO AM, TAB 02/10/22 Docusate Sodium (Docusate Sodium) 100 Mg Capsule, 100 MG PO HS, CAP 11/07/20 Cyanocobalamin (Vitamin B-12) (Vitamin B-12) 1,000 Mcg Capsule, 1000 MCG PO DAILY, CAP 11/07/20 Metformin HCl (Metformin HCl) 1,000 Mg Tablet, 1000 MG PO BIDMEALS, TAB 11/07/20 Memantine HCl (Memantine HCl) 10 Mg Tablet, 10 MG PO HS, TAB 11/07/20 Past Medical History Past Medical History: Diabetes-Type II, Hypertension Medical History Other: HX OF OPEN HEART Past Surgical History: Other Surgical History Other: OPEN HEART SX (2004) Family History Family History: Negative Social History Social History: Negative ROS Dictation CONSTITUTIONAL: NO CHILLS, NO FEVER, NO WEAKNESS, NO DIAPHORESIS, NO MALAISE. HEAD/FACE: NO SIGNS OF TRAUMA. EENT: NO EYE PAIN, NO BLURRED VISION, NO TEARING, NO DOUBLE VISION, NO EAR PAIN, NO EAR DISCHARGE, NO NOSE PAIN, NO NASAL CONGESTION, NO THROAT PAIN, NO THROAT SWELLING, NO MOUTH PAIN. RESPIRATORY: COUGH, NO ORTHOPNEA, SOB, NO STRIDOR, WHEEZING. CARDIOVASCULAR: NO CHEST PAIN, NO EDEMA, NO PALPITATIONS, NO SYNCOPE. GASTROINTESTINAL/ABDOMINAL: NO ABDOMINAL PAIN, NO CONSTIPATION, NO DIARRHEA, NO NAUSEA, NO VOMITING. GENITOURINARY: NO ABNORMAL DISCHARGE, NO DYSURIA, NO FREQUENT URINATION, NO HEMATURIA. NO COMPLAINTS OF PAIN IN THE GENITALS. MUSCULOSKELETAL: NO BACK PAIN, NO GOUT, NO JOINT PAIN, NO JOINT SWELLING, NO MUSCLE PAIN, NO MUSCLE STIFFNESS, NO NECK PAIN. INTEGUMENTARY: NO CHANGE IN COLOR, NO CHANGE IN HAIR/NAILS, NO DRYNESS, NO LESION, NO LUMPS, NO RASH. NEUROLOGICAL/PSYCH: NO ANXIETY, NOT DEPRESSED, NO EMOTIONAL PROBLEM, NO HEADACHE, NO NUMBNESS, NO PRE-EXISTING DEFICIT, NO HISTORY OF SEIZURES, NO TREMORS, NO WEAKNESS. HEMATOLOGIC/LYMPHATIC: NOT ANEMIC, NO HISTORY OF BLOOD CLOTS, NO APPARENT BLEEDING, NO BRUISING, GLANDS NOT SWOLLEN. ALL SYSTEMS NEGATIVE, EXCEPT NOTED. Physical Exam Physical Exam Dictation VITAL SIGNS: REVIEWED. GENERAL APPEARANCE: ALERT, ORIENTED X3, NO ACUTE DISTRESS, OBESE. HEAD AND FACE: NON-TRAUMATIC. EYES: PERRL, PINK CONJUNCTIVAS, EYELID NO TRAUMA, ANTERIOR CHAMBER CLEAR. EARS: PINNAS INTACT AND NO SIGNS OF TRAUMA OR ERYTHEMA. EAR CANALS CLEAR AND NO DISCHARGE. TMS NO ERYTHEMA. NOSE: NO DISCHARGE, NO BLEEDING. OROPHARYNX: MOUTH NORMAL, TEETH NO CARIES, TONGUE PINK. PHARYNX CLEAR, NO ERYTHEMA. TONSILS NO EXUDATES, NO ABSCESSES NOTED. MUCOUS MEMBRANE MOIST. NECK: SUPPLE, NON-TENDER, NO THYROMEGALY, NO MASSES, NO JVD, NO BRUITS. BREAST: DEFERRED. CHEST: NO TENDERNESS, NO CREPITUS, NO PARADOXICAL MOVEMENT, NO RETRACTIONS. LUNGS: CLEAR, WELL-VENTILATED, SYMMETRIC, NO RALES, . EXPIRATORY WHEEZING, NO RHONCHI, NO STRIDOR, GOOD BREATH SOUNDS BILATERALLY. HEART: REGULAR RATE, REGULAR RHYTHM, NO MURMUR, NO GALLOPS. VASCULAR: NO PERIPHERAL EDEMA. ABDOMEN: SOFT, POSITIVE BOWEL SOUNDS, NONDISTENDED, NO GUARDING, NONTENDER, NO REBOUND, NO MASSES NO HEPATOMEGALY, NO SPLENOMEGALY, NO BABIN'S SIGN, NO HERNIAS. RECTAL: DEFERRED. GENITAL: DEFERRED. NEUROLOGICAL: NORMAL SPEECH, GROSS MOTOR FUNCTION INTACT, GROSS SENSORY FUNCTION INTACT. MUSCULOSKELETAL: NECK NONTENDER, FULL RANGE OF MOTION, BACK NONTENDER, FULL RANGE OF MOTION. EXTREMITIES: NONTENDER, FULL RANGE OF MOTION. SKIN: COLOR PINK, DRY, NO TURGOR, NO RASH, NO LACERATIONS, NO ABRASIONS, NO CONTUSIONS. LYMPHATICS: DEFERRED. Results Laboratory and Microbiology Labs Reviewed?: Yes EKG/XRAY/US/CT/MRI EKG Comment 10/30/2024 TIME 7:10 A.M. VENTRICULAR RATE [address] WAVE ELEVATION OR DEPRESSION X-RAY Comment [place] [id number] [place] [id number] IMAGING REPORT Signed PATIENT: RAMSES RAY MR#: [id number] : 1955 SEX: M AGE: 70 LOCATION: [facility]H ORDER 9 STATUS: REG ER REPORT#: [id number] SERVICE 8 REASON: sob ORDERING PHYSICIAN: LUCIANA RON MD PROCEDURE: CXR1VW - CHEST 1VW EXAM: CR Chest, 1 View. CLINICAL HISTORY: sob COMPARISON: May 01 2025 FINDINGS: LUNGS: The lungs show no infiltrate or other acute finding. PLEURAL SPACES: No evidence of pleural effusion or pneumothorax. MEDIASTINUM: Cardiac size and mediastinal contours within normal limits. BONES: No acute osseous abnormality. IMPRESSION: No acute cardiopulmonary pathology is evident. /[place] DICTATED BY: DEVAN CROCKER MD DATE: 07/01/25930 ELECTRONICALLY SIGNED BY: DEVAN CROCKER MD DATE: 07/01/25930 [facility] MDM: DIFFERENTIAL DIAGNOSIS: HAS BEEN EXACERBATION, HISTORY OF ASTHMA, COPD, RATIONALE: TESTS CONSIDERED AND ORDERED SECONDARY TO SHARED DECISION MAKING INCLUDE: PREVIOUS OUTSIDE RECORDS REVIEWED: OLD ER VISITS. RISK OF COMPLICATION AND/OR MORBIDITY OR MORTALITY OF PATIENT MANAGEMENT: NONE MEDICATIONS-PER MEDICATION RECONCILIATION NEED FOR HOSPITALIZATION: PATIENT DOES NOT MEET CRITERIA FOR HOSPITALIZATION. NEED FOR EMERGENCY MAJOR/MINOR SURGERY: NO PATIENT IS A 70-YEAR-OLD GENTLEMAN COMING IN COMPLAINING OF WHEEZING AND SHORTNESS OF BREATH. PER PATIENT HE HAS A HISTORY OF ASTHMA AND HAS BEEN HAVING ON AND OFF FLARE-UP FOR TWO MONTHS. HE HAS BEEN SEEN BY HIS PCP IN HIS PENDING A GROUNDS SUPERVISOR VISIT. STATES HE HAD TAKEN SOME BREATHING TREATMENTS AT HOME BUT WERE NOT WORKING. HE RECEIVED STEROIDS AND DUONEB HE STATES HE FEELS MUCH BETTER WE WILL BE DISCHARGED IN STABLE CONDITION. I WILL ADD STEROIDS TO HIS BREATHING REGIMEN. ED Course Orders Procedure Category Date Status Time 12 Lead Ekg Tracing- EKG 07/01/25 Logged Technical 07:15 Chest 1vw RAD 07/01/25 Resulted 07:29 Methylprednisolone PHA 07/01/25 Complete Succ 125mg (Solu-Medr 07:30 Ipratropium/Albuterol PHA 07/01/25 Complete Neb (Duoneb) 07:30 Current Medications Medications (Trade) Dose Ordered Sig/Reva Route PRN Reason Start Time Stop Time Status Last Admin Dose Admin Albuterol (DUOneb) 2 udvial ONCE ONCE IH 07/01/25 07:30 07/01/25 07:32 DC 07/01/25 07:49 Methylprednisolone Sodium Succinate (Solu-medROL 125MG) 125 mg ONCE ONCE IM 07/01/25 07:30 07/01/25 07:31 DC 07/01/25 08:12 Vital Signs Date Time Temp Pulse Resp B/P (MAP) Pulse Ox O2 Delivery O2 Flow Rate FiO2 07/01/25 07:51 88 18 07/01/25 07:42 89 25 153/70 94 Room Air* 0 21 07/01/25 07:06 97.3 96 18 151/69 99 Room Air DX & DISP Disposition: Discharge Departure Impression: Primary Impression: Asthma exacerbation attacks Condition: Stable Scripts Prednisone (Prednisone) 5 Mg Tablet 5 MG PO BID for 7 Days, #14 TAB Prov: LUCIANA RON MD 07/01/25 Additional Instructions: FOLLOW-UP WITH PRIMARY CARE PROVIDER IN 1 TO 2 DAYS. TAKE MEDICATIONS DIRECTED HERE IN THE EMERGENCY ROOM. OKAY TO CONTINUE HOME MEDICATIONS UNLESS OTHERWISE DISCUSSED DURING YOUR VISIT IN THE EMERGENCY ROOM TODAY. RETURN TO YOUR NEAREST EMERGENCY ROOM IF SYMPTOMS WORSEN OR IF THERE IS NO IMPROVEMENT. CALL 911 IF YOU NEED IMMEDIATE ASSISTANCE. TAKE TYLENOL [id number] NEEDED AND IF NO CONTRAINDICATIONS ARE PRESENT. INCREASE ORAL HYDRATION. A WOUND CULTURE OR URINE CULTURE WAS ORDERED HERE IN THE EMERGENCY ROOM DEPARTMENT PLEASE FOLLOW-UP WITH PRIMARY CARE PROVIDER AND ADVISE THEM TO GET REPORTS FROM OUR FACILITY. IF YOU HAD ANY HAWK WRAP/SPLINTS THAT WERE APPLIED HERE, PLEASE DO NOT REMOVE THEM UNTIL YOU SEE YOUR PRIMARY CARE OR SPECIALTY. REFERRALS: Referrals: ANNETTE MURPHY MD (PCP) Time of Disposition: 08:43 LUCIANA RON MD Jul 01, 2025 08:41
[2025-07-01 08:59] VITALS: BP 141/72; PULSE 88; RESP 18; TEMP 97.3; O2SAT 99
--- NOTE | 2025-07-01 13:08 | EKG ---
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
== END 2025-07-01 09:00 | disposition home or self-care (01) ==
LOC: EDH 07:05
DX: I10 Essential (primary) hypertension (principal); E11.9 Type 2 diabetes mellitus without complications; J45.901 Unspecified asthma with (acute) exacerbation; Z88.8 Allergy status to other drugs, medicaments and biological substances; Z79.82 Long term (current) use of aspirin; Z79.899 Other long term (current) drug therapy; Z79.4 Long term (current) use of insulin
CPT/HCPCS: 99283; 71045; 96372; 93005; 94640; J2919

== ENCOUNTER 2025-07-04 10:15 | Inpatient (IN) | payer MEDICARE, OTHER ==
[~2025-07-04] VITALS: Ht 170.2 cm; Wt 64.5 kg
[~2025-07-04 10:15] MED LIST changes: +AZIT250T9 PO; +BENZ-39 PO; +IPRA4AER IH; +METH4TAB PO; +PRED5TAB PO
[2025-07-04 10:44] LABS: IMMATURE GRANULOCYTE ABSOLUTE 0.03 K/uL (0-1); NUCLEATED RED BLOOD CELLS 0.0 % (0.0-0.19); PLATELET COUNT (AUTO) 324 K/uL (130-400); RED BLOOD CELL COUNT(AUTO) 5.17 MIL/uL (4.50-6.20); RED CELL DISTRIBUTION WIDTH 13.7 % (11.0-15.5); WHITE BLOOD COUNT (AUTO) 11.3 K/uL (4.8-10.8)
[2025-07-04 11:00] LABS: APPEARANCE,URINE CLEAR (CLEAR); GLUCOSE, URINE (UA) 300 mg/dL (NEGATIVE); LEUKOCYTE ESTERASE ,URINE NEGATIVE Leu/uL (NEGATIVE); NITRATE,URINE NEGATIVE (NEGATIVE); OCCULT BLOOD,URINE NEGATIVE (NEGATIVE)
[2025-07-04 11:03] LABS: ADD UA MICROSCOPIC YES
[2025-07-04 11:03] LABS: CREATININE 1.1 mg/dL (0.5-1.3); GLOMERULAR FILTR. RATE CALC 71.0 mL/min (>90); GLUCOSE,RANDOM 93.0 mg/dL (70-105); SODIUM SERUM 139.0 mmol/L (136-145); UREA NITROGEN, BLOOD 20.0 mg/dL (7-18)
--- NOTE | 2025-07-04 11:16 | ERN ---
General Chief Complaint: Shortness of Breath Stated Complaint: SOB Time Seen by MD: 10:18 Source: patient History of Present Illness Initial Comments Patient is a 70-year-old male coming in distress. Per patient he has a history of asthma and COPD. He has been evaluated by his PCP and the PCP was concerned due to his increased usage of his inhaler. Per patient he has been feeling increased shortness of breath for a couple of days. He is pending a splitting machine operator helper visit. Allergies: Coded Allergies: iodine (Unverified Allergy, Unknown, 09/03/22) Home Meds Active Scripts Prednisone (Prednisone) 5 Mg Tablet, 5 MG PO BID for 7 Days, #14 TAB Prov:LUCIANA RON MD 07/01/25 Azithromycin (Azithromycin) 250 Mg Tablet, 1 TAB PO AD for 5 Days, #6 TAB 0 Refills 2 the first day followed by 1 for days 2-5 Prov:SHREYAS LOU CNP 05/02/25 Benzonatate (Tessalon Perles) 100 Mg Cap, 2 CAP PO TID for cough for 5 Days, #30 CAP 0 Refills Prov:SHREYAS LOU CNP 05/02/25 Methylprednisolone (Medrol) 4 Mg Tablet, 1 TAB PO AD for 6 Days, #21 TAB 0 Refills Prov:SHREYAS LOU CNP 05/02/25 Ipratropium/Albuterol Sulfate (Combivent Respimat Inhal [place]) 20 Mcg-100 Mcg/Actuation Aer.w.adap, 1 PUFF IH QID for 5 Days, #4 GM 0 Refills Prov:SHREYAS LOU CNP 05/02/25 Famotidine (Famotidine) 20 Mg Tablet, 1 TAB PO BID for 30 Days, #60 TAB 0 Refills Prov:MICHAEL HERNANDEZ 06/25/24 Clopidogrel Bisulfate (Clopidogrel) 75 Mg Tablet, 75 MG PO HS, #90 TAB Prov:PEARL KNOTT MD 02/10/22 Reported Medications Aspirin (ASPIRIN 81 MG ECTAB) 81 Mg Ectab, 81 MG PO HS, TAB.EC 09/05/22 Hydralazine HCl (Hydralazine HCl) 50 Mg Tablet, 50 MG PO BID, TAB 09/05/22 Empagliflozin (Jardiance) 25 Mg Tablet, 12.5 MG PO AM, TAB 09/03/22 Insulin Detemir (Levemir Flextouch) 100 Unit/1 Ml Insuln.pen, 25 UNIT SQ AM, SYRINGE 09/03/22 Insulin Detemir (Levemir Flextouch) 100 Unit/1 Ml Insuln.pen, 10 UNIT SQ HS, SYRINGE 09/03/22 [mvi] No Conflict Check, 1 TAB PO DAILY 09/03/22 Escitalopram Oxalate (Escitalopram Oxalate) 20 Mg Tablet, 20 MG PO AM, TAB 09/03/22 Isosorbide Mononitrate (Isosorbide Mononitrate ER) 30 Mg Tab.er.24h, 30 MG PO AM, TAB 09/03/22 Lisinopril (Lisinopril) 40 Mg Tablet, 20 MG PO HS, TAB 09/03/22 Atorvastatin Calcium (Atorvastatin Calcium) 80 Mg Tablet, 40 MG PO HS, TAB 09/03/22 Nitroglycerin (Nitroglycerin) 0.4 Mg Tab.subl, 0.4 MG SL AD PRN for CHEST PAIN, TAB.SL 02/10/22 Metoprolol Tartrate (Metoprolol Tartrate) 100 Mg Tablet, 50 MG PO BID, TAB METOPROLOL TARTRATE 50MG TWICE A DAY. METOPROLOL HAS BEEN DECREASED FROM 100MG TO 50MG. 02/10/22 Tamsulosin HCl (Flomax) 0.4 Mg Cap.er.24h, 0.4 MG PO HS, CAPSULE.DR 02/10/22 Furosemide (Furosemide) 20 Mg Tablet, 20 MG PO AM, TAB 02/10/22 Docusate Sodium (Docusate Sodium) 100 Mg Capsule, 100 MG PO HS, CAP 11/07/20 Cyanocobalamin (Vitamin B-12) (Vitamin B-12) 1,000 Mcg Capsule, 1000 MCG PO DAILY, CAP 11/07/20 Metformin HCl (Metformin HCl) 1,000 Mg Tablet, 1000 MG PO BIDMEALS, TAB 11/07/20 Memantine HCl (Memantine HCl) 10 Mg Tablet, 10 MG PO HS, TAB 11/07/20 Past Medical History Past Medical History: Asthma, CAD, Diabetes-Type II Medical History Other: HX OF OPEN HEART Past Surgical History: CABG, Other Surgical History Other: BILATERAL KNEE SX Family History Family History: Negative Social History Social History: Negative ROS Dictation CONSTITUTIONAL: No chills, no fever, no weakness, no diaphoresis, no malaise. HEAD/FACE: No signs of trauma. EENT: No eye pain, no blurred vision, no tearing, no double vision, no ear pain, no ear discharge, no nose pain, no nasal congestion, no throat pain, no throat swelling, no mouth pain. RESPIRATORY: No cough, no orthopnea, SOB, no stridor, wheezing. CARDIOVASCULAR: No chest pain, no edema, no palpitations, no syncope. GASTROINTESTINAL/ABDOMINAL: No abdominal pain, no constipation, no diarrhea, no nausea, no vomiting. GENITOURINARY: No abnormal discharge, no dysuria, no frequent urination, no hematuria. No complaints of pain in the genitals. MUSCULOSKELETAL: No back pain, no gout, no joint pain, no joint swelling, no muscle pain, no muscle stiffness, no neck pain. INTEGUMENTARY: No change in color, no change in hair/nails, no dryness, no lesion, no lumps, no rash. NEUROLOGICAL/PSYCH: No anxiety, not depressed, no emotional problem, no headache, no numbness, no pre-existing deficit, no history of seizures, no tremors, no weakness. HEMATOLOGIC/LYMPHATIC: Not anemic, no history of blood clots, no apparent bleeding, no bruising, glands not swollen. All Systems Negative, Except as Noted. Physical Exam Physical Exam Dictation VITAL SIGNS: Reviewed. GENERAL APPEARANCE: Alert, oriented x3, no acute distress, obese. HEAD AND FACE: Non-traumatic. EYES: PERRL, pink conjunctivas, eyelid no trauma, anterior chamber clear. EARS: Pinnas intact and no signs of trauma or erythema. Ear canals clear and no discharge. TMs no erythema. NOSE: No discharge, no bleeding. OROPHARYNX: Mouth normal, teeth no caries, tongue pink. Pharynx clear, no erythema. Tonsils no exudates, no abscesses noted. Mucous membrane moist. NECK: Supple, non-tender, no thyromegaly, no masses, no JVD, no bruits. BREAST: Deferred. CHEST: No tenderness, no crepitus, no paradoxical movement, no retractions. LUNGS: Clear, well-ventilated, symmetric, no rales, no wheezing, no rhonchi, no stridor, good breath sounds bilaterally. HEART: Regular rate, regular rhythm, no murmur, no gallops. VASCULAR: No peripheral edema. ABDOMEN: Soft, positive bowel sounds, nondistended, no guarding, nontender, no rebound, no masses no hepatomegaly, no splenomegaly, no Dewitt's sign, no hernias. RECTAL: Deferred. GENITAL: Deferred. NEUROLOGICAL: Normal speech, gross motor function intact, gross sensory function intact. MUSCULOSKELETAL: Neck nontender, full range of motion, back nontender, full range of motion. EXTREMITIES: Nontender, full range of motion. SKIN: Color pink, dry, no turgor, no rash, no lacerations, no abrasions, no contusions. LYMPHATICS: Deferred. Results Laboratory and Microbiology Lab and Micro Result Laboratory Tests Test 07/04/25 10:36 07/04/25 10:48 White Blood Count 11.3 K/uL (4.8-10.8) H Red Blood Count 5.17 MIL/uL (4.50-6.20) Hemoglobin 15.0 g/dL (14.0-18.0) Hematocrit 46.6 % (42-54) Mean Corpuscular Volume 90.1 fL (79-99) Mean Corpuscular Hemoglobin 29.0 pg (27.0-33.0) Mean Corpuscular Hemoglobin Concent 32.2 g/dL (32.0-36.0) Red Cell Distribution Width 13.7 % (11.0-15.5) Platelet Count 324 K/uL (130-400) Mean Platelet Volume 9.9 fL (7.5-10.5) Immature Granulocyte % (Auto) 0.3 % (0-1) Neutrophils (%) (Auto) 79.6 % (40.0-77.0) H Lymphocytes (%) (Auto) 11.6 % (21.0-51.0) L Monocytes (%) (Auto) 7.3 % (3.0-13.0) Eosinophils (%) (Auto) 0.9 % (0.0-8.0) Basophils (%) (Auto) 0.3 % (0.0-5.0) Neutrophils # (Auto) 9.0 K/uL (1.8-7.7) H Lymphocytes # (Auto) 1.3 K/uL (1.0-4.8) Monocytes # (Auto) 0.8 K/uL (0.1-1.0) Eosinophils # (Auto) 0.10 K/uL (0.00-0.70) Basophils # (Auto) 0.03 K/uL (0.00-0.20) Absolute Immature Granulocyte (auto 0.03 K/uL (0-1) Nucleated Red Blood Cells 0.0 % (0.0-0.19) Sodium Level 139 mmol/L (136-145) Potassium Level 4.5 mmol/L (3.5-5.1) Chloride Level 100 mmol/L (101-111) L Carbon Dioxide Level 33 mmol/L (21-32) H Blood Urea Nitrogen 20 mg/dL (7-18) H Creatinine 1.1 mg/dL (0.5-1.3) Glomerular Filtration Rate Calc 71 mL/min (>90) Random Glucose 93 mg/dL (70-105) Total Calcium 9.1 mg/dL (8.5-10.1) Magnesium Level 1.90 mg/dL (1.80-2.40) Troponin I High Sensitivity 10 ng/L (4-75) B-Type Natriuretic Peptide 26 pg/mL (0-100) Urine Color LIGHT-YELLOW (YELLOW) Urine Appearance CLEAR (CLEAR) Urine pH 5.0 (5.0-8.0) Urine Specific [place] 1.008 (1.001-1.031) Urine Protein 30 mg/dL (NEGATIVE) H Urine Glucose (UA) 300 mg/dL (NEGATIVE) H Urine Ketones NEGATIVE mg/dL (NEGATIVE) Urine Occult Blood NEGATIVE (NEGATIVE) Urine Nitrate NEGATIVE (NEGATIVE) Urine Bilirubin NEGATIVE mg/dL (NEGATIVE) Urine Urobilinogen 0.2 mg/dL (0.2-1.0) Urine Leukocyte Esterase NEGATIVE [place]/uL Urine RBC 0-1 /HPF (0-1) Urine WBC 0-1 /HPF (0-1) Urine Bacteria None /HPF (None Seen) Labs Reviewed?: Yes MDM MDM: Differential diagnosis: Respiratory distress, COPD, history of the asthma, Rationale: Tests considered and ordered secondary to shared decision making include: labs, ECG and radiology Previous outside records reviewed: Old ER visits. Risk of complication and/or morbidity or mortality of patient management: None Medications-Per medication reconciliation Need for hospitalization: Patient does meet criteria for hospitalization. Need for emergency major/minor surgery: No There are no social concerns with this patient. Prescription drug management Prescriptions will include symptomatic care Patient's prior external medical records from other ER visits were reviewed by me as indicated. Prior testing and results from previous visits were reviewed. Prior tests were taken into account with medical decision making and resource utilization, independent historian/historians were used to obtain complete medical history. I independently interpreted the test that were performed, results were reviewed by me and considered findings on radiology if ordered. Medical management and examination interpretation discussions were had by me with other qualified healthcare professionals as indicated for the patient's care. Patient will be admitted under the care of hospitalist group ED Course Orders Procedure Category Date Status Time Cbc With Differential LAB 07/04/25 Complete 10:18 Chest 1vw RAD 07/04/25 Taken 10:18 12 Lead Ekg Tracing- EKG 07/04/25 Logged Technical 10:18 Magnesium LAB 07/04/25 Complete 10:18 Troponin I High LAB 07/04/25 Complete Sensitivity 10:18 Urinalysis Profile LAB 07/04/25 Complete 10:18 Basic Metabolic Panel LAB 07/04/25 Complete 10:18 B-Type Natriuretic LAB 07/04/25 Complete Peptide 10:18 Vital Signs Date Time Temp Pulse Resp B/P (MAP) Pulse Ox O2 Delivery O2 Flow Rate FiO2 07/04/25 11:58 97.9 98 20 161/77 98 Room Air* 0 21 07/04/25 10:19 98.2 92 18 177/98 96 Room Air 0 DX & DISP Disposition: Inpatient Decision to Admit Time: 12:04 Departure Impression: Primary Impression: Asthma exacerbation attacks Additional Impression: COPD exacerbation Condition: Stable Referrals: ANNETTE MURPHY MD (PCP) LUCIANA RON MD Jul 04, 2025 11:16
--- NOTE | 2025-07-04 12:10 | HP ---
[facility] HISTORY AND PHYSICAL Date of Service: Jul 04, 2025 Time of Service: 12:09 HISTORY OF PRESENT ILLNESS: [70-year-old male with past medical history , diabetes mellitus type 2, hyperlipidemia, hypertension, depression, PTSD who presented to the emergency department with complaints of shortness of breaths. Patient stated that this shortness of breath has been going on for one month on and off, he uses nebulizer at home but in the past 24 hours patient's symptoms became progressively worse for which patient started coughing and unable to talk feeling out of breath. In the emergency department, his initial vital signs showed temperature of 98.2 F, pulse 92, respiratory rate 18, blood pressure 177/98, pulse oximetry 96% on room air. Labs reviewed, WBC 11.3, H&H 15 and 46.6, platelet count 324, chloride 100, CO2 33, BUN 20, creatinine 1.1, random glucose 93, magnesium 1.9 since showed glucose of 300. Chest x-ray showed no acute cardiopulmonary abnormality. Patient was referred to the hospitalist for further evaluation and management.] REVIEW OF SYSTEMS CONSTITUTIONAL: Denies fevers, chills, or night sweats. No unintentional weight loss reported. NEUROLOGICAL: Denies headache, amaurosis fugax, motor weakness, sensory deficit, vertigo/spinning sensation, gait abnormalities, or tremors. ENT: No hearing loss, otalgia, otorrhea, rhinitis, rhinorrhea, hoarseness, or sore throat. CARDIOVASCULAR: Denies any exertional angina, dyspnea on exertion, orthopnea, paroxysmal nocturnal dyspnea, palpitations, life-threatening arrhythmias, claudication. PULMONARY: Denies any shortness of breath, cough, phlegm/sputum, hemoptysis, pleuritic chest pain. SLEEP: Denies morning headaches, daytime somnolence or napping. Denies difficulty falling asleep, staying asleep, waking from sleep. Denies knowledge of snoring. GASTROINTESTINAL: Denies any type of dysphagia to either liquids or solids. Denies nausea, vomiting, pyrosis, early satiety, abdominal pain, diarrhea, constipation, or changes in stool consistency or caliber. Denies coffee-ground emesis, hematemesis, hematochezia, or melanotic stools. GENITOURINARY: Denies frequency, urgency, nocturia, hematuria or incontinence (Storage/Irritative symptoms.) Low urinary stream, straining to void, urinary intermittency or hesitancy, splitting of the voiding stream, terminal dribbling. ENDOCRINOLOGIC: Denies polyuria, polydipsia, polyphagia or heat/cold intoleran teresa. HEMATOLOGIC: Denies thrombophilia/previous clots, or coagulopathy/bleeding disorders. ONCOLOGIC: Denies personal history of malignancy. DERMATOLOGIC: Denies rashes or pruritus. PSYCHIATRIC: Denies any suicidal or homicidal ideation. Denies hallucinations. PAST MEDICAL HISTORY: [ Chin, asthma, hyperlipidemia, CAD, diabetes mellitus ] PAST SURGICAL HISTORY: [CABG x4 20 years ago, right [id number] amputation ] PAST SOCIAL HISTORY: [Patient is a [facility], he denies tobacco, alcohol or illicit drug use ] FAMILY HISTORY: [ Noncontributory ] Coded Allergies: iodine (Unverified Allergy, Unknown, 09/03/22) PHYSICAL EXAM GENERAL APPEARANCE: The patient is awake, alert, and oriented, in no acute cardiopulmonary distress. NEUROLOGICAL: Cranial nerves II-XII grossly intact. Motor is 5/5 in bilateral upper and lower extremities proximal to distal. No sensory deficits. HEENT: Face is symmetric. Pupils are equal and reactive. Extraocular movements are intact. NECK: Supple. No JVD. No thyromegaly. No submental, submandibular, pre- /postauricular, occipital or supraclavicular lymphadenopathy. CHEST: Normal chest expansion. No Telemetry. LUNGS: Absence of any rales, rhonchi or any wheezing. CARDIOVASCULAR: Regular. S1 and S2 normal. No appreciable rubs, murmurs or gallops. ABDOMEN: Soft, nontender, and nondistended. There is no rebound, voluntary guarding, or rigidity. : Deferred. No Dill. EXTREMITIES: Non-edematous and not cyanotic. No clubbing. Good capillary refill. SKIN: No skin breakdown. Vital Sign (Last 24 Hours) 07/04/25 11:58 Temp 97.9 Pulse 98 Resp 20 B/P (MAP) 161/77 Pulse Ox 98 O2 Delivery Room Air* O2 Flow Rate 0 FiO2 21 LABS: Laboratory: Test 07/04/25 10:48 07/04/25 10:36 Range/Units Urine Color LIGHT-YELLOW YELLOW Urine Appearance CLEAR CLEAR Urine pH 5.0 5.0-8.0 Urine Specific [place] 1.008 1.001-1.031 Urine Protein 30 H NEGATIVE mg/dL Urine Glucose (UA) 300 H NEGATIVE mg/dL Urine Ketones NEGATIVE NEGATIVE mg/dL Urine Occult Blood NEGATIVE NEGATIVE Urine Nitrate NEGATIVE NEGATIVE Urine Bilirubin NEGATIVE NEGATIVE mg/dL Urine Urobilinogen 0.2 0.2-1.0 mg/dL Urine Leukocyte Esterase NEGATIVE NEGATIVE [place]/uL Urine RBC 0-1 0-1 /HPF Urine WBC 0-1 0-1 /HPF Urine Bacteria None None Seen /HPF White Blood Count 11.3 H 4.8-10.8 K/uL Red Blood Count 5.17 4.50-6.20 MIL/uL Hemoglobin 15.0 14.0-18.0 g/dL Hematocrit 46.6 42-54 % Mean Corpuscular Volume 90.1 79-99 fL Mean Corpuscular Hemoglobin 29.0 27.0-33.0 pg Mean Corpuscular Hemoglobin Concent 32.2 32.0-36.0 g/dL Red Cell Distribution Width 13.7 11.0-15.5 % Platelet Count 324 130-400 K/uL Mean Platelet Volume 9.9 7.5-10.5 fL Immature Granulocyte % (Auto) 0.3 0-1 % Neutrophils (%) (Auto) 79.6 H 40.0-77.0 % Lymphocytes (%) (Auto) 11.6 L 21.0-51.0 % Monocytes (%) (Auto) 7.3 3.0-13.0 % Eosinophils (%) (Auto) 0.9 0.0-8.0 % Basophils (%) (Auto) 0.3 0.0-5.0 % Neutrophils # (Auto) 9.0 H 1.8-7.7 K/uL Lymphocytes # (Auto) 1.3 1.0-4.8 K/uL Monocytes # (Auto) 0.8 0.1-1.0 K/uL Eosinophils # (Auto) 0.10 0.00-0.70 K/uL Basophils # (Auto) 0.03 0.00-0.20 K/uL Absolute Immature Granulocyte (auto 0.03 0-1 K/uL Nucleated Red Blood Cells 0.0 0.0-0.19 % Sodium Level 139 136-145 mmol/L Potassium Level 4.5 3.5-5.1 mmol/L Chloride Level 100 L 101-111 mmol/L Carbon Dioxide Level 33 H 21-32 mmol/L Blood Urea Nitrogen 20 H 7-18 mg/dL Creatinine 1.1 0.5-1.3 mg/dL Glomerular Filtration Rate Calc 71 >90 mL/min Random Glucose 93 70-105 mg/dL Total Calcium 9.1 8.5-10.1 mg/dL Magnesium Level 1.90 1.80-2.40 mg/dL Troponin I High Sensitivity 10 4-75 ng/L B-Type Natriuretic Peptide 26 0-100 pg/mL DIAGNOSTICS / RADIOLOGY: [[facility] [address] [place] [address] IMAGING REPORT Signed PATIENT: RAMSES RAY MR#: [id number] : 1955 SEX: M AGE: 70 LOCATION: [facility] ORDER 1019 STATUS: ADM IN REPORT#: [id number] SERVICE 1018 REASON: sob ORDERING PHYSICIAN: LUCIANA RON MD PROCEDURE: CXR1VW - CHEST 1VW STUDY CR Chest, 1 View HISTORY Shortness of breath TECHNIQUE Single frontal radiograph of the chest. COMPARISON CR chest 1 view dated 07/01/2025 at 07:49 EST FINDINGS Lungs The lungs show no infiltrate or other acute pulmonary abnormality. Pleural Spaces No pleural effusion or pneumothorax is identified. Mediastinum The cardiomediastinal silhouette is within normal limits. Bones and Postsurgical Changes No acute osseous abnormality is seen. Median sternotomy sutures are present, compatible with prior cardiac or mediastinal surgery. IMPRESSION * No acute cardiopulmonary abnormality. * Median sternotomy changes. /[place] DICTATED BY: CHANDRA LEDBETTER Jr., MD DATE: 07/04/251328 ELECTRONICALLY SIGNED BY: CHANDRA LEDBETTER Jr., MD DATE: 07/04/251328 ] ASSESSMENT: [Acute hypoxemic respiratory failure, POA Asthma exacerbation, POA Leukocytosis with left shift, POA Chronic histories: Diabetes mellitus type 2, , hyperlipidemia, CAD ] PLAN: [Patient will be admitted in medical telemetry floor He will continue with oxygen supplementation to keep O2 sat greater than 92% Patient will be started with broad-spectrum IV antibiotics with azithromycin We will consult pulmonology Patient will be on nebulizer treatment with albuterol every 6 hours Patient will be on Solu-Medrol 125 mg IV q.6 hours Patient will be on a.c. and HS glucometer and insulin sliding scale We will request his home medication GI and DVT prophylaxis We will repeat labs tomorrow Patient is a full code Case discussed with Dr. Tam, above plan was formulated ADVANCED CARE PLANNING 1. Which of the following were discussed? Hospice Care - Yes / No Therapeutic options - Yes / No Advance Directives - Yes / No Other discussions - 2. Discussed with who? Patient 3. Voluntary nature of this service was explained to the patient? Yes / No 4. Amount of time spent - __20 mins 5. Reviewed by Physician? (if this service was performed by NPP) Yes / No ] ATTESTATION BY PHYSICIAN I have seen and examined the patient. I reviewed the documentation, medical decision making, and treatment plan as noted by the mid-level provider above. I agree with the findings and plan of care. SOL TAM MD, JANICE B AGACN Jul 04, 2025 12:09
--- NOTE | 2025-07-04 12:30 | HMCIMG ---
STUDY CR Chest, 1 View HISTORY Shortness of breath TECHNIQUE Single frontal radiograph of the chest. COMPARISON CR chest 1 view dated 07/01/2025 at 07:49 EST FINDINGS Lungs The lungs show no infiltrate or other acute pulmonary abnormality. Pleural Spaces No pleural effusion or pneumothorax is identified. Mediastinum The cardiomediastinal silhouette is within normal limits. Bones and Postsurgical Changes No acute osseous abnormality is seen. Median sternotomy sutures are present, compatible with prior cardiac or mediastinal surgery. IMPRESSION * No acute cardiopulmonary abnormality. * Median sternotomy changes. /[place]
--- NOTE | 2025-07-04 12:36 | EKG ---
[facility] Test Date: 2025-07-04 Test Time: 10:36:51 Pat Name: RAMSES RAY Department: [facility] Room: 431 Gender: M Industrial Therapist: [id number] : 1955 Requested By: LUCIANA RON Order Number: [id number] Reading MD: Ant Aguilar Measurements Intervals [place] Rate: 96 P: 60 [place]: 128 QRS: -37 QRSD: 107 T: 66 QT: 372 QTc: 471 Interpretive Statements Sinus rhythm Incomplete left bundle branch block Borderline ST elevation, anterior leads Compared to ECG 07/01/2025 07:10:47 Left bundle-branch block now present ST (T wave) deviation now present Left-axis deviation no longer present Electronically Signed On 07-04-2025 23:51:09 HONEY PROCESSOR by Ant Aguilar Please click the below link to view image of tracing.
[2025-07-04 13:27] LABS: RAPID GROUP A STREP negative (NEGATIVE)
[2025-07-04 13:29] LABS: SARS-CoV-2, RNA, NAAT NEGATIVE SARS CoV-2 (NEGATIVE)
[2025-07-04 13:38] LABS: INFLUENZA TYPE A Negative For Type A (NEGATIVE); INFLUENZA TYPE B Negative For Type B (NEGATIVE)
[2025-07-04] MEDS ORDERED: GLUCAGON 1MG KIT 1 MG ML IM PRN (15:30)
[2025-07-04 15:44] LABS: AMPHET/METH SCREEN,URINE NEGATIVE (NEGATIVE); BARBITURATE SCREEN, URINE NEGATIVE (NEGATIVE); CANNABINOID SCREEN,URINE NEGATIVE (NEGATIVE); COCAINE SCREEN,URINE NEGATIVE (NEGATIVE)
--- NOTE | 2025-07-04 16:05 | NUR ---
DCP:HOME Pt currently lives at home with his girlfriend. Pt has a walker at home that he uses to ambulate. Pt states that he has a provider that goes to the home 4 hrs a day to assist with all ADLs, home management, and meals. PCP is Neil Winn ([facility]) and uses the [place] for any RX needs. At DC pt will want to go home and family can assist with transportation.
--- NOTE | 2025-07-04 17:19 | NUR ---
BG 37
[2025-07-04] MEDS: AZITHROMYCIN 500MG+NS 250ML 250 ML IVPB SCH (17:29)
[2025-07-04] MEDS: DEXTROSE 50%-WATER 50 ML DISP.SYRIN IV PRN (17:29)
--- NOTE | 2025-07-04 17:30 | NUR ---
D50% ADMINISTERED CHARTED IN eMAR
--- NOTE | 2025-07-04 17:45 | NUR ---
REPEAT BG 160
[2025-07-04 18:40] VITALS: O2SAT 98
--- NOTE | 2025-07-04 18:53 | NUR ---
REPORT GIVEN TO NURSE PAINTING
[2025-07-04 20:00] VITALS: BP 122/54; PULSE 89; RESP 20; TEMP 98.3
[2025-07-04 20:15] VITALS: PULSE 90; RESP 22
[2025-07-04] MEDS: FAMOTIDINE 20MG TAB PO SCH (20:43)
[2025-07-04] MEDS ORDERED: METO50TA18 PO (22:10)
[2025-07-04] MEDS ORDERED: FURO20TA4 PO (22:10)
[2025-07-04] MEDS ORDERED: MEMA10TA21 PO (22:10)
[2025-07-04] MEDS ORDERED: ROPI2TAB53 PO (22:10)
[2025-07-04] MEDS ORDERED: DOCU100C33 PO (22:10)
[2025-07-04] MEDS ORDERED: CEFU500T67 PO (22:10)
[2025-07-04] MEDS ORDERED: EMPA25TA PO (22:10)
[2025-07-04] MEDS ORDERED: KETO-108 OU (22:10)
[2025-07-04] MEDS ORDERED: METO100T14 PO (22:10)
[2025-07-04] MEDS ORDERED: ISOS30TA92 PO (22:10)
[2025-07-04] MEDS ORDERED: BENZ-39 PO (22:10)
[2025-07-04] MEDS ORDERED: INSU3INS3 SQ (22:10)
[2025-07-04] MEDS ORDERED: CYAN-52 PO (22:10)
[2025-07-04] MEDS ORDERED: LIDO700A30 TP (22:10)
[2025-07-04] MEDS ORDERED: CEFX1I IM (22:10)
[2025-07-04] MEDS ORDERED: SEMA1PEN3 SQ (22:10)
[2025-07-04] MEDS ORDERED: FLUT1BLS12 IH (22:10)
[2025-07-04] MEDS ORDERED: HYDR50TA37 PO (22:10)
[2025-07-04] MEDS ORDERED: BUSP10TA3 PO (22:10)
[2025-07-04] MEDS ORDERED: METF-527 PO (22:10)
[2025-07-04] MEDS ORDERED: FLUO40CA49 PO (22:10)
[2025-07-04] MEDS ORDERED: GLIP10TA16 PO (22:10)
[2025-07-04] MEDS ORDERED: ESCI20TA PO (22:10)
[2025-07-04] MEDS ORDERED: TRAZ-185 PO (22:10)
[2025-07-04] MEDS ORDERED: ACET-3859 PO (22:10)
[2025-07-04] MEDS ORDERED: ALBU2.5V2 NEB (22:15)
[2025-07-04] MEDS ORDERED: ALBU18HF7 IH (22:15)
[2025-07-04 23:55] VITALS: BP 119/71; PULSE 88; RESP 20; TEMP 97.9
[2025-07-05] VITALS (12 sets, daily range): BP systolic 116–142; BP diastolic 49–73; PULSE 82–99; RESP 16–22; TEMP 97.6–98.3; O2SAT 94–99
--- NOTE | 2025-07-05 01:40 | NUR ---
nurse note patient alert and oriented times 4. plan of care discussed with him and he verbalized understanding. patient uses a right leg prosthesis to walk and calls for help. In the meantime, he is using the urinal to urinate. He has no pain. he has no wounds. home medications entered. Patient has slept about 7 hours tonight. Call light within reach, bed alarm on, 2 side rails up. will continue to monitor patient.
[2025-07-05 03:59] LABS: NUCLEATED RED BLOOD CELLS 0.0 % (0.0-0.19); PLATELET COUNT (AUTO) 311.0 K/uL (130-400); RED BLOOD CELL COUNT(AUTO) 5.16 MIL/uL (4.50-6.20); RED CELL DISTRIBUTION WIDTH 13.8 % (11.0-15.5); WHITE BLOOD COUNT (AUTO) 10.8 K/uL (4.8-10.8)
[2025-07-05 04:16] LABS: ASPARTATE AMINOTRANSFERASE 14.0 U/L (10-37); CREATININE 1.4 mg/dL (0.5-1.3); GLOMERULAR FILTR. RATE CALC 53.0 mL/min (>90); GLUCOSE,RANDOM 223.0 mg/dL (70-105); SODIUM SERUM 138.0 mmol/L (136-145); TOTAL PROTEIN, SERUM 6.5 g/dL (6.0-8.3); UREA NITROGEN, BLOOD 27.0 mg/dL (7-18)
--- NOTE | 2025-07-05 07:05 | NUR ---
benchmark paged benchmark for consult. pending call back.
--- NOTE | 2025-07-05 07:40 | NUR ---
benchmark paged benchmark again for consult. pending call back
[2025-07-05 11:06] LABS: ABG BASE EXCESS -1.1 mmol/L (-2.0-3.0); ABG HCO3 23.0 mmol/L (21.0-28.0); ABG OXYGEN SATURATION 96.4 % (94.0-98.0); ABG PCO2 37 mmHg (35-48); ABG PH 7.414 (7.350-7.450); PO2, ARTERIAL BG 83.5 mmHg (83.0-108.0); TEMPERATURE, CELSIUS BG 37.0 CELSIUS (35.5-37.0); VENT MODE, BG NC (ROOM AIR)
[2025-07-05] MEDS ORDERED: NITROGLYCERIN 0.4 MG SL TAB SL PRN (11:30)
--- NOTE | 2025-07-05 11:57 | CONS ---
[facility] CONSULTATION NOTE Date Patient Seen: Jul 05, 2025 Time of Visit: 11:40 Supervising Physician: Mary Rene Reason for Consultation: [Asthma exacerbation ] Primary Care Physician: [ ] Outpatient Specialists: [ ] Inpatient Consults: [ BIS PROBLEM LIST: Acute on chronic hypoxemic respiratory failure Acute on chronic asthma exacerbation Type 2 diabetes Hyperlipidemia CAD History of right BKA HPI: Mr. Ramses Ray is a 1 year male with a past medical history of diabetes, hypertension, hyperlipidemia, depression, PT as needed presented to the emergency room with a chief complaint of shortness on breath with an onset of about a month off and on. Patient [facility] been [facility] with them since however he is not getting any resolution of his symptoms. Patient reports he uses his nebulizer continuously at home however in the last 4 hours his symptoms were progressively worse to the point that he was not able to talk without dyspnea. For this reason he decided to come in for further evaluation. We are consulted for asthma exacerbation. Patient is seen and evaluated at the bedside. Patient is sitting up in bed appears weak and noted with difficulty breathing during conversation. At rest, patient is on room air and appears comfortable. No ABGs were requested on admission for baseline. Patient had a chest x-ray on admission which shows no acute cardiopulmonary abnormalities. On exam patient was noted to have decreased breath sounds bilaterally with scattered rhonchi. Patient denies tobacco use, he admits he used to smoke back in the in his early 20s. Patient reports he is being followed by pattern data operator by the [place] and reports he is currently in been prescribed Wixela however he does not have any relief of his symptoms. He reports he had been having to use his albuterol every hour for the last 48 hours. Recommend continue azithromycin, as well as Rocephin. Shor t course of high-dose steroids. Duo nebs every 4 hours Pulmicort b.i.d. montelukast daily. PFTs. We will request a CT scan of the chest and a stat ABG for baseline. PLAN SUMMARY: Supplemental oxygen as needed Patient currently on room air Duo nebs Pulmicort BID Solumedrol CT chest Montelukast 10 mg ABG PAST MEDICAL HX: see above PAST SURGICAL HX: noncontributory SOCIAL HISTORY: No tobacco, ETOH, or illicit drug use Coded Allergies: iodine (Unverified Allergy, Unknown, 09/03/22) REVIEW OF SYSTEMS: 12 point ROS reviewed with patient. Pertinent positives mentioned above. Otherwise negative. PHYSICAL EXAM: GENERAL: alert, weak, awake oriented x 3 HEENT: EOMI, Sclera non icteric, moist mucosa NECK: Supple, no JVD, trachea midline LUNGS: Clear breath sounds bilaterally. No wheezes HEART: Regular rate and rhythm. Normal S1 and S2, without murmurs ABD: Abdomen soft, nontender. Bowel sounds present EXT: No clubbing cyanosis or edema NEURO: Alert and oriented to person, follows commands Vital Signs (last 8hr) Date Time Temp Pulse Resp B/P (MAP) Pulse Ox O2 Delivery O2 Flow Rate FiO2 07/05/25 10:52 90 20 07/05/25 10:52 90 18 N/Cannula Low lpm 2.0 28 07/05/25 08:11 98.2 98 16 116/49 98 Room Air 07/05/25 06:42 92 18 N/A Room Air 21 07/05/25 06:40 92 20 07/05/25 03:50 97.9 99 20 142/73 97 Room Air LABS: Hematology Labs: Test 07/05/25 03:49 07/04/25 10:36 Range/Units White Blood Count 10.8 4.8-10.8 K/uL Red Blood Count 5.16 4.50-6.20 MIL/uL Hemoglobin 14.9 14.0-18.0 g/dL Hematocrit 45.9 42-54 % Mean Corpuscular Volume 89.0 79-99 fL Mean Corpuscular Hemoglobin 28.9 27.0-33.0 pg Mean Corpuscular Hemoglobin Concent 32.5 32.0-36.0 g/dL Red Cell Distribution Width 13.8 11.0-15.5 % Platelet Count 311 130-400 K/uL Mean Platelet Volume 10.3 7.5-10.5 fL Nucleated Red Blood Cells 0.0 0.0-0.19 % Immature Granulocyte % (Auto) 0.3 0-1 % Neutrophils (%) (Auto) 79.6 H 40.0-77.0 % Lymphocytes (%) (Auto) 11.6 L 21.0-51.0 % Monocytes (%) (Auto) 7.3 3.0-13.0 % Eosinophils (%) (Auto) 0.9 0.0-8.0 % Basophils (%) (Auto) 0.3 0.0-5.0 % Neutrophils # (Auto) 9.0 H 1.8-7.7 K/uL Lymphocytes # (Auto) 1.3 1.0-4.8 K/uL Monocytes # (Auto) 0.8 0.1-1.0 K/uL Eosinophils # (Auto) 0.10 0.00-0.70 K/uL Basophils # (Auto) 0.03 0.00-0.20 K/uL Absolute Immature Granulocyte (auto 0.03 0-1 K/uL Chemistry Labs: Test 07/05/25 10:45 07/05/25 03:49 07/04/25 10:36 Range/Units Whole Blood Glucose 274 H 70-110 MG/DL Sodium Level 138 136-145 mmol/L Potassium Level 4.3 3.5-5.1 mmol/L Chloride Level 100 L 101-111 mmol/L Carbon Dioxide Level 27 21-32 mmol/L Blood Urea Nitrogen 27 H 7-18 mg/dL Creatinine 1.4 H 0.5-1.3 mg/dL Glomerular Filtration Rate Calc 53 >90 mL/min Random Glucose 223 #H 70-105 mg/dL Total Calcium 8.7 8.5-10.1 mg/dL Magnesium Level 2.10 1.80-2.40 mg/dL Total Bilirubin 0.5 0.2-1.0 mg/dL Aspartate Amino Transf (AST/SGOT) 14 10-37 U/L Alanine Aminotransferase (ALT/SGPT) 15 12-78 U/L Alkaline Phosphatase 80 50-136 U/L Total Protein 6.5 6.0-8.3 g/dL Albumin 3.1 L 3.5-5.0 g/dL Troponin I High Sensitivity 10 4-75 ng/L B-Type Natriuretic Peptide 26 0-100 pg/mL DIAGNOSTICS / RADIOLOGY RESULTS: PATIENT: RAMSES RAY MR#: [id number] : 1955 SEX: M AGE: 70 LOCATION: [facility] ORDER 1019 STATUS: ADM IN REPORT#: [id number] SERVICE 1018 REASON: sob ORDERING PHYSICIAN: LUCIANA RON MD PROCEDURE: CXR1VW - CHEST 1VW STUDY CR Chest, 1 View HISTORY Shortness of breath TECHNIQUE Single frontal radiograph of the chest. COMPARISON CR chest 1 view dated 07/01/2025 at 07:49 EST FINDINGS Lungs The lungs show no infiltrate or other acute pulmonary abnormality. Pleural Spaces No pleural effusion or pneumothorax is identified. Mediastinum The cardiomediastinal silhouette is within normal limits. Bones and Postsurgical Changes No acute osseous abnormality is seen. Median sternotomy sutures are present, compatible with prior cardiac or mediastinal surgery. IMPRESSION * No acute cardiopulmonary abnormality. * Median sternotomy changes. /[place] DICTATED BY: CHANDRA LEDBETTER Jr., MD DATE: 07/04/251328 ELECTRONICALLY SIGNED BY: CHANDRA LEDBETTER Jr., MD DATE: 07/04/251328 PLAN NEURO: Minimize central acting medications as possible. Maintain fall precautions, adequate lighting during the day PULMONARY: Supplemental 02 as needed. Maintain aspiration precautions at all times CARDIOVASCULAR: Follow hemodynamics. Vital signs per facility protocol GI & NUTRITION: Continue with nutritional support. Continue stool softeners and laxatives as needed. KIDNEYS & ELECTROLYTES: Strict monitoring of intake, output and overall fluid balance. Avoid nephrotoxic medications to the extent possible. Medications to be dosed according to renal function. Monitor electrolytes and replace as needed ENDOCRINE: Maintain blood glucose between 100-180 at all times. Hypoglycemia protocol in place INFECTIOUS DISEASE: Trend temperature, WBC and procalcitonin level Follow cultures, deescalate antibiotics as soon as possible. Panculture if new onset fever ONCOLOGY/HEMATOLOGY/COAGULATION: Monitor for s/s of bleeding Monitor hemoglobin, coagulation studies as needed SKIN: Pressure ulcer prevention per facility protocol Specialty mattress ORTHO/REHAB: Continue PT/OT Prophylaxis: Continue GI and DVT prophylaxis Code Status: Full Resuscitation Disposition: As per attending ATTESTATION BY PHYSICIAN I reviewed the documentation, medical decision making, and treatment plan as noted by the mid-level provider above. I agree with the findings and plan of care. Andrzej eRne MD, ECTOR N FNP Jul 05, 2025 11:57
--- NOTE | 2025-07-05 12:00 | NUR ---
12 O'CLOCK PAIN ASSESSMENT pain assessment not performed at this time, pt off unit for procedure. Addendum: 07/05/25 at 1558 by BREANA YOUNGBLOOD RN RN error, incorrect chart
--- NOTE | 2025-07-05 13:57 | PN ---
[facility] PROGRESS NOTE Date of Service: Jul 05, 2025 Time of Service: 13:57 SUBJECTIVE: 70-year-old male with past medical history , diabetes mellitus type 2, hyperlipidemia, hypertension, depression, PTSD who presented to the emergency department with complaints of shortness of breaths. Patient stated that this shortness of breath has been going on for one month on and off, he uses n ebulizer at home but in the past 24 hours patient's symptoms became progressively worse for which patient started coughing and unable to talk feeling out of breath. In the emergency department, his initial vital signs showed temperature of 98.2 F, pulse 92, respiratory rate 18, blood pressure 177/98, pulse oximetry 96% on room air. Labs reviewed, WBC 11.3, H&H 15 and 46.6, platelet count 324, chloride 100, CO2 33, BUN 20, creatinine 1.1, random glucose 93, magnesium 1.9 since showed glucose of 300. Chest x-ray showed no acute cardiopulmonary abnormality. Patient was referred to the hospitalist for further evaluation and management. 07/05/2025: Patient was seen and evaluated this morning with Dr. Cottrell, family at bedside. He is awake, alert, oriented x3, saturating 98% with2 L nasal cannula. Patient is sitting up in bed appears weak and noted with difficulty breathing during conversation. On examination patient noted to have decreased breath sounds bilaterally with scattered rhonchi. Morning labs showed white count 10.8, H&H 14.9, 45.9 respectively, BUN 27, creatinine 1.4. Patient was started on IV Rocephin, azithromycin, DuoNeb, montelukast, budesonide, high-dose corticosteroids. His home meds were reconciled and resumed. Pending CT chest report. Pulmonology on board, we will continue to follow their recommendations. REVIEW OF SYSTEMS CONSTITUTIONAL: Denies fevers, chills, or night sweats. No unintentional weight loss reported. NEUROLOGICAL: Denies headache, amaurosis fugax, motor weakness, sensory deficit, vertigo/spinning sensation, gait abnormalities, or tremors. ENT: No hearing loss, otalgia, otorrhea, rhinitis, rhinorrhea, hoarseness, or sore throat. CARDIOVASCULAR: Denies any exertional angina, dyspnea on exertion, orthopnea, paroxysmal nocturnal dyspnea, palpitations, life-threatening arrhythmias, claudication. PULMONARY: Denies any shortness of breath, cough, phlegm/sputum, hemoptysis, pleuritic chest pain. SLEEP: Denies morning headaches, daytime somnolence or napping. Denies difficulty falling asleep, staying asleep, waking from sleep. Denies knowledge of snoring. GASTROINTESTINAL: Denies any type of dysphagia to either liquids or solids. Denies nausea, vomiting, pyrosis, early satiety, abdominal pain, diarrhea, constipation, or changes in stool consistency or caliber. Denies coffee-ground emesis, hematemesis, hematochezia, or melanotic stools. GENITOURINARY: Denies frequency, urgency, nocturia, hematuria or incontinence (Storage/Irritative symptoms.) Low urinary stream, straining to void, urinary intermittency or hesitancy, splitting of the voiding stream, terminal dribbling. ENDOCRINOLOGIC: Denies polyuria, polydipsia, polyphagia or heat/cold intolerances. HEMATOLOGIC: Denies thrombophilia/previous clots, or coagulopathy/bleeding disorders. ONCOLOGIC: Denies personal history of malignancy. DERMATOLOGIC: Denies rashes or pruritus. PSYCHIATRIC: Denies any suicidal or homicidal ideation. Denies hallucinations. PHYSICAL EXAM GENERAL APPEARANCE: The patient is awake, alert, and oriented, in no acute cardiopulmonary distress. NEUROLOGICAL: Cranial nerves II-XII grossly intact. Motor is 5/5 in bilateral upper and lower extremities proximal to distal. No sensory deficits. HEENT: Face is symmetric. Pupils are equal and reactive. Extraocular movements are intact. NECK: Supple. No JVD. No thyromegaly. No submental, submandibular, pre-/pos tauricular, occipital or supraclavicular lymphadenopathy. CHEST: Normal chest expansion. No Telemetry. LUNGS: Absence of any rales, rhonchi or any wheezing. CARDIOVASCULAR: Regular. S1 and S2 normal. No appreciable rubs, murmurs or gallops. ABDOMEN: Soft, nontender, and nondistended. There is no rebound, voluntary guarding, or rigidity. : Deferred. No Dill. EXTREMITIES: Non-edematous and not cyanotic. No clubbing. Good capillary refill. SKIN: No skin breakdown. Vital Signs (last 8hr) Date Time Temp Pulse Resp B/P (MAP) Pulse Ox O2 Delivery O2 Flow Rate FiO2 12/17/25 10:52 90 20 07/05/25 10:52 90 18 N/Cannula Low lpm 2.0 28 07/05/25 08:11 98.2 98 16 116/49 98 Room Air 07/05/25 08:00 98 Nasal Cannula* 1 24 07/05/25 06:42 92 18 N/A Room Air 21 07/05/25 06:40 92 20 LABS: Laboratory: Test 07/05/25 11:04 07/05/25 10:45 07/05/25 03:49 07/04/25 13:00 Range/Units Blood Gas Specimen Type Arterial Arterial Blood pH 7.414 7.350-7.450 Arterial Blood Partial Pressure CO2 37 35-48 mmHg Arterial Blood Partial Pressure O2 83.5 83.0-108.0 mmHg Arterial Blood HCO3 23.0 21.0-28.0 mmol/L Arterial Blood Oxygen Saturation 96.4 94.0-98.0 % Arterial Blood Base Excess -1.1 -2.0-3.0 mmol/L Blood Gas Temperature 37.0 35.5-37.0 CELSIUS Blood Gas Flow-by 2.00 0.00-15.00 L/min Blood Gas Vent Mode NC ROOM AIR FiO2 28.0 % Blood Gas Specimen Comment RB BREANA Whole Blood Glucose 274 H 70-110 MG/DL White Blood Count 10.8 4.8-10.8 K/uL Red Blood Count 5.16 4.50-6.20 MIL/uL Hemoglobin 14.9 14.0-18.0 g/dL Hematocrit 45.9 42-54 % Mean Corpuscular Volume 89.0 79-99 fL Mean Corpuscular Hemoglobin 28.9 27.0-33.0 pg Mean Corpuscular Hemoglobin Concent 32.5 32.0-36.0 g/dL Red Cell Distribution Width 13.8 11.0-15.5 % Platelet Count 311 130-400 K/uL Mean Platelet Volume 10.3 7.5-10.5 fL Nucleated Red Blood Cells 0.0 0.0-0.19 % Sodium Level 138 136-145 mmol/L Potassium Level 4.3 3.5-5.1 mmol/L Chloride Level 100 L 101-111 mmol/L Carbon Dioxide Level 27 21-32 mmol/L Blood Urea Nitrogen 27 H 7-18 mg/dL Creatinine 1.4 H 0.5-1.3 mg/dL Glomerular Filtration Rate Calc 53 >90 mL/min Random Glucose 223 #H 70-105 mg/dL Total Calcium 8.7 8.5-10.1 mg/dL Magnesium Level 2.10 1.80-2.40 mg/dL Total Bilirubin 0.5 0.2-1.0 mg/dL Aspartate Amino Transf (AST/SGOT) 14 10-37 U/L Alanine Aminotransferase (ALT/SGPT) 15 12-78 U/L Alkaline Phosphatase 80 50-136 U/L Total Protein 6.5 6.0-8.3 g/dL Albumin 3.1 L 3.5-5.0 g/dL Influenza Type A Antigen Negative For Type A NEGATIVE Influenza Type B Antigen Negative For Type B NEGATIVE SARS-CoV-2, RNA, NAAT NEGATIVE SARS CoV-2 NEGATIVE Group A Streptococcus Rapid negative NEGATIVE Test 07/04/25 10:48 07/04/25 10:36 Range/Units Urine Color LIGHT-YELLOW YELLOW Urine Appearance CLEAR CLEAR Urine pH 5.0 5.0-8.0 Urine Specific [place] 1.008 1.001-1.031 Urine Protein 30 H NEGATIVE mg/dL Urine Glucose (UA) 300 H NEGATIVE mg/dL Urine Ketones NEGATIVE NEGATIVE mg/dL Urine Occult Blood NEGATIVE NEGATIVE Urine Nitrate NEGATIVE NEGATIVE Urine Bilirubin NEGATIVE NEGATIVE mg/dL Urine Urobilinogen 0.2 0.2-1.0 mg/dL Urine Leukocyte Esterase NEGATIVE NEGATIVE Nikia/uL Urine RBC 0-1 0-1 /HPF Urine WBC 0-1 0-1 /HPF Urine Bacteria None None Seen /HPF Urine Opiates Screen NEGATIVE NEGATIVE Urine Barbiturates Screen NEGATIVE NEGATIVE Urine Phencyclidine Screen NEGATIVE NEGATIVE Urine Amphetamines Screen NEGATIVE NEGATIVE Urine Benzodiazepines Screen NEGATIVE NEGATIVE Urine Cocaine Screen NEGATIVE NEGATIVE Urine Marijuana (THC) Screen NEGATIVE NEGATIVE Immature Granulocyte % (Auto) 0.3 0-1 % Neutrophils (%) (Auto) 79.6 H 40.0-77.0 % Lymphocytes (%) (Auto) 11.6 L 21.0-51.0 % Monocytes (%) (Auto) 7.3 3.0-13.0 % Eosinophils (%) (Auto) 0.9 0.0-8.0 % Basophils (%) (Auto) 0.3 0.0-5.0 % Neutrophils # (Auto) 9.0 H 1.8-7.7 K/uL Lymphocytes # (Auto) 1.3 1.0-4.8 K/uL Monocytes # (Auto) 0.8 0.1-1.0 K/uL Eosinophils # (Auto) 0.10 0.00-0.70 K/uL Basophils # (Auto) 0.03 0.00-0.20 K/uL Absolute Immature Granulocyte (auto 0.03 0-1 K/uL Troponin I High Sensitivity 10 4-75 ng/L B-Type Natriuretic Peptide 26 0-100 pg/mL Current Medications Medications (Trade) Dose Ordered Sig/Reva Route PRN Reason Start Time Stop Time Status Last Admin Dose Admin Acetaminophen (TYLenol 325MG TAB) 650 mg Q4H PRN PO TEMPERATURE GREATER THAN 101.5 07/04/25 15:30 08/03/25 15:29 Acetaminophen (TYLenol 325MG TAB) 650 mg Q6H PRN PO MILD PAIN (1-3) 07/04/25 15:30 08/03/25 15:29 Albuterol (DUOneb) 1 UDVIAL [id number] IH 07/04/25 18:00 08/03/25 17:59 07/05/25 10:52 1 UDVIAL Aspirin (Aspirin 81mg Ec Tab) 81 mg DAILY PO 07/06/25 09:00 08/05/25 08:59 Atorvastatin Calcium (LIPItor 40MG) 40 mg HS PO 07/05/25 21:00 08/04/25 20:59 Azithromycin 250 ml @ 250 mls/hr Q24H IVPB 07/04/25 15:30 07/14/25 15:29 07/04/25 17:29 250 MLS/HR Budesonide (Pulmicort 0.5 Mg/2ml) 0.5 mg BIDRESP IH 07/05/25 18:00 08/04/25 17:59 Ceftriaxone Sodium (ROCEphine 1G INJ) 1 gm Q24H IVPB 07/05/25 11:30 07/15/25 11:29 07/05/25 12:01 1 GM Dextrose (D50w) 50 ml AD PRN IV HYPOGLYCEMIA PROTOCOL 07/04/25 15:30 08/03/25 15:29 07/04/25 17:29 50 ML Famotidine (Pepcid 20mg Tab) 20 mg BID PO 07/04/25 21:00 08/03/25 20:59 07/05/25 10:26 20 MG Furosemide (LASix 20MG TAB) 20 mg DAILY PO 07/06/25 09:00 08/05/25 08:59 Glucagon (Glucagon 1mg Kit) 1 mg AD PRN IM HYPOGLYCEMIA PROTOCOL 07/04/25 15:30 08/03/25 15:29 Guaifenesin (MUCinex 600 MG TABLET.ER) 600 mg BID PO 07/04/25 21:00 08/03/25 20:59 07/05/25 10:26 600 MG Hydralazine HCl (RAXAFDEplk28IU TAB) 50 mg BID PO 07/05/25 21:00 08/04/25 20:59 Insulin Human Regular (humuLIN R 100 UNIT/ML 3ML) INSULIN SLIDING SCAL... ACHS SQ 07/04/25 16:30 08/03/25 16:29 07/05/25 11:20 5 UNIT Isosorbide Mononitrate (Imdur 30mg Sr) 30 mg DAILY PO 07/06/25 09:00 08/05/25 08:59 Methylprednisolone Sodium Succinate (Solu-medROL 125MG) 125 mg Q6H IVP 07/04/25 15:30 08/03/25 15:29 07/05/25 10:27 125 MG Metoprolol Tartrate (loprESSOR) 50 mg HS PO 07/05/25 21:00 08/04/25 20:59 Metoprolol Tartrate (loprESSOR) 100 mg DAILY PO 07/06/25 09:00 08/05/25 08:59 Montelukast Sodium (SinguLAIR) 10 mg DAILY PO 07/05/25 12:00 08/04/25 11:59 07/05/25 12:21 10 MG Nitroglycerin (Nitrostat) 0.4 mg AD PRN SL CHEST PAIN 07/05/25 11:30 08/04/25 11:29 Ondansetron HCl (zoFRAN 4MG INJ) 4 mg Q6H PRN IVP NAUSEA/VOMITING 07/04/25 15:30 08/03/25 15:29 Tamsulosin HCl (FloMAX) 0.4 mg HS PO 07/05/25 21:00 08/04/25 20:59 Vitamin B Complex (Vitamin B-12) 1,000 mcg DAILY PO 07/06/25 09:00 08/05/25 08:59 DIAGNOSTICS / RADIOLOGY: [ ] [place] [address] [address] IMAGING REPORT Signed PATIENT: RAMSES RAY MR#: [id number] : 1955 SEX: M AGE: 70 LOCATION: [facility] ORDER 1019 STATUS: ADM IN REPORT#: [id number] SERVICE 1018 REASON: sob ORDERING PHYSICIAN: LUCIANA RON MD PROCEDURE: CXR1VW - CHEST 1VW STUDY CR Chest, 1 View HISTORY Shortness of breath TECHNIQUE Single frontal radiograph of the chest. COMPARISON CR chest 1 view dated 07/01/2025 at 07:49 EST FINDINGS Lungs The lungs show no infiltrate or other acute pulmonary abnormality. Pleural Spaces No pleural effusion or pneumothorax is identified. Mediastinum The cardiomediastinal silhouette is within normal limits. Bones and Postsurgical Changes No acute osseous abnormality is seen. Median sternotomy sutures are present, compatible with prior cardiac or mediastinal surgery. IMPRESSION * No acute cardiopulmonary abnormality. * Median sternotomy changes. /[place] DICTATED BY: CHANDRA LEDBETTER Jr., MD DATE: 07/04/251328 ELECTRONICALLY SIGNED BY: CHANDRA LEDBETTER Jr., MD DATE: 07/04/251328 ASSESSMENT: [Acute hypoxemic respiratory failure, POA Asthma exacerbation, POA COPD exacerbation POA Leukocytosis with left shift, POA LILI Chronic histories: Diabetes mellitus type 2, , hyperlipidemia, CAD ] PLAN: Asthma exacerbation, POA COPD exacerbation POA On Presentation patient had severe difficulty breathing, unable to talk Patient has been using albuterol inhaler every hour for the past48 hours without relief Chest x-ray showed no acute cardiopulmonary abnormality. Patient was started on Mucinex, DuoNebs, budesonide, montelukast. Patient was started on IV azithromycin, IV Rocephin Patient was started on IV [id number] mg q.[address] chest report Pulmonology on board. LILI On presentation BUN 20, creatinine 1.1 Today BUN 27, creatinine 1.4 Avoid NSAIDs, nephrotoxins drugs We will continue to monitor the patient and trend creatinine daily. All home medications were reconciled and resumed GI prophylaxis with Pepcid DVT prophylaxis with SCDs ATTESTATION BY PHYSICIAN I have seen and examined the patient. I reviewed the documentation, medical decision making, and treatment plan as noted by the resident above. I agree with the findings and plan of care. Jose R Cottrell IV, MD, ADIL SHAH QUADRI MD Jul 05, 2025 13:57
[2025-07-05] MEDS: BUDESONIDE 0.5 MG/2 ML INH IH SCH (19:45)
--- NOTE | 2025-07-05 21:02 | HMCIMG ---
EXAM: CT CHEST WITHOUT CONTRAST CLINICAL INDICATION: Respiratory failure. TECHNIQUE: Noncontrast axial CT images of the chest were obtained with multiplanar reformatted images. Dose modulation techniques were utilized. COMPARISON: Chest radiograph dated July 04, 2025, which demonstrated median sternotomy changes without acute cardiopulmonary abnormality. FINDINGS: Thyroid: The thyroid gland is mildly enlarged and heterogeneous in morphology. A hypodense nodule measuring approximately 1.0 0.7 cm is present in the left lobe without internal calcification. Mediastinum and Yvrose: Median sternotomy wires are visualized. A well-defined hypodense lesion measuring approximately 2.7 3.0 7.0 cm is seen in the posterior mediastinum, interposed between the trachea and the esophagus. No internal calcification is identified. This lesion causes marked extrinsic compression of the trachea with severe luminal narrowing, estimated at approximately 8090%. No mediastinal or hilar lymphadenopathy is identified. Heart and Great Vessels: Atheromatous calcification is present in the thoracic aortic arch and the coronary arteries. Cardiac size is within normal limits. Lungs and Airways: A solid pulmonary nodule measuring 3 mm is identified in the posterior segment of the right upper lobe (series 3, image 11/48). Patchy ground-glass opacification is present in the posterobasal segment of the left lower lobe. Minimal bibasilar subsegmental atelectasis is noted. Additional minimal subsegmental atelectasis is present in the lingula and the right middle lobe. Apart from the extrinsic compression described above, the visualized airways are otherwise patent. Pleura: No pleural effusion or pneumothorax is identified. Upper Abdomen: A small accessory spleen (splenule) measuring approximately 1.0 cm is noted. The remainder of the visualized upper abdominal structures is unremarkable on this noncontrast study. Bones: Degenerative changes are present in the thoracic spine. There is a chronic-appearing compression deformity of the T12 vertebral body involving the superior endplate with approximately 20% anterior height loss. No acute osseous abnormality is identified. RADIATION DOSE: CTDIvol: 5.3 mGy. DLP: 186.1 mGycm. IMPRESSION: 1. Patchy ground-glass opacity in the left lower lobe with associated mild subsegmental atelectasis, which may represent infection, inflammation, or aspiration, depending on the clinical context. 2. Large hypodense posterior mediastinal mass causing tracheal compression. This finding is highly significant in the setting of respiratory failure and warrants urgent clinical correlation and further evaluation. Differential considerations include foregut duplication cyst, esophageal lesion, neurogenic tumor, or other mediastinal mass; contrast-enhanced CT or MRI is recommended. 3. Tiny 3 mm solid pulmonary nodule in the right upper lobe. In a low-risk patient, no routine follow-up is required; in a high-risk patient, optional follow-up CT at 12 months may be considered per Fleischner Society guidelines. 4. Mildly enlarged heterogeneous thyroid gland with a small left thyroid lobe nodule measuring 1.0 cm; correlation with thyroid ultrasound may be considered if clinically indicated. 5. Chronic T12 vertebral compression deformity and degenerative changes of the thoracic spine. 6. In comparison with the prior chest radiograph dated July 04, 2025, the left lower lobar lung infiltrates are new. /Ml
[2025-07-06] VITALS (15 sets, daily range): BP systolic 109–132; BP diastolic 54–64; PULSE 69–90; RESP 17–20; TEMP 97.6–98.9; O2SAT 95–99
[2025-07-06 03:51] LABS: NUCLEATED RED BLOOD CELLS 0.0 % (0.0-0.19); PLATELET COUNT (AUTO) 296.0 K/uL (130-400); RED BLOOD CELL COUNT(AUTO) 4.42 MIL/uL (4.50-6.20); RED CELL DISTRIBUTION WIDTH 14.0 % (11.0-15.5); WHITE BLOOD COUNT (AUTO) 14.2 K/uL (4.8-10.8)
[2025-07-06 04:05] LABS: CREATININE 1.3 mg/dL (0.5-1.3); GLOMERULAR FILTR. RATE CALC 58.0 mL/min (>90); GLUCOSE,RANDOM 213.0 mg/dL (70-105); SODIUM SERUM 139.0 mmol/L (136-145); UREA NITROGEN, BLOOD 40.0 mg/dL (7-18)
[2025-07-06] MEDS: ASPIRIN 81 MG EC TAB PO SCH (09:00)
[2025-07-06] MEDS: ISOSORBIDE MONO 30MG SR TAB PO SCH (09:00)
[2025-07-06] MEDS: CYANOCOBALAMIN (VITAMIN B-12) 1,000 MCG TABLET PO SCH (09:52)
--- NOTE | 2025-07-06 10:01 | NUR ---
NURSING NOTE Aspirin 81 mg not given at this time due to possible transfer to [facility] for procedure. pt has been made aware of possible transfer by Bandar Love NP
--- NOTE | 2025-07-06 10:46 | PN ---
[facility] PROGRESS NOTE Date of Service: Jul 06, 2025 Time of Service: 10:45 SUBJECTIVE: 70-year-old male with past medical history , diabetes mellitus type 2, hyperlipidemia, hypertension, depression, PTSD who presented to the emergency department with complaints of shortness of breaths. Patient stated that this shortness of breath has been going on for one month on and off, he uses n ebulizer at home but in the past 24 hours patient's symptoms became progressively worse for which patient started coughing and unable to talk feeling out of breath. In the emergency department, his initial vital signs showed temperature of 98.2 F, pulse 92, respiratory rate 18, blood pressure 177/98, pulse oximetry 96% on room air. Labs reviewed, WBC 11.3, H&H 15 and 46.6, platelet count 324, chloride 100, CO2 33, BUN 20, creatinine 1.1, random glucose 93, magnesium 1.9 since showed glucose of 300. Chest x-ray showed no acute cardiopulmonary abnormality. Patient was referred to the hospitalist for further evaluation and management. 07/05/2025: Patient was seen and evaluated this morning with Dr. Cottrell, family at bedside. He is awake, alert, oriented x3, saturating 98% with2 L nasal cannula. Patient is sitting up in bed appears weak and noted with difficulty breathing during conversation. On examination patient noted to have decreased breath sounds bilaterally with scattered rhonchi. Morning labs showed white count 10.8, H&H 14.9, 45.9 respectively, BUN 27, creatinine 1.4. Patient was started on IV Rocephin, azithromycin, DuoNeb, montelukast, budesonide, high-dose corticosteroids. His home meds were reconciled and resumed. Pending CT chest report. Pulmonology on board, we will continue to follow their recommendations. 07/06/2025: Patient was seen and evaluated this morning, no family at bedside. He is awake, alert, oriented x3, saturating 98% with room air. Patient complains that he still has difficulty breathing, choking while eating, denies any new or worsening symptoms. CT chest showed patchy ground-glass opacity in left lower lobe associated with mild subsegmental atelectasis, large hypodense posterior mediastinal mass causing tracheal compression, tiny 3 mm solid pulmonary nodule in right upper lobe, mildly enlarged heterogeneous thyroid gland with a small left thyroid lobe nodule measuring 1 cm. Pulmonology requested GI consultation possible EGD with biopsy, endocrinology consultation for thyroid nodule. Continue IV antibiotics, IV steroids, DuoNeb, budesonide. We will get bedside swallow eval. Pulmonology on board, we will continue to follow their recommendations. REVIEW OF SYSTEMS CONSTITUTIONAL: Denies fevers, chills, or night sweats. No unintentional weight loss reported. NEUROLOGICAL: Denies headache, amaurosis fugax, motor weakness, sensory deficit, vertigo/spinning sensation, gait abnormalities, or tremors. ENT: No hearing loss, otalgia, otorrhea, rhinitis, rhinorrhea, hoarseness, or sore throat. CARDIOVASCULAR: Denies any exertional angina, dyspnea on exertion, orthopnea, paroxysmal nocturnal dyspnea, palpitations, life-threatening arrhythmias, claudication. PULMONARY: Denies any shortness of breath, cough, phlegm/sputum, hemoptysis, pleuritic chest pain. SLEEP: Denies morning headaches, daytime somnolence or napping. Denies difficulty falling asleep, staying asleep, waking from sleep. Denies knowledge of snoring. GASTROINTESTINAL: Denies any type of dysphagia to either liquids or solids. Denies nausea, vomiting, pyrosis, early satiety, abdominal pain, diarrhea, constipation, or changes in stool consistency or caliber. Denies coffee-ground emesis, hematemesis, hematochezia, or melanotic stools. GENITOURINARY: Denies frequency, urgency, nocturia, hematuria or incontinence (Storage/Irritative symptoms.) Low urinary stream, straining to void, urinary intermittency or hesitancy, splitting of the voiding stream, terminal dribbling. ENDOCRINOLOGIC: Denies polyuria, polydipsia, polyphagia or heat/cold intolerances. HEMATOLOGIC: Denies thrombophilia/previous clots, or coagulopathy/bleeding disorders. ONCOLOGIC: Denies personal history of malignancy. DERMATOLOGIC: Denies rashes or pruritus. PSYCHIATRIC: Denies any suicidal or homicidal ideation. Denies hallucinations. PHYSICAL EXAM GENERAL APPEARANCE: The patient is awake, alert, and oriented, in no acute cardiopulmonary distress. NEUROLOGICAL: Cranial nerves II-XII grossly intact. Motor is 5/5 in bilateral upper and lower extremities proximal to distal. No sensory deficits. HEENT: Face is symmetric. Pupils are equal and reactive. Extraocular movements are intact. NECK: Supple. No JVD. No thyromegaly. No submental, submandibular, pre- /postauricular, occipital or supraclavicular lymphadenopathy. CHEST: Normal chest expansion. No Telemetry. LUNGS: Absence of any rales, rhonchi or any wheezing. CARDIOVASCULAR: Regular. S1 and S2 normal. No appreciable rubs, murmurs or gallops. ABDOMEN: Soft, nontender, and nondistended. There is no rebound, voluntary guarding, or rigidity. : Deferred. No Dill. EXTREMITIES: Non-edematous and not cyanotic. No clubbing. Good capillary refill. SKIN: No skin breakdown. Vital Signs (last 8hr) Date Time Temp Pulse Resp B/P (MAP) Pulse Ox O2 Delivery O2 Flow Rate FiO2 07/06/25 09:00 87 109/58 07/06/25 08:00 98.2 87 18 109/58 95 Room Air 07/06/25 06:27 76 18 N/Cannula Low lpm 21 07/06/25 06:25 76 20 07/06/25 04:00 97.5 76 18 119/62 98 Room Air LABS: Laboratory: Test 07/06/25 08:05 07/06/25 03:38 07/05/25 18:22 07/05/25 11:04 Range/Units Whole Blood Glucose 225 H 70-110 MG/DL White Blood Count 14.2 #H 4.8-10.8 K/uL Red Blood Count 4.42 L 4.50-6.20 MIL/uL Hemoglobin 13.0 L 14.0-18.0 g/dL Hematocrit 38.6 L 42-54 % Mean Corpuscular Volume 87.3 79-99 fL Mean Corpuscular Hemoglobin 29.4 27.0-33.0 pg Mean Corpuscular Hemoglobin Concent 33.7 32.0-36.0 g/dL Red Cell Distribution Width 14.0 11.0-15.5 % Platelet Count 296 130-400 K/uL Mean Platelet Volume 9.9 7.5-10.5 fL Nucleated Red Blood Cells 0.0 0.0-0.19 % Sodium Level 139 136-145 mmol/L Potassium Level 4.0 3.5-5.1 mmol/L Chloride Level 103 101-111 mmol/L Carbon Dioxide Level 29 21-32 mmol/L Blood Urea Nitrogen 40 H 7-18 mg/dL Creatinine 1.3 0.5-1.3 mg/dL Glomerular Filtration Rate Calc 58 >90 mL/min Random Glucose 213 H 70-105 mg/dL Total Calcium 8.7 8.5-10.1 mg/dL B-Type Natriuretic Peptide 36 0-100 pg/mL Blood Gas Specimen Type Arterial Arterial Blood pH 7.414 7.350-7.450 Arterial Blood Partial Pressure CO2 37 35-48 mmHg Arterial Blood Partial Pressure O2 83.5 83.0-108.0 mmHg Arterial Blood HCO3 23.0 21.0-28.0 mmol/L Arterial Blood Oxygen Saturation 96.4 94.0-98.0 % Arterial Blood Base Excess -1.1 -2.0-3.0 mmol/L Blood Gas Temperature 37.0 35.5-37.0 CELSIUS Blood Gas Flow-by 2.00 0.00-15.00 L/min Blood Gas Vent Mode NC ROOM AIR FiO2 28.0 % Blood Gas Specimen Comment RB BREANA Test 07/05/25 03:49 07/04/25 13:00 07/04/25 10:48 Range/Units Magnesium Level 2.10 1.80-2.40 mg/dL Total Bilirubin 0.5 0.2-1.0 mg/dL Aspartate Amino Transf (AST/SGOT) 14 10-37 U/L Alanine Aminotransferase (ALT/SGPT) 15 12-78 U/L Alkaline Phosphatase 80 50-136 U/L Total Protein 6.5 6.0-8.3 g/dL Albumin 3.1 L 3.5-5.0 g/dL Influenza Type A Antigen Negative For Type A NEGATIVE Influenza Type B Antigen Negative For Type B NEGATIVE SARS-CoV-2, RNA, NAAT NEGATIVE SARS CoV-2 NEGATIVE Group A Streptococcus Rapid negative NEGATIVE Urine Color LIGHT-YELLOW YELLOW Urine Appearance CLEAR CLEAR Urine pH 5.0 5.0-8.0 Urine Specific [place] 1.008 1.001-1.031 Urine Protein 30 H NEGATIVE mg/dL Urine Glucose (UA) 300 H NEGATIVE mg/dL Urine Ketones NEGATIVE NEGATIVE mg/dL Urine Occult Blood NEGATIVE NEGATIVE Urine Nitrate NEGATIVE NEGATIVE Urine Bilirubin NEGATIVE NEGATIVE mg/dL Urine Urobilinogen 0.2 0.2-1.0 mg/dL Urine Leukocyte Esterase NEGATIVE NEGATIVE [place]/uL Urine RBC 0-1 0-1 /HPF Urine WBC 0-1 0-1 /HPF Urine Bacteria None None Seen /HPF Urine Opiates Screen NEGATIVE NEGATIVE Urine Barbiturates Screen NEGATIVE NEGATIVE Urine Phencyclidine Screen NEGATIVE NEGATIVE Urine Amphetamines Screen NEGATIVE NEGATIVE Urine Benzodiazepines Screen NEGATIVE NEGATIVE Urine Cocaine Screen NEGATIVE NEGATIVE Urine Marijuana (THC) Screen NEGATIVE NEGATIVE Current Medications Medications (Trade) Dose Ordered Sig/Reva Route PRN Reason Start Time Stop Time Status Last Admin Dose Admin Acetaminophen (TYLenol 325MG TAB) 650 mg Q4H PRN PO TEMPERATURE GREATER THAN 101.5 07/04/25 15:30 08/03/25 15:29 Acetaminophen (TYLenol 325MG TAB) 650 mg Q6H PRN PO MILD PAIN (1-3) 07/04/25 15:30 08/03/25 15:29 Albuterol (DUOneb) 1 UDVIAL [id number] IH 07/04/25 18:00 08/03/25 17:59 07/06/25 06:24 1 UDVIAL Aspirin (Aspirin 81mg Ec Tab) 81 mg DAILY PO 07/06/25 09:00 08/05/25 08:59 Atorvastatin Calcium (LIPItor 40MG) 40 mg HS PO 07/05/25 21:00 08/04/25 20:59 07/05/25 20:58 40 MG Azithromycin 250 ml @ 250 mls/hr Q24H IVPB 07/04/25 15:30 07/14/25 15:29 07/05/25 16:36 250 MLS/HR Budesonide (Pulmicort 0.5 Mg/2ml) 0.5 mg BIDRESP IH 07/05/25 18:00 08/04/25 17:59 07/06/25 06:25 0.5 MG Ceftriaxone Sodium (ROCEphine 1G INJ) 1 gm Q24H IVPB 07/05/25 11:30 07/15/25 11:29 07/05/25 12:01 1 GM Dextrose (D50w) 50 ml AD PRN IV HYPOGLYCEMIA PROTOCOL 07/04/25 15:30 08/03/25 15:29 07/04/25 17:29 50 ML Famotidine (Pepcid 20mg Tab) 20 mg BID PO 07/04/25 21:00 08/03/25 20:59 07/06/25 09:51 20 MG Furosemide (LASix 20MG TAB) 20 mg DAILY PO 07/06/25 09:00 08/05/25 08:59 Glucagon (Glucagon 1mg Kit) 1 mg AD PRN IM HYPOGLYCEMIA PROTOCOL 07/04/25 15:30 08/03/25 15:29 Guaifenesin (MUCinex 600 MG TABLET.ER) 600 mg BID PO 07/04/25 21:00 08/03/25 20:59 07/06/25 09:51 600 MG Hydralazine HCl ([id number] TAB) 50 mg BID PO 07/05/25 21:00 08/04/25 20:59 07/05/25 20:59 50 MG Insulin Glargine (LANtus 100 UNITS/ML 10 ML VIAL) 25 units BID@0730,2100 SQ 07/05/25 21:00 08/04/25 20:59 07/06/25 09:55 25 UNITS Insulin Human Regular (humuLIN R 100 UNIT/ML 3ML) INSULIN SLIDING SCAL... ACHS SQ 07/04/25 16:30 08/03/25 16:29 07/06/25 09:58 2 UNIT Isosorbide Mononitrate (Imdur 30mg Sr) 30 mg DAILY PO 07/06/25 09:00 08/05/25 08:59 Methylprednisolone Sodium Succinate (Solu-medROL 125MG) 125 mg Q6H IVP 07/04/25 15:30 08/03/25 15:29 07/06/25 10:30 125 MG Metoprolol Tartrate (loprESSOR) 50 mg HS PO 07/05/25 21:00 08/04/25 20:59 07/05/25 20:59 50 MG Metoprolol Tartrate (loprESSOR) 100 mg DAILY PO 07/06/25 09:00 08/05/25 08:59 Montelukast Sodium (SinguLAIR) 10 mg DAILY PO 07/05/25 12:00 08/04/25 11:59 07/06/25 09:51 10 MG Nitroglycerin (Nitrostat) 0.4 mg AD PRN SL CHEST PAIN 07/05/25 11:30 08/04/25 11:29 Ondansetron HCl (zoFRAN 4MG INJ) 4 mg Q6H PRN IVP NAUSEA/VOMITING 07/04/25 15:30 08/03/25 15:29 Tamsulosin HCl (FloMAX) 0.4 mg HS PO 07/05/25 21:00 08/04/25 20:59 07/05/25 21:00 0.4 MG Vitamin B Complex (Vitamin B-12) 1,000 mcg DAILY PO 07/06/25 09:00 08/05/25 08:59 07/06/25 09:52 1,000 [facility] DIAGNOSTICS / RADIOLOGY: [ ] [facility] [address] [place] [address] IMAGING REPORT Addendum PATIENT: RAMSES RAY MR#: [id number] : 1955 SEX: M AGE: 70 LOCATION: [facility] ORDER 1158 STATUS: ADM IN REPORT#: [id number] SERVICE 1157 REASON: resp failure ORDERING PHYSICIAN: VLADIMIR RAY ROTOR WINDER PROCEDURE: CHEST WO - CT CHEST W/O CONTRAST ADDENDUM REPORT ADDENDUM: Results were shared by telephone at 10:53 pm EST on 07-05-25 and acknowledged by superintendent warehouse Ms. SEBASTIAN Perry. /[facility] EXAM: CT CHEST WITHOUT CONTRAST CLINICAL INDICATION: Respiratory failure. TECHNIQUE: Noncontrast axial CT images of the chest were obtained with multiplanar reformatted images. Dose modulation techniques were utilized. COMPARISON: Chest radiograph dated July 04, 2025, which demonstrated median sternotomy changes without acute cardiopulmonary abnormality. FINDINGS: Thyroid: The thyroid gland is mildly enlarged and heterogeneous in morphology. A hypodense nodule measuring approximately 1.0 0.7 cm is present in the left lobe without internal calcification. Mediastinum and Yvrose: Median sternotomy wires are visualized. A well-defined hypodense lesion measuring approximately 2.7 3.0 7.0 cm is seen in the posterior mediastinum, interposed between the trachea and the esophagus. No internal calcification is identified. This lesion causes marked extrinsic compression of the trachea with severe luminal narrowing, estimated at approximately 8090%. No mediastinal or hilar lymphadenopathy is identified. Heart and Great Vessels: Atheromatous calcification is present in the thoracic aortic arch and the coronary arteries. Cardiac size is within normal limits. Lungs and Airways: A solid pulmonary nodule measuring 3 mm is identified in the posterior segment of the right upper lobe (series 3, image 11/48). Patchy ground-glass opacification is present in the posterobasal segment of the left lower lobe. Minimal bibasilar subsegmental atelectasis is noted. Additional minimal subsegmental atelectasis is present in the lingula and the right middle lobe. Apart from the extrinsic compression described above, the visualized airways are otherwise patent. Pleura: No pleural effusion or pneumothorax is identified. Upper Abdomen: A small accessory spleen (splenule) measuring approximately 1.0 cm is noted. The remainder of the visualized upper abdominal structures is unremarkable on this noncontrast study. Bones: Degenerative changes are present in the thoracic spine. There is a chronic-appearing compression deformity of the T12 vertebral body involving the superior endplate with approximately 20% anterior height loss. No acute osseous abnormality is identified. RADIATION DOSE: CTDIvol: 5.3 mGy. DLP: 186.1 mGycm. IMPRESSION: 1. Patchy ground-glass opacity in the left lower lobe with associated mild subsegmental atelectasis, which may represent infection, inflammation, or aspiration, depending on the clinical context. 2. Large hypodense posterior mediastinal mass causing tracheal compression. This finding is highly significant in the setting of respiratory failure and warrants urgent clinical correlation and further evaluation. Differential considerations include foregut duplication cyst, esophageal lesion, neurogenic tumor, or other mediastinal mass; contrast-enhanced CT or MRI is recommended. 3. Tiny 3 mm solid pulmonary nodule in the right upper lobe. In a low-risk patient, no routine follow-up is required; in a high-risk patient, optional follow-up CT at 12 months may be considered per Fleischner Society guidelines. 4. Mildly enlarged heterogeneous thyroid gland with a small left thyroid lobe nodule measuring 1.0 cm; correlation with thyroid ultrasound may be considered if clinically indicated. 5. Chronic T12 vertebral compression deformity and degenerative changes of the thoracic spine. 6. In comparison with the prior chest radiograph dated July 04, 2025, the left lower lobar lung infiltrates are new. /[place] DICTATED BY: TANNER MARINELLI MD DATE: 07/05/252334 ELECTRONICALLY SIGNED BY: DATE: EXAM: CT CHEST WITHOUT CONTRAST CLINICAL INDICATION: Respiratory failure. TECHNIQUE: Noncontrast axial CT images of the chest were obtained with multiplanar reformatted images. Dose modulation techniques were utilized. COMPARISON: Chest radiograph dated July 04, 2025, which demonstrated median sternotomy changes without acute cardiopulmonary abnormality. FINDINGS: Thyroid: The thyroid gland is mildly enlarged and heterogeneous in morphology. A hypodense nodule measuring approximately 1.0 0.7 cm is present in the left lobe without internal calcification. Mediastinum and Yvrose: Median sternotomy wires are visualized. A well-defined hypodense lesion measuring approximately 2.7 3.0 7.0 cm is seen in the posterior mediastinum, interposed between the trachea and the esophagus. No internal calcification is identified. This lesion causes marked extrinsic compression of the trachea with severe luminal narrowing, estimated at approximately 8090%. No mediastinal or hilar lymphadenopathy is identified. Heart and Great Vessels: Atheromatous calcification is present in the thoracic aortic arch and the coronary arteries. Cardiac size is within normal limits. Lungs and Airways: A solid pulmonary nodule measuring 3 mm is identified in the posterior segment of the right upper lobe (series 3, image 11/48). Patchy ground-glass opacification is present in the posterobasal segment of the left lower lobe. Minimal bibasilar subsegmental atelectasis is noted. Additional minimal subsegmental atelectasis is present in the lingula and the right middle lobe. Apart from the extrinsic compression described above, the visualized airways are otherwise patent. Pleura: No pleural effusion or pneumothorax is identified. Upper Abdomen: A small accessory spleen (splenule) measuring approximately 1.0 cm is noted. The remainder of the visualized upper abdominal structures is unremarkable on this noncontrast study. Bones: Degenerative changes are present in the thoracic spine. There is a chronic-appearing compression deformity of the T12 vertebral body involving the superior endplate with approximately 20% anterior height loss. No acute osseous abnormality is identified. RADIATION DOSE: CTDIvol: 5.3 mGy. DLP: 186.1 mGycm. IMPRESSION: 1. Patchy ground-glass opacity in the left lower lobe with associated mild subsegmental atelectasis, which may represent infection, inflammation, or aspiration, depending on the clinical context. 2. Large hypodense posterior mediastinal mass causing tracheal compression. This finding is highly significant in the setting of respiratory failure and warrants urgent clinical correlation and further evaluation. Differential considerations include foregut duplication cyst, esophageal lesion, neurogenic tumor, or other mediastinal mass; contrast-enhanced CT or MRI is recommended. 3. Tiny 3 mm solid pulmonary nodule in the right upper lobe. In a low-risk patient, no routine follow-up is required; in a high-risk patient, optional follow-up CT at 12 months may be considered per Fleischner Society guidelines. 4. Mildly enlarged heterogeneous thyroid gland with a small left thyroid lobe nodule measuring 1.0 cm; correlation with thyroid ultrasound may be considered if clinically indicated. 5. Chronic T12 vertebral compression deformity and degenerative changes of the thoracic spine. 6. In comparison with the prior chest radiograph dated July 04, 2025, the left lower lobar lung infiltrates are new. /[place] DICTATED BY: TANNER MARINELLI MD DATE: 07/05/252200 ELECTRONICALLY SIGNED BY: TANNER MARINELLI MD DATE: 07/05/252200 ASSESSMENT: [Acute hypoxemic respiratory failure, POA Asthma exacerbation, POA Large hypodense posterior mediastinal mass causing tracheal compression ( CT chest on 07/05/2025) Small left thyroid lobe nodule measuring 1 cm ( CT chest on 07/05/2025) COPD exacerbation POA Leukocytosis with left shift, POA LILI Chronic histories: Diabetes mellitus type 2, , hyperlipidemia, CAD ] PLAN: Asthma exacerbation, POA COPD exacerbation POA On Presentation patient had severe difficulty breathing, unable to talk Patient has been using albuterol inhaler every hour for the past48 hours without relief Chest x-ray showed no acute cardiopulmonary abnormality. Patient was started on Mucinex, DuoNebs, budesonide, montelukast. Patient was started on IV azithromycin, IV Rocephin Patient was started on IV [id number] mg q.6 Pulmonology on board. Large hypodense posterior mediastinal mass causing tracheal compression ( CT chest on 07/05/2025) CT chest showed large hypodense lesion measuring approximately 2.7 x 3 x 7 cm seen in posterior mediastinum, interposed between trach in the esophagus Lesion causing marked extrinsic compression of the trachea with severe luminal narrowing, estimated at approximately 80-90%. CT chest with contrast was recommended but unable to perform as patient is allergic to iodine. Pulmonology requested GI consultation for possible EGD with biopsy. We will get bedside swallow eval. Small left thyroid lobe nodule measuring 1 cm ( CT chest on 07/05/2025) CT chest showed Small left thyroid lobe nodule measuring 1 cm We will get TSH, T3, T4 Endocrinology was consulted for further evaluation LILI On 07/05/2025 BUN 27, creatinine 1.4 Today BUN 40, creatinine 1.3 Avoid NSAIDs, nephrotoxins drugs We will continue to monitor the patient and trend creatinine daily. All home medications were reconciled and resumed GI prophylaxis with Pepcid DVT prophylaxis with SCDs ATTESTATION BY PHYSICIAN I have seen and examined the patient. I reviewed the documentation, medical decision making, and treatment plan as noted by the resident above. I agree with the findings and plan of care. Jose R Cottrell IV, MD, ADIL SHAH QUADRI MD Jul 06, 2025 10:46
--- NOTE | 2025-07-06 14:41 | PN ---
[facility] PROGRESS NOTE Date Patient Seen: Jul 06, 2025 Time of Visit: 14:29 Supervising Physician: [Dr Minor Primary Care Physician: [ ] Outpatient Specialists: [ ] Inpatient Consults: [ BIS PROBLEM LIST: Acute on chronic hypoxemic respiratory failure Large hypodense posterior mediastinal mass causing tracheal compression Solitary pulmonary nodule on right upper lobe measuring 3 mm Left Thyroid nodule measuring one by 0.7 cm Acute on chronic asthma exacerbation Type 2 diabetes Hyperlipidemia CAD History of right BKA INTERVAL HISTORY: Mr. Ramses Ray is a 1 year male with a past medical history of diabetes, hypertension, hyperlipidemia, depression, PT as needed presented to the emergency room with a chief complaint of shortness on breath with an onset of about a month off and on. [facility] since however he is not getting any resolution of his symptoms. Patient reports he uses his nebulizer continuously at home however in the last 4 hours his symptoms were progressively worse to the point that he was not able to talk without dyspnea. For this reason he decided to come in for further evaluation. We are consulted for asthma exacerbation. Patient is seen and evaluated at the bedside. Patient is sitting up in bed appears weak and noted with difficulty breathing during conversation. At rest, patient is on room air and appears comfortable. No ABGs were requested on admission for baseline. Patient had a chest x-ray on admission which shows no acute cardiopulmonary abnormalities. On exam patient was noted to have decreased breath sounds bilaterally with scattered rhonchi. Patient denies tobacco use, he admits he used to smoke back in the in his early 20s. 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 He reports he had been having to use his albuterol every hour for the last 48 hours. Recommend continue azithromycin, as well as Rocephin. Short course of high-dose steroids. Duo nebs every 4 hours Pulmicort b.i.d. montelukast daily. PFTs. We will request a CT scan of the chest and a stat ABG for baseline. 07/06 - patient is seen and evaluated at the bedside. Patient is sitting up at the side of the bed accompanied by his . Patient continues to be weak and with dyspnea with minimal exertion. Patient does currently remain on room air with an O2 sat of 99%. Patient had ABGs performed yesterday and results are within normal limits. Patient had a CT of the chest performed and was found to have patchy ground-glass opacities in the left lower lobe associated with atelectasis. Patient was also found to have a large hypodense posterior mediastinal mass causing tracheal compression. Patient was also found to have tiny3 mm solid pulmonary nodule in the right upper lobe patient was also found to have a mildly enlarged thyroid gland with a left thyroid lobe nodule measuring [address] scan with IV contrast however patient is allergic and reports his respiratory status compromised when he receives iodine. Recommend a GI consult for an EGD with biopsy as this would be the best way to prevent respiratory compromise. Recommend consult Endocrinology regarding left thyroid nodule. We will continue to follow with you. PLAN SUMMARY: Supplemental oxygen as needed Continue DuoNeb Continue Pulmicort Continue azithromycin Continue Rocephin Began tapering Solu-Medrol Consult GI for EGD with mediastinal mass biopsy Consult endocrinology regarding left thyroid nodule REVIEW OF SYSTEMS: 12 point ROS reviewed with patient. Pertinent positives mentioned above. Otherwise negative. PHYSICAL EXAM: GENERAL: alert, weak, awake oriented x 3 HEENT: EOMI, Sclera non icteric, moist mucosa NECK: Supple, no JVD, trachea midline LUNGS: Clear breath sounds bilaterally. No wheezes HEART: Regular rate and rhythm. Normal S1 and S2, without murmurs ABD: Abdomen soft, nontender. Bowel sounds present EXT: No clubbing cyanosis or edema NEURO: Alert and oriented to person, follows commands Vital Signs (last 8hr) Date Time Temp Pulse Resp B/P (MAP) Pulse Ox O2 Delivery O2 Flow Rate FiO2 07/06/25 12:00 99.0 90 18 132/54 99 Room Air 07/06/25 10:59 81 20 07/06/25 09:00 87 109/58 07/06/25 08:00 98.2 87 18 109/58 95 Room Air LABS: Hematology Labs: Test 07/06/25 03:38 Range/Units White Blood Count 14.2 #H 4.8-10.8 K/uL Red Blood Count 4.42 L 4.50-6.20 MIL/uL Hemoglobin 13.0 L 14.0-18.0 g/dL Hematocrit 38.6 L 42-54 % Mean Corpuscular Volume 87.3 79-99 fL Mean Corpuscular Hemoglobin 29.4 27.0-33.0 pg Mean Corpuscular Hemoglobin Concent 33.7 32.0-36.0 g/dL Red Cell Distribution Width 14.0 11.0-15.5 % Platelet Count 296 130-400 K/uL Mean Platelet Volume 9.9 7.5-10.5 fL Nucleated Red Blood Cells 0.0 0.0-0.19 % Chemistry Labs: Test 07/06/25 11:32 07/06/25 03:38 07/05/25 18:22 07/05/25 03:49 Range/Units Whole Blood Glucose 255 H 70-110 MG/DL Sodium Level 139 136-145 mmol/L Potassium Level 4.0 3.5-5.1 mmol/L Chloride Level 103 101-111 mmol/L Carbon Dioxide Level 29 21-32 mmol/L Blood Urea Nitrogen 40 H 7-18 mg/dL Creatinine 1.3 0.5-1.3 mg/dL Glomerular Filtration Rate Calc 58 >90 mL/min Random Glucose 213 H 70-105 mg/dL Total Calcium 8.7 8.5-10.1 mg/dL B-Type Natriuretic Peptide 36 0-100 pg/mL Magnesium Level 2.10 1.80-2.40 mg/dL Total Bilirubin 0.5 0.2-1.0 mg/dL Aspartate Amino Transf (AST/SGOT) 14 10-37 U/L Alanine Aminotransferase (ALT/SGPT) 15 12-78 U/L Alkaline Phosphatase 80 50-136 U/L Total Protein 6.5 6.0-8.3 g/dL Albumin 3.1 L 3.5-5.0 g/dL DIAGNOSTICS / RADIOLOGY RESULTS: PATIENT: RAMSES RAY MR#: [id number] : 1955 SEX: M AGE: 70 LOCATION: [facility] ORDER 57 STATUS: ADM IN REPORT#: [id number] SERVICE 56 REASON: resp failure ORDERING PHYSICIAN: VLADIMIR RAY PROCEDURE: CHEST WO - CT CHEST W/O CONTRAST ADDENDUM REPORT ADDENDUM: Results were shared by telephone at 10:53 pm EST on 07-05-25 and acknowledged by washhouse hand Ms. SEBASTIAN Perry. /[facility] EXAM: CT CHEST WITHOUT CONTRAST CLINICAL INDICATION: Respiratory failure. TECHNIQUE: Noncontrast axial CT images of the chest were obtained with multiplanar reformatted images. Dose modulation techniques were utilized. COMPARISON: Chest radiograph dated July 04, 2025, which demonstrated median sternotomy changes without acute cardiopulmonary abnormality. FINDINGS: Thyroid: The thyroid gland is mildly enlarged and heterogeneous in morphology. A hypodense nodule measuring approximately 1.0 0.7 cm is present in the left lobe without internal calcification. Mediastinum and Yvrose: Median sternotomy wires are visualized. A well-defined hypodense lesion measuring approximately 2.7 3.0 7.0 cm is seen in the posterior mediastinum, interposed between the trachea and the esophagus. No internal calcification is identified. This lesion causes marked extrinsic compression of the trachea with severe luminal narrowing, estimated at approximately 8090%. No mediastinal or hilar lymphadenopathy is identified. Heart and Great Vessels: Atheromatous calcification is present in the thoracic aortic arch and the coronary arteries. Cardiac size is within normal limits. Lungs and Airways: A solid pulmonary nodule measuring 3 mm is identified in the posterior segment of the right upper lobe (series 3, image 11/48). Patchy ground-glass opacification is present in the posterobasal segment of the left lower lobe. Minimal bibasilar subsegmental atelectasis is noted. Additional minimal subsegmental atelectasis is present in the lingula and the right middle lobe. Apart from the extrinsic compression described above, the visualized airways are otherwise patent. Pleura: No pleural effusion or pneumothorax is identified. Upper Abdomen: A small accessory spleen (splenule) measuring approximately 1.0 cm is noted. The remainder of the visualized upper abdominal structures is unremarkable on this noncontrast study. Bones: Degenerative changes are present in the thoracic spine. There is a chronic-appearing compression deformity of the T12 vertebral body involving the superior endplate with approximately 20% anterior height loss. No acute osseous abnormality is identified. RADIATION DOSE: CTDIvol: 5.3 mGy. DLP: 186.1 mGycm. IMPRESSION: 1. Patchy ground-glass opacity in the left lower lobe with associated mild subsegmental atelectasis, which may represent infection, inflammation, or aspiration, depending on the clinical context. 2. Large hypodense posterior mediastinal mass causing tracheal compression. This finding is highly significant in the setting of respiratory failure and warrants urgent clinical correlation and further evaluation. Differential considerations include foregut duplication cyst, esophageal lesion, neurogenic tumor, or other mediastinal mass; contrast-enhanced CT or MRI is recommended. 3. Tiny 3 mm solid pulmonary nodule in the right upper lobe. In a low-risk patient, no routine follow-up is required; in a high-risk patient, optional follow-up CT at 12 months may be considered per Fleischner Society guidelines. 4. Mildly enlarged heterogeneous thyroid gland with a small left thyroid lobe nodule measuring 1.0 cm; correlation with thyroid ultrasound may be considered if clinically indicated. 5. Chronic T12 vertebral compression deformity and degenerative changes of the thoracic spine. 6. In comparison with the prior chest radiograph dated July 04, 2025, the left lower lobar lung infiltrates are new. /[place] DICTATED BY: TANNER MARINELLI MD DATE: 07/05/25 [id number] ELECTRONICALLY SIGNED BY: DATE: EXAM: CT CHEST WITHOUT CONTRAST CLINICAL INDICATION: Respiratory failure. TECHNIQUE: Noncontrast axial CT images of the chest were obtained with multiplanar reformatted images. Dose modulation techniques were utilized. COMPARISON: Chest radiograph dated July 04, 2025, which demonstrated median sternotomy changes without acute cardiopulmonary abnormality. FINDINGS: Thyroid: The thyroid gland is mildly enlarged and heterogeneous in morphology. A hypodense nodule measuring approximately 1.0 0.7 cm is present in the left lobe without internal calcification. Mediastinum and Yvrose: Median sternotomy wires are visualized. A well-defined hypodense lesion measuring approximately 2.7 3.0 7.0 cm is seen in the posterior mediastinum, interposed between the trachea and the esophagus. No internal calcification is identified. This lesion causes marked extrinsic compression of the trachea with severe luminal narrowing, estimated at approximately 8090%. No mediastinal or hilar lymphadenopathy is identified. Heart and Great Vessels: Atheromatous calcification is present in the thoracic aortic arch and the coronary arteries. Cardiac size is within normal limits. Lungs and Airways: A solid pulmonary nodule measuring 3 mm is identified in the posterior segment of the right upper lobe (series 3, image 11/48). Patchy ground-glass opacification is present in the posterobasal segment of the left lower lobe. Minimal bibasilar subsegmental atelectasis is noted. Additional minimal subsegmental atelectasis is present in the lingula and the right middle lobe. Apart from the extrinsic compression described above, the visualized airways are otherwise patent. Pleura: No pleural effusion or pneumothorax is identified. Upper Abdomen: A small accessory spleen (splenule) measuring approximately 1.0 cm is noted. The remainder of the visualized upper abdominal structures is unremarkable on this noncontrast study. Bones: Degenerative changes are present in the thoracic spine. There is a chronic-appearing compression deformity of the T12 vertebral body involving the superior endplate with approximately 20% anterior height loss. No acute osseous abnormality is identified. RADIATION DOSE: CTDIvol: 5.3 mGy. DLP: 186.1 mGycm. IMPRESSION: 1. Patchy ground-glass opacity in the left lower lobe with associated mild subsegmental atelectasis, which may represent infection, inflammation, or aspiration, depending on the clinical context. 2. Large hypodense posterior mediastinal mass causing tracheal compression. This finding is highly significant in the setting of respiratory failure and warrants urgent clinical correlation and further evaluation. Differential considerations include foregut duplication cyst, esophageal lesion, neurogenic tumor, or other mediastinal mass; contrast-enhanced CT or MRI is recommended. 3. Tiny 3 mm solid pulmonary nodule in the right upper lobe. In a low-risk patient, no routine follow-up is required; in a high-risk patient, optional follow-up CT at 12 months may be considered per Fleischner Society guidelines. 4. Mildly enlarged heterogeneous thyroid gland with a small left thyroid lobe nodule measuring 1.0 cm; correlation with thyroid ultrasound may be considered if clinically indicated. 5. Chronic T12 vertebral compression deformity and degenerative changes of the thoracic spine. 6. In comparison with the prior chest radiograph dated July 04, 2025, the left lower lobar lung infiltrates are new. /[place] DICTATED BY: TANNER MARINELLI MD DATE: 07/05/252200 ELECTRONICALLY SIGNED BY: TANNER MARINELLI MD DATE: 07/05/252200 PLAN NEURO: Minimize central acting medications as possible. Maintain fall precautions, adequate lighting during the day PULMONARY: Supplemental 02 as needed. Maintain aspiration precautions at all times CARDIOVASCULAR: Follow hemodynamics. Vital signs per facility protocol GI & NUTRITION: Continue with nutritional support. Continue stool softeners and laxatives as needed. KIDNEYS & ELECTROLYTES: Strict monitoring of intake, output and overall fluid balance. Avoid nephrotoxic medications to the extent possible. Medications to be dosed according to renal function. Monitor electrolytes and replace as needed ENDOCRINE: Maintain blood glucose between 100-180 at all times. Hypoglycemia protocol in place INFECTIOUS DISEASE: Trend temperature, WBC and procalcitonin level Follow cultures, deescalate antibiotics as soon as possible. Panculture if new onset fever ONCOLOGY/HEMATOLOGY/COAGULATION: Monitor for s/s of bleeding Monitor hemoglobin, coagulation studies as needed SKIN: Pressure ulcer prevention per facility protocol Specialty mattress ORTHO/REHAB: Continue PT/OT Prophylaxis: Continue GI and DVT prophylaxis Code Status: Full Resuscitation Disposition: As per attending ATTESTATION BY PHYSICIAN I attest that I reviewed and discussed the case with the Physician Industrial Cleaner as well as agree with the Physician Industrial Cleaner's findings, plans of care, and documentation above. Saroj Cruz MD, ECTOR N FNP Jul 06, 2025 14:41
--- NOTE | 2025-07-06 14:54 | NUR ---
[facility] Care Coordination Call Discussed discharge planning needs. [facility] the [facility].
--- NOTE | 2025-07-06 17:32 | NUR ---
GI CONSULT paged Dr. Smart at this time, pending return call Addendum: 07/06/25 at 1733 by BREANA YOUNGBLOOD RN RN Amended: Links added.
--- NOTE | 2025-07-06 17:35 | NUR ---
GI CONSULT UPDATE Dr. Smart called at this time, EGD scheduled for tomorrow. keep pt NPO after midnight.
--- NOTE | 2025-07-06 18:30 | CONS ---
GASTROENTEROLOGY CONSULTATION NOTE Date of Consultation: Jul 06, 2025 Time of Consultation: 18:30 History of Present Illness: This is a 70-year-old male with past medical history of diabetes, hyperlipidemia, hypertension, depression, PTSD who presented due to shortness of breath. Patient had a chest CT which revealed atelectasis, large hypodense posterior mediastinal mass causing tracheal compression. Differentials include foregut duplication cyst, esophageal lesion, aortic tumor or other mediastinal mass. Pulmonary nodules were seen. Review of Systems: CONSTITUTIONAL: No malaise or change in sensation of wellbeing. ENMT: No rhinorrhea, otorrhea, sinus pain, ear ache. CARDIOVASCULAR: No angina, palpitations, orthopnea or paroxysmal dyspnea. RESPIRATORY: No SOB. GASTROINTESTINAL: No abdominal pain, nausea, vomiting, diarrhea, hematemesis, melena or change in the patient's habitual bowel movements consistency/number. GENITOURINARY: No dysuria, hematuria or change in bladder continence. MUSCULOSKELETAL: No new muscle pain or decrease in muscular strength. No new joint swelling, redness or tenderness. SKIN: No new rash. Past Medical History: PAST MEDICAL HISTORY: [ Chin, asthma, hyperlipidemia, CAD, diabetes mellitus ] PAST SURGICAL HISTORY: [CABG x4 20 years ago, right [id number] amputation ] PAST SOCIAL HISTORY: [[facility] is a [facility], he denies tobacco, alcohol or illicit drug use ] FAMILY HISTORY: [ Noncontributory ] Coded Allergies: iodine (Unverified Allergy, Unknown, 09/03/22) Physical Exam: GEN: Awake, alert, oriented in person, time and place, and in no acute distress. HEENT: No sinus tenderness. Tympanic membranes were not examined. No rhinorrhea. Oral pharyngeal mucosa is pink, moist and within normal limits. Neck is supple with no cervical lymphadenopathy, thyromegaly or JVD. CHEST: Inspection, palpation and percussion of the chest were unremarkable. Lung auscultation revealed normal breath sounds bilaterally. CARDIAC: PMI is within normal limits. Heart sounds are regular. Normal S1, S2. No gallop or murmur. ABD: Soft, non-tender and not distended. No peritoneal signs on palpation. No organomegaly. Normal bowel sounds. EXT: No cyanosis or clubbing. No edema. SKIN: Intact. No rashes. JOINTS: No evidence of synovitis or acute arthritis. NEURO: Alert and oriented to name, place and person. Cranial nerve examination is unremarkable. No focal motor deficits. Normal speech. Gait is normal. Strength is normal. Vital Sign (Last 24 Hours) 07/06/25 07/06/25 07/06/25 08:00 11:00 16:00 Temp 98.1 Pulse 78 Resp 18 B/P (MAP) 128/64 Pulse Ox 100 O2 Delivery Room Air O2 Flow Rate 0 FiO2 21 Intake & Output (last 24hrs) 07/05/25 07/05/25 07/06/25 15:00 23:00 07:00 Intake Total 55.0 ml 1850.0 ml 120 ml Output Total 525 ml 500 ml Balance -470.0 ml 1850.0 ml -380 ml Laboratory: [ ] Laboratory: Test 07/06/25 15:40 07/06/25 03:38 07/05/25 18:22 07/05/25 11:04 Range/Units Whole Blood Glucose 189 H 70-110 MG/DL White Blood Count 14.2 #H 4.8-10.8 K/uL Red Blood Count 4.42 L 4.50-6.20 MIL/uL Hemoglobin 13.0 L 14.0-18.0 g/dL Hematocrit 38.6 L 42-54 % Mean Corpuscular Volume 87.3 79-99 fL Mean Corpuscular Hemoglobin 29.4 27.0-33.0 pg Mean Corpuscular Hemoglobin Concent 33.7 32.0-36.0 g/dL Red Cell Distribution Width 14.0 11.0-15.5 % Platelet Count 296 130-400 K/uL Mean Platelet Volume 9.9 7.5-10.5 fL Nucleated Red Blood Cells 0.0 0.0-0.19 % Sodium Level 139 136-145 mmol/L Potassium Level 4.0 3.5-5.1 mmol/L Chloride Level 103 101-111 mmol/L Carbon Dioxide Level 29 21-32 mmol/L Blood Urea Nitrogen 40 H 7-18 mg/dL Creatinine 1.3 0.5-1.3 mg/dL Glomerular Filtration Rate Calc 58 >90 mL/min Random Glucose 213 H 70-105 mg/dL Total Calcium 8.7 8.5-10.1 mg/dL B-Type Natriuretic Peptide 36 0-100 pg/mL Blood Gas Specimen Type Arterial Arterial Blood pH 7.414 7.350-7.450 Arterial Blood Partial Pressure CO2 37 35-48 mmHg Arterial Blood Partial Pressure O2 83.5 83.0-108.0 mmHg Arterial Blood HCO3 23.0 21.0-28.0 mmol/L Arterial Blood Oxygen Saturation 96.4 94.0-98.0 % Arterial Blood Base Excess -1.1 -2.0-3.0 mmol/L Blood Gas Temperature 37.0 35.5-37.0 CELSIUS Blood Gas Flow-by 2.00 0.00-15.00 L/min Blood Gas Vent Mode NC ROOM AIR FiO2 28.0 % Blood Gas Specimen Comment RB BREANA Test 07/05/25 03:49 Range/Units Magnesium Level 2.10 1.80-2.40 mg/dL Total Bilirubin 0.5 0.2-1.0 mg/dL Aspartate Amino Transf (AST/SGOT) 14 10-37 U/L Alanine Aminotransferase (ALT/SGPT) 15 12-78 U/L Alkaline Phosphatase 80 50-136 U/L Total Protein 6.5 6.0-8.3 g/dL Albumin 3.1 L 3.5-5.0 g/dL Current Medications Medications (Trade) Dose Ordered Sig/Reva Route PRN Reason Start Time Stop Time Status Last Admin Dose Admin Acetaminophen (TYLenol 325MG TAB) 650 mg Q4H PRN PO TEMPERATURE GREATER THAN 101.5 07/04/25 15:30 08/03/25 15:29 Acetaminophen (TYLenol 325MG TAB) 650 mg Q6H PRN PO MILD PAIN (1-3) 07/04/25 15:30 08/03/25 15:29 Albuterol (DUOneb) 1 UDVIAL [id number] IH 07/04/25 18:00 08/03/25 17:59 07/06/25 10:59 1 UDVIAL Aspirin (Aspirin 81mg Ec Tab) 81 mg DAILY PO 07/06/25 09:00 08/05/25 08:59 Atorvastatin Calcium (LIPItor 40MG) 40 mg HS PO 07/05/25 21:00 08/04/25 20:59 07/05/25 20:58 40 MG Azithromycin 250 ml @ 250 mls/hr Q24H IVPB 07/04/25 15:30 07/14/25 15:29 07/06/25 14:56 250 MLS/HR Budesonide (Pulmicort 0.5 Mg/2ml) 0.5 mg BIDRESP IH 07/05/25 18:00 08/04/25 17:59 07/06/25 06:25 0.5 MG Ceftriaxone Sodium (ROCEphine 1G INJ) 1 gm Q24H IVPB 07/05/25 11:30 07/15/25 11:29 07/06/25 12:26 1 GM Dextrose (D50w) 50 ml AD PRN IV HYPOGLYCEMIA PROTOCOL 07/04/25 15:30 08/03/25 15:29 07/04/25 17:29 50 ML Diphenhydramine HCl (BENAdryl CREAM) 1 APPLICATION Q4HPRN PRN TP apply to arm/hand for itching 07/06/25 16:40 08/05/25 16:39 Famotidine (Pepcid 20mg Tab) 20 mg BID PO 07/04/25 21:00 08/03/25 20:59 07/06/25 09:51 20 MG Furosemide (LASix 20MG TAB) 20 mg DAILY PO 07/06/25 09:00 08/05/25 08:59 Glucagon (Glucagon 1mg Kit) 1 mg AD PRN IM HYPOGLYCEMIA PROTOCOL 07/04/25 15:30 08/03/25 15:29 Guaifenesin (MUCinex 600 MG TABLET.ER) 600 mg BID PO 07/04/25 21:00 08/03/25 20:59 07/06/25 09:51 600 MG Hydralazine HCl ([id number] TAB) 50 mg BID PO 07/05/25 21:00 08/04/25 20:59 07/05/25 20:59 50 MG Insulin Glargine (LANtus 100 UNITS/ML 10 ML VIAL) 25 units BID@0730,2100 SQ 07/05/25 21:00 08/04/25 20:59 07/06/25 09:55 25 UNITS Insulin Human Regular (humuLIN R 100 UNIT/ML 3ML) INSULIN SLIDING SCAL... ACHS SQ 07/04/25 16:30 08/03/25 16:29 07/06/25 16:28 2 UNIT Isosorbide Mononitrate (Imdur 30mg Sr) 30 mg DAILY PO 07/06/25 09:00 08/05/25 08:59 Methylprednisolone Sodium Succinate (Solu-medROL 125MG) 125 mg Q6H IVP 07/04/25 15:30 08/03/25 15:29 07/06/25 14:57 125 MG Metoprolol Tartrate (loprESSOR) 50 mg HS PO 07/05/25 21:00 08/04/25 20:59 07/05/25 20:59 50 MG Metoprolol Tartrate (loprESSOR) 100 mg DAILY PO 07/06/25 09:00 08/05/25 08:59 Montelukast Sodium (SinguLAIR) 10 mg DAILY PO 07/05/25 12:00 08/04/25 11:59 07/06/25 09:51 10 MG Nitroglycerin (Nitrostat) 0.4 mg AD PRN SL CHEST PAIN 07/05/25 11:30 08/04/25 11:29 Ondansetron HCl (zoFRAN 4MG INJ) 4 mg Q6H PRN IVP NAUSEA/VOMITING 07/04/25 15:30 08/03/25 15:29 Tamsulosin HCl (FloMAX) 0.4 mg HS PO 07/05/25 21:00 08/04/25 20:59 07/05/25 21:00 0.4 MG Vitamin B Complex (Vitamin B-12) 1,000 mcg DAILY PO 07/06/25 09:00 08/05/25 08:59 07/06/25 09:52 1,000 MCG Diagnostics / Radiology: [COPY/PASTE HERE IF NO REPORTS PLEASE DELETE SECTION] Assessment: Mediastinal mass Respiratory distress DM HTN Plan: EGD with EUS in am Continue GI prophylaxis Avoid NSAIDs Antireflux measures Monitor H&H and transfuse as needed Call with questions, concerns or change in clinical status Patient to follow-up at clinic post discharge Thank you for this consult BETSY KLINE BLOWER INSTALLER Jul 06, 2025 18:30
[2025-07-07] VITALS (28 sets, daily range): BP systolic 115–163; BP diastolic 63–86; PULSE 71–88; RESP 15–20; TEMP 97.1–98.6; O2SAT 96–99
[2025-07-07 03:59] LABS: NUCLEATED RED BLOOD CELLS 0.0 % (0.0-0.19); PLATELET COUNT (AUTO) 282.0 K/uL (130-400); RED BLOOD CELL COUNT(AUTO) 4.33 MIL/uL (4.50-6.20); RED CELL DISTRIBUTION WIDTH 14.1 % (11.0-15.5); WHITE BLOOD COUNT (AUTO) 11.1 K/uL (4.8-10.8)
[2025-07-07 04:21] LABS: CREATININE 0.9 mg/dL (0.5-1.3); GLOMERULAR FILTR. RATE CALC 91.0 mL/min (>90); GLUCOSE,RANDOM 141.0 mg/dL (70-105); UREA NITROGEN, BLOOD 32.0 mg/dL (7-18)
[2025-07-07 04:35] LABS: SODIUM SERUM 140.0 mmol/L (136-145)
--- NOTE | 2025-07-07 11:05 | PN ---
[facility] PROGRESS NOTE Date of Service: Jul 07, 2025 Time of Service: 10:57 SUBJECTIVE: 70-year-old male with past medical history , diabetes mellitus type 2, hyperlipidemia, hypertension, depression, PTSD who presented to the emergency department with complaints of shortness of breaths. Patient stated that this shortness of breath has been going on for one month on and off, he uses n ebulizer at home but in the past 24 hours patient's symptoms became progressively worse for which patient started coughing and unable to talk feeling out of breath. In the emergency department, his initial vital signs showed temperature of 98.2 F, pulse 92, respiratory rate 18, blood pressure 177/98, pulse oximetry 96% on room air. Labs reviewed, WBC 11.3, H&H 15 and 46.6, platelet count 324, chloride 100, CO2 33, BUN 20, creatinine 1.1, random glucose 93, magnesium 1.9 since showed glucose of 300. Chest x-ray showed no acute cardiopulmonary abnormality. Patient was referred to the hospitalist for further evaluation and management. 07/05/2025: Patient was seen and evaluated this morning with Dr. Cottrell, family at bedside. He is awake, alert, oriented x3, saturating 98% with2 L nasal cannula. Patient is sitting up in bed appears weak and noted with difficulty breathing during conversation. On examination patient noted to have decreased breath sounds bilaterally with scattered rhonchi. Morning labs showed white count 10.8, H&H 14.9, 45.9 respectively, BUN 27, creatinine 1.4. Patient was started on IV Rocephin, azithromycin, DuoNeb, montelukast, budesonide, high-dose corticosteroids. His home meds were reconciled and resumed. Pending CT chest report. Pulmonology on board, we will continue to follow their recommendations. 07/06/2025: Patient was seen and evaluated this morning, no family at bedside. He is awake, alert, oriented x3, saturating 98% with room air. Patient complains that he still has difficulty breathing, choking while eating, denies any new or worsening symptoms. CT chest showed patchy ground-glass opacity in left lower lobe associated with mild subsegmental atelectasis, large hypodense posterior mediastinal mass causing tracheal compression, tiny 3 mm solid pulmonary nodule in right upper lobe, mildly enlarged heterogeneous thyroid gland with a small left thyroid lobe nodule measuring 1 cm. Pulmonology requested GI consultation possible EGD with biopsy, endocrinology consultation for thyroid nodule. Continue IV antibiotics, IV steroids, DuoNeb, budesonide. We will get bedside swallow eval. Pulmonology on board, we will continue to follow their recommendations. 07/07/2025: Patient was seen and evaluated this morning, no family at bedside. He is awake, alert, oriented x3, saturating 98% with room air. Patient complains that he still has difficulty breathing, choking while eating, denies any new or worsening symptoms. Patient is currently NPO, scheduled for EGD with EUS today. Labs were unremarkable except for white count 11.1, TSH 0.15, T3 1.22. Endocrinology consultation was requested for evaluation of thyroid nodule. We will follow up with the patient after EGD. REVIEW OF SYSTEMS CONSTITUTIONAL: Denies fevers, chills, or night sweats. No unintentional weight loss reported. NEUROLOGICAL: Denies headache, amaurosis fugax, motor weakness, sensory deficit, vertigo/spinning sensation, gait abnormalities, or tremors. ENT: No hearing loss, otalgia, otorrhea, rhinitis, rhinorrhea, hoarseness, or sore throat. CARDIOVASCULAR: Denies any exertional angina, dyspnea on exertion, orthopnea, paroxysmal nocturnal dyspnea, palpitations, life-threatening arrhythmias, claudication. PULMONARY: Denies any shortness of breath, cough, phlegm/sputum, hemoptysis, pleuritic chest pain. SLEEP: Denies morning headaches, daytime somnolence or napping. Denies difficulty falling asleep, staying asleep, waking from sleep. Denies knowledge of snoring. GASTROINTESTINAL: Denies any type of dysphagia to either liquids or solids. Denies nausea, vomiting, pyrosis, early satiety, abdominal pain, diarrhea, constipation, or changes in stool consistency or caliber. Denies coffee-ground emesis, hematemesis, hematochezia, or melanotic stools. GENITOURINARY: Denies frequency, urgency, nocturia, hematuria or incontinence (Storage/Irritative symptoms.) Low urinary stream, straining to void, urinary intermittency or hesitancy, splitting of the voiding stream, terminal dribbling. ENDOCRINOLOGIC: Denies polyuria, polydipsia, polyphagia or heat/cold intolerances. HEMATOLOGIC: Denies thrombophilia/previous clots, or coagulopathy/bleeding disorders. ONCOLOGIC: Denies personal history of malignancy. DERMATOLOGIC: Denies rashes or pruritus. PSYCHIATRIC: Denies any suicidal or homicidal ideation. Denies hallucinations. PHYSICAL EXAM GENERAL APPEARANCE: The patient is awake, alert, and oriented, in no acute cardiopulmonary distress. NEUROLOGICAL: Cranial nerves II-XII grossly intact. Motor is 5/5 in bilateral upper and lower extremities proximal to distal. No sensory deficits. HEENT: Face is symmetric. Pupils are equal and reactive. Extraocular movements are intact. NECK: Supple. No JVD. No thyromegaly. No submental, submandibular, pre-/postauricular, occipital or supraclavicular lymphadenopathy. CHEST: Normal chest expansion. No Telemetry. LUNGS: Absence of any rales, rhonchi or any wheezing. CARDIOVASCULAR: Regular. S1 and S2 normal. No appreciable rubs, murmurs or gallops. ABDOMEN: Soft, nontender, and nondistended. There is no rebound, voluntary guarding, or rigidity. : Deferred. No Dill. EXTREMITIES: Non-edematous and not cyanotic. No clubbing. Good capillary refill. SKIN: No skin breakdown. Vital Signs (last 8hr) Date Time Temp Pulse Resp B/P (MAP) Pulse Ox O2 Delivery O2 Flow Rate FiO2 07/07/25 07:30 98.6 86 16 143/71 99 Room Air 07/07/25 06:30 73 18 N/A Room Air 21 07/07/25 06:28 73 18 07/07/25 03:55 97.5 81 17 142/68 98 Room Air LABS: Laboratory: Test 07/07/25 05:25 07/07/25 03:42 07/05/25 18:22 07/05/25 11:04 Range/Units Whole Blood Glucose 133 H 70-110 MG/DL White Blood Count 11.1 H 4.8-10.8 K/uL Red Blood Count 4.33 L 4.50-6.20 MIL/uL Hemoglobin 12.6 L 14.0-18.0 g/dL Hematocrit 38.2 L 42-54 % Mean Corpuscular Volume 88.2 79-99 fL Mean Corpuscular Hemoglobin 29.1 27.0-33.0 pg Mean Corpuscular Hemoglobin Concent 33.0 32.0-36.0 g/dL Red Cell Distribution Width 14.1 11.0-15.5 % Platelet Count 282 130-400 K/uL Mean Platelet Volume 10.1 7.5-10.5 fL Nucleated Red Blood Cells 0.0 0.0-0.19 % Sodium Level 140 136-145 mmol/L Potassium Level 3.6 3.5-5.1 mmol/L Chloride Level 103 101-111 mmol/L Carbon Dioxide Level 28 21-32 mmol/L Blood Urea Nitrogen 32 H 7-18 mg/dL Creatinine 0.9 0.5-1.3 mg/dL Glomerular Filtration Rate Calc 91 >90 mL/min Random Glucose 141 H 70-105 mg/dL Total Calcium 8.3 L 8.5-10.1 mg/dL Thyroid Stimulating Hormone (TSH) 0.15 L 0.36-3.74 uIU/mL Free Thyroxine (T4) Direct 1.18 0.76-1.46 ng/dL Free Triiodothyronine (T3) pg/mL 1.22 L 2.18-3.98 pg/mL B-Type Natriuretic Peptide 36 0-100 pg/mL Blood Gas Specimen Type Arterial Arterial Blood pH 7.414 7.350-7.450 Arterial Blood Partial Pressure CO2 37 35-48 mmHg Arterial Blood Partial Pressure O2 83.5 83.0-108.0 mmHg Arterial Blood HCO3 23.0 21.0-28.0 mmol/L Arterial Blood Oxygen Saturation 96.4 94.0-98.0 % Arterial Blood Base Excess -1.1 -2.0-3.0 mmol/L Blood Gas Temperature 37.0 35.5-37.0 CELSIUS Blood Gas Flow-by 2.00 0.00-15.00 L/min Blood Gas Vent Mode NC ROOM AIR FiO2 28.0 % Blood Gas Specimen Comment RB BREANA Current Medications Medications (Trade) Dose Ordered Sig/Reva Route PRN Reason Start Time Stop Time Status Last Admin Dose Admin Acetaminophen (TYLenol 325MG TAB) 650 mg Q4H PRN PO TEMPERATURE GREATER THAN 101.5 07/04/25 15:30 08/03/25 15:29 Acetaminophen (TYLenol 325MG TAB) 650 mg Q6H PRN PO MILD PAIN (1-3) 07/04/25 15:30 08/03/25 15:29 Albuterol (DUOneb) 1 UDVIAL T0QUCLU IH 07/04/25 18:00 08/03/25 17:59 07/07/25 06:27 1 UDVIAL Aspirin (Aspirin 81mg Ec Tab) 81 mg DAILY PO 07/06/25 09:00 08/05/25 08:59 Atorvastatin Calcium (LIPItor 40MG) 40 mg HS PO 07/05/25 21:00 08/04/25 20:59 07/06/25 21:32 40 MG Azithromycin 250 ml @ 250 mls/hr Q24H IVPB 07/04/25 15:30 07/14/25 15:29 07/06/25 14:56 250 MLS/HR Budesonide (Pulmicort 0.5 Mg/2ml) 0.5 mg BIDRESP 07/05/25 18:00 08/04/25 17:59 07/07/25 06:27 0.5 MG Ceftriaxone Sodium (ROCEphine 1G INJ) 1 gm Q24H IVPB 07/05/25 11:30 07/15/25 11:29 07/06/25 12:26 1 GM Dextrose (D50w) 50 ml AD PRN IV HYPOGLYCEMIA PROTOCOL 07/04/25 15:30 08/03/25 15:29 07/04/25 17:29 50 ML Diphenhydramine HCl (BENAdryl CREAM) 1 APPLICATION Q4HPRN PRN TP apply to arm/hand for itching 07/06/25 16:40 08/05/25 16:39 07/06/25 19:15 1 GM Famotidine (Pepcid 20mg Tab) 20 mg BID PO 07/04/25 21:00 08/03/25 20:59 07/06/25 21:32 20 MG Furosemide (LASix 20MG TAB) 20 mg DAILY PO 07/06/25 09:00 08/05/25 08:59 Hold Glucagon (Glucagon 1mg Kit) 1 mg AD PRN IM HYPOGLYCEMIA PROTOCOL 07/04/25 15:30 08/03/25 15:29 Guaifenesin (MUCinex 600 MG TABLET.ER) 600 mg BID PO 07/04/25 21:00 08/03/25 20:59 07/06/25 21:32 600 MG Hydralazine HCl ([id number] TAB) 50 mg BID PO 07/05/25 21:00 08/04/25 20:59 07/06/25 21:33 50 MG Insulin Glargine (LANtus 100 UNITS/ML 10 ML VIAL) 25 units BID@0730,2100 SQ 07/05/25 21:00 08/04/25 20:59 07/06/25 21:45 25 UNITS Insulin Human Regular (humuLIN R 100 UNIT/ML 3ML) INSULIN SLIDING SCAL... ACHS SQ 07/04/25 16:30 08/03/25 16:29 07/06/25 21:44 4 UNIT Isosorbide Mononitrate (Imdur 30mg Sr) 30 mg DAILY PO 07/06/25 09:00 08/05/25 08:59 Methylprednisolone Sodium Succinate (Solu-medROL 125MG) 125 mg Q6H IVP 07/04/25 15:30 08/03/25 15:29 07/07/25 03:48 125 MG Metoprolol Tartrate (loprESSOR) 50 mg HS PO 07/05/25 21:00 08/04/25 20:59 07/05/25 20:59 50 MG Metoprolol Tartrate (loprESSOR) 100 mg DAILY PO 07/06/25 09:00 08/05/25 08:59 Montelukast Sodium (SinguLAIR) 10 mg DAILY PO 07/05/25 12:00 08/04/25 11:59 07/06/25 09:51 10 MG Nitroglycerin (Nitrostat) 0.4 mg AD PRN SL CHEST PAIN 07/05/25 11:30 08/04/25 11:29 Ondansetron HCl (zoFRAN 4MG INJ) 4 mg Q6H PRN IVP NAUSEA/VOMITING 07/04/25 15:30 08/03/25 15:29 Tamsulosin HCl (FloMAX) 0.4 mg HS PO 07/05/25 21:00 08/04/25 20:59 07/06/25 21:32 0.4 MG Vitamin B Complex (Vitamin B-12) 1,000 mcg DAILY PO 07/06/25 09:00 08/05/25 08:59 07/06/25 09:52 1,000 MCG DIAGNOSTICS / RADIOLOGY: [ ] ASSESSMENT: [Acute hypoxemic respiratory failure, POA Asthma exacerbation, POA Large hypodense posterior mediastinal mass causing tracheal compression ( CT chest on 07/05/2025) Small left thyroid lobe nodule measuring 1 cm ( CT chest on 07/05/2025) COPD exacerbation POA Leukocytosis with left shift, POA LILI Chronic histories: Diabetes mellitus type 2, , hyperlipidemia, CAD ] PLAN: Asthma exacerbation, POA COPD exacerbation POA On Presentation patient had severe difficulty breathing, unable to talk Patient has been using albuterol inhaler every hour for the past48 hours without relief Chest x-ray showed no acute cardiopulmonary abnormality. Continue Mucinex, DuoNebs, budesonide, montelukast. Continue IV azithromycin, IV Rocephin Continue IV [id number] mg q.6 Pulmonology on board. Large hypodense posterior mediastinal mass causing tracheal compression ( CT chest on 07/05/2025) CT chest showed large hypodense lesion measuring approximately 2.7 x 3 x 7 cm seen in posterior mediastinum, interposed between trach in the esophagus Lesion causing marked extrinsic compression of the trachea with severe luminal narrowing, estimated at approximately 80-90%. CT chest with contrast was recommended but unable to perform as patient is allergic to iodine. Patient currently NPO, scheduled for EGD with EUS by GI today. We will get bedside swallow eval. Small left thyroid lobe nodule measuring 1 cm ( CT chest on 07/05/2025) CT chest showed Small left thyroid lobe nodule measuring 1 cm TSH 0.15, T4 1.18, T3 1.22 Endocrinology was consulted for further evaluation LILI On 07/05/2025 BUN 27, creatinine 1.4 Today BUN 32, creatinine 0.9 Avoid NSAIDs, nephrotoxins drugs We will continue to monitor the patient and trend creatinine daily. All home medications were reconciled and resumed GI prophylaxis with Pepcid DVT prophylaxis with SCDs ATTESTATION BY PHYSICIAN I have seen and examined the patient. I reviewed the documentation, medical decision making, and treatment plan as noted by the resident above. I agree with the findings and plan of care. Jose R Cottrell IV, MD, ADIL SHAH QUADRI MD Jul 07, 2025 11:05
--- NOTE | 2025-07-07 11:50 | NUR ---
PATIENT ARRIVED TO UNIT. VS: 155/86, 78BPM, 96% ON RA. PATIENT IS A&OX4. NO S/S OF DISTRESS. PER MD [facility] DIET TO GI SOFT. FAMILY AT BEDSIDE. CALL LIGHT WITHIN REACH. BED LOCKED AND LOW.
--- NOTE | 2025-07-07 13:30 | PN ---
[facility] PROGRESS NOTE Date Patient Seen: Jul 07, 2025 Time of Visit: 13:26 Supervising Physician: [Dr Minor Primary Care Physician: [ ] Outpatient Specialists: [ ] Inpatient Consults: [ BIS PROBLEM LIST: Acute on chronic hypoxemic respiratory failure Large hypodense posterior mediastinal mass causing tracheal compression - s/p unsuccessful EGD w/ EUS 07/07/25 Solitary pulmonary nodule on right upper lobe measuring 3 mm Left Thyroid nodule measuring one by 0.7 cm Acute on chronic asthma exacerbation Type 2 diabetes Hyperlipidemia CAD History of right BKA INTERVAL HISTORY: Mr. Manjeet Love is a 1 year male with a past medical history of diabetes, hypertension, hyperlipidemia, depression, PT as needed presented to the emergency room with a chief complaint of shortness on breath with an onset of about a month off and on. [facility] since however he is not getting any resolution of his symptoms. Patient reports he uses his nebulizer continuously at home however in the last 4 hours his symptoms were progressively worse to the point that he was not able to talk without dyspnea. For this reason he decided to come in for further evaluation. We are consulted for asthma exacerbation. Patient is seen and evaluated at the bedside. Patient is sitting up in bed appears weak and noted with difficulty breathing during conversation. At rest, patient is on room air and appears comfortable. No ABGs were requested on admission for baseline. Patient had a chest x-ray on admission which shows no acute cardiopulmonary abnormalities. On exam patient was noted to have decreased breath sounds bilaterally with scattered rhonchi. Patient denies tobacco use, he admits he used to smoke back in the in his early 20s. 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 He reports he had been having to use his albuterol every hour for the last 48 hours. Recommend continue azithromycin, as well as Rocephin. Short course of high-dose steroids. Duo nebs every 4 hours Pulmicort b.i.d. montelukast daily. PFTs. We will request a CT scan of the chest and a stat ABG for baseline. 07/06 - patient is seen and evaluated at the bedside. Patient is sitting up at the side of the bed accompanied by his . Patient continues to be weak and with dyspnea with minimal exertion. Patient does currently remain on room air with an O2 sat of 99%. Patient had ABGs performed yesterday and results are within normal limits. Patient had a CT of the chest performed and was found to have patchy ground-glass opacities in the left lower lobe associated with atelectasis. Patient was also found to have a large hypodense posterior mediastinal mass causing tracheal compression. Patient was also found to have tiny3 mm solid pulmonary nodule in the right upper lobe patient was also found to have a mildly enlarged thyroid gland with a left thyroid lobe nodule measuring [address] scan with IV contrast however patient is allergic and reports his respiratory status compromised when he receives iodine. Recommend a GI consult for an EGD with biopsy as this would be the best way to prevent respiratory compromise. Recommend consult Endocrinology regarding left thyroid nodule. We will continue to follow with you. 07/07 - patient is seen and evaluated at the bedside. Patient is sitting up in bed accompanied by his . Patient continues to be weak and deconditioned. Patient is currently on room air without signs of dyspnea. Patient does report dyspnea with minimal exertion. No acute changes reported overnight. Patient underwent an EGD with EUS however was unsuccessful. Recommendations are to transfer patient to [facility] on Thursday and schedule an EBUS on Thursday with Dr. Gandara. Discussed the plan with both patient and and both agreed to remain in-house and transferred to [facility] on Thursday. Instructed nursing to notify case management to begin working on transfer for Thursday. PLAN SUMMARY: Supplemental oxygen as needed Continue DuoNeb Continue Pulmicort Continue azithromycin Continue Rocephin Began tapering Solu-Medrol Case management to arrange transferred to [facility] Thursday Schedule EBUS on Thursday [facility] with Dr. Gandara REVIEW OF SYSTEMS: 12 point ROS reviewed with patient. Pertinent positives mentioned above. Otherwise negative. PHYSICAL EXAM: GENERAL: alert, weak, awake oriented x 3 HEENT: EOMI, Sclera non icteric, moist mucosa NECK: Supple, no JVD, trachea midline LUNGS: Clear breath sounds bilaterally. No wheezes HEART: Regular rate and rhythm. Normal S1 and S2, without murmurs ABD: Abdomen soft, nontender. Bowel sounds present EXT: No clubbing cyanosis or edema NEURO: Alert and oriented to person, follows commands Vital Signs (last 8hr) Date Time Temp Pulse Resp B/P (MAP) Pulse Ox O2 Delivery O2 Flow Rate FiO2 07/07/25 11:45 97.2 76 16 142/79 96 Room Air 07/07/25 11:40 97.2 71 15 139/72 96 Room Air 21 07/07/25 11:35 97.2 74 15 137/65 96 Room Air 07/07/25 11:30 97.2 78 15 146/66 96 Room Air 07/07/25 11:25 97.2 78 15 146/71 96 Room Air 07/07/25 11:20 97.2 75 15 143/69 96 Room Air 07/07/25 11:15 97.2 75 15 140/66 97 Nasal Cannula 2.0 07/07/25 11:10 97.2 74 15 128/63 97 Nasal Cannula 3.0 07/07/25 10:48 99 Room Air* 0 07/07/25 09:05 Mask 30.0 07/07/25 09:05 Mask 07/07/25 07:30 98.6 86 16 143/71 99 Room Air 07/07/25 06:30 73 18 N/A Room Air 07/07/25 06:28 73 18 LABS: Hematology Labs: Test 07/07/25 03:42 Range/Units White Blood Count 11.1 H 4.8-10.8 K/uL Red Blood Count 4.33 L 4.50-6.20 MIL/uL Hemoglobin 12.6 L 14.0-18.0 g/dL Hematocrit 38.2 L 42-54 % Mean Corpuscular Volume 88.2 79-99 fL Mean Corpuscular Hemoglobin 29.1 27.0-33.0 pg Mean Corpuscular Hemoglobin Concent 33.0 32.0-36.0 g/dL Red Cell Distribution Width 14.1 11.0-15.5 % Platelet Count 282 130-400 K/uL Mean Platelet Volume 10.1 7.5-10.5 fL Nucleated Red Blood Cells 0.0 0.0-0.19 % Chemistry Labs: Test 07/07/25 11:18 07/07/25 03:42 07/05/25 18:22 Range/Units Whole Blood Glucose 132 H 70-110 MG/DL Sodium Level 140 136-145 mmol/L Potassium Level 3.6 3.5-5.1 mmol/L Chloride Level 103 101-111 mmol/L Carbon Dioxide Level 28 21-32 mmol/L Blood Urea Nitrogen 32 H 7-18 mg/dL Creatinine 0.9 0.5-1.3 mg/dL Glomerular Filtration Rate Calc 91 >90 mL/min Random Glucose 141 H 70-105 mg/dL Total Calcium 8.3 L 8.5-10.1 mg/dL Thyroid Stimulating Hormone (TSH) 0.15 L 0.36-3.74 uIU/mL Free Thyroxine (T4) Direct 1.18 0.76-1.46 ng/dL Free Triiodothyronine (T3) pg/mL 1.22 L 2.18-3.98 pg/mL B-Type Natriuretic Peptide 36 0-100 pg/mL DIAGNOSTICS / RADIOLOGY RESULTS: [ ] PLAN NEURO: Minimize central acting medications as possible. Maintain fall precautions, adequate lighting during the day PULMONARY: Supplemental 02 as needed. Maintain aspiration precautions at all times CARDIOVASCULAR: Follow hemodynamics. Vital signs per facility protocol GI & NUTRITION: Continue with nutritional support. Continue stool softeners and laxatives as needed. KIDNEYS & ELECTROLYTES: Strict monitoring of intake, output and overall fluid balance. Avoid nephrotoxic medications to the extent possible. Medications to be dosed according to renal function. Monitor electrolytes and replace as needed ENDOCRINE: Maintain blood glucose between 100-180 at all times. Hypoglycemia protocol in place INFECTIOUS DISEASE: Trend temperature, WBC and procalcitonin level Follow cultures, deescalate antibiotics as soon as possible. Panculture if new onset fever ONCOLOGY/HEMATOLOGY/COAGULATION: Monitor for s/s of bleeding Monitor hemoglobin, coagulation studies as needed SKIN: Pressure ulcer prevention per facility protocol Specialty mattress ORTHO/REHAB: Continue PT/OT Prophylaxis: Continue GI and DVT prophylaxis Code Status: Full Resuscitation Disposition: [facility] transfer on Thursday ATTESTATION BY PHYSICIAN I attest that I reviewed and discussed the case with the Physician Furnace Maintenance as well as agree with the Physician Furnace Maintenance's findings, plans of care, and documentation above. Saroj Curz MD,VLADIMIR N PICKER/PULLER Jul 07, 2025 13:30
--- NOTE | 2025-07-07 15:27 | PN ---
GASTROENTEROLOGY PROGRESS NOTE Date of Visit: Jul 07, 2025 Time of Visit: 15:23 Events / Notes: [ Patient underwent an EUS and was found to have normal esophagus, stomach,and duodenum. A mass was identified endosonographically in the mediastinum. Recommendations for pulmonology consult for bronchoscopy with EBUS. We will exam patient is awake, alert, and oriented x3, in no acute distress. His respirations are even and unlabored. Bilateral breath sounds are clear. Abdomen is soft and nondistended. Patient reports he continues with dysphagia and informs me he will be transferred to [facility] for pulmonology procedure. Informed of recommendations for a EGD with EUS after pulmonology evaluation is completed. Patient verbalized understanding and agreement.] Review of Systems: CONSTITUTIONAL: No malaise or change in sensation of wellbeing. ENMT: No rhinorrhea, otorrhea, sinus pain, ear ache. CARDIOVASCULAR: No angina, palpitations, orthopnea or paroxysmal dyspnea. RESPIRATORY: No SOB. GASTROINTESTINAL: No abdominal pain, nausea, vomiting, diarrhea, hematemesis, melena or change in the patient's habitual bowel movements consistency/number. GENITOURINARY: No dysuria, hematuria or change in bladder continence. MUSCULOSKELETAL: No new muscle pain or decrease in muscular strength. No new joint swelling, redness or tenderness. SKIN: No new rash. Physical Exam: GEN: Awake, alert, oriented in person, time and place, and in no acute distress. HEENT: No rhinorrhea. Oral mucosa is pink, moist and within normal limits. CHEST: Lung auscultation revealed normal breath sounds bilaterally. CARDIAC:Heart sounds are regular. ABD: Soft, non-tender and not distended. No peritoneal signs on palpation. Normal bowel sounds. EXT: No cyanosis or clubbing. No edema. SKIN: Intact. No rashes. NEURO: Alert and oriented to name, place and person.No focal motor deficits. Normal speech. Vital Signs (last 8hr) Date Time Temp Pulse Resp B/P (MAP) Pulse Ox O2 Delivery O2 Flow Rate FiO2 07/07/25 15:04 81 18 145/75 96 Room Air 07/07/25 14:30 72 146/80 95 Room Air 07/07/25 13:39 86 20 N/A Room Air 21 07/07/25 13:37 86 20 07/07/25 13:30 78 115/78 97 Room Air 07/07/25 13:00 74 149/77 95 Room Air 07/07/25 12:30 78 163/82 97 Room Air 07/07/25 12:15 78 155/79 96 Room Air 07/07/25 12:00 79 149/78 96 Room Air 07/07/25 11:45 98.6 78 16 155/86 96 Room Air 07/07/25 11:45 97.2 76 16 142/79 96 Room Air 07/07/25 11:40 97.2 71 15 139/72 96 Room Air 07/07/25 11:35 97.2 74 15 137/65 96 Room Air 07/07/25 11:30 97.2 78 15 146/66 96 Room Air 07/07/25 11:25 97.2 78 15 146/71 96 Room Air 07/07/25 11:20 97.2 75 15 143/69 96 Room Air 07/07/25 11:15 97.2 75 15 140/66 97 Nasal Cannula 2.0 07/07/25 11:10 97.2 74 15 128/63 97 Nasal Cannula 3.0 07/07/25 10:48 99 Room Air* 0 07/07/25 09:05 Mask 30.0 07/07/25 09:05 Mask 07/07/25 07:30 98.6 86 16 143/71 99 Room Air Laboratory: [ ] Laboratory: Test 07/07/25 11:18 07/07/25 03:42 07/05/25 18:22 Range/Units Whole Blood Glucose 132 H 70-110 MG/DL White Blood Count 11.1 H 4.8-10.8 K/uL Red Blood Count 4.33 L 4.50-6.20 MIL/uL Hemoglobin 12.6 L 14.0-18.0 g/dL Hematocrit 38.2 L 42-54 % Mean Corpuscular Volume 88.2 79-99 fL Mean Corpuscular Hemoglobin 29.1 27.0-33.0 pg Mean Corpuscular Hemoglobin Concent 33.0 32.0-36.0 g/dL Red Cell Distribution Width 14.1 11.0-15.5 % Platelet Count 282 130-400 K/uL Mean Platelet Volume 10.1 7.5-10.5 fL Nucleated Red Blood Cells 0.0 0.0-0.19 % Sodium Level 140 136-145 mmol/L Potassium Level 3.6 3.5-5.1 mmol/L Chloride Level 103 101-111 mmol/L Carbon Dioxide Level 28 21-32 mmol/L Blood Urea Nitrogen 32 H 7-18 mg/dL Creatinine 0.9 0.5-1.3 mg/dL Glomerular Filtration Rate Calc 91 >90 mL/min Random Glucose 141 H 70-105 mg/dL Total Calcium 8.3 L 8.5-10.1 mg/dL Thyroid Stimulating Hormone (TSH) 0.15 L 0.36-3.74 uIU/mL Free Thyroxine (T4) Direct 1.18 0.76-1.46 ng/dL Free Triiodothyronine (T3) pg/mL 1.22 L 2.18-3.98 pg/mL B-Type Natriuretic Peptide 36 0-100 pg/mL Current Medications Medications (Trade) Dose Ordered Sig/Reva Route PRN Reason Start Time Stop Time Status Last Admin Dose Admin Acetaminophen (TYLenol 325MG TAB) 650 mg Q4H PRN PO TEMPERATURE GREATER THAN 101.5 07/04/25 15:30 08/03/25 15:29 Acetaminophen (TYLenol 325MG TAB) 650 mg Q6H PRN PO MILD PAIN (1-3) 07/04/25 15:30 08/03/25 15:29 Albuterol (DUOneb) 1 UDVIAL [id number] IH 07/04/25 18:00 08/03/25 17:59 07/07/25 13:36 1 UDVIAL Aspirin (Aspirin 81mg Ec Tab) 81 mg DAILY PO 07/06/25 09:00 08/05/25 08:59 Atorvastatin Calcium (LIPItor 40MG) 40 mg HS PO 07/05/25 21:00 08/04/25 20:59 07/06/25 21:32 40 MG Azithromycin 250 ml @ 250 mls/hr Q24H IVPB 07/04/25 15:30 07/14/25 15:29 07/06/25 14:56 250 MLS/HR Budesonide (Pulmicort 0.5 Mg/2ml) 0.5 mg BIDRESP IH 07/05/25 18:00 08/04/25 17:59 07/07/25 06:27 0.5 MG Ceftriaxone Sodium (ROCEphine 1G INJ) 1 gm Q24H IVPB 07/05/25 11:30 07/15/25 11:29 07/07/25 13:23 1 GM Dextrose (D50w) 50 ml AD PRN IV HYPOGLYCEMIA PROTOCOL 07/04/25 15:30 08/03/25 15:29 07/04/25 17:29 50 ML Diphenhydramine HCl (BENAdryl CREAM) 1 APPLICATION Q4HPRN PRN TP apply to arm/hand for itching 07/06/25 16:40 08/05/25 16:39 07/06/25 19:15 1 GM Famotidine (Pepcid 20mg Tab) 20 mg BID PO 07/04/25 21:00 08/03/25 20:59 07/06/25 21:32 20 MG Furosemide (LASix 20MG TAB) 20 mg DAILY PO 07/06/25 09:00 08/05/25 08:59 Hold Glucagon (Glucagon 1mg Kit) 1 mg AD PRN IM HYPOGLYCEMIA PROTOCOL 07/04/25 15:30 08/03/25 15:29 Guaifenesin (MUCinex 600 MG TABLET.ER) 600 mg BID PO 07/04/25 21:00 08/03/25 20:59 07/06/25 21:32 600 MG Hydralazine HCl ([id number] TAB) 50 mg BID PO 07/05/25 21:00 08/04/25 20:59 07/06/25 21:33 50 MG Insulin Glargine (LANtus 100 UNITS/ML 10 ML VIAL) 25 units BID@0730,2100 SQ 07/05/25 21:00 08/04/25 20:59 07/06/25 21:45 25 UNITS Insulin Human Regular (humuLIN R 100 UNIT/ML 3ML) INSULIN SLIDING SCAL... ACHS SQ 07/04/25 16:30 08/03/25 16:29 07/06/25 21:44 4 UNIT Isosorbide Mononitrate (Imdur 30mg Sr) 30 mg DAILY PO 07/06/25 09:00 08/05/25 08:59 Methylprednisolone Sodium Succinate (Solu-medROL 125MG) 125 mg Q6H IVP 07/04/25 15:30 08/03/25 15:29 07/07/25 03:48 125 MG Metoprolol Tartrate (loprESSOR) 50 mg HS PO 07/05/25 21:00 08/04/25 20:59 07/05/25 20:59 50 MG Metoprolol Tartrate (loprESSOR) 100 mg DAILY PO 07/06/25 09:00 08/05/25 08:59 Montelukast Sodium (SinguLAIR) 10 mg DAILY PO 07/05/25 12:00 08/04/25 11:59 07/06/25 09:51 10 MG Nitroglycerin (Nitrostat) 0.4 mg AD PRN SL CHEST PAIN 07/05/25 11:30 08/04/25 11:29 Ondansetron HCl (zoFRAN 4MG INJ) 4 mg Q6H PRN IVP NAUSEA/VOMITING 07/04/25 15:30 08/03/25 15:29 Tamsulosin HCl (FloMAX) 0.4 mg HS PO 07/05/25 21:00 08/04/25 20:59 07/06/25 21:32 0.4 MG Vitamin B Complex (Vitamin B-12) 1,000 mcg DAILY PO 07/06/25 09:00 08/05/25 08:59 07/06/25 09:52 1,000 MCG Diagnostics / Radiology: [COPY/PASTE HERE IF NO REPORTS PLEASE DELETE SECTION] Assessment: Mediastinal mass Respiratory distress DM HTN Plan: Case discussed with Dr. Smart Continue GI prophylaxis Avoid NSAIDs Antireflux measures Monitor H&H and transfuse as needed Recommend pulmonology consult for bronchoscopy with EBUS Can attempt EUS with FNB after bronchoscopy and EBUS evaluation. Call with questions, concerns or change in clinical status Patient to follow-up at clinic post discharge Thank you for this consult ILIA GIORDANO Jul 07, 2025 15:27
[2025-07-08] VITALS (11 sets, daily range): BP systolic 107–151; BP diastolic 59–73; PULSE 70–82; RESP 16–20; TEMP 97.6–98.3; O2SAT 93–97
[2025-07-08 04:57] LABS: NUCLEATED RED BLOOD CELLS 0.0 % (0.0-0.19); PLATELET COUNT (AUTO) 260.0 K/uL (130-400); RED BLOOD CELL COUNT(AUTO) 4.48 MIL/uL (4.50-6.20); RED CELL DISTRIBUTION WIDTH 14.1 % (11.0-15.5); WHITE BLOOD COUNT (AUTO) 10.1 K/uL (4.8-10.8)
[2025-07-08 05:17] LABS: CREATININE 0.9 mg/dL (0.5-1.3); GLOMERULAR FILTR. RATE CALC 91.0 mL/min (>90); GLUCOSE,RANDOM 100.0 mg/dL (70-105); SODIUM SERUM 138.0 mmol/L (136-145); UREA NITROGEN, BLOOD 22.0 mg/dL (7-18)
--- NOTE | 2025-07-08 09:59 | PN ---
[facility] PROGRESS NOTE Date of Service: Jul 08, 2025 Time of Service: 09:59 SUBJECTIVE: 70-year-old male with past medical history , diabetes mellitus type 2, hyperlipidemia, hypertension, depression, PTSD who presented to the emergency department with complaints of shortness of breaths. Patient stated that this shortness of breath has been going on for one month on and off, he uses n ebulizer at home but in the past 24 hours patient's symptoms became progressively worse for which patient started coughing and unable to talk feeling out of breath. In the emergency department, his initial vital signs showed temperature of 98.2 F, pulse 92, respiratory rate 18, blood pressure 177/98, pulse oximetry 96% on room air. Labs reviewed, WBC 11.3, H&H 15 and 46.6, platelet count 324, chloride 100, CO2 33, BUN 20, creatinine 1.1, random glucose 93, magnesium 1.9 since showed glucose of 300. Chest x-ray showed no acute cardiopulmonary abnormality. Patient was referred to the hospitalist for further evaluation and management. 07/05/2025: Patient was seen and evaluated this morning with Dr. Cottrell, family at bedside. He is awake, alert, oriented x3, saturating 98% with2 L nasal cannula. Patient is sitting up in bed appears weak and noted with difficulty breathing during conversation. On examination patient noted to have decreased breath sounds bilaterally with scattered rhonchi. Morning labs showed white count 10.8, H&H 14.9, 45.9 respectively, BUN 27, creatinine 1.4. Patient was started on IV Rocephin, azithromycin, DuoNeb, montelukast, budesonide, high-dose corticosteroids. His home meds were reconciled and resumed. Pending CT chest report. Pulmonology on board, we will continue to follow their recommendations. 07/06/2025: Patient was seen and evaluated this morning, no family at bedside. He is awake, alert, oriented x3, saturating 98% with room air. Patient complains that he still has difficulty breathing, choking while eating, denies any new or worsening symptoms. CT chest showed patchy ground-glass opacity in left lower lobe associated with mild subsegmental atelectasis, large hypodense posterior mediastinal mass causing tracheal compression, tiny 3 mm solid pulmonary nodule in right upper lobe, mildly enlarged heterogeneous thyroid gland with a small left thyroid lobe nodule measuring 1 cm. Pulmonology requested GI consultation possible EGD with biopsy, endocrinology consultation for thyroid nodule. Continue IV antibiotics, IV steroids, DuoNeb, budesonide. We will get bedside swallow eval. Pulmonology on board, we will continue to follow their recommendations. 07/07/2025: Patient was seen and evaluated this morning, no family at bedside. He is awake, alert, oriented x3, saturating 98% with room air. Patient complains that he still has difficulty breathing, choking while eating, denies any new or worsening symptoms. Patient is currently NPO, scheduled for EGD with EUS today. Labs were unremarkable except for white count 11.1, TSH 0.15, T3 1.22. Endocrinology consultation was requested for evaluation of thyroid nodule. We will follow up with the patient after EGD. 07/08/2025: Patient was seen and evaluated this morning, no family at bedside. He is awake, alert, oriented x3, saturating 97% with room air. Patient underwent EGD with EUS yesterday, which shows normal esophagus and stomach without mass, posterior mediastinal mass was seen with EUS. Pulmonology recommended transfer to [facility] for bronchoscopy with EBUS further evaluation with biopsy. Case management working on transfer. Pending bedside swallow eval. REVIEW OF SYSTEMS CONSTITUTIONAL: Denies fevers, chills, or night sweats. Patient had significant weight loss in past 2 months. NEUROLOGICAL: Denies headache, amaurosis fugax, motor weakness, sensory deficit, vertigo/spinning sensation, gait abnormalities, or tremors. ENT: No hearing loss, otalgia, otorrhea, rhinitis, rhinorrhea, hoarseness, or sore throat. CARDIOVASCULAR: Denies any exertional angina, dyspnea on exertion, orthopnea, paroxysmal nocturnal dyspnea, palpitations, life-threatening arrhythmias, claudication. PULMONARY: Difficulty breathing, cough SLEEP: Denies morning headaches, daytime somnolence or napping. Denies difficulty falling asleep, staying asleep, waking from sleep. Denies knowledge of snoring. GASTROINTESTINAL: Denies any type of dysphagia to either liquids or solids. Denies nausea, vomiting, pyrosis, early satiety, abdominal pain, diarrhea, constipation, or changes in stool consistency or caliber. Denies coffee-ground emesis, hematemesis, hematochezia, or melanotic stools. GENITOURINARY: Denies frequency, urgency, nocturia, hematuria or incontinence (Storage/Irritative symptoms.) Low urinary stream, straining to void, urinary intermittency or hesitancy, splitting of the voiding stream, terminal dribbling. ENDOCRINOLOGIC: Denies polyuria, polydipsia, polyphagia or heat/cold intolerances. HEMATOLOGIC: Denies thrombophilia/previous clots, or coagulopathy/bleeding disorders. ONCOLOGIC: Denies personal history of malignancy. DERMATOLOGIC: Denies rashes or pruritus. PSYCHIATRIC: Denies any suicidal or homicidal ideation. Denies hallucinations. PHYSICAL EXAM GENERAL APPEARANCE: The patient is awake, alert, and oriented, in no acute cardiopulmonary distress. NEUROLOGICAL: Cranial nerves II-XII grossly intact. Motor is 5/5 in bilateral upper and lower extremities proximal to distal. No sensory deficits. HEENT: Face is symmetric. Pupils are equal and reactive. Extraocular movements are intact. NECK: Supple. No JVD. No thyromegaly. No submental, submandibular, pre- /postauricular, occipital or supraclavicular lymphadenopathy. CHEST: Normal chest expansion. No Telemetry. LUNGS: Decreased breath sounds with biphasic stridor CARDIOVASCULAR: Regular. S1 and S2 normal. No appreciable rubs, murmurs or gallops. ABDOMEN: Soft, nontender, and nondistended. There is no rebound, voluntary guarding, or rigidity. : Deferred. No Dill. EXTREMITIES: Non-edematous and not cyanotic. No clubbing. Good capillary refill. SKIN: No skin breakdown. Vital Signs (last 8hr) Date Time Temp Pulse Resp B/P (MAP) Pulse Ox O2 Delivery O2 Flow Rate FiO2 07/08/25 09:48 82 142/70 07/08/25 07:49 98.1 82 18 142/70 97 Room Air 07/08/25 03:34 98.1 74 16 125/62 97 Room Air LABS: Laboratory: Test 07/08/25 05:00 07/08/25 04:32 07/07/25 03:42 Range/Units Whole Blood Glucose 103 # 70-110 MG/DL White Blood Count 10.1 4.8-10.8 K/uL Red Blood Count 4.48 L 4.50-6.20 MIL/uL Hemoglobin 13.0 L 14.0-18.0 g/dL Hematocrit 39.4 L 42-54 % Mean Corpuscular Volume 87.9 79-99 fL Mean Corpuscular Hemoglobin 29.0 27.0-33.0 pg Mean Corpuscular Hemoglobin Concent 33.0 32.0-36.0 g/dL Red Cell Distribution Width 14.1 11.0-15.5 % Platelet Count 260 130-400 K/uL Mean Platelet Volume 10.3 7.5-10.5 fL Nucleated Red Blood Cells 0.0 0.0-0.19 % Sodium Level 138 136-145 mmol/L Potassium Level 3.9 3.5-5.1 mmol/L Chloride Level 106 101-111 mmol/L Carbon Dioxide Level 28 21-32 mmol/L Blood Urea Nitrogen 22 H 7-18 mg/dL Creatinine 0.9 0.5-1.3 mg/dL Glomerular Filtration Rate Calc 91 >90 mL/min Random Glucose 100 70-105 mg/dL Total Calcium 8.5 8.5-10.1 mg/dL Thyroid Stimulating Hormone (TSH) 0.15 L 0.36-3.74 uIU/mL Free Thyroxine (T4) Direct 1.18 0.76-1.46 ng/dL Free Triiodothyronine (T3) pg/mL 1.22 L 2.18-3.98 pg/mL Current Medications Medications (Trade) Dose Ordered Sig/Reva Route PRN Reason Start Time Stop Time Status Last Admin Dose Admin Acetaminophen (TYLenol 325MG TAB) 650 mg Q4H PRN PO TEMPERATURE GREATER THAN 101.5 07/04/25 15:30 08/03/25 15:29 Acetaminophen (TYLenol 325MG TAB) 650 mg Q6H PRN PO MILD PAIN (1-3) 07/04/25 15:30 08/03/25 15:29 Albuterol (DUOneb) 1 UDVIAL [id number] IH 07/04/25 18:00 08/03/25 17:59 07/08/25 06:42 1 UDVIAL Aspirin (Aspirin 81mg Ec Tab) 81 mg DAILY PO 07/06/25 09:00 08/05/25 08:59 07/08/25 09:49 81 MG Atorvastatin Calcium (LIPItor 40MG) 40 mg HS PO 07/05/25 21:00 08/04/25 20:59 07/07/25 20:55 40 MG Azithromycin 250 ml @ 250 mls/hr Q24H IVPB 07/04/25 15:30 07/14/25 15:29 07/07/25 15:54 250 MLS/HR Budesonide (Pulmicort 0.5 Mg/2ml) 0.5 mg BIDRESP IH 07/05/25 18:00 08/04/25 17:59 07/08/25 06:42 0.5 MG Ceftriaxone Sodium (ROCEphine 1G INJ) 1 gm Q24H IVPB 07/05/25 11:30 07/15/25 11:29 07/07/25 13:23 1 GM Dextrose (D50w) 50 ml AD PRN IV HYPOGLYCEMIA PROTOCOL 07/04/25 15:30 08/03/25 15:29 07/04/25 17:29 50 ML Diphenhydramine HCl (BENAdryl CREAM) 1 APPLICATION Q4HPRN PRN TP apply to arm/hand for itching 07/06/25 16:40 08/05/25 16:39 07/07/25 15:57 1 GM Famotidine (Pepcid 20mg Tab) 20 mg BID PO 07/04/25 21:00 08/03/25 20:59 07/08/25 09:49 20 MG Furosemide (LASix 20MG TAB) 20 mg DAILY PO 07/06/25 09:00 08/05/25 08:59 Hold Glucagon (Glucagon 1mg Kit) 1 mg AD PRN IM HYPOGLYCEMIA PROTOCOL 07/04/25 15:30 08/03/25 15:29 Guaifenesin (MUCinex 600 MG TABLET.ER) 600 mg BID PO 07/04/25 21:00 08/03/25 20:59 07/08/25 09:49 600 MG Hydralazine HCl ([id number] TAB) 50 mg BID PO 07/05/25 21:00 08/04/25 20:59 07/08/25 09:48 50 MG Insulin Glargine (LANtus 100 UNITS/ML 10 ML VIAL) 15 units BID@0730,2100 SQ 07/08/25 07:30 08/07/25 07:29 Insulin Glargine (LANtus 100 UNITS/ML 10 ML VIAL) 25 units BID@0730,2100 SQ 07/05/25 21:00 07/08/25 06:32 DC 07/07/25 21:03 25 UNITS Insulin Human Regular (humuLIN R 100 UNIT/ML 3ML) 3 unit TIDAC SQ 07/08/25 07:30 08/07/25 07:29 Insulin Human Regular (humuLIN R 100 UNIT/ML 3ML) INSULIN SLIDING SCAL... ACHS SQ 07/04/25 16:30 07/08/25 06:30 DC 07/07/25 21:03 3 UNIT Insulin Human Regular (humuLIN R 100 UNIT/ML 3ML) INSULIN SLIDING SCAL... ACHS SQ 07/08/25 07:30 08/07/25 07:29 Isosorbide Mononitrate (Imdur 30mg Sr) 30 mg DAILY PO 07/06/25 09:00 08/05/25 08:59 07/08/25 09:49 30 MG Methylprednisolone Sodium Succinate (Solu-medROL 125MG) 125 mg Q6H IVP 07/04/25 15:30 08/03/25 15:29 07/08/25 09:47 125 MG Metoprolol Tartrate (loprESSOR) 50 mg HS PO 07/05/25 21:00 08/04/25 20:59 07/07/25 20:55 50 MG Metoprolol Tartrate (loprESSOR) 100 mg DAILY PO 07/06/25 09:00 08/05/25 08:59 07/08/25 09:47 100 MG Montelukast Sodium (SinguLAIR) 10 mg DAILY PO 07/05/25 12:00 08/04/25 11:59 07/08/25 09:49 10 MG Nitroglycerin (Nitrostat) 0.4 mg AD PRN SL CHEST PAIN 07/05/25 11:30 08/04/25 11:29 Ondansetron HCl (zoFRAN 4MG INJ) 4 mg Q6H PRN IVP NAUSEA/VOMITING 07/04/25 15:30 08/03/25 15:29 Tamsulosin HCl (FloMAX) 0.4 mg HS PO 07/05/25 21:00 08/04/25 20:59 07/07/25 20:55 0.4 MG Vitamin B Complex (Vitamin B-12) 1,000 mcg DAILY PO 07/06/25 09:00 08/05/25 08:59 07/08/25 09:49 1,000 MCG DIAGNOSTICS / RADIOLOGY: [ ] ASSESSMENT: [Acute hypoxemic respiratory failure, POA Asthma exacerbation, POA Large hypodense posterior mediastinal mass causing tracheal compression ( CT chest on 07/05/2025) Small left thyroid lobe nodule measuring 1 cm ( CT chest on 07/05/2025) COPD exacerbation POA Leukocytosis with left shift, POA LILI Chronic histories: Diabetes mellitus type 2, , hyperlipidemia, CAD ] PLAN: Asthma exacerbation, POA COPD exacerbation POA On Presentation patient had severe difficulty breathing, unable to talk Patient has been using albuterol inhaler every hour for the past48 hours without relief Chest x-ray showed no acute cardiopulmonary abnormality. Continue Mucinex, DuoNebs, budesonide, montelukast. Continue IV azithromycin, IV Rocephin Continue IV [id number] mg q.6 Pulmonology on board. Large hypodense posterior mediastinal mass causing tracheal compression ( CT chest on 07/05/2025) CT chest showed large hypodense lesion measuring approximately 2.7 x 3 x 7 cm seen in posterior mediastinum, interposed between trach in the esophagus Lesion causing marked extrinsic compression of the trachea with severe luminal narrowing, estimated at approximately 80-90%. CT chest with contrast was recommended but unable to perform as patient is allergic to iodine. EGD with EUS showed normal esophagus and stomach, posterior mediastinal mass. Pulmonology recommended transfer to [facility] for bronchoscopy with EBUS for biopsy of the mass We will get bedside swallow eval. Small left thyroid lobe nodule measuring 1 cm ( CT chest on 07/05/2025) CT chest showed Small left thyroid lobe nodule measuring 1 cm TSH 0.15, T4 1.18, T3 1.22 Endocrinology was consulted for further evaluation LILI On 07/05/2025 BUN 27, creatinine 1.4 Today BUN 22, creatinine 0.9 Avoid NSAIDs, nephrotoxins drugs We will continue to monitor the patient and trend creatinine daily. All home medications were reconciled and resumed GI prophylaxis with Pepcid DVT prophylaxis with SCDs ATTESTATION BY PHYSICIAN I have seen and examined the patient. I reviewed the documentation, medical decision making, and treatment plan as noted by the resident physician above. I agree with the findings and plan of care. AMA GALLO MD, ADIL SHAH QUADRI MD Jul 08, 2025 09:59
--- NOTE | 2025-07-08 10:04 | PN ---
[facility] PROGRESS NOTE Date Patient Seen: Jul 08, 2025 Time of Visit: 10:01 Supervising Physician: [Dr. Minor] Primary Care Physician: [ ] Outpatient Specialists: [ ] Inpatient Consults: [ BIS PROBLEM LIST: Acute on chronic hypoxemic respiratory failure Large hypodense posterior mediastinal mass causing tracheal compression - s/p unsuccessful EGD w/ EUS 07/07/25 Solitary pulmonary nodule on right upper lobe measuring 3 mm Left Thyroid nodule measuring one by 0.7 cm Acute on chronic asthma exacerbation Type 2 diabetes Hyperlipidemia CAD History of right BKA INTERVAL HISTORY: Mr. Manjeet Love is a 1 year male with a past medical history of diabetes, hypertension, hyperlipidemia, depression, PT as needed presented to the emergency room with a chief complaint of shortness on breath with an onset of about a month off and on. [facility] since however he is not getting any resolution of his symptoms. Patient reports he uses his nebulizer continuously at home however in the last 4 hours his symptoms were progressively worse to the point that he was not able to talk without dyspnea. For this reason he decided to come in for further evaluation. We are consulted for asthma exacerbation. Patient is seen and evaluated at the bedside. Patient is sitting up in bed appears weak and noted with difficulty breathing during conversation. At rest, patient is on room air and appears comfortable. No ABGs were requested on admission for baseline. Patient had a chest x-ray on admission which shows no acute cardiopulmonary abnormalities. On exam patient was noted to have decreased breath sounds bilaterally with scattered rhonchi. Patient denies tobacco use, he admits he used to smoke back in the in his early 20s. Patient reports he is being followed by quality process auditor by the [place] and reports he is currently in been prescribed Wixela however he does not have any relief of his symptoms. He reports he had been having to use his albuterol every hour for the last 48 hours. Recommend continue azithromycin, as well as Rocephin. Short course of high-dose steroids. Duo nebs every 4 hours Pulmicort b.i.d. montelukast daily. PFTs. We will request a CT scan of the chest and a stat ABG for baseline. 07/06 - patient is seen and evaluated at the bedside. Patient is sitting up at the side of the bed accompanied by his . Patient continues to be weak and with dyspnea with minimal exertion. Patient does currently remain on room air with an O2 sat of 99%. Patient had ABGs performed yesterday and results are within normal limits. Patient had a CT of the chest performed and was found to have patchy ground-glass opacities in the left lower lobe associated with atelectasis. Patient was also found to have a large hypodense posterior mediastinal mass causing tracheal compression. Patient was also found to have tiny3 mm solid pulmonary nodule in the right upper lobe patient was also found to have a mildly enlarged thyroid gland with a left thyroid lobe nodule measuring [address] scan with IV contrast however patient is allergic and reports his respiratory status compromised when he receives iodine. Recommend a GI consult for an EGD with biopsy as this would be the best way to prevent respiratory compromise. Recommend consult Endocrinology regarding left thyroid nodule. We will continue to follow with you. 07/07 - patient is seen and evaluated at the bedside. Patient is sitting up in bed accompanied by his . Patient continues to be weak and deconditioned. Patient is currently on room air without signs of dyspnea. Patient does report dyspnea with minimal exertion. No acute changes reported overnight. Patient underwent an EGD with EUS however was unsuccessful. Recommendations are to transfer patient to [facility] on Thursday and schedule an EBUS on Thursday with Dr. Gandara. Discussed the plan with both patient and and both agreed to remain in-house and transferred to [facility] on Thursday. Instructed nursing to notify case management to begin working on transfer for Thursday. 07/08 Patient is evaluated at bedside. He is saturating well on room air. Patient underwent an EUS with findings noted but unable to view mass. The plan is for him to transfer to [facility] for higher level of care and obtain EBUS for further evaluation. Case management is working on the same. No changes to medical management. PLAN SUMMARY: Supplemental oxygen as needed Continue DuoNeb Continue Pulmicort Continue azithromycin Continue Rocephin Began tapering Solu-Medrol Case management to arrange [place] [facility] EBUS on Thursday [facility] with Dr. Gandara REVIEW OF SYSTEMS: 12 point ROS reviewed with patient. Pertinent positives mentioned above. Otherwise negative. PHYSICAL EXAM: GENERAL: alert, weak, awake oriented x 3 HEENT: EOMI, Sclera non icteric, moist mucosa NECK: Supple, no JVD, trachea midline LUNGS: Clear breath sounds bilaterally. No wheezes HEART: Regular rate and rhythm. Normal S1 and S2, without murmurs ABD: Abdomen soft, nontender. Bowel sounds present EXT: No clubbing cyanosis or edema, s/p RLE amputation NEURO: Alert and oriented to person, follows commands Vital Signs (last 8hr) Date Time Temp Pulse Resp B/P (MAP) Pulse Ox O2 Delivery O2 Flow Rate FiO2 07/08/25 09:48 82 142/70 07/08/25 07:49 98.1 82 18 142/70 97 Room Air 07/08/25 03:34 98.1 74 16 125/62 97 Room Air LABS: Hematology Labs: Test 07/08/25 04:32 Range/Units White Blood Count 10.1 4.8-10.8 K/uL Red Blood Count 4.48 L 4.50-6.20 MIL/uL Hemoglobin 13.0 L 14.0-18.0 g/dL Hematocrit 39.4 L 42-54 % Mean Corpuscular Volume 87.9 79-99 fL Mean Corpuscular Hemoglobin 29.0 27.0-33.0 pg Mean Corpuscular Hemoglobin Concent 33.0 32.0-36.0 g/dL Red Cell Distribution Width 14.1 11.0-15.5 % Platelet Count 260 130-400 K/uL Mean Platelet Volume 10.3 7.5-10.5 fL Nucleated Red Blood Cells 0.0 0.0-0.19 % Chemistry Labs: Test 07/08/25 05:00 07/08/25 04:32 07/07/25 03:42 Range/Units Whole Blood Glucose 103 # 70-110 MG/DL Sodium Level 138 136-145 mmol/L Potassium Level 3.9 3.5-5.1 mmol/L Chloride Level 106 101-111 mmol/L Carbon Dioxide Level 28 21-32 mmol/L Blood Urea Nitrogen 22 H 7-18 mg/dL Creatinine 0.9 0.5-1.3 mg/dL Glomerular Filtration Rate Calc 91 >90 mL/min Random Glucose 100 70-105 mg/dL Total Calcium 8.5 8.5-10.1 mg/dL Thyroid Stimulating Hormone (TSH) 0.15 L 0.36-3.74 uIU/mL Free Thyroxine (T4) Direct 1.18 0.76-1.46 ng/dL Free Triiodothyronine (T3) pg/mL 1.22 L 2.18-3.98 pg/mL DIAGNOSTICS / RADIOLOGY RESULTS: [ ] PLAN NEURO: Minimize central acting medications as possible. Maintain fall precautions, adequate lighting during the day PULMONARY: Supplemental 02 as needed. Maintain aspiration precautions at all times CARDIOVASCULAR: Follow hemodynamics. Vital signs per facility protocol GI & NUTRITION: Continue with nutritional support. Continue stool softeners and laxatives as needed. KIDNEYS & ELECTROLYTES: Strict monitoring of intake, output and overall fluid balance. Avoid nephrotoxic medications to the extent possible. Medications to be dosed according to renal function. Monitor electrolytes and replace as needed ENDOCRINE: Maintain blood glucose between 100-180 at all times. Hypoglycemia protocol in place INFECTIOUS DISEASE: Trend temperature, WBC and procalcitonin level Follow cultures, deescalate antibiotics as soon as possible. Panculture if new onset fever ONCOLOGY/HEMATOLOGY/COAGULATION: Monitor for s/s of bleeding Monitor hemoglobin, coagulation studies as needed SKIN: Pressure ulcer prevention per facility protocol Specialty mattress ORTHO/REHAB: Continue PT/OT Prophylaxis: Continue GI and DVT prophylaxis Code Status: Full Resuscitation Disposition: [facility] transfer on Thursday ANGEL LUIS GILBERT Jul 08, 2025 10:04
--- NOTE | 2025-07-08 14:44 | NUR ---
ATTEMPTED TO CALL SPEECH THERAPIST FOR BEDSIDE SWALLOW. NO RESPONSE. WILL CONTINUE TO REACH OUT.
[2025-07-09] VITALS (11 sets, daily range): BP systolic 117–149; BP diastolic 61–74; PULSE 66–84; RESP 13–20; TEMP 97.9–98.7; O2SAT 95–97
[2025-07-09 05:59] LABS: NUCLEATED RED BLOOD CELLS 0.0 % (0.0-0.19); PLATELET COUNT (AUTO) 238.0 K/uL (130-400); RED BLOOD CELL COUNT(AUTO) 4.26 MIL/uL (4.50-6.20); RED CELL DISTRIBUTION WIDTH 13.9 % (11.0-15.5); WHITE BLOOD COUNT (AUTO) 10.0 K/uL (4.8-10.8)
[2025-07-09 06:07] LABS: CREATININE 0.8 mg/dL (0.5-1.3); GLOMERULAR FILTR. RATE CALC 94.0 mL/min (>90); GLUCOSE,RANDOM 90.0 mg/dL (70-105); SODIUM SERUM 137.0 mmol/L (136-145); UREA NITROGEN, BLOOD 21.0 mg/dL (7-18)
--- NOTE | 2025-07-09 07:02 | CONS ---
SUYAPA RIVAS MD Jul 09, 2025 07:02
--- NOTE | 2025-07-09 11:08 | PN ---
[facility] PROGRESS NOTE Date of Service: Jul 09, 2025 Time of Service: 10:55 SUBJECTIVE: 70-year-old male with past medical history , diabetes mellitus type 2, hyperlipidemia, hypertension, depression, PTSD who presented to the emergency department with complaints of shortness of breaths. Patient stated that this shortness of breath has been going on for one month on and off, he uses n ebulizer at home but in the past 24 hours patient's symptoms became progressively worse for which patient started coughing and unable to talk feeling out of breath. In the emergency department, his initial vital signs showed temperature of 98.2 F, pulse 92, respiratory rate 18, blood pressure 177/98, pulse oximetry 96% on room air. Labs reviewed, WBC 11.3, H&H 15 and 46.6, platelet count 324, chloride 100, CO2 33, BUN 20, creatinine 1.1, random glucose 93, magnesium 1.9 since showed glucose of 300. Chest x-ray showed no acute cardiopulmonary abnormality. Patient was referred to the hospitalist for further evaluation and management. 07/05/2025: Patient was seen and evaluated this morning with Dr. Cottrell, family at bedside. He is awake, alert, oriented x3, saturating 98% with2 L nasal cannula. Patient is sitting up in bed appears weak and noted with difficulty breathing during conversation. On examination patient noted to have decreased breath sounds bilaterally with scattered rhonchi. Morning labs showed white count 10.8, H&H 14.9, 45.9 respectively, BUN 27, creatinine 1.4. Patient was started on IV Rocephin, azithromycin, DuoNeb, montelukast, budesonide, high-dose corticosteroids. His home meds were reconciled and resumed. Pending CT chest report. Pulmonology on board, we will continue to follow their recommendations. 07/06/2025: Patient was seen and evaluated this morning, no family at bedside. He is awake, alert, oriented x3, saturating 98% with room air. Patient complains that he still has difficulty breathing, choking while eating, denies any new or worsening symptoms. CT chest showed patchy ground-glass opacity in left lower lobe associated with mild subsegmental atelectasis, large hypodense posterior mediastinal mass causing tracheal compression, tiny 3 mm solid pulmonary nodule in right upper lobe, mildly enlarged heterogeneous thyroid gland with a small left thyroid lobe nodule measuring 1 cm. Pulmonology requested GI consultation possible EGD with biopsy, endocrinology consultation for thyroid nodule. Continue IV antibiotics, IV steroids, DuoNeb, budesonide. We will get bedside swallow eval. Pulmonology on board, we will continue to follow their recommendations. 07/07/2025: Patient was seen and evaluated this morning, no family at bedside. He is awake, alert, oriented x3, saturating 98% with room air. Patient complains that he still has difficulty breathing, choking while eating, denies any new or worsening symptoms. Patient is currently NPO, scheduled for EGD with EUS today. Labs were unremarkable except for white count 11.1, TSH 0.15, T3 1.22. Endocrinology consultation was requested for evaluation of thyroid nodule. We will follow up with the patient after EGD. 07/08/2025: Patient was seen and evaluated this morning, no family at bedside. He is awake, alert, oriented x3, saturating 97% with room air. Patient underwent EGD with EUS yesterday, which shows normal esophagus and stomach without mass, posterior mediastinal mass was seen with EUS. Pulmonology recommended transfer to [facility] for bronchoscopy with EBUS further evaluation with biopsy. Case management working on transfer. Pending bedside swallow eval. 07/09/2025: He was evaluated bedside this morning. No overnight event. He is AAO x3. he do complain of difficulty with breathing which is stable. He is hemodynamically stable. Labs, WBC 10, hemoglobin 12.5, sodium 137, potassium 3 .9, creatinine 0.8. He is currently on Rocephin, azithromycin, [id number] q.6, insulin Lantus 10 units, insulin regular5 units t.i.d. a.c. with sliding scale insulin. Patient going to be transferred to [facility] for EBUS guided workup. Case management working on transfer. Patient on full liquid diet. Endocrinology on board. Rest of the plan as discussed below. REVIEW OF SYSTEMS CONSTITUTIONAL: Denies fevers, chills, or night sweats. Patient had significant weight loss in past 2 months. NEUROLOGICAL: Denies headache, amaurosis fugax, motor weakness, sensory deficit, vertigo/spinning sensation, gait abnormalities, or tremors. ENT: No hearing loss, otalgia, otorrhea, rhinitis, rhinorrhea, hoarseness, or sore throat. CARDIOVASCULAR: Denies any exertional angina, dyspnea on exertion, orthopnea, paroxysmal nocturnal dyspnea, palpitations, life-threatening arrhythmias, claudication. PULMONARY: Difficulty breathing, cough SLEEP: Denies morning headaches, daytime somnolence or napping. Denies difficulty falling asleep, staying asleep, waking from sleep. Denies knowledge of snoring. GASTROINTESTINAL: Denies any type of dysphagia to either liquids or solids. Denies nausea, vomiting, pyrosis, early satiety, abdominal pain, diarrhea, constipation, or changes in stool consistency or caliber. Denies coffee-ground emesis, hematemesis, hematochezia, or melanotic stools. GENITOURINARY: Denies frequency, urgency, nocturia, hematuria or incontinence (Storage/Irritative symptoms.) Low urinary stream, straining to void, urinary intermittency or hesitancy, splitting of the voiding stream, terminal dribbling. ENDOCRINOLOGIC: Denies polyuria, polydipsia, polyphagia or heat/cold intolerances. HEMATOLOGIC: Denies thrombophilia/previous clots, or coagulopathy/bleeding disorders. ONCOLOGIC: Denies personal history of malignancy. DERMATOLOGIC: Denies rashes or pruritus. PSYCHIATRIC: Denies any suicidal or homicidal ideation. Denies hallucinations. PHYSICAL EXAM GENERAL APPEARANCE: The patient is awake, alert, and oriented, in no acute cardiopulmonary distress. NEUROLOGICAL: Cranial nerves II-XII grossly intact. Motor is 5/5 in bilateral upper and lower extremities proximal to distal. No sensory deficits. HEENT: Face is symmetric. Pupils are equal and reactive. Extraocular movements are intact. NECK: Supple. No JVD. No thyromegaly. No submental, submandibular, pre- /postauricular, occipital or supraclavicular lymphadenopathy. CHEST: Normal chest expansion. No Telemetry. LUNGS: Decreased breath sounds with biphasic stridor CARDIOVASCULAR: Regular. S1 and S2 normal. No appreciable rubs, murmurs or gallops. ABDOMEN: Soft, nontender, and nondistended. There is no rebound, voluntary guarding, or rigidity. : Deferred. No Dill. EXTREMITIES: Non-edematous and not cyanotic. No clubbing. Good capillary refill. SKIN: No skin breakdown. Vital Signs (last 8hr) Date Time Temp Pulse Resp B/P (MAP) Pulse Ox O2 Delivery O2 Flow Rate FiO2 07/09/25 09:24 81 133/62 07/09/25 08:26 97.9 83 14 133/62 97 Room Air 07/09/25 06:23 69 20 07/09/25 03:29 98.1 74 20 131/61 96 Room Air LABS: Laboratory: Test 07/09/25 10:35 07/09/25 05:37 Range/Units Whole Blood Glucose 123 #H 70-110 MG/DL White Blood Count 10.0 4.8-10.8 K/uL Red Blood Count 4.26 L 4.50-6.20 MIL/uL Hemoglobin 12.5 L 14.0-18.0 g/dL Hematocrit 37.4 L 42-54 % Mean Corpuscular Volume 87.8 79-99 fL Mean Corpuscular Hemoglobin 29.3 27.0-33.0 pg Mean Corpuscular Hemoglobin Concent 33.4 32.0-36.0 g/dL Red Cell Distribution Width 13.9 11.0-15.5 % Platelet Count 238 130-400 K/uL Mean Platelet Volume 10.4 7.5-10.5 fL Nucleated Red Blood Cells 0.0 0.0-0.19 % Sodium Level 137 136-145 mmol/L Potassium Level 3.9 3.5-5.1 mmol/L Chloride Level 103 101-111 mmol/L Carbon Dioxide Level 27 21-32 mmol/L Blood Urea Nitrogen 21 H 7-18 mg/dL Creatinine 0.8 0.5-1.3 mg/dL Glomerular Filtration Rate Calc 94 >90 mL/min Random Glucose 90 70-105 mg/dL Total Calcium 8.2 L 8.5-10.1 mg/dL Current Medications Medications (Trade) Dose Ordered Sig/Reva Route PRN Reason Start Time Stop Time Status Last Admin Dose Admin Acetaminophen (TYLenol 325MG TAB) 650 mg Q4H PRN PO TEMPERATURE GREATER THAN 101.5 07/04/25 15:30 08/03/25 15:29 Acetaminophen (TYLenol 325MG TAB) 650 mg Q6H PRN PO MILD PAIN (1-3) 07/04/25 15:30 08/03/25 15:29 Albuterol (DUOneb) 1 UDVIAL [id number] IH 12/16/25 18:00 08/03/25 17:59 07/09/25 06:37 1 UDVIAL Aspirin (Aspirin 81mg Ec Tab) 81 mg DAILY PO 07/06/25 09:00 08/05/25 08:59 07/09/25 09:25 81 MG Atorvastatin Calcium (LIPItor 40MG) 40 mg HS PO 07/05/25 21:00 08/04/25 20:59 07/08/25 20:45 40 MG Azithromycin 250 ml @ 250 mls/hr Q24H IVPB 07/04/25 15:30 07/14/25 15:29 07/08/25 16:08 250 MLS/HR Budesonide (Pulmicort 0.5 Mg/2ml) 0.5 mg BIDRESP 07/05/25 18:00 08/04/25 17:59 07/09/25 06:38 0.5 MG Ceftriaxone Sodium (ROCEphine 1G INJ) 1 gm Q24H IVPB 07/05/25 11:30 07/15/25 11:29 07/08/25 11:26 1 GM Dextrose (D50w) 50 ml AD PRN IV HYPOGLYCEMIA PROTOCOL 07/04/25 15:30 08/03/25 15:29 07/04/25 17:29 50 ML Diphenhydramine HCl (BENAdryl CREAM) 1 APPLICATION Q4HPRN PRN TP apply to arm/hand for itching 07/06/25 16:40 08/05/25 16:39 07/07/25 15:57 1 GM Famotidine (Pepcid 20mg Tab) 20 mg BID PO 07/04/25 21:00 08/03/25 20:59 07/09/25 09:25 20 MG Furosemide (LASix 20MG TAB) 20 mg DAILY PO 07/06/25 09:00 08/05/25 08:59 Hold Glucagon (Glucagon 1mg Kit) 1 mg AD PRN IM HYPOGLYCEMIA PROTOCOL 07/04/25 15:30 08/03/25 15:29 Guaifenesin (MUCinex 600 MG TABLET.ER) 600 mg BID PO 07/04/25 21:00 08/03/25 20:59 07/09/25 09:23 600 MG Hydralazine HCl ([id number] TAB) 50 mg BID PO 07/05/25 21:00 08/04/25 20:59 07/09/25 09:24 50 MG Insulin Glargine (LANtus 100 UNITS/ML 10 ML VIAL) 10 units BID@0730,2100 SQ 07/09/25 07:30 08/08/25 07:29 07/09/25 09:34 10 UNITS Insulin Glargine (LANtus 100 UNITS/ML 10 ML VIAL) 15 units BID@0730,2100 SQ 07/08/25 07:30 07/09/25 07:02 DC 07/08/25 20:58 15 UNITS Insulin Glargine (LANtus 100 UNITS/ML 10 ML VIAL) 25 units BID@0730,2100 SQ 07/05/25 21:00 07/08/25 06:32 DC 07/07/25 21:03 25 UNITS Insulin Human Regular (humuLIN R 100 UNIT/ML 3ML) 3 unit TIDAC SQ 07/08/25 07:30 07/09/25 07:02 DC Insulin Human Regular (humuLIN R 100 UNIT/ML 3ML) 5 unit TIDAC SQ 07/09/25 07:30 08/08/25 07:29 Insulin Human Regular (humuLIN R 100 UNIT/ML 3ML) INSULIN SLIDING SCAL... ACHS SQ 07/04/25 16:30 07/08/25 06:30 DC 07/07/25 21:03 3 UNIT Insulin Human Regular (humuLIN R 100 UNIT/ML 3ML) INSULIN SLIDING SCAL... ACHS SQ 07/08/25 07:30 08/07/25 07:29 07/08/25 20:57 6 UNIT Isosorbide Mononitrate (Imdur 30mg Sr) 30 mg DAILY PO 07/06/25 09:00 08/05/25 08:59 07/09/25 09:23 30 MG Methylprednisolone Sodium Succinate (Solu-medROL 125MG) 125 mg Q6H IVP 07/04/25 15:30 08/03/25 15:29 07/09/25 09:26 125 MG Metoprolol Tartrate (loprESSOR) 50 mg HS PO 07/05/25 21:00 08/04/25 20:59 07/08/25 20:46 50 MG Metoprolol Tartrate (loprESSOR) 100 mg DAILY PO 07/06/25 09:00 08/05/25 08:59 07/09/25 09:25 100 MG Montelukast Sodium (SinguLAIR) 10 mg DAILY PO 07/05/25 12:00 08/04/25 11:59 07/09/25 09:25 10 MG Nitroglycerin (Nitrostat) 0.4 mg AD PRN SL CHEST PAIN 07/05/25 11:30 08/04/25 11:29 Ondansetron HCl (zoFRAN 4MG INJ) 4 mg Q6H PRN IVP NAUSEA/VOMITING 07/04/25 15:30 08/03/25 15:29 Tamsulosin HCl (FloMAX) 0.4 mg HS PO 07/05/25 21:00 08/04/25 20:59 07/08/25 20:45 0.4 MG Vitamin B Complex (Vitamin B-12) 1,000 mcg DAILY PO 07/06/25 09:00 08/05/25 08:59 07/09/25 09:25 1,000 MCG DIAGNOSTICS / RADIOLOGY: [ ] ASSESSMENT: [Acute hypoxemic respiratory failure, POA Asthma exacerbation, POA Large hypodense posterior mediastinal mass causing tracheal compression ( CT chest on 07/05/2025) Small left thyroid lobe nodule measuring 1 cm ( CT chest on 07/05/2025) COPD exacerbation POA Leukocytosis with left shift, POA LILI Chronic histories: Diabetes mellitus type 2, , hyperlipidemia, CAD ] PLAN: Asthma exacerbation, POA COPD exacerbation POA On Presentation patient had severe difficulty breathing, unable to talk Patient has been using albuterol inhaler every hour for the past48 hours without relief Chest x-ray showed no acute cardiopulmonary abnormality. Continue Mucinex, DuoNebs, budesonide, montelukast. Continue IV azithromycin, IV Rocephin Continue IV [id number] mg q.6 Pulmonology on board. Large hypodense posterior mediastinal mass causing tracheal compression ( CT chest on 07/05/2025) CT chest showed large hypodense lesion measuring approximately 2.7 x 3 x 7 cm seen in posterior mediastinum, interposed between trach in the esophagus Lesion causing marked extrinsic compression of the trachea with severe luminal narrowing, estimated at approximately 80-90%. CT chest with contrast was recommended but unable to perform as patient is allergic to iodine. EGD with EUS showed normal esophagus and stomach, posterior mediastinal mass. Pulmonology recommended transfer to [facility] for bronchoscopy with EBUS for biopsy of the mass Small left thyroid lobe nodule measuring 1 cm ( CT chest on 07/05/2025) CT chest showed Small left thyroid lobe nodule measuring 1 cm TSH 0.15, T4 1.18, T3 1.22 Endocrinology was consulted for further evaluation LILI On 07/05/2025 BUN 27, creatinine 1.4 Today BUN 21, creatinine 0.8 Avoid NSAIDs, nephrotoxins drugs We will continue to monitor the patient and trend creatinine daily. All home medications were reconciled and resumed GI prophylaxis with Pepcid DVT prophylaxis with SCDs ATTESTATION BY PHYSICIAN I have seen and examined the patient. I reviewed the documentation, medical decision making, and treatment plan as noted by the resident physician above. I agree with the findings and plan of care. AMA GALLO MD, SUNIL MD Jul 09, 2025 11:08
--- NOTE | 2025-07-09 12:23 | PN ---
[facility] PROGRESS NOTE Date Patient Seen: Jul 09, 2025 Time of Visit: 12:01 Supervising Physician: [Dr. 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 Manjeet Love is a 1 year male with a past medical history of diabetes, hypertension, hyperlipidemia, depression, PT as needed presented to the emergency room with a chief complaint of shortness on breath with an onset of ab out a month off and on. Patient [facility] since however he is not getting any resolution of his symptoms. Patient reports he uses his nebulizer continuously at home however in the last 4 hours his symptoms were progressively worse to the point that he was not able to talk without dyspnea. For this reason he decided to come in for further evaluation. We are consulted for asthma exacerbation. Patient is seen and evaluated at the bedside. Patient is sitting up in bed appears weak and noted with difficulty breathing during conversation. At rest, patient is on room air and appears comfortable. No ABGs were requested on admission for baseline. Patient had a chest x-ray on admission which shows no acute cardiopulmonary abnormalities. On exam patient was noted to have decreased breath sounds bilaterally with scattered rhonchi. Patient denies tobacco use, he admits he used to smoke back in the in his early 20s. Patient reports he is being followed by manager loan by the [place] and reports he is currently in been prescribed Wixela however he does not have any relief of his symptoms. He reports he had been having to use his albuterol every hour for the last 48 hours. Recommend continue azithromycin, as well as Rocephin. Short course of high-dose steroids. Duo nebs every 4 hours Pulmicort b.i.d. montelukast daily. PFTs. We will request a CT scan of the chest and a stat ABG for baseline. 07/06 - patient is seen and evaluated at the bedside. Patient is sitting up at the side of the bed accompanied by his . Patient continues to be weak and with dyspnea with minimal exertion. Patient does currently remain on room air with an O2 sat of 99%. Patient had ABGs performed yesterday and results are within normal limits. Patient had a CT of the chest performed and was found to have patchy ground-glass opacities in the left lower lobe associated with atelectasis. Patient was also found to have a large hypodense posterior mediastinal mass causing tracheal compression. Patient was also found to have tiny3 mm solid pulmonary nodule in the right upper lobe patient was also found to have a mildly enlarged thyroid gland with a left thyroid lobe nodule measuring [address] scan with IV contrast however patient is allergic and reports his respiratory status compromised when he receives iodine. Recommend a GI consult for an EGD with biopsy as this would be the best way to prevent respiratory compromise. Recommend consult Endocrinology regarding left thyroid nodule. We will continue to follow with you. 07/07 - patient is seen and evaluated at the bedside. Patient is sitting up in bed accompanied by his . Patient continues to be weak and deconditioned. Patient is currently on room air without signs of dyspnea. Patient does report dyspnea with minimal exertion. No acute changes reported overnight. Patient u nderwent an EGD with EUS however was unsuccessful. Recommendations are to transfer patient to [facility] on Thursday and schedule an EBUS on Thursday with Dr. Gandara. Discussed the plan with both patient and and both agreed to remain in-house and transferred to [facility] on Thursday. Instructed nursing to notify case management to begin working on [facility] for Thursday. 07/08 Patient is evaluated at bedside. He is saturating well on room air. Patient underwent an EUS with findings noted but unable to view mass. The plan is for him to transfer to [facility] for higher level of care and obtain EBUS for furt her evaluation. Case management is working on the same. No changes to medical management. 07/09 Patient is evaluated at bedside. He continues with dysphagia, no current s/s of aspiration. Pending bedside swallow study. He is pending EBUS procedure at [facility] once accepted. Saturating well on room air, continues on high dose steroids. Family at bedside updated on plan of care. PLAN SUMMARY: Pending swallow study Supplemental oxygen as needed Continue DuoNeb Continue Pulmicort Continue azithromycin Continue Rocephin Began tapering Solu-Medrol Case management to arrange [place] [facility] [place] Schedule EBUS on Thursday [facility] with Dr. Gandara REVIEW OF SYSTEMS: 12 point ROS reviewed with patient. Pertinent positives mentioned above. Otherwise negative. PHYSICAL EXAM: GENERAL: alert, weak, awake oriented x 3 HEENT: EOMI, Sclera non icteric, moist mucosa NECK: Supple, no JVD, trachea midline LUNGS: Clear breath sounds bilaterally. No wheezes HEART: Regular rate and rhythm. Normal S1 and S2, without murmurs ABD: Abdomen soft, nontender. Bowel sounds present EXT: No clubbing cyanosis or edema, s/p RLE amputation NEURO: Alert and oriented to person, follows commands Vital Signs (last 8hr) Date Time Temp Pulse Resp B/P (MAP) Pulse Ox O2 Delivery O2 Flow Rate FiO2 07/09/25 09:24 81 133/62 07/09/25 08:26 97.9 83 14 133/62 97 Room Air 07/09/25 06:23 69 20 LABS: Hematology Labs: Test 07/09/25 05:37 Range/Units White Blood Count 10.0 4.8-10.8 K/uL Red Blood Count 4.26 L 4.50-6.20 MIL/uL Hemoglobin 12.5 L 14.0-18.0 g/dL Hematocrit 37.4 L 42-54 % Mean Corpuscular Volume 87.8 79-99 fL Mean Corpuscular Hemoglobin 29.3 27.0-33.0 pg Mean Corpuscular Hemoglobin Concent 33.4 32.0-36.0 g/dL Red Cell Distribution Width 13.9 11.0-15.5 % Platelet Count 238 130-400 K/uL Mean Platelet Volume 10.4 7.5-10.5 fL Nucleated Red Blood Cells 0.0 0.0-0.19 % Chemistry Labs: Test 07/09/25 10:35 07/09/25 05:37 Range/Units Whole Blood Glucose 123 #H 70-110 MG/DL Sodium Level 137 136-145 mmol/L Potassium Level 3.9 3.5-5.1 mmol/L Chloride Level 103 101-111 mmol/L Carbon Dioxide Level 27 21-32 mmol/L Blood Urea Nitrogen 21 H 7-18 mg/dL Creatinine 0.8 0.5-1.3 mg/dL Glomerular Filtration Rate Calc 94 >90 mL/min Random Glucose 90 70-105 mg/dL Total Calcium 8.2 L 8.5-10.1 mg/dL DIAGNOSTICS / RADIOLOGY RESULTS: [ ] PLAN NEURO: Minimize central acting medications as possible. Maintain fall precautions, adequate lighting during the day PULMONARY: Supplemental 02 as needed. Maintain aspiration precautions at all times CARDIOVASCULAR: Follow hemodynamics. Vital signs per facility protocol GI & NUTRITION: Continue with nutritional support. Continue stool softeners and laxatives as needed. KIDNEYS & ELECTROLYTES: Strict monitoring of intake, output and overall fluid balance. Avoid nephrotoxic medications to the extent possible. Medications to be dosed according to renal function. Monitor electrolytes and replace as needed ENDOCRINE: Maintain blood glucose between 100-180 at all times. Hypoglycemia protocol in place INFECTIOUS DISEASE: Trend temperature, WBC and procalcitonin level Follow cultures, deescalate antibiotics as soon as possible. Panculture if new onset fever ONCOLOGY/HEMATOLOGY/COAGULATION: Monitor for s/s of bleeding Monitor hemoglobin, coagulation studies as needed SKIN: Pressure ulcer prevention per facility protocol Specialty mattress ORTHO/REHAB: Continue PT/OT Prophylaxis: Continue GI and DVT prophylaxis Code Status: Full Resuscitation Disposition: [facility] transfer on Thursday ANGEL LUIS GILBERT Jul 09, 2025 12:23
[2025-07-10] VITALS (7 sets, daily range): BP systolic 123–158; BP diastolic 64–82; PULSE 65–81; RESP 16–20; TEMP 97.7–98.4; O2SAT 97–99
--- NOTE | 2025-07-10 05:46 | NUR ---
TRANSFER: CALL PLACED TO [facility], SPOKE WITH SRI. TRANSFER INITIATED TO [facility] FOR EBUS, PER MD ORDER. FACESHEET AND RECENT PROGRESS NOTED FAXED TO #[phone]. PER TRANSFER CENTER, THEY WILL FO[place] [facility] [place].
--- NOTE | 2025-07-10 05:56 | CONS ---
CONSULT NOTE: Vital Signs 07/09/25 07/10/25 20:00 03:48 Temp 98.4 Pulse 67 Resp 20 B/P (MAP) 158/82 Pulse Ox 97 O2 Delivery Room Air O2 Flow Rate 0 Hematology Labs: Test 07/09/25 05:37 Range/Units White Blood Count 10.0 4.8-10.8 K/uL Red Blood Count 4.26 L 4.50-6.20 MIL/uL Hemoglobin 12.5 L 14.0-18.0 g/dL Hematocrit 37.4 L 42-54 % Mean Corpuscular Volume 87.8 79-99 fL Mean Corpuscular Hemoglobin 29.3 27.0-33.0 pg Mean Corpuscular Hemoglobin Concent 33.4 32.0-36.0 g/dL Red Cell Distribution Width 13.9 11.0-15.5 % Platelet Count 238 130-400 K/uL Mean Platelet Volume 10.4 7.5-10.5 fL Nucleated Red Blood Cells 0.0 0.0-0.19 % Chemistry Labs: Test 07/10/25 05:07 07/09/25 05:37 Range/Units Whole Blood Glucose 118 H 70-110 MG/DL Sodium Level 137 136-145 mmol/L Potassium Level 3.9 3.5-5.1 mmol/L Chloride Level 103 101-111 mmol/L Carbon Dioxide Level 27 21-32 mmol/L Blood Urea Nitrogen 21 H 7-18 mg/dL Creatinine 0.8 0.5-1.3 mg/dL Glomerular Filtration Rate Calc 94 >90 mL/min Random Glucose 90 70-105 mg/dL Total Calcium 8.2 L 8.5-10.1 mg/dL Current Medications Medications (Trade) Dose Ordered Sig/Reva Route Start Time Stop Time Status Last Admin Dose Admin Albuterol (DUOneb) 1 UDVIAL [id number] IH 07/04/25 18:00 08/03/25 17:59 07/09/25 23:43 1 UDVIAL Aspirin (Aspirin 81mg Ec Tab) 81 mg DAILY PO 07/06/25 09:00 08/05/25 08:59 07/09/25 09:25 81 MG Atorvastatin Calcium (LIPItor 40MG) 40 mg HS PO 07/05/25 21:00 08/04/25 20:59 07/09/25 22:31 40 MG Azithromycin 250 ml @ 250 mls/hr Q24H IVPB 07/04/25 15:30 07/14/25 15:29 07/09/25 16:57 250 MLS/HR Budesonide (Pulmicort 0.5 Mg/2ml) 0.5 mg BIDRESP IH 07/05/25 18:00 08/04/25 17:59 07/09/25 18:50 0.5 MG Ceftriaxone Sodium (ROCEphine 1G INJ) 1 gm Q24H IVPB 07/05/25 11:30 07/15/25 11:29 07/09/25 12:37 1 GM Famotidine (Pepcid 20mg Tab) 20 mg BID PO 07/04/25 21:00 08/03/25 20:59 07/09/25 22:31 20 MG Furosemide (LASix 20MG TAB) 20 mg DAILY PO 07/06/25 09:00 08/05/25 08:59 Hold Guaifenesin (MUCinex 600 MG TABLET.ER) 600 mg BID PO 07/04/25 21:00 08/03/25 20:59 07/09/25 22:31 600 MG Hydralazine HCl ([id number] TAB) 50 mg BID PO 07/05/25 21:00 08/04/25 20:59 07/09/25 22:31 50 MG Insulin Glargine (LANtus 100 UNITS/ML 10 ML VIAL) 10 units BID@0730,2100 SQ 07/09/25 07:30 07/10/25 05:54 DC 07/09/25 22:45 10 UNITS Insulin Glargine (LANtus 100 UNITS/ML 10 ML VIAL) 15 units BID@0730,2100 SQ 07/08/25 07:30 07/09/25 07:02 DC 07/08/25 20:58 15 UNITS Insulin Glargine (LANtus 100 UNITS/ML 10 ML VIAL) 20 units DAILY08 SQ 07/10/25 08:00 08/08/25 07:29 UNV Insulin Glargine (LANtus 100 UNITS/ML 10 ML VIAL) 25 units BID@0730,2100 SQ 07/05/25 21:00 07/08/25 06:32 DC 07/07/25 21:03 25 UNITS Insulin Human Regular (humuLIN R 100 UNIT/ML 3ML) 3 unit TIDAC SQ 07/08/25 07:30 07/09/25 07:02 DC Insulin Human Regular (humuLIN R 100 UNIT/ML 3ML) 5 unit TIDAC SQ 07/09/25 07:30 08/08/25 07:29 07/09/25 17:04 5 UNIT Insulin Human Regular (humuLIN R 100 UNIT/ML 3ML) INSULIN SLIDING SCAL... ACHS SQ 07/04/25 16:30 07/08/25 06:30 DC 07/07/25 21:03 3 UNIT Insulin Human Regular (humuLIN R 100 UNIT/ML 3ML) INSULIN SLIDING SCAL... ACHS SQ 07/08/25 07:30 08/07/25 07:29 07/09/25 22:45 6 UNIT Isosorbide Mononitrate (Imdur 30mg Sr) 30 mg DAILY PO 07/06/25 09:00 08/05/25 08:59 07/09/25 09:23 30 MG Methylprednisolone Sodium Succinate (Solu-medROL 125MG) 60 mg Q8H IVP 07/09/25 16:00 08/03/25 15:29 07/10/25 00:15 60 MG Methylprednisolone Sodium Succinate (Solu-medROL 125MG) 125 mg Q6H IVP 07/04/25 15:30 07/09/25 15:43 DC 07/09/25 09:26 125 MG Metoprolol Tartrate (loprESSOR) 50 mg HS PO 07/05/25 21:00 08/04/25 20:59 07/09/25 22:31 50 MG Metoprolol Tartrate (loprESSOR) 100 mg DAILY PO 07/06/25 09:00 08/05/25 08:59 07/09/25 09:25 100 MG Montelukast Sodium (SinguLAIR) 10 mg DAILY PO 07/05/25 12:00 08/04/25 11:59 07/09/25 09:25 10 MG Tamsulosin HCl (FloMAX) 0.4 mg HS PO 07/05/25 21:00 08/04/25 20:59 07/09/25 22:31 0.4 MG Vitamin B Complex (Vitamin B-12) 1,000 mcg DAILY PO 07/06/25 09:00 08/05/25 08:59 07/09/25 09:25 1,000 [facility] [place] MD Jul 10, 2025 05:56
[2025-07-10 08:27] LABS: NUCLEATED RED BLOOD CELLS 0.0 % (0.0-0.19); PLATELET COUNT (AUTO) 245.0 K/uL (130-400); RED BLOOD CELL COUNT(AUTO) 4.8 MIL/uL (4.50-6.20); RED CELL DISTRIBUTION WIDTH 13.9 % (11.0-15.5); WHITE BLOOD COUNT (AUTO) 11.0 K/uL (4.8-10.8)
[2025-07-10 08:44] LABS: CREATININE 0.8 mg/dL (0.5-1.3); GLOMERULAR FILTR. RATE CALC 94.0 mL/min (>90); GLUCOSE,RANDOM 118.0 mg/dL (70-105); SODIUM SERUM 140.0 mmol/L (136-145); UREA NITROGEN, BLOOD 27.0 mg/dL (7-18)
[2025-07-10] MEDS: Solu-medROL 40MG VIAL IVP SCH (09:55)
--- NOTE | 2025-07-10 10:30 | NUR ---
TRANSFER , CALL BACK FROM TRANSFER INTAKE NURSE LINDA WITH THE ACCEPTANCE UNDER DR TRUJILLO TO ROOM 1614 PRIMARY NURSE TO CALL REPORT TO [phone] AND EMS WHEN READY. RADHA MARTINI
--- NOTE | 2025-07-10 10:38 | PN ---
[facility] PROGRESS NOTE Date of Service: Jul 10, 2025 Time of Service: 10:37 SUBJECTIVE: 70-year-old male with past medical history , diabetes mellitus type 2, hyperlipidemia, hypertension, depression, PTSD who presented to the emergency department with complaints of shortness of breaths. Patient stated that this shortness of breath has been going on for one month on and off, he uses n ebulizer at home but in the past 24 hours patient's symptoms became progressively worse for which patient started coughing and unable to talk feeling out of breath. In the emergency department, his initial vital signs showed temperature of 98.2 F, pulse 92, respiratory rate 18, blood pressure 177/98, pulse oximetry 96% on room air. Labs reviewed, WBC 11.3, H&H 15 and 46.6, platelet count 324, chloride 100, CO2 33, BUN 20, creatinine 1.1, random glucose 93, magnesium 1.9 since showed glucose of 300. Chest x-ray showed no acute cardiopulmonary abnormality. Patient was referred to the hospitalist for further evaluation and management. 07/05/2025: Patient was seen and evaluated this morning with Dr. Cottrell, family at bedside. He is awake, alert, oriented x3, saturating 98% with2 L nasal cannula. Patient is sitting up in bed appears weak and noted with difficulty breathing during conversation. On examination patient noted to have decreased breath sounds bilaterally with scattered rhonchi. Morning labs showed white count 10.8, H&H 14.9, 45.9 respectively, BUN 27, creatinine 1.4. Patient was started on IV Rocephin, azithromycin, DuoNeb, montelukast, budesonide, high-dose corticosteroids. His home meds were reconciled and resumed. Pending CT chest report. Pulmonology on board, we will continue to follow their recommendations. 07/06/2025: Patient was seen and evaluated this morning, no family at bedside. He is awake, alert, oriented x3, saturating 98% with room air. Patient complains that he still has difficulty breathing, choking while eating, denies any new or worsening symptoms. CT chest showed patchy ground-glass opacity in left lower lobe associated with mild subsegmental atelectasis, large hypodense posterior mediastinal mass causing tracheal compression, tiny 3 mm solid pulmonary nodule in right upper lobe, mildly enlarged heterogeneous thyroid gland with a small left thyroid lobe nodule measuring 1 cm. Pulmonology requested GI consultation possible EGD with biopsy, endocrinology consultation for thyroid nodule. Continue IV antibiotics, IV steroids, DuoNeb, budesonide. We will get bedside swallow eval. Pulmonology on board, we will continue to follow their recommendations. 07/07/2025: Patient was seen and evaluated this morning, no family at bedside. He is awake, alert, oriented x3, saturating 98% with room air. Patient complains that he still has difficulty breathing, choking while eating, denies any new or worsening symptoms. Patient is currently NPO, scheduled for EGD with EUS today. Labs were unremarkable except for white count 11.1, TSH 0.15, T3 1.22. Endocrinology consultation was requested for evaluation of thyroid nodule. We will follow up with the patient after EGD. 07/08/2025: Patient was seen and evaluated this morning, no family at bedside. He is awake, alert, oriented x3, saturating 97% with room air. Patient underwent EGD with EUS yesterday, which shows normal esophagus and stomach without mass, posterior mediastinal mass was seen with EUS. Pulmonology recommended transfer to [facility] for bronchoscopy with EBUS further evaluation with biopsy. Case management working on transfer. Pending bedside swallow eval. 07/09/2025: He was evaluated bedside this morning. No overnight event. He is AAO x3. he do complain of difficulty with breathing which is stable. He is hemodynamically stable. Labs, WBC 10, hemoglobin 12.5, sodium 137, potassium 3 .9, creatinine 0.8. He is currently on Rocephin, azithromycin, [id number] q.6, insulin Lantus 10 units, insulin regular5 units t.i.d. a.c. with sliding scale insulin. Patient going to be transferred to [facility] for EBUS guided workup. Case management working on transfer. Patient on full liquid diet. Endocrinology on board. Rest of the plan as discussed below. REVIEW OF SYSTEMS CONSTITUTIONAL: Denies fevers, chills, or night sweats. Patient had significant weight loss in past 2 months. NEUROLOGICAL: Denies headache, amaurosis fugax, motor weakness, sensory deficit, vertigo/spinning sensation, gait abnormalities, or tremors. ENT: No hearing loss, otalgia, otorrhea, rhinitis, rhinorrhea, hoarseness, or sore throat. CARDIOVASCULAR: Denies any exertional angina, dyspnea on exertion, orthopnea, paroxysmal nocturnal dyspnea, palpitations, life-threatening arrhythmias, claudication. PULMONARY: Difficulty breathing, cough SLEEP: Denies morning headaches, daytime somnolence or napping. Denies difficulty falling asleep, staying asleep, waking from sleep. Denies knowledge of snoring. GASTROINTESTINAL: Denies any type of dysphagia to either liquids or solids. Denies nausea, vomiting, pyrosis, early satiety, abdominal pain, diarrhea, constipation, or changes in stool consistency or caliber. Denies coffee-ground emesis, hematemesis, hematochezia, or melanotic stools. GENITOURINARY: Denies frequency, urgency, nocturia, hematuria or incontinence (Storage/Irritative symptoms.) Low urinary stream, straining to void, urinary intermittency or hesitancy, splitting of the voiding stream, terminal dribbling. ENDOCRINOLOGIC: Denies polyuria, polydipsia, polyphagia or heat/cold intolerances. HEMATOLOGIC: Denies thrombophilia/previous clots, or coagulopathy/bleeding disorders. ONCOLOGIC: Denies personal history of malignancy. DERMATOLOGIC: Denies rashes or pruritus. PSYCHIATRIC: Denies any suicidal or homicidal ideation. Denies hallucinations. PHYSICAL EXAM GENERAL APPEARANCE: The patient is awake, alert, and oriented, in no acute cardiopulmonary distress. NEUROLOGICAL: Cranial nerves II-XII grossly intact. Motor is 5/5 in bilateral upper and lower extremities proximal to distal. No sensory deficits. HEENT: Face is symmetric. Pupils are equal and reactive. Extraocular movements are intact. NECK: Supple. No JVD. No thyromegaly. No submental, submandibular, pre- /postauricular, occipital or supraclavicular lymphadenopathy. CHEST: Normal chest expansion. No Telemetry. LUNGS: Decreased breath sounds with biphasic stridor CARDIOVASCULAR: Regular. S1 and S2 normal. No appreciable rubs, murmurs or gallops. ABDOMEN: Soft, nontender, and nondistended. There is no rebound, voluntary guarding, or rigidity. : Deferred. No Dill. EXTREMITIES: Non-edematous and not cyanotic. No clubbing. Good capillary refill. SKIN: No skin breakdown. Vital Signs (last 8hr) Date Time Temp Pulse Resp B/P (MAP) Pulse Ox O2 Delivery O2 Flow Rate FiO2 07/10/25 09:00 81 123/71 07/10/25 08:20 97.7 81 16 123/71 97 Room Air 0.0 21 07/10/25 06:27 65 18 N/A Room Air 21 07/10/25 06:27 65 18 07/10/25 03:48 98.4 67 20 158/82 97 Room Air LABS: Laboratory: Test 07/10/25 08:12 07/10/25 05:07 Range/Units White Blood Count 11.0 H 4.8-10.8 K/uL Red Blood Count 4.80 4.50-6.20 MIL/uL Hemoglobin 13.9 L 14.0-18.0 g/dL Hematocrit 42.7 42-54 % Mean Corpuscular Volume 89.0 79-99 fL Mean Corpuscular Hemoglobin 29.0 27.0-33.0 pg Mean Corpuscular Hemoglobin Concent 32.6 32.0-36.0 g/dL Red Cell Distribution Width 13.9 11.0-15.5 % Platelet Count 245 130-400 K/uL Mean Platelet Volume 10.3 7.5-10.5 fL Nucleated Red Blood Cells 0.0 0.0-0.19 % Sodium Level 140 136-145 mmol/L Potassium Level 5.3 H 3.5-5.1 mmol/L Chloride Level 104 101-111 mmol/L Carbon Dioxide Level 32 21-32 mmol/L Blood Urea Nitrogen 27 H 7-18 mg/dL Creatinine 0.8 0.5-1.3 mg/dL Glomerular Filtration Rate Calc 94 >90 mL/min Random Glucose 118 H 70-105 mg/dL Total Calcium 8.7 8.5-10.1 mg/dL Whole Blood Glucose 118 H 70-110 MG/DL Current Medications Medications (Trade) Dose Ordered Sig/Reva Route PRN Reason Start Time Stop Time Status Last Admin Dose Admin Acetaminophen (TYLenol 325MG TAB) 650 mg Q4H PRN PO TEMPERATURE GREATER THAN 101.5 07/04/25 15:30 08/03/25 15:29 Acetaminophen (TYLenol 325MG TAB) 650 mg Q6H PRN PO MILD PAIN (1-3) 07/04/25 15:30 08/03/25 15:29 Albuterol (DUOneb) 1 UDVIAL [id number] IH 07/04/25 18:00 08/03/25 17:59 07/10/25 06:27 1 UDVIAL Aspirin (Aspirin 81mg Ec Tab) 81 mg DAILY PO 07/06/25 09:00 08/05/25 08:59 07/09/25 09:25 81 MG Atorvastatin Calcium (LIPItor 40MG) 40 mg HS PO 07/05/25 21:00 08/04/25 20:59 07/09/25 22:31 40 MG Azithromycin 250 ml @ 250 mls/hr Q24H IVPB 07/04/25 15:30 07/14/25 15:29 07/09/25 16:57 250 MLS/HR Budesonide (Pulmicort 0.5 Mg/2ml) 0.5 mg BIDRESP 07/05/25 18:00 08/04/25 17:59 07/10/25 06:27 0.5 MG Ceftriaxone Sodium (ROCEphine 1G INJ) 1 gm Q24H IVPB 07/05/25 11:30 07/15/25 11:29 07/09/25 12:37 1 GM Dextrose (D50w) 50 ml AD PRN IV HYPOGLYCEMIA PROTOCOL 07/04/25 15:30 08/03/25 15:29 07/04/25 17:29 50 ML Diphenhydramine HCl (BENAdryl CREAM) 1 APPLICATION Q4HPRN PRN TP apply to arm/hand for itching 07/06/25 16:40 08/05/25 16:39 07/07/25 15:57 1 GM Famotidine (Pepcid 20mg Tab) 20 mg BID PO 07/04/25 21:00 08/03/25 20:59 07/09/25 22:31 20 MG Furosemide (LASix 20MG TAB) 20 mg DAILY PO 07/06/25 09:00 07/10/25 08:29 DC Glucagon (Glucagon 1mg Kit) 1 mg AD PRN IM HYPOGLYCEMIA PROTOCOL 07/04/25 15:30 08/03/25 15:29 Guaifenesin (MUCinex 600 MG TABLET.ER) 600 mg BID PO 07/04/25 21:00 08/03/25 20:59 07/09/25 22:31 600 MG Hydralazine HCl ([id number] TAB) 50 mg BID PO 07/05/25 21:00 08/04/25 20:59 07/09/25 22:31 50 MG Insulin Glargine (LANtus 100 UNITS/ML 10 ML VIAL) 10 units BID@0730,2100 SQ 07/09/25 07:30 07/10/25 05:54 DC 07/09/25 22:45 10 UNITS Insulin Glargine (LANtus 100 UNITS/ML 10 ML VIAL) 15 units BID@0730,2100 SQ 07/08/25 07:30 07/09/25 07:02 DC 07/08/25 20:58 15 UNITS Insulin Glargine (LANtus 100 UNITS/ML 10 ML VIAL) 20 units DAILY08 SQ 07/10/25 08:00 08/08/25 07:29 07/10/25 09:59 20 UNITS Insulin Glargine (LANtus 100 UNITS/ML 10 ML VIAL) 25 units BID@0730,2100 SQ 07/05/25 21:00 07/08/25 06:32 DC 07/07/25 21:03 25 UNITS Insulin Human Regular (humuLIN R 100 UNIT/ML 3ML) 3 unit TIDAC SQ 07/08/25 07:30 07/09/25 07:02 DC Insulin Human Regular (humuLIN R 100 UNIT/ML 3ML) 5 unit TIDAC SQ 07/09/25 07:30 08/08/25 07:29 07/09/25 17:04 5 UNIT Insulin Human Regular (humuLIN R 100 UNIT/ML 3ML) INSULIN SLIDING SCAL... ACHS SQ 07/04/25 16:30 07/08/25 06:30 DC 07/07/25 21:03 3 UNIT Insulin Human Regular (humuLIN R 100 UNIT/ML 3ML) INSULIN SLIDING SCAL... ACHS SQ 07/08/25 07:30 08/07/25 07:29 07/09/25 22:45 6 UNIT Isosorbide Mononitrate (Imdur 30mg Sr) 30 mg DAILY PO 07/06/25 09:00 08/05/25 08:59 07/09/25 09:23 30 MG Methylprednisolone Sodium Succinate (Solu-medROL 40MG) 60 mg Q8H IVP 07/10/25 09:00 08/03/25 15:29 07/10/25 09:55 60 MG Methylprednisolone Sodium Succinate (Solu-medROL 125MG) 60 mg Q8H IVP 07/09/25 16:00 07/10/25 08:30 DC 07/10/25 00:15 60 MG Methylprednisolone Sodium Succinate (Solu-medROL 125MG) 125 mg Q6H IVP 07/04/25 15:30 07/09/25 15:43 DC 07/09/25 09:26 125 MG Metoprolol Tartrate (loprESSOR) 50 mg HS PO 07/05/25 21:00 08/04/25 20:59 07/09/25 22:31 50 MG Metoprolol Tartrate (loprESSOR) 100 mg DAILY PO 07/06/25 09:00 08/05/25 08:59 07/09/25 09:25 100 MG Montelukast Sodium (SinguLAIR) 10 mg DAILY PO 07/05/25 12:00 08/04/25 11:59 07/09/25 09:25 10 MG Nitroglycerin (Nitrostat) 0.4 mg AD PRN SL CHEST PAIN 07/05/25 11:30 08/04/25 11:29 Ondansetron HCl (zoFRAN 4MG INJ) 4 mg Q6H PRN IVP NAUSEA/VOMITING 07/04/25 15:30 08/03/25 15:29 Tamsulosin HCl (FloMAX) 0.4 mg HS PO 07/05/25 21:00 08/04/25 20:59 07/09/25 22:31 0.4 MG Vitamin B Complex (Vitamin B-12) 1,000 mcg DAILY PO 07/06/25 09:00 08/05/25 08:59 07/09/25 09:25 1,000 MCG DIAGNOSTICS / RADIOLOGY: [ ] ASSESSMENT: [Acute hypoxemic respiratory failure, POA Asthma exacerbation, POA Large hypodense posterior mediastinal mass causing tracheal compression ( CT chest on 07/05/2025) Small left thyroid lobe nodule measuring 1 cm ( CT chest on 07/05/2025) COPD exacerbation POA Leukocytosis with left shift, POA LILI Chronic histories: Diabetes mellitus type 2, , hyperlipidemia, CAD ] PLAN: Asthma exacerbation, POA COPD exacerbation POA On Presentation patient had severe difficulty breathing, unable to talk Patient has been using albuterol inhaler every hour for the past48 hours without relief Chest x-ray showed no acute cardiopulmonary abnormality. Continue Mucinex, DuoNebs, budesonide, montelukast. Continue IV azithromycin, IV Rocephin Continue IV [id number] mg q.6 Pulmonology on board. Large hypodense posterior mediastinal mass causing tracheal compression ( CT chest on 07/05/2025) CT chest showed large hypodense lesion measuring approximately 2.7 x 3 x 7 cm seen in posterior mediastinum, interposed between trach in the esophagus Lesion causing marked extrinsic compression of the trachea with severe luminal narrowing, estimated at approximately 80-90%. CT chest with contrast was recommended but unable to perform as patient is allergic to iodine. EGD with EUS showed normal esophagus and stomach, posterior mediastinal mass. Pulmonology recommended transfer to [facility] for bronchoscopy with EBUS for biopsy of the mass Small left thyroid lobe nodule measuring 1 cm ( CT chest on 07/05/2025) CT chest showed Small left thyroid lobe nodule measuring 1 cm TSH 0.15, T4 1.18, T3 1.22 Endocrinology was consulted for further evaluation LILI On 07/05/2025 BUN 27, creatinine 1.4 Today BUN 21, creatinine 0.8 Avoid NSAIDs, nephrotoxins drugs We will continue to monitor the patient and trend creatinine daily. All home medications were reconciled and resumed GI prophylaxis with Pepcid DVT prophylaxis with SCDs ZAIN RUVALCABA MD Jul 10, 2025 10:38
--- NOTE | 2025-07-10 11:27 | NUR ---
NURSE TRANSFER REPORT: CONTACTED [facility] [place] REPORT GIVEN TO JD SHEFFIELD. PER NURSE PATIENT TO GO TO ROOM 1615. EDUCATED ON TRANSFER DUE TO PENDING EBUS. ALL QUESTIONS AND CONCERNS ANSWERED. PENDING DISCHARGE/ TRANSFER ORDERS FROM PROVIDER TO ACTIVATE EMS TRANSPORT.
--- NOTE | 2025-07-10 12:07 | DS ---
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 Manjeet Love is a 1 year male with a past medical history of diabetes, hypertension, hyperlipidemia, depression, PT as needed presented to the emergency room with a chief complaint of shortness on breath with an onset of about a month off and on. [facility] since however he is not getting any resolution of his symptoms. Patient reports he uses his nebulizer continuously at home however in the last 4 hours his symptoms were progressively worse to the point that he was not able to talk without dyspnea. For this reason he decided to come in for further evaluation. We are consulted for asthma exacerbation. Patient is seen and evaluated at the bedside. Patient is sitting up in bed appears weak and noted with difficulty breathing during conversation. At rest, patient is on room air and appears comfortable. No ABGs were requested on admission for baseline. Patient had a chest x-ray on admission which shows no acute cardiopulmonary abnormalities. On exam patient was noted to have decreased breath sounds bilaterally with scattered rhonchi. Patient denies tobacco use, he admits he used to smoke back in the in his early 20s. Patient reports he is being followed by lab rn by the [facility] and reports he is currently in been prescribed Wixela however he does not have any relief of his symptoms. He reports he had been having to use his albuterol every hour for the last 48 hours. Recommend continue azithromycin, as well as Rocephin. Short course of high-dose steroids. Duo nebs every 4 hours Pulmicort b.i.d. montelukast daily. PFTs. We will request a CT scan of the chest and a stat ABG for baseline. 07/06 - patient is seen and evaluated at the bedside. Patient is sitting up at the side of the bed accompanied by his . Patient continues to be weak and with dyspnea with minimal exertion. Patient does currently remain on room air with an O2 sat of 99%. Patient had ABGs performed yesterday and results are within normal limits. Patient had a CT of the chest performed and was found to have patchy ground-glass opacities in the left lower lobe associated with atelectasis. Patient was also found to have a large hypodense posterior mediastinal mass causing tracheal compression. Patient was also found to have tiny3 mm solid pulmonary nodule in the right upper lobe patient was also found to have a mildly enlarged thyroid gland with a left thyroid lobe nodule measuri ng [address] scan with IV contrast however patient is allergic and reports his respiratory status compromised when he receives iodine. Recommend a GI consult for an EGD with biopsy as this would be the best way to prevent respiratory compromise. Recommend consult Endocrinology regarding left thyroid nodule. We will continue to follow with you. 07/07 - patient is seen and evaluated at the bedside. Patient is sitting up in bed accompanied by his . Patient continues to be weak and deconditioned. Patient is currently on room air without signs of dyspnea. Patient does report dyspnea with minimal exertion. No acute changes reported overnight. Patient underwent an EGD with EUS however was unsuccessful. Recommendations are to transfer patient to [facility] on Thursday and schedule an EBUS on Thursday with Dr. Gandara. Discussed the plan with both patient and and both agreed to remain in-house and transferred to [facility] on Thursday. Instructed nursing to notify case management to begin working on transfer for Thursday. 07/08 Patient is evaluated at bedside. He is saturating well on room air. Patient underwent an EUS with findings noted but unable to view mass. The plan is for him to transfer to [facility] for higher level of care and obtain EBUS for further evaluation. Case management is working on the same. No changes to medical management. 07/09 Patient is evaluated at bedside. He continues with dysphagia, no current s/s of aspiration. Pending bedside swallow study. He is pending EBUS procedure at [facility] once accepted. Saturating well on room air, continues on high dose steroids. Family at bedside updated on plan of care. 07/10 - today patient is seen sitting up in bed remains on room air however does continue with dysphagia. Was informed by nursing as well as case management that patient has been accepted to [facility]. Patient is being transferred to have an EBUS procedure performed secondary to mediastinal mass causing tracheal compression. Patient to continue current medication treatment on transfer. Patient is currently hemodynamically stable. 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 PCP notified of patients admission, hospital course and discharge. Continued Medications: Acetaminophen (Acetaminophen) 325 Mg Tablet 2 TAB PO TIDP PRN for pain or fever for 30 Days, #30 TAB 0 Refills Albuterol Sulfate (Albuterol Sulfate) 2.5 Mg/3 Ml (0.083 %) Vial.neb 1 VIAL NEB Q6HPRN PRN for wheezing, #150 ML 0 Refills Albuterol Sulfate (Ventolin Hfa) 90 Mcg Hfa.aer.ad 2 PUFF IH Q6HPRN PRN for wheezing for 30 Days, #18 GM 0 Refills Aspirin (Aspirin 81 Mg Ectab) 81 Mg Ectab 81 MG PO DAILY, TAB.EC Atorvastatin Calcium (Atorvastatin Calcium) 80 Mg Tablet 40 MG PO HS, TAB Benzonatate (Tessalon Perles) 100 Mg Cap 2 CAP PO TID for cough for 5 Days, #60 CAP 0 Refills Buspirone HCl (Buspirone HCl) 10 Mg Tablet 1 TAB PO BID for 30 Days, #60 TAB 0 Refills Ceftriaxone Sodium (Ceftriaxone) 1 Gram Vial 1 GM IM DAILY for 1 Day, #1 GM 0 Refills Cyanocobalamin (Vitamin B-12) (Vitamin B-12) 1,000 Mcg Tablet 1 TAB PO DAILY for 30 Days, #30 TAB 0 Refills Docusate Sodium (Docusate Sodium) 100 Mg Capsule 1 CAP PO BID for constipation for 7 Days, #14 CAP 0 Refills Empagliflozin (Jardiance) 25 Mg Tablet 0.5 TAB PO DAILY for 30 Days, #30 TAB 0 Refills Escitalopram Oxalate (Lexapro) 20 Mg Tablet 0.5 TAB PO DAILY for 4 Days, #30 TAB 0 Refills Fluoxetine HCl (Fluoxetine HCl) 40 Mg Capsule 1 CAP PO DAILY for 30 Days, #30 CAP 0 Refills Fluticasone Propion/Salmeterol (Fluticasone-Salmeterol 250-50) 250 Mcg-50 Mcg/Dose Blst.w.dev 1 PUFF IH BID for 30 Days, #60 EACH 0 Refills Furosemide (Furosemide) 20 Mg Tablet 1 TAB PO DAILY for 30 Days, #30 TAB 0 Refills Glipizide (Glipizide) 10 Mg Tablet 1 TAB PO DAILY for 30 Days, #60 TAB 0 Refills Hydralazine HCl (Hydralazine HCl) 50 Mg Tablet 1 TAB PO BID for 30 Days, #90 TAB 0 Refills Insulin Glargine,Hum.rec.anlog (Lantus Solostar) 100 Unit/Ml (3 Ml) Insuln.pen 25 UNIT SQ BID for 30 Days, ML 0 Refills Ipratropium/Albuterol Sulfate (Combivent Respimat Inhal [place]) 20 Mcg-100 Mcg/Actuation Aer.w.adap 1 PUFF IH QID for 5 Days, #4 GM 0 Refills Isosorbide Mononitrate (Isosorbide Mononitrate ER) 30 Mg Tab.er.24h 1 TAB PO DAILY for 30 Days, #30 TAB 0 Refills Ketorolac Tromethamine (Ketorolac Tromethamine) 0.5 % Drops 1 DROP OU BID for itching, #5 ML 0 Refills Lidocaine (Lidocaine) 5 % Adh..patch 1 PATCH TP DAILY for 30 Days, #30 PATCH 0 Refills Memantine HCl (Memantine HCl) 10 Mg Tablet 1 TAB PO HS for 30 Days, #30 TAB 0 Refills Metformin HCl (Metformin HCl ER) 1,000 Mg Tab.er.24 1 TAB PO BID for 30 Days, #30 TAB 0 Refills Methylprednisolone (Medrol) 4 Mg Tablet 1 TAB PO AD for 6 Days, #21 TAB 0 Refills Metoprolol Tartrate (Metoprolol Tartrate) 100 Mg Tablet 1 TAB PO DAILY for 30 Days, #60 TAB 0 Refills Metoprolol Tartrate (Metoprolol Tartrate) 50 Mg Tablet 1 TAB PO HS for 30 Days, #60 TAB 0 Refills Nitroglycerin (Nitroglycerin) 0.4 Mg Tab.subl 0.4 MG SL AD PRN for CHEST PAIN, TAB.SL Ropinirole HCl (Ropinirole HCl) 2 Mg Tablet 1 TAB PO BID for 30 Days, #30 TAB 0 Refills Semaglutide (Ozempic) 1 Mg/0.75 Ml (4 Mg/3 Ml) Pen.injctr 1 MG SQ QWEEK for 30 Days, #3 ML 0 Refills Tamsulosin HCl (Flomax) 0.4 Mg Cap.er.24h 0.4 MG PO HS, CAPSULE.DR Trazodone HCl (Trazodone HCl) 50 Mg Tablet 1 TAB PO HS for 30 Days, #30 TAB 0 Refills Discontinued Medications: Cefuroxime Axetil (Cefuroxime) 500 Mg Tablet 1 TAB PO BID for 10 Days, #20 TAB 0 Refills PHYSICAL EXAM: GENERAL: alert, weak, awake oriented x 3 HEENT: EOMI, Sclera non icteric, moist mucosa NECK: Supple, no JVD, trachea midline LUNGS: Clear breath sounds bilaterally. No wheezes HEART: Regular rate and rhythm. Normal S1 and S2, without murmurs ABD: Abdomen soft, nontender. Bowel sounds present EXT: No clubbing cyanosis or edema, s/p RLE amputation NEURO: Alert and oriented to person, follows commands FOLLOW-UP: Follow-up with PCP in 2-3 days Pulmonology RECOMMENDATIONS: See Discharge Instructions This case was seen and discussed with my supervising physician. More than 30 minutes spent on discharge process, including evaluation of the patient, dis cussion with nursing staff, medication reconciliation and follow-up appointments ATTESTATION BY PHYSICIAN I have evaluated the patient chart, medical records, and spoke with appropriate staff. I reviewed the documentation, medical decision making, and treatment plan as noted by the mid-level provider above. I agree with the findings and plan of care. Riley Fernandes MD,[facility] [place] Jul 10, 2025 12:07
--- NOTE | 2025-07-10 12:18 | PN ---
[facility] PROGRESS NOTE Date of Service: Jul 10, 2025 Time of Service: 12:18 SUBJECTIVE: 70-year-old male with past medical history , diabetes mellitus type 2, hyperlipidemia, hypertension, depression, PTSD who presented to the emergency department with complaints of shortness of breaths. Patient stated that this shortness of breath has been going on for one month on and off, he uses n ebulizer at home but in the past 24 hours patient's symptoms became progressively worse for which patient started coughing and unable to talk feeling out of breath. In the emergency department, his initial vital signs showed temperature of 98.2 F, pulse 92, respiratory rate 18, blood pressure 177/98, pulse oximetry 96% on room air. Labs reviewed, WBC 11.3, H&H 15 and 46.6, platelet count 324, chloride 100, CO2 33, BUN 20, creatinine 1.1, random glucose 93, magnesium 1.9 since showed glucose of 300. Chest x-ray showed no acute cardiopulmonary abnormality. Patient was referred to the hospitalist for further evaluation and management. 07/05/2025: Patient was seen and evaluated this morning with Dr. Cottrell, family at bedside. He is awake, alert, oriented x3, saturating 98% with2 L nasal cannula. Patient is sitting up in bed appears weak and noted with difficulty breathing during conversation. On examination patient noted to have decreased breath sounds bilaterally with scattered rhonchi. Morning labs showed white count 10.8, H&H 14.9, 45.9 respectively, BUN 27, creatinine 1.4. Patient was started on IV Rocephin, azithromycin, DuoNeb, montelukast, budesonide, high-dose corticosteroids. His home meds were reconciled and resumed. Pending CT chest report. Pulmonology on board, we will continue to follow their recommendations. 07/06/2025: Patient was seen and evaluated this morning, no family at bedside. He is awake, alert, oriented x3, saturating 98% with room air. Patient complains that he still has difficulty breathing, choking while eating, denies any new or worsening symptoms. CT chest showed patchy ground-glass opacity in left lower lobe associated with mild subsegmental atelectasis, large hypodense posterior mediastinal mass causing tracheal compression, tiny 3 mm solid pulmonary nodule in right upper lobe, mildly enlarged heterogeneous thyroid gland with a small left thyroid lobe nodule measuring 1 cm. Pulmonology requested GI consultation possible EGD with biopsy, endocrinology consultation for thyroid nodule. Continue IV antibiotics, IV steroids, DuoNeb, budesonide. We will get bedside swallow eval. Pulmonology on board, we will continue to follow their recommendations. 07/07/2025: Patient was seen and evaluated this morning, no family at bedside. He is awake, alert, oriented x3, saturating 98% with room air. Patient complains that he still has difficulty breathing, choking while eating, denies any new or worsening symptoms. Patient is currently NPO, scheduled for EGD with EUS today. Labs were unremarkable except for white count 11.1, TSH 0.15, T3 1.22. Endocrinology consultation was requested for evaluation of thyroid nodule. We will follow up with the patient after EGD. 07/08/2025: Patient was seen and evaluated this morning, no family at bedside. He is awake, alert, oriented x3, saturating 97% with room air. Patient underwent EGD with EUS yesterday, which shows normal esophagus and stomach without mass, posterior mediastinal mass was seen with EUS. Pulmonology recommended transfer to [facility] for bronchoscopy with EBUS further evaluation with biopsy. Case management working on transfer. Pending bedside swallow eval. 07/09/2025: He was evaluated bedside this morning. No overnight event. He is AAO x3. he do complain of difficulty with breathing which is stable. He is hemodynamically stable. Labs, WBC 10, hemoglobin 12.5, sodium 137, potassium 3 .9, creatinine 0.8. He is currently on Rocephin, azithromycin, [id number] q.6, insulin Lantus 10 units, insulin regular5 units t.i.d. a.c. with sliding scale insulin. Patient going to be transferred to [facility] for EBUS guided workup. Case management working on transfer. Patient on full liquid diet. Endocrinology on board. Rest of the plan as discussed below. 07/10/2025: Patient was seen and evaluated this morning, no family at bedside. He is hemodynamically stable, denies any new or worsening symptoms. Morning labs were unremarkable except for potassium 5.3, we will give1 dose of Lokelma today. Patient will be transferred to [facility] for bronchoscopy with EBUS for further evaluation of posterior mediastinal mass. Rest of plan as discussed below. REVIEW OF SYSTEMS CONSTITUTIONAL: Denies fevers, chills, or night sweats. Patient had significant weight loss in past 2 months. NEUROLOGICAL: Denies headache, amaurosis fugax, motor weakness, sensory deficit, vertigo/spinning sensation, gait abnormalities, or tremors. ENT: No hearing loss, otalgia, otorrhea, rhinitis, rhinorrhea, hoarseness, or sore throat. CARDIOVASCULAR: Denies any exertional angina, dyspnea on exertion, orthopnea, paroxysmal nocturnal dyspnea, palpitations, life-threatening arrhythmias, claudication. PULMONARY: Difficulty breathing, cough SLEEP: Denies morning headaches, daytime somnolence or napping. Denies difficulty falling asleep, staying asleep, waking from sleep. Denies knowledge of snoring. GASTROINTESTINAL: Denies any type of dysphagia to either liquids or solids. Denies nausea, vomiting, pyrosis, early satiety, abdominal pain, diarrhea, constipation, or changes in stool consistency or caliber. Denies coffee-ground emesis, hematemesis, hematochezia, or melanotic stools. GENITOURINARY: Denies frequency, urgency, nocturia, hematuria or incontinence (Storage/Irritative symptoms.) Low urinary stream, straining to void, urinary intermittency or hesitancy, splitting of the voiding stream, terminal dribbling. ENDOCRINOLOGIC: Denies polyuria, polydipsia, polyphagia or heat/cold intolerances. HEMATOLOGIC: Denies thrombophilia/previous clots, or coagulopathy/bleeding disorders. ONCOLOGIC: Denies personal history of malignancy. DERMATOLOGIC: Denies rashes or pruritus. PSYCHIATRIC: Denies any suicidal or homicidal ideation. Denies hallucinations. PHYSICAL EXAM GENERAL APPEARANCE: The patient is awake, alert, and oriented, in no acute cardiopulmonary distress. NEUROLOGICAL: Cranial nerves II-XII grossly intact. Motor is 5/5 in bilateral upper and lower extremities proximal to distal. No sensory deficits. HEENT: Face is symmetric. Pupils are equal and reactive. Extraocular movements are intact. NECK: Supple. No JVD. No thyromegaly. No submental, submandibular, pre- /postauricular, occipital or supraclavicular lymphadenopathy. CHEST: Normal chest expansion. No Telemetry. LUNGS: Decreased breath sounds with biphasic stridor CARDIOVASCULAR: Regular. S1 and S2 normal. No appreciable rubs, murmurs or gallops. ABDOMEN: Soft, nontender, and nondistended. There is no rebound, voluntary guarding, or rigidity. : Deferred. No Dill. EXTREMITIES: Non-edematous and not cyanotic. No clubbing. Good capillary refill. SKIN: No skin breakdown. Vital Signs (last 8hr) Date Time Temp Pulse Resp B/P (MAP) Pulse Ox O2 Delivery O2 Flow Rate FiO2 07/10/25 11:02 71 18 07/10/25 11:01 71 18 N/A Room Air 07/10/25 09:00 81 123/71 07/10/25 08:20 97.7 81 16 123 97 Room Air 0.0 07/10/25 06:27 65 18 N/A Room Air 07/10/25 06:27 65 18 LABS: Laboratory: Test 07/10/25 11:26 07/10/25 08:12 Range/Units Whole Blood Glucose 120 H 70-110 MG/DL White Blood Count 11.0 H 4.8-10.8 K/uL Red Blood Count 4.80 4.50-6.20 MIL/uL Hemoglobin 13.9 L 14.0-18.0 g/dL Hematocrit 42.7 42-54 % Mean Corpuscular Volume 89.0 79-99 fL Mean Corpuscular Hemoglobin 29.0 27.0-33.0 pg Mean Corpuscular Hemoglobin Concent 32.6 32.0-36.0 g/dL Red Cell Distribution Width 13.9 11.0-15.5 % Platelet Count 245 130-400 K/uL Mean Platelet Volume 10.3 7.5-10.5 fL Nucleated Red Blood Cells 0.0 0.0-0.19 % Sodium Level 140 136-145 mmol/L Potassium Level 5.3 H 3.5-5.1 mmol/L Chloride Level 104 101-111 mmol/L Carbon Dioxide Level 32 21-32 mmol/L Blood Urea Nitrogen 27 H 7-18 mg/dL Creatinine 0.8 0.5-1.3 mg/dL Glomerular Filtration Rate Calc 94 >90 mL/min Random Glucose 118 H 70-105 mg/dL Total Calcium 8.7 8.5-10.1 mg/dL Current Medications Medications (Trade) Dose Ordered Sig/Reva Route PRN Reason Start Time Stop Time Status Last Admin Dose Admin Acetaminophen (TYLenol 325MG TAB) 650 mg Q4H PRN PO TEMPERATURE GREATER THAN 101.5 07/04/25 15:30 08/03/25 15:29 Acetaminophen (TYLenol 325MG TAB) 650 mg Q6H PRN PO MILD PAIN (1-3) 07/04/25 15:30 08/03/25 15:29 Albuterol (DUOneb) 1 UDVIAL [id number] IH 07/04/25 18:00 08/03/25 17:59 07/10/25 11:01 1 UDVIAL Aspirin (Aspirin 81mg Ec Tab) 81 mg DAILY PO 07/06/25 09:00 08/05/25 08:59 07/09/25 09:25 81 MG Atorvastatin Calcium (LIPItor 40MG) 40 mg HS PO 07/05/25 21:00 08/04/25 20:59 07/09/25 22:31 40 MG Azithromycin 250 ml @ 250 mls/hr Q24H IVPB 07/04/25 15:30 07/14/25 15:29 07/09/25 16:57 250 MLS/HR Budesonide (Pulmicort 0.5 Mg/2ml) 0.5 mg BIDRESP 07/05/25 18:00 08/04/25 17:59 07/10/25 06:27 0.5 MG Ceftriaxone Sodium (ROCEphine 1G INJ) 1 gm Q24H IVPB 07/05/25 11:30 07/15/25 11:29 07/10/25 11:52 1 GM Dextrose (D50w) 50 ml AD PRN IV HYPOGLYCEMIA PROTOCOL 07/04/25 15:30 08/03/25 15:29 07/04/25 17:29 50 ML Diphenhydramine HCl (BENAdryl CREAM) 1 APPLICATION Q4HPRN PRN TP apply to arm/hand for itching 07/06/25 16:40 08/05/25 16:39 07/07/25 15:57 1 GM Famotidine (Pepcid 20mg Tab) 20 mg BID PO 07/04/25 21:00 08/03/25 20:59 07/09/25 22:31 20 MG Furosemide (LASix 20MG TAB) 20 mg DAILY PO 07/06/25 09:00 07/10/25 08:29 DC Glucagon (Glucagon 1mg Kit) 1 mg AD PRN IM HYPOGLYCEMIA PROTOCOL 07/04/25 15:30 08/03/25 15:29 Guaifenesin (MUCinex 600 MG TABLET.ER) 600 mg BID PO 07/04/25 21:00 08/03/25 20:59 07/09/25 22:31 600 MG Hydralazine HCl ([id number] TAB) 50 mg BID PO 07/05/25 21:00 08/04/25 20:59 07/09/25 22:31 50 MG Insulin Glargine (LANtus 100 UNITS/ML 10 ML VIAL) 10 units BID@0730,2100 SQ 07/09/25 07:30 07/10/25 05:54 DC 07/09/25 22:45 10 UNITS Insulin Glargine (LANtus 100 UNITS/ML 10 ML VIAL) 15 units BID@0730,2100 SQ 07/08/25 07:30 07/09/25 07:02 DC 07/08/25 20:58 15 UNITS Insulin Glargine (LANtus 100 UNITS/ML 10 ML VIAL) 20 units DAILY08 SQ 07/10/25 08:00 08/08/25 07:29 07/10/25 09:59 20 UNITS Insulin Glargine (LANtus 100 UNITS/ML 10 ML VIAL) 25 units BID@0730,2100 SQ 07/05/25 21:00 07/08/25 06:32 DC 07/07/25 21:03 25 UNITS Insulin Human Regular (humuLIN R 100 UNIT/ML 3ML) 3 unit TIDAC SQ 07/08/25 07:30 07/09/25 07:02 DC Insulin Human Regular (humuLIN R 100 UNIT/ML 3ML) 5 unit TIDAC SQ 07/09/25 07:30 08/08/25 07:29 07/10/25 11:51 5 UNIT Insulin Human Regular (humuLIN R 100 UNIT/ML 3ML) INSULIN SLIDING SCAL... ACHS SQ 07/04/25 16:30 07/08/25 06:30 DC 07/07/25 21:03 3 UNIT Insulin Human Regular (humuLIN R 100 UNIT/ML 3ML) INSULIN SLIDING SCAL... ACHS SQ 07/08/25 07:30 08/07/25 07:29 07/09/25 22:45 6 UNIT Isosorbide Mononitrate (Imdur 30mg Sr) 30 mg DAILY PO 07/06/25 09:00 08/05/25 08:59 07/09/25 09:23 30 MG Methylprednisolone Sodium Succinate (Solu-medROL 40MG) 60 mg Q8H IVP 07/10/25 09:00 08/03/25 15:29 07/10/25 09:55 60 MG Methylprednisolone Sodium Succinate (Solu-medROL 125MG) 60 mg Q8H IVP 07/09/25 16:00 07/10/25 08:30 DC 07/10/25 00:15 60 MG Methylprednisolone Sodium Succinate (Solu-medROL 125MG) 125 mg Q6H IVP 07/04/25 15:30 07/09/25 15:43 DC 07/09/25 09:26 125 MG Metoprolol Tartrate (loprESSOR) 50 mg HS PO 07/05/25 21:00 08/04/25 20:59 07/09/25 22:31 50 MG Metoprolol Tartrate (loprESSOR) 100 mg DAILY PO 07/06/25 09:00 08/05/25 08:59 07/09/25 09:25 100 MG Montelukast Sodium (SinguLAIR) 10 mg DAILY PO 07/05/25 12:00 08/04/25 11:59 07/09/25 09:25 10 MG Nitroglycerin (Nitrostat) 0.4 mg AD PRN SL CHEST PAIN 07/05/25 11:30 08/04/25 11:29 Ondansetron HCl (zoFRAN 4MG INJ) 4 mg Q6H PRN IVP NAUSEA/VOMITING 07/04/25 15:30 08/03/25 15:29 Tamsulosin HCl (FloMAX) 0.4 mg HS PO 07/05/25 21:00 08/04/25 20:59 07/09/25 22:31 0.4 MG Vitamin B Complex (Vitamin B-12) 1,000 mcg DAILY PO 07/06/25 09:00 08/05/25 08:59 07/09/25 09:25 1,000 MCG DIAGNOSTICS / RADIOLOGY: [ ] ASSESSMENT: [Acute hypoxemic respiratory failure, POA Asthma exacerbation, POA Large hypodense posterior mediastinal mass causing tracheal compression ( CT chest on 07/05/2025) Small left thyroid lobe nodule measuring 1 cm ( CT chest on 07/05/2025) COPD exacerbation POA Leukocytosis with left shift, POA LILI Chronic histories: Diabetes mellitus type 2, , hyperlipidemia, CAD ] PLAN: Asthma exacerbation, POA COPD exacerbation POA On Presentation patient had severe difficulty breathing, unable to talk Patient has been using albuterol inhaler every hour for the past48 hours without relief Chest x-ray showed no acute cardiopulmonary abnormality. Continue Mucinex, DuoNebs, budesonide, montelukast. Continue IV azithromycin, IV Rocephin Continue IV methylprednisolone 60 mg Q8 Pulmonology on board. Large hypodense posterior mediastinal mass causing tracheal compression ( CT chest on 07/05/2025) CT chest showed large hypodense lesion measuring approximately 2.7 x 3 x 7 cm seen in posterior mediastinum, interposed between trach in the esophagus Lesion causing marked extrinsic compression of the trachea with severe luminal narrowing, estimated at approximately 80-90%. CT chest with contrast was recommended but unable to perform as patient is allergic to iodine. EGD with EUS showed normal esophagus and stomach, posterior mediastinal mass. Pulmonology recommended transfer to [facility] for bronchoscopy with EBUS for biopsy of the mass Small left thyroid lobe nodule measuring 1 cm ( CT chest on 07/05/2025) CT chest showed Small left thyroid lobe nodule measuring 1 cm TSH 0.15, T4 1.18, T3 1.22 Endocrinology was consulted for further evaluation LILI On 07/05/2025 BUN 27, creatinine 1.4 Today BUN 27, creatinine 0.8 Avoid NSAIDs, nephrotoxins drugs We will continue to monitor the patient and trend creatinine daily. All home medications were reconciled and resumed GI prophylaxis with Pepcid DVT prophylaxis with SCDs ATTESTATION BY PHYSICIAN I have seen and examined the patient. I reviewed the documentation, medical decision making, and treatment plan as noted by the resident physician above. I agree with the findings and plan of care. AMA GALLO MD, ADIL SHAH QUADRI MD Jul 10, 2025 12:18
[2025-07-10] MEDS: NA ZIRCON CYCLOSIL(LOKELMA 10GM) PO ONE (12:41)
--- NOTE | 2025-07-10 13:15 | NUR ---
DISCHARGE: PATIENT DISCHARGED PER ORDERS. ALL BELONGINGS GATHERED AND PATIENT AWAITING FOR EMS TRANSPORT. REPORT ALREADY GIVEN TO [facility] GUEST EXPERIENCE CAPTAIN AND EMS TRANSPORT CONTACTED FOR PICKUP. NO ETA GIVEN.
--- NOTE | 2025-07-10 14:17 | NUR ---
SPEECH NOTE: Orders to evaluate patient continue active as of today since 07/06/2025. No documentations from [employer]ER SERVICES DIRECTOR covering this week seen on EMR. As per other documentations, plan on 07/07/2025 was for patient to be NPO and transferred to [facility]- Thursday. At this time, patient has discharged and is waiting for EMS. Speech therapy services not rendered. Addendum: 07/10/[address] [facility]FREDO YAO Amended: Links added.
--- NOTE | 2025-07-10 14:22 | NUR ---
EMS TRANSPORT: EMS ARRIVED TO TRANSPORT PATIENT TO [place]. ALL BELONGINGS GATHERED AND TAKEN WITH PATIENT. REPROT GIVEN TO EMS PERSONNEL. PATIENT LEFT VIA STRETCHER ALERT AND ORIENTED X 4.
== END 2025-07-10 14:15 | disposition short-term general hospital (02) | DRG 189 ==
LOC: EDH 10:15 → EDHIP 12:06 → 4AH 18:40
PROVIDERS: ADMIT Internal Medicine; ATTEND Internal Medicine
PROC: 0DJ08ZZ Inspection of Upper Intestinal Tract, Via Natural or Artificial Opening Endoscopic (ICD-10-PCS; principal; 2025-07-07)
DX: J96.21 Acute and chronic respiratory failure with hypoxia (principal); J98.59 Other diseases of mediastinum, not elsewhere classified; J44.1 Chronic obstructive pulmonary disease with (acute) exacerbation; J45.901 Unspecified asthma with (acute) exacerbation; E11.9 Type 2 diabetes mellitus without complications; D72.829 Elevated white blood cell count, unspecified; N17.9 Acute kidney failure, unspecified; R65.10 Systemic inflammatory response syndrome (SIRS) of non-infectious origin without acute organ dysfunction; E04.1 Nontoxic single thyroid nodule; I10 Essential (primary) hypertension; F32.A Depression, unspecified; J98.11 Atelectasis; R13.10 Dysphagia, unspecified; E78.5 Hyperlipidemia, unspecified; R91.1 Solitary pulmonary nodule; I25.10 Atherosclerotic heart disease of native coronary artery without angina pectoris; M47.814 Spondylosis without myelopathy or radiculopathy, thoracic region; Z79.4 Long term (current) use of insulin; Z79.51 Long term (current) use of inhaled steroids; Z89.511 Acquired absence of right leg below knee; Z95.1 Presence of aortocoronary bypass graft
CPT/HCPCS: 36415; 36600; 43237; 71045; 71250; 80048; 80053; 80305; 81001; 82803; 82948; 83735; 83880; 84439; 84443; 84481; 84484; 85025; 85027; 87635; 87804; 87880; 93005; 94640; 94664; 99285; A4606; G0378; J0456; J0696; J1815; J2704; J2919; J7030; J7070; A4215; A4221; A4222; A4223; A4657; A4663; A7002; J3490